=== PATIENT | female | born 1935 | race Caucasian/White ===

== ENCOUNTER → 2016-05-12 | Outpatient (CLI) | payer MEDICARE ==
--- NOTE | 2016-05-13 13:35 | XR ---
EXAMINATION TYPE: XR ankle complete LT DATE OF EXAM: 05/12/2016 3:03 PM COMPARISON: NONE HISTORY: Pain and swelling Three views of the ankle demonstrate the ankle mortise to be intact and symmetric. The joint spaces are preserved. The osseous structures are intact. Diffuse osteopenia is seen with soft tissue edema . Large calcaneal spurs and vascular calcification noted. IMPRESSION: 1. No definite acute fracture or dislocation, if symptoms persist follow-up study in 7 to 10 days wou ld be suggested.
--- NOTE | 2016-05-13 13:36 | XR ---
EXAMINATION TYPE: XR foot complete LT DATE OF EXAM: 05/12/2016 3:03 PM COMPARISON: NONE HISTORY: Pain post fall Diffuse osteopenia. Arthropathy of all MTP joints with most marked involving the first digit. Calcifi cation there are seen appear vascular. Hammertoe deformities noted. Calcaneal spurs seen. Arthropathy of the tarsometatarsal junction is seen. IMPRESSION: 1. No acute fracture or dislocation. If symptoms persist, follow-up exam in 7 to 10 days could be ob tained.
== END | disposition home or self-care (01) ==
LOC: RADXRYALE 14:43
PROVIDERS: ATTEND Physician Assistant Medical
DX: M25.572 Pain in left ankle and joints of left foot (principal); M79.672 Pain in left foot

== ENCOUNTER → 2016-05-12 | Outpatient (CLI) | payer MEDICARE ==
--- NOTE | 2016-05-12 16:51 | US ---
EXAMINATION TYPE: US venous doppler duplex LE LT DATE OF EXAM: 05/12/2016 4:26 PM COMPARISON: NONE CLINICAL HISTORY: R60.9 EDEMA. SIDE PERFORMED: Left VESSELS IMAGED: External Iliac Vein (EIV) Common Femoral Vein Deep Femoral Vein Greater Saphenous Vein * Femoral Vein Popliteal Vein Small Saphenous Vein * Proximal Calf Veins (* superficial vessels) TECHNOLOGIST IMPRESSION: Preliminary results called to Mamta at office. Patient sent home. Right Leg: Negative for DVT IMPRESSION: 1. Left lower extremity negative for acute deep venous thrombosis.
== END | disposition home or self-care (01) ==
LOC: RADUSWWP 16:07
PROVIDERS: ATTEND Family Medicine
DX: R60.9 Edema, unspecified (principal)

== ENCOUNTER → 2016-05-31 | Outpatient (CLI) | payer MEDICARE ==
--- NOTE | 2016-06-01 13:20 | XR ---
EXAMINATION TYPE: XR abdomen 2V DATE OF EXAM: 05/31/2016 11:31 AM COMPARISON: 03/03/2015 INDICATION: Right lower quadrant pain TECHNIQUE: Two view abdomen upright and supine positions. FINDINGS: There is a normal bowel gas pattern. Psoas margins are normal. No organomegaly is present. Cholecystectomy clips are present. No suspicious air-fluid levels or differential air-fluid levels ar e present. No free air is present. Degenerative changes within the lumbar spine IMPRESSION: 1. Unremarkable Abdomen 2. Exam is stable from February 2015
== END | disposition home or self-care (01) ==
LOC: RADXRYALE 11:12
PROVIDERS: ATTEND Physician Assistant Medical
DX: R10.31 Right lower quadrant pain (principal)
CPT/HCPCS: 74020

== ENCOUNTER → 2016-06-16 | Outpatient (CLI) | payer MEDICARE ==
--- NOTE | 2016-06-16 13:01 | MR ---
EXAMINATION TYPE: MR lumbar spine wo con DATE OF EXAM: 06/16/2016 12:38 PM COMPARISON: Lumbar spine second of February 2015 HISTORY: other intervertebral disc degeneration lsp, Pain TECHNIQUE: Multiplanar, multisequence images of the lumbar spine were acquired. Artifact is present due to patient's hip arthroplasty. There is a scoliosis as noted on plain film. L umbar vertebral bodies show preserved height. There is multilevel spondylosis with endplate discogeni c marrow signal change and associated loss of disc height and signal at the intervertebral levels wit h multilevel vacuum disc phenomenon. L1-L2: There is facet arthropathy. Circumferential posterior broad-based disc bulge causes mild anter ior mass effect on the thecal sac. Circumferential extension of endplate disc complex results in some foraminal encroachment which is likely contributed by the scoliosis. No significant central stenosis . L2-L3: Broad-based posterior disc bulge causes anterior mass effect on the thecal sac. Facet arthropa thy encroaches on the lateral recesses, circumferential extension of endplate disc complex results in bilateral foraminal encroachment. On mild central stenosis. L3-L4: Circumferential extension of endplate disc complex results in mild anterior mass effect on the thecal sac, bilateral foraminal encroachment is present, there is facet arthropathy with productive ligamentum flavum causing lateral recess stenosis greater on the left. L4-L5: Posterior disc bulge is present, minimal anterolisthesis grade 1 present at L4-5, there is hyp ertrophy of the ligamentum flavum and facet arthropathy causing lateral recess encroachment. Mild ion ateral foraminal encroachment. [place] thecal sac is present, mild central canal stenosis. L5-S1: Posterior broad-based disc bulge causes anterior mass effect on the thecal sac, there may be s ome mass effect on the proximal S1 nerve roots. Facet arthropathy is present. Foraminal encroachment is present bilaterally. No significant central stenosis. Lumbar segments are intact. No paraspinal masses are identified. Conus medullaris has a normal appe arance. There is some atrophy, fatty replacement of the psoas on the right. IMPRESSION: Degenerative disc disease, scoliosis, facet arthropathy, central canal stenosis and foraminal encroac hment as described, additional findings above.
== END ==
LOC: RADMRIMAIN 12:01
PROVIDERS: ATTEND Family Medicine
DX: M51.36 Other intervertebral disc degeneration, lumbar region (principal); M41.9 Scoliosis, unspecified; M46.96 Unspecified inflammatory spondylopathy, lumbar region; M46.97 Unspecified inflammatory spondylopathy, lumbosacral region; M48.06 Spinal stenosis, lumbar region; M51.26 Other intervertebral disc displacement, lumbar region; M51.27 Other intervertebral disc displacement, lumbosacral region; M46.06 Spinal enthesopathy, lumbar region
CPT/HCPCS: 72148

== ENCOUNTER → 2016-08-08 | Outpatient (CLI) | payer MEDICARE ==
[2016-08-08 15:23] LABS: Blood Urea Nitrogen 24 mg/dL (7-17); Non-African American GFR(MDRD) >60 (>60 ml/min/1.73 sqM)
--- NOTE | 2016-08-08 17:21 | MR ---
EXAMINATION TYPE: MR lumbar spine wo/w con DATE OF EXAM: 08/08/2016 4:29 PM COMPARISON: 06/16/2016 HISTORY: LBP x 1 year, no trauma CONTRAST: 15 mL intravenous MultiHance. TECHNIQUE: Multiplanar, multisequence images of the lumbar spine were acquired. FINDINGS: L5-S1: There is loss of disc height is level. There is some left paracentral disc bulge with moderate anterior thecal sac compression. This is likely displacing left S1 nerve root posteriorly. Correlate with left S1 radicular symptoms. This area has increased in size over the interval. L4-L5: There is loss of disc height is level. No significant disc bulge is evident. Facet hypertrophy is present. Posterior lateral thecal sac compression is contributing to lateral canal stenosis. L3-L4: Central disc herniation which extends superiorly has anterior thecal sac compression to modera te degree. Posterior lateral thecal sac compression from ligamentum flavum laxity is present. Spinal canal narrowing is present. Facet hypertrophy is present. Findings are new from July 04, 2016. L2-L3: Broad-based disc endplate changes have moderate anterior thecal sac compression. Facet hypertr ophy is present contributing to spinal canal narrowing. Bilateral foraminal stenosis is present. No spinal canal stenosis. No foraminal stenosis. Neural foramen are patent.. L1-L2: Broad-based disc bulge is present with anterior thecal sac contact. Mild facet hypertrophy wit h ligamentum flavum laxity is present with posterior lateral thecal sac compression. No AP stenosis i s present. Foraminal narrowing is present. T12-L1: No significant disc bulge or disc herniation. No spinal canal stenosis. No foraminal stenos is. Neural foramen are patent.. Degenerative loss of disc height is present at this level. Cord terminates at the inferior T12 level. IMPRESSION: 1. Central disc herniation L3-L4 which appears to been interval change from July 04, 2016. 2. Multilevel degenerative disc changes, endplate changes, facet changes with ligamentum flavum laxit y appears stable from comparison. 3. Spinal canal stenosis from facet hypertrophy and endplate changes is present L3-4 and laterally at L4-5.
== END | disposition home or self-care (01) ==
LOC: RADMRIMAIN 14:53
PROVIDERS: ATTEND Physical Medicine & Rehabilitation
DX: M48.06 Spinal stenosis, lumbar region (principal); M51.26 Other intervertebral disc displacement, lumbar region; M47.816 Spondylosis without myelopathy or radiculopathy, lumbar region; M16.11 Unilateral primary osteoarthritis, right hip; M41.86 Other forms of scoliosis, lumbar region
CPT/HCPCS: 82565; 84520; 72158; A9577

== ENCOUNTER → 2017-10-19 | Outpatient (CLI) | payer MEDICARE ==
--- NOTE | 2017-10-19 15:05 | XR ---
EXAMINATION TYPE: XR abdomen 2V DATE OF EXAM: 10/19/2017 3:01 PM CLINICAL HISTORY: Right flank pain for one week TECHNIQUE: Single upright image of the abdomen is obtained. COMPARISON: 05/31/2016. FINDINGS: Scattered gas is seen in nondilated small bowel loops. Gas and fecal material is seen in no ndilated colon. Moderate amount retained colonic stool is noted within the right hemicolon. There is no visceromegaly, pneumoperitoneum, or abnormal calcification appreciated. Right femoral arthroplast y is partially visualized. Advanced degenerative changes of the spine and left femoral acetabular mona nt are present. Cholecystectomy clips reside within the right upper quadrant. IMPRESSION: Moderate amount retained right hemicolonic stool in an overall nonobstructive bowel gas p attern.
== END | disposition home or self-care (01) ==
LOC: RADXRYALE 14:45
PROVIDERS: ATTEND Physician Assistant Medical
DX: K59.00 Constipation, unspecified (principal)
CPT/HCPCS: 74019

== ENCOUNTER → 2019-04-29 | Outpatient (CLI) | payer MEDICARE ==
--- NOTE | 2019-04-29 14:53 | XR ---
EXAMINATION TYPE: XR chest 2V DATE OF EXAM: 04/29/2019 COMPARISON: Chest x-ray March 28, 2017 HISTORY: Persistent cough. TECHNIQUE: Frontal and lateral views of the chest are obtained. FINDINGS: There is background chronic emphysematous change without suspicious new focal air space op acity, pleural effusion, or pneumothorax seen. The cardiac silhouette size is stable and mildly enla rged with atherosclerotic thoracic aorta. The osseous structures are demineralized. IMPRESSION: Chronic emphysematous change without new suspicious acute pulmonary process.
== END | disposition home or self-care (01) ==
LOC: RADXRYALE 14:27
PROVIDERS: ATTEND Physician Assistant Medical
DX: J43.9 Emphysema, unspecified (principal); R05 Cough
CPT/HCPCS: 71046

== ENCOUNTER → 2019-11-11 | Outpatient (CLI) | payer MEDICARE ==
--- NOTE | 2019-11-11 16:27 | XR ---
EXAMINATION TYPE: XR knee complete RT DATE OF EXAM: 11/11/2019 CLINICAL HISTORY: pain TECHNIQUE: Three views of the right knee are obtained. COMPARISON: None. FINDINGS: There is no acute fracture/dislocation. Total knee arthroplasty with femoral and tibial co mponents appearing well seated. The overlying soft tissue appears unremarkable. IMPRESSION: There is no acute fracture or dislocation.ICD 10 NO FRACTURE, INITIAL EVALUATION
== END | disposition home or self-care (01) ==
LOC: RADXRYALE 16:01
PROVIDERS: ATTEND Physician Assistant Medical
DX: M25.561 Pain in right knee (principal)

== ENCOUNTER → 2022-01-14 | Outpatient (CLI) | payer MEDICARE ==
--- NOTE | 2022-01-14 11:26 | XR ---
"EXAMINATION TYPE: XR hand complete LT DATE OF EXAM: 01/14/2022 CLINICAL HISTORY: Pain after fall injury. TECHNIQUE: Frontal, lateral and oblique images of the left hand are obtained. COMPARISON: None. FINDINGS: Osseous structures are demineralized which is noted to lower radiographic sensitivity. Ther e are are acute minimally displaced fractures through the proximal metaphysis of the fourth and fifth metacarpals Severe narrowing second and third metacarpal phalangeal joints. Moderate to severe narro wing of the PIP and DIP joints of the phalanges. Mild to moderate soft tissue swelling is seen. There is positive ulnar variance. There is advanced triscaphe joint narrowing with endplate sclerosis. Ove rlying vascular calcification is present. Lateral view is suboptimal due to oblique orientation. Adva nced narrowing at base of first metacarpal also present. Overlying vascular calcification is seen. Ca lcification of the triangle fibrocartilage complex suggest underlying chondrocalcinosis. IMPRESSION: Acute minimally displaced fractures through the proximal metaphysis fourth and fifth meta carpals. A Yellow level critical message alert has been initiated for YOGESH Stapleton via the [employer] | Critical Results System on 01/14/2022 8:23 AM. This message alert has been sent to YOGESH Stapleton via the preferences provided by the clinician for the receipt of Radiology Critical Fin ana. Message ID [id number]."
== END | disposition home or self-care (01) ==
LOC: RADXRYALE 10:37
PROVIDERS: ATTEND Physician Assistant Medical
DX: S62.316A Displaced fracture of base of fifth metacarpal bone, right hand, initial encounter for closed fracture (principal)

== ENCOUNTER → 2022-10-06 | Outpatient (CLI) | payer MEDICARE ==
--- NOTE | 2022-10-06 15:57 | XR ---
EXAMINATION TYPE: XR lumbosacral spine min 4V DATE OF EXAM: 10/06/2022 CLINICAL HISTORY: pain COMPARISON: 03-01 TECHNIQUE: Frontal, lateral, and oblique images of the lumbar spine are obtained. FINDINGS: There is rotoscoliosis and convex to the right. There is severe degenerative disc space arlyn rowing as well as bridging osteophytes noted throughout. Correlate for underlying ankylosing spondyli tis. Overall the appearance is stable. No compression fracture or malalignment. IMPRESSION: Osteoarthritis. Correlate for ankylosing spondylitis.
== END | disposition home or self-care (01) ==
LOC: RADXRYALE 14:23
PROVIDERS: ATTEND Physician Assistant Medical
DX: M47.817 Spondylosis without myelopathy or radiculopathy, lumbosacral region (principal); M54.40 Lumbago with sciatica, unspecified side
CPT/HCPCS: 72110

== ENCOUNTER → 2022-10-27 | Outpatient (CLI) | payer MEDICARE ==
--- NOTE | 2022-11-03 12:14 | XR ---
EXAMINATION TYPE: XR knee complete LT DATE OF EXAM: 10/27/2022 CLINICAL HISTORY: pain TECHNIQUE: Three views of the left knee are obtained. COMPARISON: None. FINDINGS: There is no acute fracture/dislocation. Total knee arthroplasty with femoral and tibial co mponents appearing well seated. Vascular calcifications noted. The overlying soft tissue appears unre markable. IMPRESSION: There is no acute fracture or dislocation ICD 10 NO FRACTURE, INITIAL EVALUATION
== END | disposition home or self-care (01) ==
LOC: RADXRYALE 15:02
PROVIDERS: ATTEND Physician Assistant
DX: M25.562 Pain in left knee (principal); Z96.652 Presence of left artificial knee joint

== ENCOUNTER 2022-11-15 10:18 | Inpatient (IN) | payer MEDICARE ==
--- NOTE | 2022-11-15 11:19 | ED ---
General Adult HPI - General Chief complaint: Back Pain/Injury Stated complaint: back pain Time Seen by Provider: 11/15/22 11:04 Source: patient, RN notes reviewed Mode of arrival: ambulatory Limitations: physical limitation - History of Present Illness Initial comments: 87-year-old female presents to the emergency department chief complaint of low back pain. She states that the pain has been going on for about a month now and has been progressively getting worse. She reports that she takes [place] at home for the pain which temporarily revived some relief. She reports the pain is worse with walking and with movement and she is unable to get around well. She reports the pain radiates down her left leg and stops at the knee. She has had no new injury. She reports that she had an MRI done on . Patient denies loss of bowel or bladder function, urinary retention, saddle anesthesia, fever. - Related Data Home Medications Medication Instructions Recorded Confirmed hydrALAZINE HCL [Apresoline] 50 mg PO BID 02/16/15 11/15/22 Ginkgo Biloba [place] Extract [Ginkgo] 60 mg PO DAILY 06/04/15 11/15/22 Alendronate Sodium [Fosamax] 70 mg PO WE 11/15/22 11/15/22 Apixaban [Eliquis] 5 mg PO BID 11/15/22 11/15/22 Cholecalciferol [Vitamin D3 (25 50 mcg PO DAILY 11/15/22 11/15/22 Mcg = 1000 Iu)] Levothyroxine Sodium [Synthroid] 200 mcg PO DAILY 11/15/22 11/15/22 Metoprolol Tartrate [Lopressor] 50 mg PO BID 11/15/22 11/15/22 Simvastatin [Zocor] 20 mg PO HS 11/15/22 11/15/22 amLODIPine [Norvasc] 2.5 mg PO DAILY 11/15/22 11/15/22 calcitrioL [Calcitriol] 0.25 mcg PO MOTUWETHFR 11/15/22 11/15/22 Allergies Allergy/AdvReac Type Severity Reaction Status Date / Time baclofen Allergy Swelling Verified 11/15/22 17:54 OF LIPS AND TONGUE cephalexin [From Keflex] Allergy Rash/Hives Verified 11/15/22 17:54 ciprofloxacin [From Cipro] Allergy Rash/Hives Verified 11/15/22 17:54 Penicillins Allergy Rash/Hives Verified 11/15/22 17:54 Sulfa (Sulfonamide Allergy Rash/Hives Verified 11/15/22 17:54 Antibiotics) tizanidine Allergy Swelling Verified 11/15/22 17:54 OF LIPS AND TONGUE Review of Systems ROS Statement: Those systems with pertinent positive or pertinent negative responses have been documented in the HPI. ROS Other: All systems not noted in ROS Statement are negative. Past Medical History Past Medical History: Cancer, Hyperlipidemia, Hypertension, Thyroid Disorder Additional Past Medical History / Comment(s): BACK PAIN, SKIN CANCER, L4 fracture History of Any Multi-Drug Resistant Organisms: None Reported Past Surgical History: Appendectomy, Cholecystectomy, Joint Replacement, Tonsillectomy Additional Past Surgical History / Comment(s): ELYSE TOTAL KNEE SURG, CARPAL TUNNEL, OOPHERECTOMY, SKIN LESION -VAGANIA, RIGHT FOOT SURGERY Past Anesthesia/Blood Transfusion Reactions: No Reported Reaction Past Psychological History: No Psychological Hx Reported Smoking Status: Never smoker Past Alcohol Use History: Occasional Past Drug Use History: None Reported - Past Family History Son(s) Family Medical History: Cancer Additional Family Medical History / Comment(s): SARCOMA General Exam Limitations: physical limitation General appearance: alert, in no apparent distress Head exam: Present: atraumatic, normocephalic, normal inspection Eye exam: Present: normal appearance ENT exam: Present: normal exam, mucous membranes moist Neck exam: Present: normal inspection. Absent: tenderness, meningismus, lymphadenopathy Respiratory exam: Present: normal lung sounds bilaterally. Absent: respiratory distress, wheezes, rales, rhonchi, stridor Cardiovascular Exam: Present: regular rate, normal rhythm, normal heart sounds. Absent: systolic murmur, diastolic murmur, rubs, gallop, clicks GI/Abdominal exam: Present: soft, normal bowel sounds. Absent: distended, tenderness, guarding, rebound, rigid Extremities exam: Present: normal inspection, normal capillary refill, other (decreased left hip ROM due to back pain). Absent: tenderness, pedal edema, joint swelling, calf tenderness Back exam: Present: tenderness (low lumbar) Neurological exam: Present: alert, oriented X3 Psychiatric exam: Present: normal affect, normal mood Skin exam: Present: warm, dry, intact, normal color. Absent: rash Course Vital Signs 11/15/22 11/15/2223 10:48 15:18 20:00 Temperature 98.8 F 98.2 F 98.0 F Pulse Rate 108 H 83 Pulse Rate [ 80 Bilateral Radial] Pulse Rate [ 80 Pulse Oximetery ] Respiratory 22 17 16 Rate Blood Pressure 152/66 110/73 Blood Pressure 113/69 [Right Arm] O2 Sat by Pulse 997 H 97 97 Oximetry Medical Decision Making - Medical Decision Making Was pt. sent in by a medical professional or institution (, [facility], CLARITY DEVELOPER, urgent care, hospital, or residential...) When possible be specific @ -No Did you speak to anyone other than the patient for history (EMS, parent, family, police, friend...)? What history was obtained from this source @ -No Did you review nursing and triage notes (agree or disagree)? Why? @ -I reviewed and agree with nursing and triage notes Were old charts reviewed (outside hosp., previous admission, EMS record, old EKG, old radiological studies, urgent care reports/EKG's, residential records)? Report findings @ -No old charts were reviewed Differential Diagnosis (chest pain, altered mental status, abdominal pain women, abdominal pain men, vaginal bleeding, weakness, fever, dyspnea, syncope, headache, dizziness, GI bleed, back pain, seizure, CVA, palpatations, mental health, musculoskeletal)? @ -Differential Back Pain: Strain, zoster, cauda equina syndrome, epidural abscess, vertebral osteomyelitis, discitis, fracture, subluxation, disc herniation, DJD, spinal stenosis, dissection, AAA, pancreatitis, peptic ulcer disease, pyelonephritis, kidney stone, this is not meant to be an all-inclusive list. EKG interpreted by me (3pts min.). @ -None X-rays interpreted by me (1pt min.). @ -None done CT interpreted by me (1pt min.). @ -None done U/S interpreted by me (1pt. min.). @ -None done What testing was considered but not performed or refused? (CT, X-rays, U/S, labs)? Why? @ -XR considered but patient had recent MRI without any new trauma What meds were considered but not given or refused? Why? @ -None Did you discuss the management of the patient with other professionals (professionals i.e. , PA, CLARITY DEVELOPER, lab, RT, psych nurse, social service coordinator, setter cold rolling machine, teacher, student officer, case management director)? Give summary @ -Case discussed with Dr. Duarte with [facility] Was smoking cessation discussed for >3mins.? @ -No Was critical care preformed (if so, how long)? @ -No Were there social determinants of health that impacted care today? How? (Homelessness, low income, unemployed, alcoholism, drug addiction, transportation, low edu. Level, literacy, decrease access to med. care, care home, rehab)? @ -No Was there de-escalation of care discussed even if they declined (Discuss DNR or withdrawal of care, Hospice)? DNR status @ -No What co-morbidities impacted this encounter? (DM, HTN, Smoking, COPD, CAD, Cancer, CVA, ARF, Chemo, Hep., AIDS, mental health diagnosis, sleep apnea, morbid obesity)? @ -None Was patient admitted / discharged? Hospital course, mention meds given and route, prescriptions, significant lab abnormalities, going to OR and other per tinent info. @ -Admitted. Patient presented to the emergency department for chief complaint of back pain which is chronic but has been worsening. Patient reports she is unable to get out of bed without assistance. Patient recently underwent MRI on 11/04/22 which showed spinal canal narrowing due to disc bulging and facet hypertrophy; annular tear and disc protrusion at L4-5; endplate spurring disc bulging L2-3 and L1-2 without stenosis interpreted by [facility] radiology. Patient unable to get out of bed without assistance. Basic laboratory studies were obtained on the patient which are pending at time of admission. Case was discussed with Dr. Conley with [facility] who is accepting of the admission with consultation to orthopedics specifically Dr. Alejandra who the patient was scheduled to see, PT, OT. Patient stable at time of admission. Case discussed with my attending, Dr. Ly Undiagnosed new problem with uncertain prognosis? @ -No Drug Therapy requiring intensive monitoring for toxicity (Heparin, Nitro, Insulin, Cardizem)? @ -No Were any procedures done? @ -No Diagnosis/symptom? @ -back pain Acute, or Chronic, or Acute on Chronic? @ -acute Uncomplicated (without systemic symptoms) or Complicated (systemic symptoms)? @ -uncomplicated Side effects of treatment? @ -No Exacerbation, Progression, or Severe Exacerbation? @ -No Poses a threat to life or bodily function? How? (Chest pain, [place], NH, pneumonia, PE, COPD, DKA, ARF, appy, cholecystitis, CVA, Diverticulitis, Homicidal, Suicidal, threat to staff... and all critical care pts) @ -No - Lab Data Result diagrams: 11/15/22 15:09 11/15/22 15:41 Lab Results 11/15/22 11/15/22 Range/Units 15:09 15:09 WBC 16.1 H (3.8-10.6) k/uL RBC 3.51 L (3.80-5.40) m/uL Hgb 12.0 (11.4-16.0) gm/dL Hct 35.4 (34.0-46.0) % MCV 100.7 H (80.0-100.0) fL MCH 34.1 (25.0-35.0) pg MCHC 33.9 (31.0-37.0) g/dL RDW 13.8 (11.5-15.5) % Plt Count 158 (150-450) k/uL MPV 8.8 Neutrophils % 91 % Lymphocytes % 2 % Monocytes % 4 % Eosinophils % 1 % Basophils % 0 % Neutrophils # 14.6 H (1.3-7.7) k/uL Lymphocytes # 0.4 L (1.0-4.8) k/uL Monocytes # 0.7 (0-1.0) k/uL Eosinophils # 0.2 (0-0.7) k/uL Basophils # 0.0 (0-0.2) k/uL Manual Slide Review Performed Macrocytosis Slight Urine Color Light Red Urine Appearance Cloudy H (Clear) Urine pH 5.5 (5.0-8.0) Ur Specific [place] 1.021 (1.001-1.035) Urine Protein 1+ H (Negative) Urine Glucose (UA) Negative (Negative) Urine Ketones Trace H (Negative) Urine Blood Small H (Negative) Urine Nitrite Positive H (Negative) Urine Bilirubin Negative (Negative) Urine Urobilinogen <2.0 (<2.0) mg/dL Ur Leukocyte Esterase Large H (Negative) Urine RBC 1 (0-5) /hpf Urine WBC 50 H (0-5) /hpf Ur Squamous Epith Cells 1 (0-4) /hpf Urine Bacteria Many H (None) /hpf Granular Casts 1 (0) /lpf Disposition Clinical Impression: Back pain Disposition: ADMITTED IP TO THIS HOSP Condition: Stable Is patient prescribed a controlled substance at d/c from ED?: No
[2022-11-15] MEDS ORDERED: LIDOCAINE 5% PATCH TOPICAL STA (11:34)
[2022-11-15] MEDS ORDERED: MORPHINE SULFATE 2 MG/ML SYRINGE IM STA (11:45)
[2022-11-15] MEDS ORDERED: ACETAMINOPHEN TAB 325 MG TAB PO STA (11:45)
[2022-11-15] MEDS ORDERED: NALOXONE 0.4 MG/ML 1 ML VIAL IV PRN (15:10)
[2022-11-15 15:27] LABS: Basophils % (A) 0 %; Eosinophils # (A) 0.2 k/uL (0-0.7); Eosinophils % (A) 1 %; HCT 35.4 % (34.0-46.0); Lymphocytes # (A) 0.4 k/uL (1.0-4.8); Lymphocytes % (A) 2 %; MCH 34.1 pg (25.0-35.0); MCHC 33.9 g/dL (31.0-37.0); MCV 100.7 fL (80.0-100.0); Macrocytosis Slight; Mean Platelet Volume 8.8; Monocytes # (A) 0.7 k/uL (0-1.0); Monocytes % (A) 4 %; Neutrophils # (A) 14.6 k/uL (1.3-7.7); Neutrophils % (A) 91 %; Platelet Count 158 k/uL (150-450); RBC 3.51 m/uL (3.80-5.40); RDW 13.8 % (11.5-15.5); WBC 16.1 k/uL (3.8-10.6)
[2022-11-15 15:33] LABS: Appearance,Urine Cloudy (Clear); Bilirubin,Urine Negative (Negative); Blood,Urine Small (Negative); Color,Urine Light Red; Glucose,Urine (UA) Negative (Negative); Ketones,Urine Trace (Negative); Leukocyte Esterase,Urine Large (Negative); Nitrite,Urine Positive (Negative); PH, Urine 5.5 (5.0-8.0); Protein,Urine 1+ (Negative); Specific Gravity,Urine 1.021 (1.001-1.035); Urobilinogen,Urine <2.0 mg/dL (<2.0)
[2022-11-15 15:38] LABS: RBC,Urine 1 /hpf (0-5); WBC,Urine 50 /hpf (0-5)
[2022-11-15 15:39] LABS: Bacteria,Urine Many /hpf; Granular Casts,Urine 1 /lpf (0); Squamous Epithelial Cell,Urine 1 /hpf (0-4)
[2022-11-15] MEDS: HYDROmorphone 0.5 MG/0.5 ML SYRINGE IVP PRN (16:08)
[2022-11-15 16:11] LABS: ALT 46 U/L (4-34); AST 85 U/L (14-36); African American GFR (CKD) 59 (>60 ml/min/1.73 sqM); Albumin 2.8 g/dL (3.5-5.0); Albumin/Globulin Ratio 1.1; Alkaline Phosphatase 225 U/L (38-126); Anion Gap 9 mmol/L; Blood Urea Nitrogen 39 mg/dL (7-17); Calcium 7.9 mg/dL (8.4-10.2); Carbon Dioxide 23 mmol/L (22-30); Chloride 103 mmol/L (98-107); Globulin 2.5 g/dL; Glucose 104 mg/dL (74-99); Non-African American GFR(CKD) 51 (>60 ml/min/1.73 sqM); Potassium 3.2 mmol/L (3.5-5.1); Sodium 135 mmol/L (137-145); Total Bilirubin 1.7 mg/dL (0.2-1.3); Total Protein 5.3 g/dL (6.3-8.2)
[2022-11-15] MEDS ORDERED: POTASSIUM CHLORIDE ER 20 MEQ TAB.ER PO STA (18:38)
--- NOTE | 2022-11-15 18:45 | P.HPIM ---
History of Present Illness H&P Date: 11/15/22 Patient is a 87-year-old female with PMH of chronic lower back pain, atrial fibrillation, hypertension, hypothyroidism, dyslipidemia presents the ED for worsening back pain. Patient was recently seen at [facility] for back pain. She underwent MRI which showed spinal canal narrowing due to disc bulging and facet hypertrophy, L3-L4, annular tear and disc protrusion centrally L4-L5, endplate spurring and disc bulging L2-L3 and L1-L2, multilevel foraminal narrowing L1-L2, L2-L3, L3-L4. She was given a follow-up appointment with Dr. Alejandra. She presented to the clinic today but realized her appointment was tomorrow. She was unable to get in her car due to pain so family brought her to the ED. Her pain is currently well controlled on Dilaudid as needed. She denies any bladder or bowel incontinence. She denies any saddle anesthesia. In the ED, she was noted to be tachycardic with heart rate in the 100s and BP of 152/66. CBC showed a leukocytosis of 16.1 and MCV of 100.7. CMP showed sodium 135, potassium of 3.2, B1 of 39, glucose 104, calcium of 7.9, total bilirubin 1.7, AST of 85, ALT of 46, alkaline phosphatase of 225. Urinalysis showed positive nitrite and large leukocyte esterase. Pertinent positives and negatives as discussed in HPI, a complete review of systems was performed and all other systems are negative. General: non toxic, no distress, appears at stated age Derm: warm, dry Head: atraumatic, normocephalic, symmetric Eyes: EOMI, no lid lag, anicteric sclera Cardiovascular: S1S2 reg, no murmur Lungs: CTA bilateral, no rhonchi, no rales , no accessory muscle use Abdominal: soft, nontender to palpation, no guarding, no appreciable organomegaly Ext: no gross muscle atrophy, no edema, no contractures Neuro: no focal neuro deficits Psych: Alert, oriented, appropriate affect Acute on chronic lower back pain SIRS Abnormal urinalysis Transaminitis Hypokalemia Based on my assessment of this patient, this patient meets a high complexity level of care. Patient has a chronic lower back pain exacerbation or progression of disease which poses a threat to life or bodily function. She is requiring IV narcotic medication for pain control. Acute on chronic lower back pain: Dilaudid and [place] as needed for severe pain. Fall precautions. Orthopedic surgery consulted. SIRS: Patient meets sepsis criteria with tachycardia, leukocytosis and abnormal urinalysis. She does not complain of dysuria. Start Rocephin 1 g IV daily. Obtain urine culture. Obtain blood culture. Obtain lactic acid. Telemetry monitoring. Her abnormal vital signs could also be related to uncontrolled pain. Abnormal urinalysis: Management as above. Transaminitis: Obtain liver gallbladder ultrasound. Hypokalemia: Replace with potassium chloride 20 mEq by mouth. Patient names her daughter decision maker if she can't make decisions for herself. Patient would like to be full code. I have reviewed the following rural health consultant notes: I have reviewed the results of the following tests: CBC, CMP, urinalysis. MRI done at outside facility. I have ordered the following tests: Gallbladder and liver ultrasound. Urine culture. Lactic acid. Blood culture. I have discussed the care of this patient with the following independent historian: Case was discussed with the patient and daughter at bedside. I have independently interpreted the following test below: I have discussed the management of this patient with the following physician: Case discussed with the ED provider in detail. Past Medical History Past Medical History: Cancer, Hyperlipidemia, Hypertension, Thyroid Disorder Additional Past Medical History / Comment(s): BACK PAIN, SKIN CANCER, L4 fracture History of Any Multi-Drug Resistant Organisms: None Reported Past Surgical History: Appendectomy, Cholecystectomy, Joint Replacement, Tonsillectomy Additional Past Surgical History / Comment(s): ELYSE TOTAL KNEE SURG, CARPAL TUNNEL, OOPHERECTOMY, SKIN LESION -VAGANIA, RIGHT FOOT SURGERY Past Anesthesia/Blood Transfusion Reactions: No Reported Reaction Past Psychological History: No Psychological Hx Reported Smoking Status: Never smoker Past Alcohol Use History: Occasional Past Drug Use History: None Reported - Past Family History Son(s) Family Medical History: Cancer Additional Family Medical History / Comment(s): SARCOMA Medications and Allergies Home Medications Medication Instructions Recorded Confirmed Type hydrALAZINE HCL [Apresoline] 50 mg PO BID 02/16/15 11/15/22 History Ginkgo Biloba [place] Extract [Ginkgo] 60 mg PO DAILY 06/04/15 11/15/22 History Alendronate Sodium [Fosamax] 70 mg PO WE 11/15/22 11/15/22 History Apixaban [Eliquis] 5 mg PO BID 11/15/22 11/15/22 History Cholecalciferol [Vitamin D3 (25 50 mcg PO DAILY 11/15/22 11/15/22 History Mcg = 1000 Iu)] Levothyroxine Sodium [Synthroid] 200 mcg PO DAILY 11/15/22 11/15/22 History Metoprolol Tartrate [Lopressor] 50 mg PO BID 11/15/22 11/15/22 History Simvastatin [Zocor] 20 mg PO HS 11/15/22 11/15/22 History amLODIPine [Norvasc] 2.5 mg PO DAILY 11/15/22 11/15/22 History calcitrioL [Calcitriol] 0.25 mcg PO MOTUWETHFR 11/15/22 11/15/22 History Allergies Allergy/AdvReac Type Severity Reaction Status Date / Time baclofen Allergy Swelling Verified 11/15/22 17:54 OF LIPS AND TONGUE cephalexin [From Keflex] Allergy Rash/Hives Verified 11/15/22 17:54 ciprofloxacin [From Cipro] Allergy Rash/Hives Verified 11/15/22 17:54 Penicillins Allergy Rash/Hives Verified 11/15/22 17:54 Sulfa (Sulfonamide Allergy Rash/Hives Verified 11/15/22 17:54 Antibiotics) tizanidine Allergy Swelling Verified 11/15/22 17:54 OF LIPS AND TONGUE Physical Exam Vitals: Vital Signs Temp Pulse Resp BP Pulse Ox 11/15/22 15:18 98.2 F 83 17 110/73 97 11/15/22 10:48 98.8 F 108 H 22 152/66 997 H Intake and Output 11/15/22 11/15/22 11/15/22 06:59 14:59 22:59 Other: Weight 72.575 kg Results CBC & Chem 7: 11/15/22 15:09 11/15/22 15:41 Labs: Abnormal Lab Results - Last 24 Hours (Table) 11/15/22 11/15/22 11/15/22 Range/Units 15:09 15:09 15:41 WBC 16.1 H (3.8-10.6) k/uL RBC 3.51 L (3.80-5.40) m/uL MCV 100.7 H (80.0-100.0) fL Neutrophils # 14.6 H (1.3-7.7) k/uL Lymphocytes # 0.4 L (1.0-4.8) k/uL Sodium 135 L (137-145) mmol/L Potassium 3.2 L (3.5-5.1) mmol/L BUN 39 H (7-17) mg/dL Glucose 104 H (74-99) mg/dL Calcium 7.9 L (8.4-10.2) mg/dL Total Bilirubin 1.7 H (0.2-1.3) mg/dL AST 85 H (14-36) U/L ALT 46 H (4-34) U/L Alkaline Phosphatase 225 H (38-126) U/L Total Protein 5.3 L (6.3-8.2) g/dL Albumin 2.8 L (3.5-5.0) g/dL Urine Appearance Cloudy H (Clear) Urine Protein 1+ H (Negative) Urine Ketones Trace H (Negative) Urine Blood Small H (Negative) Urine Nitrite Positive H (Negative) Ur Leukocyte Esterase Large H (Negative) Urine WBC 50 H (0-5) /hpf Urine Bacteria Many H (None) /hpf
--- NOTE | 2022-11-15 19:56 | US ---
EXAMINATION TYPE: US abdomen limited DATE OF EXAM: 11/15/2022 COMPARISON: NONE CLINICAL INDICATION: Female, 87 years old with history of transaminitis; transaminitis. Cholecystecto my TECHNIQUE: Multiple sonographic images of the right upper quadrant are obtained. FINDINGS: EXAM MEASUREMENTS: Liver Length: 13.8 cm Gallbladder Wall: Surgically absent CBD: 0.5 cm Right Kidney: 9.9 x 4.8 x 5.1 cm ADOBE LAYER HELPER NOTES: Pancreas: Parts visualized appear wnl. Duct measuring 2.5mm Liver: wnl Gallbladder: Surgically absent Evidence for sonographic Carrizales's sign: No CBD: wnl Right Kidney: wnl Right lobe of the liver is limited due to body habitus IMPRESSION: No evidence for acute process.
[2022-11-15] MEDS: hydrALAZINE HCL 50 MG TAB PO SCH (20:37)
[2022-11-15] MEDS: ATORVASTATIN 10 MG TAB PO SCH (20:37)
[2022-11-15] MEDS: APIXABAN 5 MG TAB PO SCH (20:37)
[2022-11-15] MEDS: METOPROLOL TARTRATE 50 MG TAB PO SCH (20:37)
[2022-11-15] MEDS: HYDROcodone/APAP 5-325MG 1 EACH TAB PO PRN (21:31)
[2022-11-15] MEDS: POTASSIUM CHLORIDE ER 20 MEQ TAB.ER PO SCH (22:01)
[2022-11-16] MEDS: HYDROmorphone 0.5 MG/0.5 ML SYRINGE IVP PRN ×5 (00:38→21:29)
[2022-11-16] MEDS: POTASSIUM CHLORIDE ER 20 MEQ TAB.ER PO SCH (00:38)
[2022-11-16] MEDS: LEVOTHYROXINE 100 MCG TAB PO SCH (06:07)
[2022-11-16 08:17] LABS: HCT 40.3 % (34.0-46.0); MCH 33.1 pg (25.0-35.0); MCHC 32.1 g/dL (31.0-37.0); MCV 103.2 fL (80.0-100.0); Macrocytosis Slight; Mean Platelet Volume 8.9; Platelet Count 176 k/uL (150-450); RBC 3.91 m/uL (3.80-5.40); RDW 13.7 % (11.5-15.5); WBC 13.4 k/uL (3.8-10.6)
[2022-11-16 08:29] LABS: African American GFR (CKD) 57 (>60 ml/min/1.73 sqM); Anion Gap 10 mmol/L; Blood Urea Nitrogen 40 mg/dL (7-17); Calcium 8.4 mg/dL (8.4-10.2); Carbon Dioxide 23 mmol/L (22-30); Chloride 107 mmol/L (98-107); Glucose 100 mg/dL (74-99); Non-African American GFR(CKD) 50 (>60 ml/min/1.73 sqM); Sodium 140 mmol/L (137-145)
[2022-11-16 08:36] LABS: Potassium 6.6 mmol/L (3.5-5.1)
[2022-11-16] MEDS ORDERED: CALCIUM GLUCONATE IN NACL 1 GM in SALINE 1 100ML.BAG IVPB ONE ×2 (09:00→14:00)
[2022-11-16] MEDS ORDERED: DEXAMETHASONE SOD PHOSPHATE 4 MG/ML 1 ML VIAL IVP PRN (09:05)
--- NOTE | 2022-11-16 09:05 | P.CNOR ---
History of Present Illness - [facility] Consult date: 11/16/22 History of present illness: Patient is an 87-year-old female who presented to the emergency department at [facility] with a chief complaint of worsening low back pain and lower extremity radiculopathy. Orthopedics was consulted for low back pain. Patient was seen at bedside this morning lying in semirecumbent position. Patient says her back pain began about 2 months ago one morning when she woke up. Patient denies having any falls/traumas. Patient states it is mostly low back pain with radiation down both lower extremities. It is worse in the left leg. Patient says it goes down from her buttocks all the way down her foot on the left side and goes to her knee on the right lower extremity. Patient says the pain wo rsens when she changes positions like when she goes from lying in bed to sitting at the edge of bed and from sitting to standing. Patient says she has tried to take Johnston at home and he did help at first, however, it is not helping much anymore. Patient says the pain also eases when she does not move. Patient says she has gone to the emergency department twice over the past 2 months at [facility] and did have an MRI within the past week. Patient says she did have a follow-up visit to see Dr. Goodman Yip in office, however, patient says the pain in her low back and down her legs worsen so she came into the ER. Patient states she currently takes eloquence daily due to atrial fibrillation. Patient denies any previous history of stroke/heart attack. Patient says she ruiz s received injections into her back before but it's been over 5 years. These [facility] Patient denies chest pain, fever, shortness of breath, nausea, vomiting, change in vision, loss of bowel/bladder control. Past Medical History Past Medical History: Atrial Fibrillation, Cancer, Hyperlipidemia, Hypertension, Thyroid Disorder Additional Past Medical History / Comment(s): BACK PAIN, SKIN CANCER, L4 fracture History of Any Multi-Drug Resistant Organisms: None Reported Past Surgical History: Appendectomy, Cholecystectomy, Joint Replacement, Tonsillectomy Additional Past Surgical History / Comment(s): ELYSE TOTAL KNEE SURG, CARPAL TUNNEL, OOPHERECTOMY, SKIN LESION -VAGANIA, RIGHT FOOT SURGERY Past Anesthesia/Blood Transfusion Reactions: No Reported Reaction Past Psychological History: No Psychological Hx Reported Smoking Status: Never smoker Past Alcohol Use History: Occasional Past Drug Use History: None Reported - Past Family History Son(s) Family Medical History: Cancer Additional Family Medical History / Comment(s): SARCOMA Medications and Allergies Home Medications Medication Instructions Recorded Confirmed Type hydrALAZINE HCL [Apresoline] 50 mg PO BID 02/16/15 11/15/22 History Ginkgo Biloba [place] Extract [Ginkgo] 60 mg PO DAILY 06/04/15 11/15/22 History Alendronate Sodium [Fosamax] 70 mg PO WE 11/15/22 11/15/22 History Apixaban [Eliquis] 5 mg PO BID 11/15/22 11/15/22 History Cholecalciferol [Vitamin D3 (25 50 mcg PO DAILY 11/15/22 11/15/22 History Mcg = 1000 Iu)] Levothyroxine Sodium [Synthroid] 200 mcg PO DAILY 11/15/22 11/15/22 History Metoprolol Tartrate [Lopressor] 50 mg PO BID 11/15/22 11/15/22 History Simvastatin [Zocor] 20 mg PO HS 11/15/22 11/15/22 History amLODIPine [Norvasc] 2.5 mg PO DAILY 11/15/22 11/15/22 History calcitrioL [Calcitriol] 0.25 mcg PO MOTUWETHFR 11/15/22 11/15/22 History Allergies Allergy/AdvReac Type Severity Reaction Status Date / Time baclofen Allergy Swelling Verified 11/15/22 17:54 OF LIPS AND TONGUE cephalexin [From Keflex] Allergy Rash/Hives Verified 11/15/22 17:54 ciprofloxacin [From Cipro] Allergy Rash/Hives Verified 11/15/22 17:54 Penicillins Allergy Rash/Hives Verified 11/15/22 17:54 Sulfa (Sulfonamide Allergy Rash/Hives Verified 11/15/22 17:54 Antibiotics) tizanidine Allergy Swelling Verified 11/15/22 17:54 OF LIPS AND TONGUE Physical Examination Inspection: Negative for any open fractures, significant ecchymosis/erythema/open wounds. 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 There is also scar over the left ankle from previous surgery. Sensation: Equal, symmetric, bilaterally intact throughout the upper and lower extremities Palpation: Moderate tenderness to patient over the lumbar spine and midline and in the bilateral SI joints. Nontender to palpation throughout rest of exam Range of motion: Patient has full range of motion bilateral upper extremities on exam. Patient does have limited range of motion in bilateral hips in flexion/extension secondary to referred pain from the low back. Patient is able to flex both knees just past 90 while lying in bed in semirecumbent position. Patient has full extension in bilateral knees. There is limited dorsi/plantar flexion in the left ankle likely due to previous surgery. Patient has full range of motion and EHL/FHL bilaterally Motor: 4-/5 in bilateral hips in flexion/extension. 4-/5 in resisted left knee flexion/extension. 4-/5 in resisted plantar flexion bilaterally. 4/5 in all other major motor groups in bilateral lower extremities. Form Setter strength 4/5 bilaterally. 4/5 in all other major motor groups in bilateral upper extremities Special tests: Negative Homans bilaterally. Negative Fred bilaterally. Negative clonus bilaterally Neurovascular: Radial pulse intact, 2+ bilaterally. Cap refill under 3 seconds in digits of upper extremities. Results - Labs Labs: Abnormal Lab Results - Last 24 Hours (Table) 11/15/22 11/15/22 11/15/22 Range/Units 15:09 15:09 15:41 WBC 16.1 H (3.8-10.6) k/uL RBC 3.51 L (3.80-5.40) m/uL MCV 100.7 H (80.0-100.0) fL Neutrophils # 14.6 H (1.3-7.7) k/uL Lymphocytes # 0.4 L (1.0-4.8) k/uL Sodium 135 L (137-145) mmol/L Potassium 3.2 L (3.5-5.1) mmol/L BUN 39 H (7-17) mg/dL Glucose 104 H (74-99) mg/dL Calcium 7.9 L (8.4-10.2) mg/dL Total Bilirubin 1.7 H (0.2-1.3) mg/dL AST 85 H (14-36) U/L ALT 46 H (4-34) U/L Alkaline Phosphatase 225 H (38-126) U/L Total Protein 5.3 L (6.3-8.2) g/dL Albumin 2.8 L (3.5-5.0) g/dL Urine Appearance Cloudy H (Clear) Urine Protein 1+ H (Negative) Urine Ketones Trace H (Negative) Urine Blood Small H (Negative) Urine Nitrite Positive H (Negative) Ur Leukocyte Esterase Large H (Negative) Urine WBC 50 H (0-5) /hpf Urine Bacteria Many H (None) /hpf 11/16/22 11/16/22 Range/Units 08:02 08:02 WBC 13.4 H (3.8-10.6) k/uL RBC (3.80-5.40) m/uL MCV 103.2 H (80.0-100.0) fL Neutrophils # (1.3-7.7) k/uL Lymphocytes # (1.0-4.8) k/uL Sodium (137-145) mmol/L Potassium 6.6 H* (3.5-5.1) mmol/L BUN 40 H (7-17) mg/dL Glucose 100 H (74-99) mg/dL Calcium (8.4-10.2) mg/dL Total Bilirubin (0.2-1.3) mg/dL AST (14-36) U/L ALT (4-34) U/L Alkaline Phosphatase (38-126) U/L Total Protein (6.3-8.2) g/dL Albumin (3.5-5.0) g/dL Urine Appearance (Clear) Urine Protein (Negative) Urine Ketones (Negative) Urine Blood (Negative) Urine Nitrite (Negative) Ur Leukocyte Esterase (Negative) Urine WBC (0-5) /hpf Urine Bacteria (None) /hpf H & H 11/15/22 11/16/22 Range/Units 15:09 08:02 Hgb 12.0 13.0 (11.4-16.0) gm/dL Hct 35.4 40.3 (34.0-46.0) % Result Diagrams: 11/16/22 08:11/16/22 08:02 - Diagnostic results Lumbar MRI with/without contrast: report reviewed, image reviewed (MRI lumbar spine has been reviewed. There is evident stenosis throughout the lumbar spine especially from L3 through L5. There may be a compression fracture at L5. There is also neuroforaminal stenosis on the left side. Positive for lumbar spondylosis; degenerative disc disease) Assessment and Plan Assessment: 1. Low back pain; bilateral lower extremity radiculopathy; lumbar stenosis; degenerative disc disease; lumbar spondylosis Plan: 1. Low back pain; bilateral lower extremity radiculopathy; lumbar stenosis; degenerative disc disease; lumbar spondylosis - MRI lumbar spine has been reviewed. There is evident stenosis throughout the lumbar spine especially from L3 through L5. There may be a compression fracture at L5. There is also neuroforaminal stenosis on the left side. Positive for lumbar spondylosis; degenerative disc disease. Patient does present with some weakness in bilateral lower extremities on exam which does correlate to findings on MRI. Patient does have previous history of lumbar spine steroid injections. Negative for any tensioning signs on exam today at bedside. I will discuss the findings of physical exam and MRI with my attending, Dr. Alejandra before proceeding with any potential orthopedic intervention. Patient does not have any saddle ane sthesia/perineal numbness/tingling. At this time we're not recommending any emergent orthopedic surgical intervention. Patient would benefit from IV steroids due to symptoms. Pain medication as needed. Physical therapy and occupational therapy dailyweightbearing as tolerated walker and assistance as necessary. We'll continue to follow patient during her stay in hospital. 2. Appreciate medical management 3. Pain management - Johnston; Tylenol 4. DVT prophylaxis - eliquis 5. GI prophylaxis recs 6. PT/OT - weightbearing as tolerated with walker and assistance as necessary 7. Encourage incentive spirometer use 8. Appreciate consult Time with Patient: Less than 30
--- NOTE | 2022-11-16 09:09 | XR ---
EXAMINATION TYPE: XR knee complete LT DATE OF EXAM: 11/16/2022 COMPARISON: 10/27/2022 HISTORY: Knee pain TECHNIQUE: 3 view left knee FINDINGS: Tibial and femoral components are present. No acute fractures are evident. No joint effusio n is evident. Patellar appearance is stable. Follow up exams can be performed 7-10 days from acute trauma for continued pain. IMPRESSION: 1. No acute osseous abnormality evident.
[2022-11-16 09:16] LABS: Total Bilirubin 1.7 mg/dL (0.2-1.3)
[2022-11-16] MEDS: hydrALAZINE HCL 50 MG TAB PO SCH ×2 (09:56→20:21)
[2022-11-16] MEDS: APIXABAN 5 MG TAB PO SCH (09:56)
[2022-11-16] MEDS: METOPROLOL TARTRATE 50 MG TAB PO SCH ×2 (09:56→20:21)
[2022-11-16] MEDS: amLODIPine 2.5 MG TAB PO SCH (09:56)
--- NOTE | 2022-11-16 11:03 | CT ---
EXAMINATION TYPE: CT lumbar spine wo con DATE OF EXAM: 11/16/2022 COMPARISON: HISTORY: Low back pain. CT DLP: 823 mGycm CONTRAST: CT scan of the lumbar is performed , patient injected with mL of . TECHNIQUE: CT of the lumbar spine is performed on a spiral scan at 3 mm thick sections. Reconstructed images are performed in the coronal and sagittal planes. FINDINGS: The L5 level appears to be transitional. Careful correlation prior to any surgical interven tion is recommended. The lowest rib level is labeled T12 for this examination. T12-L1: No focal disc herniation or significant disc bulge is evident. No spinal canal stenosis or neural foraminal stenosis is present. L1-L2: There may be some retrolisthesis of L1 on L2. Anterior vertebral body alignment appears preser darlene. AP spinal canal stenosis is not present. There is some anterior thecal sac contact and endplate changes. Some disc material may be associated with endplate changes. Bilateral foraminal stenosis is present. L2-L3: There is loss of disc height is level. Some mild posterior endplate spurring is present with a nterior thecal sac flattening. No AP spinal canal stenosis is present. Moderate right and severe left foraminal stenosis is present. L3-L4: Superior endplate of L4 has some destruction anteriorly. This could be related to degenerative change. Suspicious erosion is not identified. There is sclerosis along the inferior endplate of L3. Posterior endplate spurring is present with moderate anterior thecal sac compression. Spinal canal na rrowing appears to be present. Severe left and right foraminal stenosis present. L4-L5: There is narrowing of disc height. No AP spinal canal stenosis present. Facet hypertrophy with ligamentum flavum laxity contributing to lateral canal narrowing. Foramen appear patent. L5-S1: There is narrowing of the disc height. Endplate spurring may be in the left paracentral region which may be contributing to left foraminal stenosis. No AP spinal canal stenosis is present. IMPRESSION: 1. Spinal canal stenosis L3-4. 2. Lateral canal stenosis present L4-5. 3. Multilevel severe foraminal stenosis present bilaterally discussed above. 4. Superior endplate changes at L4 felt to more likely be related to degenerative Schmorl's node tony ge. However, if there is unexplained pain or clinical concern for discitis, MRI with contrast be vicenta mmended for closer evaluation. 5. Multilevel loss of disc height. 6. There may be an attempted transitional L5 level making labeling more difficult. For purposes of this exam the lowest rib level is labeled T12. Consider plain film correlation prior to surgical inte rvention.
[2022-11-16] MEDS ORDERED: FUROSEMIDE 10 MG/ML 4 ML VIAL IV STA (13:51)
[2022-11-16] MEDS ORDERED: SODIUM CHLORIDE 0.9% 500 ML 500 ML IV ONE (13:51)
[2022-11-16] MEDS ORDERED: DEXTROSE 50% SYRINGE 50 ML IVP STA (13:57)
[2022-11-16] MEDS ORDERED: INSULIN REGULAR 100 UNIT/ML VIAL (IV) IV ONE (13:57)
[2022-11-16] MEDS ORDERED: SODIUM CHLORIDE 0.9% 1,000 ML IV SCH (14:00)
[2022-11-16] MEDS ORDERED: DEXTROSE 50% SYRINGE 50 ML IVP ONE (14:35)
--- NOTE | 2022-11-16 14:47 | P.PN ---
Subjective Progress Note Date: 11/16/22 (Jaime charting seen at 0915) Patient is an 87-year-old female with known chronic low back pain, A. fib, hypertension, hypothyroidism, and dyslipidemia who presented to the ED with worsening back pain. She was initially seen at [facility] and underwent an MRI which showed spinal canal stenosis and disc bulging in multiple locations. Unfortunately her pain worsened and she was unable to weight her outpatient appointment and subsequently she presented to the emergency department. On arrival she was noted to be tachycardic. Initial laboratory analysis showed a leukocytosis of 16.1, MCV 100.7, sodium 135, potassium 3.2, bilirubin 1.7, AST 85, ALT 46, and alkaline phosphatase of 225. Urinalysis showed positive nitrites with large leukocyte esterase. She is admitted for pain control. She was started on Rocephin for possible urinary tract infection. Orthopedic spine surgery was consulted. She received potassium replacement. Patient seen and examined at bedside. She continues to have low back pain that is worse on the left than the right. She has constant pain radiated down the back of her left buttock to her knee. It is worse and she tries to ambulate or move the leg. She does have some right-sided low back pain with intermittent shooting down into the knee but this is not constant. She denies any falls, however she does state that late last week she slid off of her bed and hit her buttock on the floor. At that time her back pain became worse. Denies any difficulty with her bowel or bladder. Vital signs reviewed General: nontoxic, no distress, appears at stated age Cardiovascular: S1S2 reg, no murmur, positive posterior tibial pulse bilateral, Lungs: CTA bilateral, no rhonchi, no rales , no accessory muscle use Abdominal: soft, nontender to palpation, no guarding, no appreciable organomegaly Ext: no gross muscle atrophy, decreased strength left lower extremity however may be secondary to pain, no contractures Neuro: CN II-XI grossly intact, no focal neuro deficits Psych: Alert, oriented, appropriate affect Assessment/ Plan: Intractable back pain with lumbar spinal stenosis L3 through L5 -Case discussed with orthopedic physician assistants. Will await for CT lumbar spine, continue with pain control -[place] 5/325 every 4 hours as needed for pain, continue with Dilaudid 0.5 mg for breakthrough pain. - Stop Eliquis until definitive plan by ortho spine. Left knee pain -X-ray ordered and reviewed. No acute osseous process Hyperkalemia, medication induced -Stat repeat was performed and came back elevated -Lasix 40 mg IV 1, normal saline 500 mL bolus, insulin 10 units once, calcium gluconate 1 g now, D50 after the insulin -Repeat potassium level at 1700 Abnormal urinalysis -Possible urinary tract infection. Continue with Rocephin 1 g daily. Await urine cultures Transaminitis - Liver ultrasound unrevealing. Repeat levels stable. Recommend outpatient follow-up. Service, resolved and likely was secondary to pain. P. atrial fibrillation, rate controlled -Hold Eliquis until final evaluation by orthopedic fine team in case surgery is indicated -Follow heart rate -Continue with metoprolol Chronic: Hypothyroidism Dyslipidemia Hypertension Data Review: Vitals reviewed, patient afebrile the last 24 hours. Vitals within normal limits. Laboratory analysis reviewed with blood cell count 13.4 (down from 16.1), BUN 48, bilirubin 1.7, AST 101, ALT 65, CRP 33.8, potassium 6.6 DVT prophylaxis: Eliquis on hold Anticipated discharge date: Pending clinical course Anticipated discharge place: Pending clinical course This dictation was prepared using [employer] voice recognition software. Though every attempt is made to correct errors during dictation some may still exist. Objective - Vital Signs Vital signs: Vital Signs Temp 97.9 F 11/16/22 14:30 Pulse 84 11/16/22 14:30 Resp 16 11/16/22 14:30 BP 121/67 11/16/22 14:30 Pulse Ox 97 11/16/22 14:30 FiO2 Intake & Output 11/15/22 11/16/22 11/16/22 18:59 06:59 18:59 Intake Total 300 Output Total 25 Balance 300 -25 Weight 72.575 kg 72.575 kg Intake: Intake, IV Titration 50 Amount cefTRIAXone 1 gm In 50 Sodium Chloride 0.9% 50 ml @ 100 mls/hr IVPB Q24HR [facility] Rx#:[id number] Oral 250 Output: Post Void Residual 25 Other: Voiding Method Toilet Toilet External Catheter # Voids 1 - Labs CBC & Chem 7: 11/16/22 08:02 11/16/22 11:19 Labs: Abnormal Lab Results - Last 24 Hours (Table) 11/15/22 11/15/22 11/15/22 Range/Units 15:09 15:09 15:41 WBC 16.1 H (3.8-10.6) k/uL RBC 3.51 L (3.80-5.40) m/uL MCV 100.7 H (80.0-100.0) fL Neutrophils # 14.6 H (1.3-7.7) k/uL Lymphocytes # 0.4 L (1.0-4.8) k/uL ESR (0-20) mm/hr Sodium 135 L (137-145) mmol/L Potassium 3.2 L (3.5-5.1) mmol/L BUN 39 H (7-17) mg/dL Glucose 104 H (74-99) mg/dL Calcium 7.9 L (8.4-10.2) mg/dL Total Bilirubin 1.7 H (0.2-1.3) mg/dL AST 85 H (14-36) U/L ALT 46 H (4-34) U/L Alkaline Phosphatase 225 H (38-126) U/L C-Reactive Protein (<1.0) mg/dL Total Protein 5.3 L (6.3-8.2) g/dL Albumin 2.8 L (3.5-5.0) g/dL Urine Appearance Cloudy H (Clear) Urine Protein 1+ H (Negative) Urine Ketones Trace H (Negative) Urine Blood Small H (Negative) Urine Nitrite Positive H (Negative) Ur Leukocyte Esterase Large H (Negative) Urine WBC 50 H (0-5) /hpf Urine Bacteria Many H (None) /hpf 11/16/22 11/16/22 11/16/22 Range/Units 08:02 08:02 08:02 WBC 13.4 H (3.8-10.6) k/uL RBC (3.80-5.40) m/uL MCV 103.2 H (80.0-100.0) fL Neutrophils # (1.3-7.7) k/uL Lymphocytes # (1.0-4.8) k/uL ESR 82 H (0-20) mm/hr Sodium (137-145) mmol/L Potassium 6.6 H* (3.5-5.1) mmol/L BUN 40 H (7-17) mg/dL Glucose 100 H (74-99) mg/dL Calcium (8.4-10.2) mg/dL Total Bilirubin (0.2-1.3) mg/dL AST (14-36) U/L ALT (4-34) U/L Alkaline Phosphatase (38-126) U/L C-Reactive Protein (<1.0) mg/dL Total Protein (6.3-8.2) g/dL Albumin (3.5-5.0) g/dL Urine Appearance (Clear) Urine Protein (Negative) Urine Ketones (Negative) Urine Blood (Negative) Urine Nitrite (Negative) Ur Leukocyte Esterase (Negative) Urine WBC (0-5) /hpf Urine Bacteria (None) /hpf 11/16/22 11/16/22 11/16/22 Range/Units 08:02 08:02 11:19 WBC (3.8-10.6) k/uL RBC (3.80-5.40) m/uL MCV (80.0-100.0) fL Neutrophils # (1.3-7.7) k/uL Lymphocytes # (1.0-4.8) k/uL ESR (0-20) mm/hr Sodium (137-145) mmol/L Potassium 6.8 H* (3.5-5.1) mmol/L BUN (7-17) mg/dL Glucose (74-99) mg/dL Calcium (8.4-10.2) mg/dL Total Bilirubin 1.7 H (0.2-1.3) mg/dL AST 101 H (14-36) U/L ALT 65 H (4-34) U/L Alkaline Phosphatase (38-126) U/L C-Reactive Protein 33.8 H (<1.0) mg/dL Total Protein (6.3-8.2) g/dL Albumin (3.5-5.0) g/dL Urine Appearance (Clear) Urine Protein (Negative) Urine Ketones (Negative) Urine Blood (Negative) Urine Nitrite (Negative) Ur Leukocyte Esterase (Negative) Urine WBC (0-5) /hpf Urine Bacteria (None) /hpf
[2022-11-16 15:12] VITALS: BMI 31.2
[2022-11-16] MEDS: DEXAMETHASONE SOD PHOSPHATE 4 MG/ML 1 ML VIAL IVP SCH (17:29)
[2022-11-16 17:31] LABS: African American GFR (CKD) 70 (>60 ml/min/1.73 sqM); Anion Gap 12 mmol/L; Blood Urea Nitrogen 37 mg/dL (7-17); Calcium 8.5 mg/dL (8.4-10.2); Carbon Dioxide 19 mmol/L (22-30); Chloride 102 mmol/L (98-107); Glucose 121 mg/dL (74-99); Non-African American GFR(CKD) 61 (>60 ml/min/1.73 sqM); Sodium 133 mmol/L (137-145)
[2022-11-16 17:34] LABS: Potassium 5.6 mmol/L (3.5-5.1)
[2022-11-16] MEDS: ATORVASTATIN 10 MG TAB PO SCH (20:21)
[2022-11-16] MEDS: DEXTROSE 5% IN WATER 1,000 ML with SODIUM BICARB (1 MEQ/ML) 150 ML IV SCH (21:29)
[2022-11-17] MEDS: DEXAMETHASONE SOD PHOSPHATE 4 MG/ML 1 ML VIAL IVP SCH ×5 (00:27→23:05)
[2022-11-17] MEDS: HYDROmorphone 0.5 MG/0.5 ML SYRINGE IVP PRN ×4 (02:57→20:13)
[2022-11-17 03:45] LABS: Glucose,Whole Blood 186 mg/dL (70-110)
[2022-11-17 06:01] LABS: HCT 32.3 % (34.0-46.0); HGB 10.9 gm/dL (11.4-16.0); MCH 33.8 pg (25.0-35.0); MCHC 33.8 g/dL (31.0-37.0); MCV 99.8 fL (80.0-100.0); Mean Platelet Volume 9.3; Platelet Count 163 k/uL (150-450); RBC 3.24 m/uL (3.80-5.40); RDW 13.9 % (11.5-15.5); WBC 12.7 k/uL (3.8-10.6)
[2022-11-17] MEDS: LEVOTHYROXINE 100 MCG TAB PO SCH (06:10)
[2022-11-17 06:16] LABS: ALT 42 U/L (4-34); AST 41 U/L (14-36); African American GFR (CKD) 84 (>60 ml/min/1.73 sqM); Albumin 2.6 g/dL (3.5-5.0); Albumin/Globulin Ratio 1.1; Alkaline Phosphatase 218 U/L (38-126); Anion Gap 7 mmol/L; Blood Urea Nitrogen 32 mg/dL (7-17); Calcium 7.7 mg/dL (8.4-10.2); Carbon Dioxide 24 mmol/L (22-30); Chloride 100 mmol/L (98-107); Globulin 2.4 g/dL; Glucose 176 mg/dL (74-99); Non-African American GFR(CKD) 73 (>60 ml/min/1.73 sqM); Potassium 4.5 mmol/L (3.5-5.1); Sodium 131 mmol/L (137-145); Total Bilirubin 0.9 mg/dL (0.2-1.3)
[2022-11-17 07:31] LABS: Glucose,Whole Blood 165 mg/dL (70-110)
--- NOTE | 2022-11-17 08:26 | P.PN ---
Progress Note - Text Progress Note Date: 11/17/22 CT and MRI are reviewed. This patient has a fracture through what we are calling L4 and she has a transitional segment which is an AO-type B2 fracture and an ankylosed spine. 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 This does require stabilization. The patient per report has been doing okay with her brace however she is on narcotic medications around the clock currently. We did discuss with the patient surgical and nonsurgical options she was amendable to surgical options. The surgery for this would be an open treatment and minimally invasive stabilization of L4 fracture. we would plan on doing this on 11/19/2022 Pending medical clearances.
[2022-11-17] MEDS: METOPROLOL TARTRATE 50 MG TAB PO SCH ×2 (08:37→20:15)
[2022-11-17] MEDS: INSULIN ASPART (NovoLOG) 100 UNIT/ML VIAL SQ SCH ×4 (08:37→20:18)
[2022-11-17] MEDS: hydrALAZINE HCL 50 MG TAB PO SCH ×2 (08:37→20:15)
[2022-11-17] MEDS: amLODIPine 2.5 MG TAB PO SCH (08:37)
[2022-11-17] MEDS: ACETAMINOPHEN TAB 325 MG TAB PO PRN (10:44)
[2022-11-17 12:09] LABS: Glucose,Whole Blood 164 mg/dL (70-110)
[2022-11-17] MEDS: DEXTROSE 5% IN WATER 1,000 ML with SODIUM BICARB (1 MEQ/ML) 150 ML IV SCH (13:39)
--- NOTE | 2022-11-17 14:37 | P.PN ---
Subjective Progress Note Date: 11/17/22 Patient is an 87-year-old female with known chronic low back pain, A. fib, hypertension, hypothyroidism, and dyslipidemia who presented to the ED with worsening back pain. She was initially seen at [facility] and underwent an MRI which showed spinal canal stenosis and disc bulging in multiple locations. Unfortunately her pain worsened and she was unable to weight her outpatient appointment and subsequently she presented to the emergency department. On arrival she was noted to be tachycardic. Initial laboratory analysis showed a leukocytosis of 16.1, MCV 100.7, sodium 135, potassium 3.2, bilirubin 1.7, AST 85, ALT 46, and alkaline phosphatase of 225. Urinalysis showed positive nitrites with large leukocyte esterase. She is admitted for pain control. She was started on Rocephin for possible urinary tract infection. Orthopedic spine surgery was consulted. She received potassium replacement. Per orthopedic surgery, patient will require surgical intervention, scheduled for Sunday 11/19. Patient seen and examined at bedside. Continues to have back pain. Denies any bowel or bladder complaints. Vital signs reviewed General: nontoxic, no distress, appears at stated age Cardiovascular: S1S2 reg, no murmur, positive posterior tibial pulse bilateral, Lungs: CTA bilateral, no rhonchi, no rales , no accessory muscle use Abdominal: soft, nontender to palpation, no guarding, no appreciable organomegaly Ext: no gross muscle atrophy, decreased strength left lower extremity however may be secondary to pain, no contractures Neuro: CN II-XI grossly intact, no focal neuro deficits Psych: Alert, oriented, appropriate affect Assessment/ Plan: Intractable back pain with lumbar spinal stenosis L3 through L5 -Case discussed with orthopedic physician, surgery tentatively scheduled for Monday -Oral Tylenol as needed, no oral [place] as needed, IV Dilaudid as needed -Decadron 4 mg IV every 6 hours -Hold Eliquis Hypoglycemia, possibly steroid-induced -Sliding scale insulin -A1c pending Left knee pain, improving -X-ray shows no acute osseous process Hyperkalemia resolved Suspected urinary tract infection -Continue with Rocephin 1 g daily. Urine positive for gram-negative bacilli Transaminitis - Liver ultrasound unrevealing. Repeat levels stable. Recommend outpatient follow-up. P. atrial fibrillation, rate controlled -Hold Eliquis -Follow heart rate, continue telemetry -Continue with metoprolol Chronic: Hypothyroidism Dyslipidemia Hypertension Data Review: WBC 12.7, hemoglobin 10.9, potassium 4.5, creatinine 0.74, blood sugars range be tween 164-186 DVT prophylaxis: Eliquis on hold Anticipated discharge date: Pending clinical course Anticipated discharge place: Pending clinical course Objective - Vital Signs Vital signs: Vital Signs Temp 97.7 F 11/17/22 13:30 Pulse 80 11/17/22 13:30 Resp 20 11/17/22 13:30 BP 150/83 11/17/22 13:30 Pulse Ox 99 11/17/22 13:30 FiO2 Intake & Output 11/16/22 11/17/22 11/17/22 18:59 06:59 18:59 Intake Total 1100 Output Total 25 Balance 1075 Weight 72.575 kg Intake: Intake, IV Titration 1100 Amount Calcium Gluconate in NaCl 200 1 gm In Saline 1 100ml. bag @ 100 mls/hr IVPB ONCE [facility] Rx#:[id number] Sodium Chloride 0.9% 1, 400 000 ml @ 75 mls/hr IV . [id number] [id number] Rx#:[id number] Sodium Chloride 0.9% 500 500 ml 500 ml @ 999 mls/hr IV .Q31M [facility] Rx#:[id number] Output: Post Void Residual 25 Other: Voiding Method Toilet Toilet Toilet Diaper External Catheter External Catheter # Voids 4 1 - Labs CBC & Chem 7: 11/17/22 05:15 11/17/22 05:15 Labs: Abnormal Lab Results - Last 24 Hours (Table) 11/16/22 11/17/22 11/17/22 Range/Units 17:02 03:43 05:15 WBC 12.7 H (3.8-10.6) k/uL RBC 3.24 L (3.80-5.40) m/uL Hgb 10.9 L (11.4-16.0) gm/dL Hct 32.3 L (34.0-46.0) % Sodium 133 L (137-145) mmol/L Potassium 5.6 H (3.5-5.1) mmol/L Carbon Dioxide 19 L (22-30) mmol/L BUN 37 H (7-17) mg/dL Glucose 121 H (74-99) mg/dL POC Glucose (mg/dL) 186 H (70-110) mg/dL Calcium (8.4-10.2) mg/dL AST (14-36) U/L ALT (4-34) U/L Alkaline Phosphatase (38-126) U/L Total Protein (6.3-8.2) g/dL Albumin (3.5-5.0) g/dL 11/17/22 11/17/22 11/17/22 Range/Units 05:15 07:29 12:07 WBC (3.8-10.6) k/uL RBC (3.80-5.40) m/uL Hgb (11.4-16.0) gm/dL Hct (34.0-46.0) % Sodium 131 L (137-145) mmol/L Potassium (3.5-5.1) mmol/L Carbon Dioxide (22-30) mmol/L BUN 32 H (7-17) mg/dL Glucose 176 H (74-99) mg/dL POC Glucose (mg/dL) 165 H 164 H (70-110) mg/dL Calcium 7.7 L (8.4-10.2) mg/dL AST 41 H (14-36) U/L ALT 42 H (4-34) U/L Alkaline Phosphatase 218 H (38-126) U/L Total Protein 5.0 L (6.3-8.2) g/dL Albumin 2.6 L (3.5-5.0) g/dL Microbiology - Last 24 Hours (Table) 11/15/22 15:05 Urine Culture - Preliminary Urine,Voided Gram Neg Bacilli 11/15/22 20:04 Blood Culture - Preliminary Blood
[2022-11-17 17:04] LABS: Glucose,Whole Blood 172 mg/dL (70-110)
[2022-11-17] MEDS: ATORVASTATIN 10 MG TAB PO SCH (20:15)
[2022-11-17 20:16] LABS: Glucose,Whole Blood 179 mg/dL (70-110)
[2022-11-18] MEDS: HYDROmorphone 0.5 MG/0.5 ML SYRINGE IVP PRN ×4 (03:51→21:50)
[2022-11-18] MEDS: DEXAMETHASONE SOD PHOSPHATE 4 MG/ML 1 ML VIAL IVP SCH ×3 (05:08→17:18)
[2022-11-18] MEDS: DEXTROSE 5% IN WATER 1,000 ML with SODIUM BICARB (1 MEQ/ML) 150 ML IV SCH (05:08)
[2022-11-18] MEDS: LEVOTHYROXINE 100 MCG TAB PO SCH (05:08)
[2022-11-18 07:06] LABS: Glucose,Whole Blood 175 mg/dL (70-110)
[2022-11-18] MEDS: INSULIN ASPART (NovoLOG) 100 UNIT/ML VIAL SQ SCH ×4 (08:00→20:27)
[2022-11-18] MEDS: amLODIPine 2.5 MG TAB PO SCH (08:05)
[2022-11-18] MEDS: METOPROLOL TARTRATE 50 MG TAB PO SCH ×2 (08:05→20:27)
[2022-11-18] MEDS: hydrALAZINE HCL 50 MG TAB PO SCH ×2 (08:05→20:27)
[2022-11-18 09:04] LABS: HCT 32.4 % (37.2-46.3); HGB 11.3 d/dL (12.0-15.0); MCH 32.9 pg (27.0-32.0); MCHC 34.9 d/dL (32.0-37.0); MCV 94.5 FL (80.0-97.0); Mean Platelet Volume 11.8 FL (9.5-12.2); Platelet Count 208 X 10*3/uL (140-440); RBC 3.43 X 10*6/uL (4.10-5.20); RDW 14.6 % (11.5-14.5); WBC 11.21 X 10*3/uL (4.50-10.00)
--- NOTE | 2022-11-18 09:17 | P.PN ---
Subjective Progress Note Date: 11/18/22 Principal diagnosis: Low Back pain Bilateral lower extremity radiculopathy Patient seen and examined this morning. Patient is resting comfortably in bed. No acute events overnight. Patient continues to be ambulatory to restroom with walker. Surgical procedure is scheduled for tomorrow. Patient to remain nothing by mouth after midnight. Patient has been afebrile, no complaint of nausea/vomiting, or chest pain. Objective - Vital Signs Vital signs: Vital Signs Temp 97.9 F 11/18/22 07:07 Pulse 87 11/18/22 07:07 Resp 18 11/18/22 07:07 BP 156/92 11/18/22 07:07 Pulse Ox 97 11/18/22 07:07 FiO2 Intake & Output 11/17/22 11/18/22 11/18/22 18:59 06:59 18:59 Other: Voiding Method Toilet Toilet External Catheter # Voids 1 1 - Exam Inspection: Negative for any open fractures, significant ecchymos is/erythema/open wounds. 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 There is also scar over the left ankle from previous surgery. Sensation: Equal, symmetric, bilaterally intact throughout the upper and lower extremities Palpation: Moderate tenderness to patient over the lumbar spine and midline and in the bilateral SI joints. Nontender to palpation throughout rest of exam Range of motion: Patient has full range of motion bilateral upper extremities on exam. Patient does have limited range of motion in bilateral hips in flexion/extension secondary to referred pain from the low back. Patient is able to flex both knees just past 90 while lying in bed in semirecumbent position. Patient has full extension in bilateral knees. There is limited dorsi/plantar flexion in the left ankle likely due to previous surgery. Patient has full range of motion and EHL/FHL bilaterally Motor: 4-/5 in bilateral hips in flexion/extension. 4-/5 in resisted left knee flexion/extension. 4-/5 in resisted plantar flexion bilaterally. 4/5 in all other major motor groups in bilateral lower extremities. [employer] strength 4/5 bilaterally. 4/5 in all other major motor groups in bilateral upper extremities Special tests: Negative Homans bilaterally. Negative Fred bilaterally. Negative clonus bilaterally Neurovascular: Radial pulse intact, 2+ bilaterally. Cap refill under 3 seconds in digits of upper extremities. - Labs CBC & Chem 7: 11/18/22 05:17 11/17/22 05:15 Labs: Abnormal Lab Results - Last 24 Hours (Table) 11/17/22 11/17/22 11/17/22 Range/Units 12:07 17:02 20:14 POC Glucose (mg/dL) 164 H 172 H 179 H (70-110) mg/dL 11/18/22 Range/Units 07:06 POC Glucose (mg/dL) 175 H (70-110) mg/dL Microbiology - Last 24 Hours (Table) 11/15/22 20:04 Blood Culture - Preliminary Blood 11/15/22 15:05 Urine Culture - Preliminary Urine,Voided Gram Neg Bacilli Assessment and Plan Assessment: 1. L4 AO-type B2 vertebral fracture 2. Ankylosing Spondylitis 3. Bilateral lower extremity radiculopathy Plan: -Appreciate oracle distribution consultant and team management. -NPO at [facility] for surgical procedure scheduled tomorrow 11/19/22 -Activity: As tolerated -Pain control: Adequate at this time -Meds: reviewed -GI ppx: senna, Miralax -DVT PPX: SCDs -Encourage IS 10x/hr -Dispo: Anticipate discharge home tomorrow with homecare *I reviewed and discussed this case with my attending Dr. Alejandra, whom has reviewed this chart and films and is in agreement with assessment and plan of care as outlined above. I have personally seen and examined the patient, performed the documentation and the assessment and plan as written. Number of minutes spent on the visit: 10m.
[2022-11-18 09:20] LABS: Calcium 7.9 mg/dL (8.7-10.3); Carbon Dioxide 26.8 mmol/L (21.6-31.8); Chloride 97 mmol/L (96-109); Glucose 177 mg/dL (70-110); Potassium 4.1 mmol/L (3.5-5.5); Sodium 134 mmol/L (135-145)
[2022-11-18 10:07] LABS: Basophils # (A) 0.01 X 10*3/uL (0.00-0.10); Basophils % (A) 0.1 %; Eosinophils # (A) 0 X 10*3/uL (0.04-0.35); Eosinophils % (A) 0 %; Lymphocytes # (A) 0.26 X 10*3/uL (0.90-5.00); Lymphocytes % (A) 2.3 %; Macrocytosis (M) 2+; Monocytes # (A) 0.65 X 10*3/uL (0.20-1.00); Monocytes % (A) 5.8 %; Neutrophils # (A) 10.17 X 10*3/uL (1.80-7.70); Neutrophils % (A) 90.7 %
[2022-11-18] MEDS: polyethylene glycoL 3350 17 GM POWD.PACK PO SCH (10:15)
[2022-11-18 11:56] LABS: Glucose,Whole Blood 259 mg/dL (70-110)
--- NOTE | 2022-11-18 14:12 | P.PN ---
Subjective Progress Note Date: 11/18/22 Patient is an 87-year-old female with known chronic low back pain, A. fib, hypertension, hypothyroidism, and dyslipidemia who presented to the ED with worsening back pain. She was initially seen at [facility] and underwent an MRI which showed spinal canal stenosis and disc bulging in multiple locations. Unfortunately her pain worsened and she was unable to weight her outpatient appointment and subsequently she presented to the emergency department. On arrival she was noted to be tachycardic. Initial laboratory analysis showed a leukocytosis of 16.1, MCV 100.7, sodium 135, potassium 3.2, bilirubin 1.7, AST 85, ALT 46, and alkaline phosphatase of 225. Urinalysis showed positive nitrites with large leukocyte esterase. She is admitted for pain control. She was started on Rocephin for possible urinary tract infection. Orthopedic spine surgery was consulted. She received potassium replacement. Per orthopedic surgery, patient will require surgical intervention, scheduled for Sunday 11/19. Patient seen and examined at bedside. Continues to have back pain. Denies any bowel or bladder complaints. Vital signs reviewed General: nontoxic, no distress, appears at stated age Cardiovascular: S1S2 reg, no murmur, positive posterior tibial pulse bilateral, Lungs: CTA bilateral, no rhonchi, no rales , no accessory muscle use Abdominal: soft, nontender to palpation, no guarding, no appreciable organomegaly Ext: no gross muscle atrophy, decreased strength left lower extremity however may be secondary to pain, no contractures Neuro: CN II-XI grossly intact, no focal neuro deficits Psych: Alert, oriented, appropriate affect Assessment/ Plan: Intractable back pain with lumbar spinal stenosis L3 through L5 -Ortho note reviewed., surgery scheduled for Sunday 11/19 -Oral Tylenol as needed, no oral [place] as needed, IV Dilaudid as needed -Decadron 4 mg IV every 6 hours -Hold Eliquis Perioperative evaluation -Per NSQIP, 0% risk of , does have 11% risk of serious complication including pneumonia, cardiac complication, surgical site infection, urinary t ract infection, thromboembolism. Given her age, has an increased risk of nearly 77% for discharge to nursing or rehab facility. -She is otherwise medically optimized for surgery tomorrow Hyperglycemia, possibly steroid-induced and with IV fluids -Sliding scale insulin -IV fluids discontinued Left knee pain, improving -X-ray shows no acute osseous process Hyperkalemia resolved Urinary tract infection -Continue with Rocephin 1 g daily. Urine positive for pansensitive E. coli -Complete 5 day course Transaminitis - Liver ultrasound unrevealing. Repeat levels stable and improving. Recommend outpatient follow-up. P. atrial fibrillation, rate controlled -Hold Eliquis -Follow heart rate, continue telemetry -Continue with metoprolol Chronic: Hypothyroidism Dyslipidemia Hypertension Data Review: WBC 11.21, hemoglobin 11.3, sodium 134, creatinine 0.7, blood sugars range between 175-179 DVT prophylaxis: Eliquis on hold Anticipated discharge date: Pending clinical course Anticipated discharge place: Pending clinical course Objective - Vital Signs Vital signs: Vital Signs Temp 98.2 F 11/18/22 13:00 Pulse 76 11/18/22 13:00 Resp 16 11/18/22 13:00 BP 126/71 11/18/22 13:00 Pulse Ox 98 11/18/22 13:00 FiO2 Intake & Output 11/17/22 11/18/22 11/18/22 18:59 06:59 18:59 Other: Voiding Method Toilet Toilet Toilet External Catheter # Voids 1 1 - Labs CBC & Chem 7: 11/18/22 05:17 11/18/22 05:17 Labs: Abnormal Lab Results - Last 24 Hours (Table) 11/17/22 11/17/22 11/18/22 Range/Units 17:02 20:14 05:17 WBC 11.21 H (4.50-10.00) X 10*3/uL RBC 3.43 L (4.10-5.20) X 10*6/uL Hgb 11.3 L (12.0-15.0) d/dL Hct 32.4 L (37.2-46.3) % MCH 32.9 H (27.0-32.0) pg RDW 14.6 H (11.5-14.5) % Neutrophils # 10.17 H (1.80-7.70) X 10*3/uL Lymphocytes # 0.26 L (0.90-5.00) X 10*3/uL Eosinophils # 0 L (0.04-0.35) X 10*3/uL NRBC/100 WBC Diff 0.10 H (0.00-0.01) X 10*3/uL Macrocytosis (manual) 2+ A Sodium (135-145) mmol/L BUN (9.0-27.0) mg/dL BUN/Creatinine Ratio (12.00-20.00) Ratio Glucose (70-110) mg/dL POC Glucose (mg/dL) 172 H 179 H (70-110) mg/dL Calcium (8.7-10.3) mg/dL 11/18/22 11/18/22 11/18/22 Range/Units 05:17 07:06 11:54 WBC (4.50-10.00) X 10*3/uL RBC (4.10-5.20) X 10*6/uL Hgb (12.0-15.0) d/dL Hct (37.2-46.3) % MCH (27.0-32.0) pg RDW (11.5-14.5) % Neutrophils # (1.80-7.70) X 10*3/uL Lymphocytes # (0.90-5.00) X 10*3/uL Eosinophils # (0.04-0.35) X 10*3/uL NRBC/100 WBC Diff (0.00-0.01) X 10*3/uL Macrocytosis (manual) Sodium 134 L (135-145) mmol/L BUN 28.0 H (9.0-27.0) mg/dL BUN/Creatinine Ratio 40.00 H (12.00-20.00) Ratio Glucose 177 H (70-110) mg/dL POC Glucose (mg/dL) 175 H 259 H (70-110) mg/dL Calcium 7.9 L (8.7-10.3) mg/dL Microbiology - Last 24 Hours (Table) 11/15/22 15:05 Urine Culture - Final Urine,Voided Escherichia coli 11/15/22 20:04 Blood Culture - Preliminary Blood
[2022-11-18 17:11] LABS: Glucose,Whole Blood 141 mg/dL (70-110)
[2022-11-18 20:10] LABS: Glucose,Whole Blood 187 mg/dL (70-110)
[2022-11-18] MEDS: SENNOSIDES 8.6 MG TAB PO SCH (20:27)
[2022-11-18] MEDS: ATORVASTATIN 10 MG TAB PO SCH (20:27)
[2022-11-19] MEDS: DEXAMETHASONE SOD PHOSPHATE 4 MG/ML 1 ML VIAL IVP SCH ×4 (00:09→17:49)
[2022-11-19] MEDS: HYDROmorphone 0.5 MG/0.5 ML SYRINGE IVP PRN ×4 (01:35→21:37)
[2022-11-19 05:19] LABS: Basophils % (A) 0 %; Eosinophils % (A) 0 %; HCT 34.3 % (34.0-46.0); HGB 11.8 gm/dL (11.4-16.0); Lymphocytes # (A) 0.4 k/uL (1.0-4.8); Lymphocytes % (A) 4 %; MCH 33.8 pg (25.0-35.0); MCHC 34.4 g/dL (31.0-37.0); MCV 98.4 fL (80.0-100.0); Mean Platelet Volume 9.2; Monocytes # (A) 0.4 k/uL (0-1.0); Monocytes % (A) 5 %; Neutrophils # (A) 7.6 k/uL (1.3-7.7); Neutrophils % (A) 89 %; Platelet Count 202 k/uL (150-450); RBC 3.48 m/uL (3.80-5.40); RDW 13.6 % (11.5-15.5); WBC 8.6 k/uL (3.8-10.6)
[2022-11-19] MEDS: LEVOTHYROXINE 100 MCG TAB PO SCH (05:21)
[2022-11-19 05:28] LABS: African American GFR (CKD) >90 (>60 ml/min/1.73 sqM); Anion Gap 5 mmol/L; Blood Urea Nitrogen 30 mg/dL (7-17); Calcium 7.6 mg/dL (8.4-10.2); Carbon Dioxide 30 mmol/L (22-30); Chloride 96 mmol/L (98-107); Glucose 146 mg/dL (74-99); Non-African American GFR(CKD) 80 (>60 ml/min/1.73 sqM); Potassium 4.2 mmol/L (3.5-5.1); Sodium 131 mmol/L (137-145)
[2022-11-19 07:18] LABS: Glucose,Whole Blood 139 mg/dL (70-110)
[2022-11-19] MEDS: INSULIN ASPART (NovoLOG) 100 UNIT/ML VIAL SQ SCH ×4 (07:35→21:36)
[2022-11-19] MEDS ORDERED: LACTATED RINGERS 1,000 ML IV ONE ×6 (07:38→12:32)
--- NOTE | 2022-11-19 08:16 | P.PN ---
Progress Note - Text Progress Note Date: 11/19/22 Spine Surgery Clinical and Risk Review Geneva Royal is a 87 yo female presenting for evaluation of severe low back pain, inability to ambulate. It was my pleasure to have seen and examined Geneva. In our visit today we have had a chance to go over subjective complaints, physical examination findings and treatments including the natural course histor y without intervention and various interventional options. The patients imaging demonstrates AO type B2 fracture of L4 with transitional anatomy in an ankylosed spine. On physical exam, Geneva demonstrates Good strengths B/L LE with severe LBP with any movement, TTP midline around L3-5. I have explained to the patient that as their condition progresses it will cause further neurological deficits and eventual paralysis. Based on the patients imaging, physical exam, and the rapid progression and disabling nature of their symptoms, at this time I recommend surgery in the form or a: Open treatment and stabilization of L4 fracture L2-S1. I discussed the risk and benefits of this procedure at length with Geneva. The patient and family at bedside agreed to considered pursuing the procedure abovementioned. Prior to surgery, she should follow up with her PCP (Cardio, ID, IM etc) for clearance. Questions were invited and answered, and the patient wishes to proceed as outlined below. Currently, I am recommendin. Open treatment and stabilization of L4 fracture L2-S1 2. Follow up with PCP for surgical clearance 3. Review of surgical risks and benefits as well as an educational packet on the proposed surgical procedure. Risks: All surgical procedures come with inherent risks, including those related to positioning, anesthesia, intraoperative findings, and postoperative complications. It is important to understand that surgery does not come with any guarantee of a successful outcome as complications and adverse events are always possible. The patient was given a handout in office today discussing the surgical procedure and risks associated with the intervention, both of which were discussed with the patient. These risks include but are not limited to the following: * Experiencing same, different or even worse symptoms in back, neck, arms, or legs compared to before surgery. * Requiring further surgery or other forms of treatment presently or at some time in the future at same or other levels of the intended spine surgery. * On an extreme but fortunately relatively rare basis severe complication such as blindness, stroke, heart attack, temporary and/or permanent nerve injury, paralysis, coma, or may occur, sometimes without known explanation. * Surgical complications may include but are not limited to risk of infection, fluid accumulation in the surgical dissection site, including a seroma or hematoma, that requires additional surgery, wound drainage, bleeding, new numbness or weakness, vision changes/loss, spinal fluid leakage, non-healing and/or infected incision, headaches, difficulty or inability to swallow, hoarseness, hemopneumothorax, pneumothorax, impotence, retrograde ejaculation, vaginal dryness; injury to nerves, spinal cord, blood vessels, lymphatics or other vital organs (i.e., bowel injury, injury to the great vessels); heterotopic bone formation; complications related to the hardware such as screws, rods, cages including misplaced hardware, device failure, instrumentation at the wrong spine level, hardware fracture/breakage, or hardware loosening; vertebral failure of the spinal column above or below the newly placed hardware; retained surgical instrumentations or devices and the need for further surgery. * Medical risks of the planned spine surgery include but are not limited to generalized Infections to the whole body or local areas outside of the surgic al site (sepsis), heart attack, bleeding, anaphylaxis, meningitis, seizure, epilepsy, hearing loss, burn phelps, laceration of the head or other areas of the body, bruising, hypersensitivity of the skin, bladder over distension; allergic reaction; shoulder injury related to positioning; fat, blood and air clots to other areas of the body like heart, lungs, brain; failure of internal organs such as lungs, kidneys, liver and excessive bleeding. If blood transfusions are necessary, note that transfusions may cause intolerance reactions such as anaphylaxis or other complex reactions. * Despite best efforts, the results of spine surgery might not heal in terms of bone, soft tissues such as skin, fascia, ligaments, and joints. Additionally, in order to achieve best possible results, spine surgery may be carried out beyond the initially planned levels and involve decompression, fusion including insertion of hardware at levels other than the original intended area of surgical interest change some portions of the procedure in order to ensure the best possible outcomes. * With spine surgery and spinal fusion, there are different off label uses of instrumentation (devices, implants and hardware) as well as biological substances (bone morphogenic proteins, demineralized bone matrix) as well as using extra bone from allograft sources (i.e. cadaver bone) or autograft (iliac crest bone, ribs, or the spine itself). The patient has been given information about these practices and their inherent risks and benefits. The patient has had a chance to review all the listed information, has been given print outs detailing this information, and has had all his/her questions answered to their satisfaction. It was my pleasure to have seen and examined Geneva Royal. In our visit today we have had a chance to go over my understanding of our patient's current condition, the natural course history without intervention and various interventional options. Questions were invited and answered, and the patient wishes to proceed as outlined above. I have seen and examined the patient for 25 minutes and we have spent more than 50% of the time in repeat and detailed couns eling about the patient's condition, its natural course history with out and as much as can be predicted with surgery and re-review of various surgical treatment options. In conclusion, Geneva Royal and and family requested we proceed with the above suggested surgery and are willing to accept risks and limitations of the suggested surgery as nature of the disease process and our best attempts at treatment for the condition. Thank you again for allowing us to be part of your patient's care. Please don't hesitate to contact me if you have any further questions. Signed and authenticated by: Partha Lazcano [facility] [address], [address] [address]
[2022-11-19] MEDS ORDERED: SODIUM CHLORIDE 0.9% 1,000 ML IV ONE (08:40)
[2022-11-19] MEDS ORDERED: KETAMINE 10 MG/ML 20 ML VIAL ONE (08:46)
[2022-11-19] MEDS ORDERED: fentaNYL (PF) 50 MCG/ML 2 ML AMP ONE (08:46)
[2022-11-19] MEDS ORDERED: ceFAZolin 1,000 MG VIAL ONE (08:46)
[2022-11-19] MEDS ORDERED: PHENYLEPHRINE-0.9% NACL SYG 1,000 MCG/10 ML SYRINGE ONE (08:46)
[2022-11-19] MEDS ORDERED: SUCCINYLCHOLINE CHLORIDE 200 MG/10 ML VIAL IV ONE (08:46)
[2022-11-19] MEDS ORDERED: SODIUM CHLORIDE 0.9% 100 ML BAG ONE (08:46)
[2022-11-19] MEDS ORDERED: LIDOCAINE 2% INJ 20 MG/ML (2 ML VIAL) ONE (08:46)
[2022-11-19] MEDS ORDERED: PROPOFOL 10 MG/ML 20 ML VIAL IV ONE (08:46)
[2022-11-19] MEDS ORDERED: MIDAZOLAM 2 MG/2 ML VIAL ONE (08:46)
[2022-11-19] MEDS ORDERED: SODIUM CHLORIDE 0.9% 50 ML with ceFAZolin 2,000 MG IV ONE ×2 (09:25)
[2022-11-19] MEDS ORDERED: GELATIN SPONGE,ABSORB (LARGE) 1 EACH SPONGE MISCELLANE ONE (09:34)
[2022-11-19] MEDS ORDERED: THROMBIN (BOVINE) 5,000 UNIT VIAL MISCELLANE ONE (09:34)
[2022-11-19] MEDS: polyethylene glycoL 3350 17 GM POWD.PACK PO SCH (09:58)
[2022-11-19] MEDS ORDERED: LIDOCAINE 2%-EPI 1:100,000 20 ML VIAL SQ ONE (11:12)
[2022-11-19] MEDS ORDERED: BUPIVACAINE (PF) 0.5% 30 ML VIAL SQ ONE (11:12)
[2022-11-19] MEDS ORDERED: VANCOMYCIN 1,000 MG VIAL MISCELLANE ONE (11:12)
[2022-11-19] MEDS ORDERED: METOPROLOL TARTRATE 5 MG/5 ML VIAL IVP ONE (11:42)
[2022-11-19] MEDS ORDERED: HYDROmorphone 0.5 MG/0.5 ML SYRINGE IVP ONE ×2 (12:01→12:17)
--- NOTE | 2022-11-19 12:10 | P.OP ---
Date of Procedure: 11/19/22 Preoperative Diagnosis: 1. AO TYPE B2 FRACTURE OF L4 (SEGMENTATION DIFFERENCE) 2. LOW BACK PAIN, SEVERE 3. INABILITY TO AMBULATE SECONDARY TO #2 4. DEBILITY 5. COMPLEX MEDICAL PATIENT Postoperative Diagnosis: 1. AO TYPE B2 FRACTURE OF L4 (SEGMENTATION DIFFERENCE) 2. LOW BACK PAIN, SEVERE 3. INABILITY TO AMBULATE SECONDARY TO #2 4. DEBILITY 5. COMPLEX MEDICAL PATIENT Procedure(s) Performed: 1. OPEN TREATMENT AND REDUCTION OF L4 FRACTURE (74279) 2. MINIMALLY INVASIVE STABILIZATION L2-S1 (75521) 3. USE OF 2[employer]isk NAVIGATION FOR SCREW PLACEMENT (98982) USE OF IONM ALL SCREWS TESTING 20 MA OR > Implants: -JENNIFER EVEREST SCREW AND FLY SYSTEM Anesthesia: GETA Surgeon: Partha Alejandra Estimated Blood Loss (ml): 100 IV fluids (ml): 1,500 Urine output (ml): 250 Pathology: none sent Condition: stable Disposition: PACU Indications for Procedure: Geneva Royal is a 87 yo female presenting for evaluation of severe low back pain, inability to ambulate. It was my pleasure to have seen and examined Geneva. In our visit today we have had a chance to go over subjective complaints, physic al examination findings and treatments including the natural course history without intervention and various interventional options. The patients imaging demonstrates AO type B2 fracture of L4 with transitional anatomy in an ankylosed spine. On physical exam, Geneva demonstrates Good strengths B/L LE with severe LBP with any movement, TTP midline around L3-5. I have explained to the patient that as their condition progresses it will cause further neurological deficits and eventual paralysis. Based on the patients imaging, physical exam, and the rapid progression and disabling nature of their symptoms, at this time I recommend surgery in the form or a: Open treatment and stabilization of L4 fracture L2-S1. I discussed the risk and benefits of this procedure at length with Geneva. The patient and family at bedside agreed to considered pursuing the procedure abovementioned. Prior to surgery, she should follow up with her PCP (Cardio, ID, IM etc) for clearance. Questions were invited and answered, and the patient wishes to proceed as outlined below. Currently, I am recommendin. Open treatment and stabilization of L4 fracture L2-S1 Description of Procedure: L4-S1 ORIF with stabilization for L4 fracture (VINOD) The patient was seen and examined in the preoperative area. All preoperative protocols were followed. Informed consent was obtained, risks and benefits of the procedure were discussed at length. Risks including bleeding infection damage to the surrounding tissue and risk of reoperation were discussed with the patient. Risk of anesthesia up to and including was discussed with the patient. These are outlined in the risk review. They were willing to accept these risks and all of the risks of surgery. The patient was given a weight- based dose of antibiotics in the form of 2 g Ancef. The patient was seen and evaluated by the anesthesia team who deemed them fit for surgery. The site was marked, the patient was willing to proceed with the procedure. The patient was transferred to the operative suite by the Department of anesthesia. They were then drifted off to sleep by the department anesthesia and GETA was performed. The patient tolerated this well. [Jordan catheter was placed by nursing staff, atraumatically]. Once confirmation of lines and ventilation the patient was transferred to a [prone Rigoberto table very carefully]. All bony prominences including wrists, elbows, axilla, chest, hips, and thighs, and feet were padded very well. Special attention was paid to the genitalia and these were padded accordingly. SCDs were placed on bilateral lower extremities and were connected. Arms were well padded and placed [on arm boards up and out in the 90/90 position]. Once in position, again we confirmed good ventilation capabilities and that lines were running appropriately. The patient's thoracolumbar spine was then exposed. 1010s were placed outlining the incision site. Standard alcohol was used to clean the incision site and allowed to dry. C-arm was used to needle localize T12 and then biomark the patient and confirm level for incision which was marked with a skin marker. Operative briefing was performed with all teams and everyone in agreement to proceed. The patient was then prepped and draped in a normal sterile fashion. Timeout was then performed and all parties were in agreement with the procedure to be performed. Skin knicks were made over the PSIS on the right and pins placed for the tracker. Tracker was secured to the pins and a 3D Ahiem spin was registered. Once then was registered and confirmed to be accurate screws were placed bilateral at L4-S1 using navgated JAMSHIDI AND DRILL GUIDE and wires. Once screws were in place they were confirmed to be in accurate position on AP and lateral flouroscopic images. The screws were tested and all tested above 20 mA. Fracture was then reduced and rods measured. Rods were selected, bent appropriately and sized. They were then passed subfacially throught the tulips of each screw and confirmed to be in good position. Set screws then placed and final tightened. Tabs were then broken off screws. Final imaging confirmed good placement of rods and screws, good reduction and stabilization. We irrigated the wounds thoroughly with 3L ancef irrigation, 3L gentamycin irrigation and 3L NSS. Vancomycin powder placed deep in the wound. The deep fascia was closed with 0 vicrylin the deep subq and 2-0 in the superficial subq. Skin closed with valdemar. wounds were then cleaned and sterilely dressed with optifoam dressing. The patient was transferred back to their hospital bed atraumatically. Patient was then awakened and extubated by the department of anesthesia having tolerated the procedure very well with no complications. They were transferred to the postoperative care unit in stable condition.
[2022-11-19] MEDS ORDERED: MEPERIDINE 50 MG/ML SYRINGE IVP ONE (12:37)
[2022-11-19 13:38] LABS: Glucose,Whole Blood 198 mg/dL (70-110)
[2022-11-19] MEDS: hydrALAZINE HCL 50 MG TAB PO SCH ×2 (13:53→21:36)
[2022-11-19] MEDS: METOPROLOL TARTRATE 50 MG TAB PO SCH ×2 (13:53→21:36)
[2022-11-19] MEDS: amLODIPine 2.5 MG TAB PO SCH (13:53)
--- NOTE | 2022-11-19 15:27 | P.PN ---
Subjective Progress Note Date: 11/19/22 Patient is an 87-year-old female with known chronic low back pain, A. fib, hypertension, hypothyroidism, and dyslipidemia who presented to the ED with worsening back pain. She was initially seen at [facility] and underwent an MRI which showed spinal canal stenosis and disc bulging in multiple locations. Unfortunately her pain worsened and she was unable to weight her outpatient appointment and subsequently she presented to the emergency department. On arrival she was noted to be tachycardic. Initial laboratory analysis showed a leukocytosis of 16.1, MCV 100.7, sodium 135, potassium 3.2, bilirubin 1.7, AST 85, ALT 46, and alkaline phosphatase of 225. Urinalysis showed positive nitrites with large leukocyte esterase. She is admitted for pain control. She completed 5 days of Rocephin for urinary tract infection. Orthopedic spine surgery was consulted. Had an open treatment of L4 fracture and stabilization of L2 to S1 on 11/19. Patient seen and examined at bedside. Having back pain. Denies any numbness or tingling, urinary or bowel complaints. Currently has a Jordan catheter in place. Vital signs reviewed General: nontoxic, no distress, appears at stated age Cardiovascular: S1S2 reg, no murmur, positive posterior tibial pulse bilateral, Lungs: CTA bilateral, no rhonchi, no rales , no accessory muscle use Abdominal: soft, nontender to palpation, no guarding, no appreciable organomegaly Ext: no gross muscle atrophy, moving lower extremities, no contractures Neuro: CN II-XI grossly intact, no focal neuro deficits Psych: Alert, oriented, appropriate affect Assessment/ Plan: Intractable back pain with lumbar spinal stenosis L3 through L5 L4 fracture Status post open treatment of L4 fracture and stabilization of L2 S1 -Operative note reviewed -Oral Tylenol as needed, no oral Pipestone as needed, IV Dilaudid as needed -Decadron 4 mg IV every 6 hours -Hold Eliquis, resume when cleared by surgery Hyperglycemia, possibly steroid-induced and with IV fluids -Sliding scale insulin Left knee pain, improving -X-ray shows no acute osseous process Hyperkalemia resolved Urinary tract infection status post Rocephin, resolved Transaminitis - Liver ultrasound unrevealing. Repeat levels stable and improving. Recommend outpatient follow-up. P. atrial fibrillation, rate controlled -Hold Eliquis -Follow heart rate, continue telemetry -Continue with metoprolol Chronic: Hypothyroidism Dyslipidemia Hypertension Data Review: WBC 8.6, hemoglobin 11.8, sodium 131, creatinine 0.65, blood sugars range between 146-187 DVT prophylaxis: Eliquis on hold Anticipated discharge date: Pending clinical course Anticipated discharge place: Pending clinical course Objective - Vital Signs Vital signs: Vital Signs Temp 96.8 F L 11/19/22 14:13 Pulse 91 11/19/22 14:13 Resp 16 11/19/22 14:13 BP 144/88 11/19/22 14:13 Pulse Ox 100 11/19/22 14:13 FiO2 Intake & Output 11/18/22 11/19/22 11/19/22 18:59 06:59 18:59 Intake Total 595 851 6154 Output Total 335 Balance 848 768 3125 Weight 72.575 kg 72.575 kg Intake: IV 1450 Oral 360 240 Output: Urine 235 Estimated Blood Loss 100 Other: Voiding Method Toilet Toilet # Voids 4 3 - Labs CBC & Chem 7: 11/19/22 05:02 11/19/22 05:02 Labs: Abnormal Lab Results - Last 24 Hours (Table) 11/18/22 11/18/22 11/18/22 Range/Units 06:00 17:09 20:08 RBC (3.80-5.40) m/uL Lymphocytes # (1.0-4.8) k/uL Sodium (137-145) mmol/L Chloride (98-107) mmol/L BUN (7-17) mg/dL Glucose (74-99) mg/dL POC Glucose (mg/dL) 141 H 187 H (70-110) mg/dL Hemoglobin A1c 6.4 H (<=6.0) % Calcium (8.4-10.2) mg/dL 11/19/22 11/19/22 11/19/22 Range/Units 05:02 05:02 07:17 RBC 3.48 L (3.80-5.40) m/uL Lymphocytes # 0.4 L (1.0-4.8) k/uL Sodium 131 L (137-145) mmol/L Chloride 96 L (98-107) mmol/L BUN 30 H (7-17) mg/dL Glucose 146 H (74-99) mg/dL POC Glucose (mg/dL) 139 H (70-110) mg/dL Hemoglobin A1c (<=6.0) % Calcium 7.6 L (8.4-10.2) mg/dL 11/19/22 Range/Units 13:36 RBC (3.80-5.40) m/uL Lymphocytes # (1.0-4.8) k/uL Sodium (137-145) mmol/L Chloride (98-107) mmol/L BUN (7-17) mg/dL Glucose (74-99) mg/dL POC Glucose (mg/dL) 198 H (70-110) mg/dL Hemoglobin A1c (<=6.0) % Calcium (8.4-10.2) mg/dL Microbiology - Last 24 Hours (Table) 11/15/22 20:04 Blood Culture - Preliminary Blood
[2022-11-19 17:14] LABS: Glucose,Whole Blood 148 mg/dL (70-110)
[2022-11-19 20:28] LABS: Glucose,Whole Blood 156 mg/dL (70-110)
[2022-11-19] MEDS: ATORVASTATIN 10 MG TAB PO SCH (21:36)
[2022-11-19] MEDS: SENNOSIDES 8.6 MG TAB PO SCH (21:36)
--- NOTE | 2022-11-19 23:47 | FL ---
Fluoroscopy INDICATION: Pain FINDINGS: Fluoroscopy time: 1 minute 25 seconds. Total dose area product (DAP) in uGy*m?, mGy*cm? (or similar): 4265.41 Images obtained: 0. IMPRESSIONS: 1. Documentation of fluoroscopy.
[2022-11-20] MEDS: HYDROmorphone 0.5 MG/0.5 ML SYRINGE IVP PRN ×8 (00:22→23:39)
[2022-11-20] MEDS: DEXAMETHASONE SOD PHOSPHATE 4 MG/ML 1 ML VIAL IVP SCH ×3 (00:23→17:29)
[2022-11-20] MEDS: LEVOTHYROXINE 100 MCG TAB PO SCH (06:22)
[2022-11-20 07:16] LABS: Glucose,Whole Blood 124 mg/dL (70-110)
[2022-11-20 07:23] LABS: Basophils # (A) 0.1 k/uL (0-0.2); Basophils % (A) 1 %; Eosinophils % (A) 0 %; HCT 36.6 % (34.0-46.0); HGB 11.8 gm/dL (11.4-16.0); Hypochromasia Moderate; Lymphocytes # (A) 0.4 k/uL (1.0-4.8); Lymphocytes % (A) 3 %; MCH 33.9 pg (25.0-35.0); MCHC 32.3 g/dL (31.0-37.0); MCV 105.1 fL (80.0-100.0); Macrocytosis Moderate; Mean Platelet Volume 9.3; Monocytes # (A) 0.8 k/uL (0-1.0); Monocytes % (A) 5 %; Neutrophils % (A) 90 %; Platelet Count 214 k/uL (150-450); RBC 3.49 m/uL (3.80-5.40); RDW 13.7 % (11.5-15.5); WBC 15.6 k/uL (3.8-10.6)
[2022-11-20 07:25] LABS: African American GFR (CKD) 88 (>60 ml/min/1.73 sqM); Anion Gap 4 mmol/L; Blood Urea Nitrogen 35 mg/dL (7-17); Calcium 7.5 mg/dL (8.4-10.2); Carbon Dioxide 29 mmol/L (22-30); Chloride 95 mmol/L (98-107); Glucose 125 mg/dL (74-99); Non-African American GFR(CKD) 77 (>60 ml/min/1.73 sqM); Sodium 128 mmol/L (137-145)
[2022-11-20 07:52] LABS: Potassium 4.8 mmol/L (3.5-5.1)
[2022-11-20] MEDS: INSULIN ASPART (NovoLOG) 100 UNIT/ML VIAL SQ SCH ×4 (08:09→20:27)
[2022-11-20] MEDS: LACTATED RINGERS 1,000 ML IV SCH ×2 (08:51→20:34)
[2022-11-20] MEDS: METOPROLOL TARTRATE 50 MG TAB PO SCH ×2 (08:52→20:27)
[2022-11-20] MEDS: polyethylene glycoL 3350 17 GM POWD.PACK PO SCH (08:52)
[2022-11-20] MEDS: amLODIPine 2.5 MG TAB PO SCH (08:52)
[2022-11-20] MEDS: hydrALAZINE HCL 50 MG TAB PO SCH ×2 (08:52→20:27)
--- NOTE | 2022-11-20 11:49 | P.PN ---
Subjective Progress Note Date: 11/20/22 Patient is an 87-year-old female with known chronic low back pain, A. fib, hypertension, hypothyroidism, and dyslipidemia who presented to the ED with worsening back pain. She was initially seen at [facility] and underwent an MRI which showed spinal canal stenosis and disc bulging in multiple locations. Unfortunately her pain worsened and she was unable to weight her outpatient appointment and subsequently she presented to the emergency department. On arrival she was noted to be tachycardic. Initial laboratory analysis showed a leukocytosis of 16.1, MCV 100.7, sodium 135, potassium 3.2, bilirubin 1.7, AST 85, ALT 46, and alkaline phosphatase of 225. Urinalysis showed positive nitrites with large leukocyte esterase. She is admitted for pain control. She was started on Rocephin for possible urinary tract infection. Orthopedic spine surgery was consulted. She received potassium replacement. Her potassium then elevated and she received the appropriate treatment and potassium normalized. CT lumbar spine showed significant central and lateral canal stenosis and superior endlate changes at L4. Ortho spine reviewed this images and given the clinical picture diagnosed L4 fracture. The earliest it was safe to attempt surgery due to eliquis use was 11/19/22 and she underwent reduction of L4 fracture and minimially invasive fixation of L2 to S1. Patient seen and examined at bedside. She does report some pain in her low back as well as some in her left buttock. She states the pain is much more bearable than prior to surgery. She does report a low appetite and has not been eating and drinking well. She feels very dry. She also has some swelling in her left arm which appears near an old IV site. She has no edema elsewhere. Vital signs reviewed General: nontoxic, no distress, appears at stated age Cardiovascular: S1S2 reg, no murmur, positive posterior tibial pulse bilateral, Lungs: CTA bilateral, no rhonchi, no rales , no accessory muscle use Abdominal: soft, nontender to palpation, no guarding, no appreciable organomegaly Ext: no gross muscle atrophy, moving all 4 extremities independently Neuro: CN II-XI grossly intact, no focal neuro deficits Psych: Alert, oriented, appropriate affect Assessment/ Plan: Intractable back pain with lumbar spinal stenosis L3 through L5 L 4 fracture - Status post open treatment with reduction of L4 fracture and minimally invasive fixation of L2 to S1 -discussed with Dr. Alejandra, Continue with current pain medication regimen. Okay to wean steroids. -PT and OT to evaluate the patient tomorrow -Anticipate patient will need rehab on discharge - continue with dilaudid 0.5 ,g q 3 hours and norco 5/325 mg q 6 for pain. - resume Eliquis when okay with orthospine. Leukocytosis -Suspect reactive to surgery and continued IV steroid use -Monitor fever profile, incentive spirometer Hyponatremia, suspect hypovolemic -Patient endorses decreased oral intake since admission. Start lactated Ringer's at 75 mL/h. Repeat basic metabolic profile at 1700. -If continues to have significant hyponatremia will check urine sodium and urine osmolality. Hyperglycemia with prediabetes - A1c is 6.4. Her hyperglycemia is likely related to steroids - I anticipate that as we are able to wean steroids, sugars will improve, if average conitnues to be greater than 150 then will start oral diabetic medications, if not then can be discharge on diet control. Transaminitis - Liver ultrasound unrevealing. Repeat levels stable. Recommend outpatient follow-up. Service, resolved and likely was secondary to pain. P. atrial fibrillation, rate controlled -Hold Eliquis until final evaluation by orthopedic fine team in case surgery is indicated -Follow heart rate -Continue with metoprolol Chronic: Hypothyroidism Dyslipidemia Hypertension Left knee pain, improved Hyperkalemia, resolved E. Colie UTI, treated Data Review: Vitals reviewed T max in The last 24 hours 97.9 Blood pressure is reviewed and have been ranging from 130s to 176. Suspect that variability is related to pain control. Labs reviewed and remarkable for white blood cell count 15.6, sodium 128, glucose 125. A1c 6.4 DVT prophylaxis: Eliquis on hold Anticipated discharge date: Pending clinical course Anticipated discharge place: Pending clinical course This dictation was prepared using [employer] voice recognition software. Though every attempt is made to correct errors during dictation some may still exist. Objective - Vital Signs Vital signs: Vital Signs Temp 97.9 F 11/20/22 07:15 Pulse 74 11/20/22 07:15 Resp 15 11/20/22 07:15 BP 155/84 11/20/22 07:15 Pulse Ox 96 11/20/22 07:15 FiO2 Intake & Output 11/19/22 11/20/22 11/20/22 18:59 06:59 18:59 Intake Total 1450 Output Total 335 300 Balance 1115 -300 Weight 72.575 kg Intake: IV 1450 Output: Urine 235 300 Estimated Blood Loss 100 Other: Voiding Method Toilet - Labs CBC & Chem 7: 11/20/22 06:28 11/20/22 06:28 Labs: Abnormal Lab Results - Last 24 Hours (Table) 11/19/22 11/19/22 11/19/22 Range/Units 13:36 17:13 20:21 WBC (3.8-10.6) k/uL RBC (3.80-5.40) m/uL MCV (80.0-100.0) fL Neutrophils # (1.3-7.7) k/uL Lymphocytes # (1.0-4.8) k/uL Sodium (137-145) mmol/L Chloride (98-107) mmol/L BUN (7-17) mg/dL Glucose (74-99) mg/dL POC Glucose (mg/dL) 198 H 148 H 156 H (70-110) mg/dL Calcium (8.4-10.2) mg/dL 11/20/22 11/20/22 11/20/22 Range/Units 06:28 06:28 07:14 WBC 15.6 H (3.8-10.6) k/uL RBC 3.49 L (3.80-5.40) m/uL MCV 105.1 H D (80.0-100.0) fL Neutrophils # 14.0 H (1.3-7.7) k/uL Lymphocytes # 0.4 L (1.0-4.8) k/uL Sodium 128 L (137-145) mmol/L Chloride 95 L (98-107) mmol/L BUN 35 H (7-17) mg/dL Glucose 125 H (74-99) mg/dL POC Glucose (mg/dL) 124 H (70-110) mg/dL Calcium 7.5 L (8.4-10.2) mg/dL
[2022-11-20 12:26] LABS: Glucose,Whole Blood 193 mg/dL (70-110)
[2022-11-20 17:12] LABS: Glucose,Whole Blood 295 mg/dL (70-110)
[2022-11-20 18:22] LABS: African American GFR (CKD) 68 (>60 ml/min/1.73 sqM); Anion Gap 10 mmol/L; Blood Urea Nitrogen 37 mg/dL (7-17); Calcium 7.8 mg/dL (8.4-10.2); Carbon Dioxide 26 mmol/L (22-30); Chloride 94 mmol/L (98-107); Glucose 223 mg/dL (74-99); Non-African American GFR(CKD) 59 (>60 ml/min/1.73 sqM); Potassium 5.3 mmol/L (3.5-5.1); Sodium 130 mmol/L (137-145)
[2022-11-20 20:25] LABS: Glucose,Whole Blood 243 mg/dL (70-110)
[2022-11-20] MEDS: ATORVASTATIN 10 MG TAB PO SCH (20:27)
[2022-11-20] MEDS: SENNOSIDES 8.6 MG TAB PO SCH (20:27)
[2022-11-20] MEDS: HYDROcodone/APAP 5-325MG 1 EACH TAB PO PRN (20:27)
[2022-11-21] MEDS: HYDROmorphone 0.5 MG/0.5 ML SYRINGE IVP PRN ×4 (02:41→20:33)
[2022-11-21] MEDS: LEVOTHYROXINE 100 MCG TAB PO SCH (05:29)
[2022-11-21] MEDS: DEXAMETHASONE SOD PHOSPHATE 4 MG/ML 1 ML VIAL IVP SCH (05:30)
[2022-11-21 06:20] LABS: HCT 32.8 % (34.0-46.0); HGB 10.7 gm/dL (11.4-16.0); MCH 32.8 pg (25.0-35.0); MCHC 32.7 g/dL (31.0-37.0); MCV 100.4 fL (80.0-100.0); Macrocytosis Slight; Mean Platelet Volume 9.9; Platelet Count 245 k/uL (150-450); RBC 3.27 m/uL (3.80-5.40); RDW 14.1 % (11.5-15.5); WBC 18.7 k/uL (3.8-10.6)
[2022-11-21 06:24] LABS: African American GFR (CKD) 82 (>60 ml/min/1.73 sqM); Anion Gap 2 mmol/L; Blood Urea Nitrogen 33 mg/dL (7-17); Calcium 7.5 mg/dL (8.4-10.2); Carbon Dioxide 31 mmol/L (22-30); Chloride 96 mmol/L (98-107); Glucose 132 mg/dL (74-99); Non-African American GFR(CKD) 71 (>60 ml/min/1.73 sqM); Potassium 4.9 mmol/L (3.5-5.1); Sodium 129 mmol/L (137-145)
[2022-11-21 07:05] LABS: Glucose,Whole Blood 136 mg/dL (70-110)
--- NOTE | 2022-11-21 07:41 | P.PN ---
Subjective Progress Note Date: 11/20/22 Principal diagnosis: [id number] Pt s/e this AM. She is doing much better. Pain from fracture much better she is sitting up and moving on he own. Denies any new numbness/tingling or issues. States she is very happy. Objective - Vital Signs Vital signs: Vital Signs Temp 97.9 F 11/20/22 07:15 Pulse 74 11/20/22 07:15 Resp 15 11/20/22 07:15 BP 155/84 11/20/22 07:15 Pulse Ox 96 11/20/22 07:15 FiO2 Intake & Output 11/19/22 11/20/22 11/20/22 18:59 06:59 18:59 Intake Total 1450 Output Total 335 300 Balance 1115 -300 Weight 72.575 kg Intake: IV 1450 Output: Urine 235 300 Estimated Blood Loss 100 - Exam Physical Exam: -Patient is alert and oriented 3 appears well-nourished well-hydrated is in no acute distress. They do not appear septic. -There is no tenderness to palpation of the low back [-Incision is CDI, no EEE, no drainage] -Upper extremities show [5] out of 5 strength in all major muscle groups. -Lower extremities with4+out of 5 strength in all major muscle groups -There is [FROM] that is [painless] of the b/l UE and LE in all major joints. -They are intact to light touch sensation in C5 to T1 and L2 to S1 nerve distribution. -DTR [2]/4 all upper and lower extremities -Patient has palpable distal pulses all 4 ext -Compartments are soft and compressible. -Patient shows a negative Ramya's [-Neg Hoffmans b/l] [-Neg Clonus b/l] [-Neg babinski b/l] Cranial nerves II through XII are grossly intact. - Labs CBC & Chem 7: 11/21/22 05:37 11/21/22 05:37 Labs: Abnormal Lab Results - Last 24 Hours (Table) 11/19/22 11/19/22 11/19/22 Range/Units 13:36 17:13 20:21 WBC (3.8-10.6) k/uL RBC (3.80-5.40) m/uL MCV (80.0-100.0) fL Neutrophils # (1.3-7.7) k/uL Lymphocytes # (1.0-4.8) k/uL Sodium (137-145) mmol/L Chloride (98-107) mmol/L BUN (7-17) mg/dL Glucose (74-99) mg/dL POC Glucose (mg/dL) 198 H 148 H 156 H (70-110) mg/dL Calcium (8.4-10.2) mg/dL 11/20/22 11/20/22 11/20/22 Range/Units 06:28 06:28 07:14 WBC 15.6 H (3.8-10.6) k/uL RBC 3.49 L (3.80-5.40) m/uL MCV 105.1 H D (80.0-100.0) fL Neutrophils # 14.0 H (1.3-7.7) k/uL Lymphocytes # 0.4 L (1.0-4.8) k/uL Sodium 128 L (137-145) mmol/L Chloride 95 L (98-107) mmol/L BUN 35 H (7-17) mg/dL Glucose 125 H (74-99) mg/dL POC Glucose (mg/dL) 124 H (70-110) mg/dL Calcium 7.5 L (8.4-10.2) mg/dL Assessment and Plan Assessment: 87 yo female POD1 L2-S1 stabilization with L4 ORIF L4 AO type B2 fracture Plan: -Appreciate office [employer] consultant and team management. -Activity: Ambulate QID, OOB all meals, up and about, limit lifting bending twisting to less than 5 lbs. Use walker or cane if needed for stability. -Daily PT/OT, increase ambulation strength and balance. -[Brace when up and about, not needed in bed or chair] -Pain control: [Adequate at this time] -Meds: [reviewed] -GI ppx: senna, Miralax -DC barnett when up and about, bedside commode if needed -DVT PPX: [OK to restart Heparin tonight] -Hygiene: Shower today. Maintain dressing clean and dry. Meticulous cleaning after BMs away from incision site -Encourage IS 10x/hr -Dispo: [Pending]
[2022-11-21] MEDS: INSULIN ASPART (NovoLOG) 100 UNIT/ML VIAL SQ SCH ×4 (08:09→20:31)
[2022-11-21] MEDS: guaiFENesin 600 MG TABLET.ER PO PRN ×2 (09:02→20:31)
[2022-11-21] MEDS: METOPROLOL TARTRATE 50 MG TAB PO SCH ×2 (09:02→20:31)
[2022-11-21] MEDS: bisacodyL 5 MG TABLET.DR PO SCH (09:02)
[2022-11-21] MEDS: hydrALAZINE HCL 50 MG TAB PO SCH ×2 (09:02→20:31)
[2022-11-21] MEDS: amLODIPine 2.5 MG TAB PO SCH (09:03)
[2022-11-21] MEDS: polyethylene glycoL 3350 17 GM POWD.PACK PO SCH (09:03)
--- NOTE | 2022-11-21 09:18 | P.PN ---
Subjective Progress Note Date: 11/21/22 Principal diagnosis: Low Back pain Bilateral lower extremity radiculopathy Patient seen and examined this morning. Patient is resting comfortably in bed. No acute events overnight. She reports her pain is managed on current regimen. Prescription for LSO brace remains in chart. Patient encouraged to be up with all meals today and to work with PT. Surgical dressing to the lumbar spine is CDI. Patient has been afebrile, no complaint of nausea/vomiting, or chest pain. Objective - Vital Signs Vital signs: Vital Signs Temp 98 F 11/21/22 07:16 Pulse 71 11/21/22 07:16 Resp 16 11/21/22 07:16 BP 164/77 11/21/22 07:16 Pulse Ox 98 11/21/22 07:16 FiO2 Intake & Output 11/20/22 11/21/22 11/21/22 18:59 06:59 18:59 Intake Total 1020 Output Total 350 Balance -350 1020 Intake: Intake, IV Titration 900 Amount Lactated Ringers 1,000 ml 900 @ 75 mls/hr IV .[id number] [facility] Rx#:[id number] Oral 120 Output: Urine 350 Other: Voiding Method Toilet Toilet - Exam Inspection: Surgical incisions to the lumbar spine. Dressings are clean dry and intact. 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 There is also scar over the left ankle from previous surgery. Sensation: Equal, symmetric, bilaterally intact throughout the upper and lower extremities Palpation: Mild tenderness to patient over the lumbar spine and midline and in the bilateral SI joints. Nontender to palpation throughout rest of exam Range of motion: Patient has full range of motion bilateral upper extremities on exam. Patient does have limited range of motion in bilateral hips in flexion/extension secondary to surgical procedure. Patient is able to flex both knees just past 90 while lying in bed in semirecumbent position. Patient has f ull extension in bilateral knees. There is limited dorsi/plantar flexion in the left ankle likely due to previous surgery. Patient has full range of motion and EHL/FHL bilaterally Motor: 4-/5 in bilateral hips in flexion/extension. 4-/5 in resisted left knee flexion/extension. 4-/5 in resisted plantar flexion bilaterally. 4/5 in all other major motor groups in bilateral lower extremities. Shipwright Apprentice strength 4/5 bilaterally. 4/5 in all other major motor groups in bilateral upper extremities Special tests: Negative Homans bilaterally. Negative Fred bilaterally. Negative clonus bilaterally Neurovascular: Radial pulse intact, 2+ bilaterally. Cap refill under 3 seconds in digits of upper extremities. - Labs CBC & Chem 7: 11/21/22 05:37 11/21/22 05:37 Labs: Abnormal Lab Results - Last 24 Hours (Table) 11/20/22 11/20/22 11/20/22 Range/Units 06:28 12:25 17:11 WBC (3.8-10.6) k/uL RBC (3.80-5.40) m/uL Hgb (11.4-16.0) gm/dL Hct (34.0-46.0) % MCV (80.0-100.0) fL Neutrophils # 14.0 H (1.3-7.7) k/uL Lymphocytes # 0.4 L (1.0-4.8) k/uL Sodium (137-145) mmol/L Potassium (3.5-5.1) mmol/L Chloride (98-107) mmol/L Carbon Dioxide (22-30) mmol/L BUN (7-17) mg/dL Glucose (74-99) mg/dL POC Glucose (mg/dL) 193 H 295 H (70-110) mg/dL Calcium (8.4-10.2) mg/dL 11/20/22 11/20/22 11/21/22 Range/Units 17:37 20:22 05:37 WBC 18.7 H (3.8-10.6) k/uL RBC 3.27 L (3.80-5.40) m/uL Hgb 10.7 L (11.4-16.0) gm/dL Hct 32.8 L (34.0-46.0) % MCV 100.4 H (80.0-100.0) fL Neutrophils # (1.3-7.7) k/uL Lymphocytes # (1.0-4.8) k/uL Sodium 130 L (137-145) mmol/L Potassium 5.3 H (3.5-5.1) mmol/L Chloride 94 L (98-107) mmol/L Carbon Dioxide (22-30) mmol/L BUN 37 H (7-17) mg/dL Glucose 223 H (74-99) mg/dL POC Glucose (mg/dL) 243 H (70-110) mg/dL Calcium 7.8 L (8.4-10.2) mg/dL 11/21/22 11/21/22 Range/Units 05:37 07:04 WBC (3.8-10.6) k/uL RBC (3.80-5.40) m/uL Hgb (11.4-16.0) gm/dL Hct (34.0-46.0) % MCV (80.0-100.0) fL Neutrophils # (1.3-7.7) k/uL Lymphocytes # (1.0-4.8) k/uL Sodium 129 L (137-145) mmol/L Potassium (3.5-5.1) mmol/L Chloride 96 L (98-107) mmol/L Carbon Dioxide 31 H (22-30) mmol/L BUN 33 H (7-17) mg/dL Glucose 132 H (74-99) mg/dL POC Glucose (mg/dL) 136 H (70-110) mg/dL Calcium 7.5 L (8.4-10.2) mg/dL Microbiology - Last 24 Hours (Table) 11/15/22 20:04 Blood Culture - Final Blood Assessment and Plan Assessment: Post Op day 2: L2-S1 stabilization with L4 ORIF 1. L4 AO-type B2 vertebral fracture 2. Ankylosing Spondylitis 3. Bilateral lower extremity radiculopathy Plan: -Appreciate digital marketing consultant and team management. -Activity: Ambulate QID, OOB all meals, up and about, limit lifting bending twisting to less than 5 lbs. Use walker or cane if needed for stability. -Daily PT/OT, increase ambulation strength and balance. -Brace when up and about, not needed in bed or chair -Prescription for LSO brace in chart -Pain control: Adequate at this time -Meds: reviewed -GI ppx: senna, Miralax -DC barnett when up and about, bedside commode if needed -DVT PPX: OK to restart Heparin tonight -Hygiene: Shower today. Maintain dressing clean and dry. Meticulous cleaning after BMs away from the incision site -Encourage IS 10x/hr -Dispo: Anticipate discharge home later today vs tomorrow with homecare vs [facility] *I reviewed and discussed this case with my attending Dr. Alejandra, whom has reviewed this chart and films and is in agreement with assessment and plan of care as outlined above. I have personally seen and examined the patient, performed the documentation and the assessment and plan as written. Number of minutes spent on the visit: 15m.
[2022-11-21] MEDS: HYDROcodone/APAP 7.5-325MG 1 EACH TAB PO PRN ×3 (10:32→22:23)
[2022-11-21 12:17] LABS: Glucose,Whole Blood 178 mg/dL (70-110)
[2022-11-21] MEDS: LACTATED RINGERS 1,000 ML IV SCH ×2 (13:08→23:41)
--- NOTE | 2022-11-21 15:14 | P.PN ---
Subjective Progress Note Date: 11/21/22 (delayed charting seen at 0815) Patient is an 87-year-old female with known chronic low back pain, A. fib, hypertension, hypothyroidism, and dyslipidemia who presented to the ED with worsening back pain. She was initially seen at [facility] and underwent an MRI which showed spinal canal stenosis and disc bulging in multiple locations. Unfortunately her pain worsened and she was unable to weight her outpatient appointment and subsequently she presented to the emergency department. On arrival she was noted to be tachycardic. Initial laboratory analysis showed a leukocytosis of 16.1, MCV 100.7, sodium 135, potassium 3.2, bilirubin 1.7, AST 85, ALT 46, and alkaline phosphatase of 225. Urinalysis showed positive nitrites with large leukocyte esterase. She is admitted for pain control. She was started on Rocephin for possible urinary tract infection. Orthopedic spine surgery was consulted. She received potassium replacement. Her potassium then elevated and she received the appropriate treatment and potassium normalized. CT lumbar spine showed significant central and lateral canal stenosis and superior endlate changes at L4. Ortho spine reviewed this images and given the clinical picture diagnosed L4 fracture. The earliest it was safe to attempt surgery due to eliquis use was 11/19/22 and she underwent reduction of L4 fracture and minimially invasive fixation of L2 to S1. Patient seen and examined at bedside. She reports she has not really been using Paron and is only been using the Dilaudid she thought she should not mix the 2. We discussed optimal pain regimen will consist of both oral and IV pain medications during her recovery period. We have agreed to increase her Paron 7.5 mg every 6 hours to see if that helps. She has not yet had a bowel movement states she sometimes struggles with constipation at home. She denies any chest pain or shortness of breath. She also reports some increased congestion and feeling as though she can't cough up stuff stuck in her lungs. She has been using her incentive spirometer since yesterday. Vital signs reviewed General: nontoxic, no distress, appears at stated age Cardiovascular: S1S2 reg, no murmur, positive posterior tibial pulse bilateral, Lungs: Course bs bilateral, no rhonchi, no rales , no accessory muscle use Abdominal: soft, nontender to palpation, no guarding, no appreciable organomegaly Ext: no gross muscle atrophy, moving all 4 extremities independently Neuro: CN II-XI grossly intact, no focal neuro deficits Psych: Alert, oriented, appropriate affect Assessment/ Plan: Intractable back pain with lumbar spinal stenosis L3 through L5 L 4 fracture - Status post open treatment with reduction of L4 fracture and minimally invasive fixation of L2 to S1 - off decadron today -PT and OT recs -Anticipate patient will need rehab on discharge - continue with dilaudid 0.5 ,g q 3 hours, norco increased to 7.5/325 mg q 6 for pain. - resume Eliquis when okay with orthospine. Hyponatremia, suspect hypovolemic -Check urine and serum osmolality (282), check urine sodium -Continue with lactated Ringer's at 75 mL per hour -Recheck BMP at 1500 Constipation -MiraLAX 17 g daily, senna 1 tablet at night -Add Dulcolax 5 mg daily Hyperglycemia with prediabetes - A1c is 6.4. Her hyperglycemia is likely related to steroids - start tradjent 5 mg daily as despite steroid wean BS have still be greater than 200 at times. Transaminitis - Liver ultrasound unrevealing. Repeat levels stable. Recommend outpatient follow-up. Service, resolved and likely was secondary to pain. P. atrial fibrillation, rate controlled -Resume eliquis when okay with spine ortho -Follow heart rate -Continue with metoprolol Leukocytosis -Suspect reactive to surgery and continued IV steroid use -Monitor fever profile, incentive spirometer Chronic: Hypothyroidism Dyslipidemia Hypertension Left knee pain, improved Hyperkalemia, resolved E. Colie UTI, treated Data Review: Vitals reviewed in patient's T-max the last 24 hours 98.6 Labs reviewed leukocytosis 18.7, hemoglobin 10.7, sodium 129, BUN 33, creatinine 0.769-year and also elevated ordered and 282 DVT prophylaxis: Eliquis on hold Anticipated discharge date: Pending clinical course Anticipated discharge place: Pending clinical course This dictation was prepared using [employer] voice recognition software. Though every attempt is made to correct errors during dictation some may still exist. Objective - Vital Signs Vital signs: Vital Signs Temp 98 F 11/21/22 12:06 Pulse 78 11/21/22 12:06 Resp 16 11/21/22 12:06 BP 134/73 11/21/22 12:06 Pulse Ox 97 11/21/22 12:06 FiO2 Intake & Output 11/20/22 11/21/22 11/21/22 18:59 06:59 18:59 Intake Total 1020 Output Total 350 Balance -350 1020 Weight 72.575 kg Intake: Intake, IV Titration 900 Amount Lactated Ringers 1,000 ml 900 @ 75 mls/hr IV .[id number] [facility] Rx#:[id number] Oral 120 Output: Urine 350 Other: Voiding Method Toilet Toilet Toilet - Labs CBC & Chem 7: 11/21/22 05:37 11/21/22 05:37 Labs: Abnormal Lab Results - Last 24 Hours (Table) 11/20/22 11/20/22 11/20/22 Range/Units 17:11 17:37 20:22 WBC (3.8-10.6) k/uL RBC (3.80-5.40) m/uL Hgb (11.4-16.0) gm/dL Hct (34.0-46.0) % MCV (80.0-100.0) fL Sodium 130 L (137-145) mmol/L Potassium 5.3 H (3.5-5.1) mmol/L Chloride 94 L (98-107) mmol/L Carbon Dioxide (22-30) mmol/L BUN 37 H (7-17) mg/dL Glucose 223 H (74-99) mg/dL POC Glucose (mg/dL) 295 H 243 H (70-110) mg/dL Calcium 7.8 L (8.4-10.2) mg/dL 11/21/22 11/21/22 11/21/22 Range/Units 05:37 05:37 07:04 WBC 18.7 H (3.8-10.6) k/uL RBC 3.27 L (3.80-5.40) m/uL Hgb 10.7 L (11.4-16.0) gm/dL Hct 32.8 L (34.0-46.0) % MCV 100.4 H (80.0-100.0) fL Sodium 129 L (137-145) mmol/L Potassium (3.5-5.1) mmol/L Chloride 96 L (98-107) mmol/L Carbon Dioxide 31 H (22-30) mmol/L BUN 33 H (7-17) mg/dL Glucose 132 H (74-99) mg/dL POC Glucose (mg/dL) 136 H (70-110) mg/dL Calcium 7.5 L (8.4-10.2) mg/dL 11/21/22 Range/Units 12:16 WBC (3.8-10.6) k/uL RBC (3.80-5.40) m/uL Hgb (11.4-16.0) gm/dL Hct (34.0-46.0) % MCV (80.0-100.0) fL Sodium (137-145) mmol/L Potassium (3.5-5.1) mmol/L Chloride (98-107) mmol/L Carbon Dioxide (22-30) mmol/L BUN (7-17) mg/dL Glucose (74-99) mg/dL POC Glucose (mg/dL) 178 H (70-110) mg/dL Calcium (8.4-10.2) mg/dL Microbiology - Last 24 Hours (Table) 11/15/22 20:04 Blood Culture - Final Blood
[2022-11-21] MEDS: LINAGLIPTIN 5 MG TABLET PO SCH (16:10)
[2022-11-21 16:35] LABS: African American GFR (CKD) 88 (>60 ml/min/1.73 sqM); Anion Gap 4 mmol/L; Blood Urea Nitrogen 34 mg/dL (7-17); Calcium 7.7 mg/dL (8.4-10.2); Carbon Dioxide 25 mmol/L (22-30); Chloride 98 mmol/L (98-107); Glucose 105 mg/dL (74-99); Non-African American GFR(CKD) 77 (>60 ml/min/1.73 sqM); Potassium 4.9 mmol/L (3.5-5.1); Sodium 127 mmol/L (137-145)
[2022-11-21 17:13] LABS: Glucose,Whole Blood 129 mg/dL (70-110)
[2022-11-21 20:06] LABS: Glucose,Whole Blood 236 mg/dL (70-110)
[2022-11-21] MEDS: ATORVASTATIN 10 MG TAB PO SCH (20:31)
[2022-11-21] MEDS: SENNOSIDES 8.6 MG TAB PO SCH (20:31)
[2022-11-22] MEDS: HYDROcodone/APAP 7.5-325MG 1 EACH TAB PO PRN ×4 (04:07→21:47)
[2022-11-22] MEDS: HYDROmorphone 0.5 MG/0.5 ML SYRINGE IVP PRN (04:09)
[2022-11-22] MEDS: LEVOTHYROXINE 100 MCG TAB PO SCH (05:12)
[2022-11-22 08:06] LABS: Glucose,Whole Blood 131 mg/dL (70-110)
--- NOTE | 2022-11-22 08:12 | P.PN ---
Subjective Progress Note Date: 11/22/22 Principal diagnosis: Low Back pain Bilateral lower extremity radiculopathy Patient seen and examined this morning. Patient is resting comfortably in bed. No acute events overnight. She reports her pain is managed on current regimen. LSO brace is at bedside. Pateint reports she did work with PT and tolerate activity well yesterday and that she sat up in the chair for a few hours. Surgical dressing to the lumbar spine is CDI. Patient has been afebrile, no complaint of nausea/vomiting, or chest pain. Patient is cleared from Orthopedic standpoint for discharge to [facility] when bed available. Objective - Vital Signs Vital signs: Vital Signs Temp 97.8 F 11/22/22 01:19 Pulse 75 11/22/22 01:19 Resp 17 11/22/22 01:19 BP 133/66 11/22/22 01:19 Pulse Ox 96 11/22/22 01:19 FiO2 Intake & Output 11/21/22 11/22/22 11/22/22 18:59 06:59 18:59 Intake Total 900 Balance 900 Weight 72.575 kg Intake: Intake, IV Titration 900 Amount Lactated Ringers 1,000 ml 900 @ 75 mls/hr IV .[id number] [facility] Rx#:[id number] Other: Voiding Method Toilet Toilet # Voids 1 1 - Exam Inspection: Surgical incisions to the lumbar spine. Dressings are clean dry and intact. 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 There is also scar over the left ankle from previous surgery. Sensation: Equal, symmetric, bilaterally intact throughout the upper and lower extremities Palpation: Mild tenderness to patient over the lumbar spine and midline and in the bilateral SI joints. Nontender to palpation throughout rest of exam Range of motion: Patient has full range of motion bilateral upper extremities on exam. Patient does have limited range of motion in bilateral hips in flexion/extension secondary to surgical procedure. Patient is able to flex both knees just past 90 while lying in bed in semirecumbent position. Patient has full extension in bilateral knees. There is limited dorsi/plantar flexion in the left ankle likely due to previous surgery. Patient has full range of motion and EHL/FHL bilaterally Motor: 4-/5 in bilateral hips in flexion/extension. 4-/5 in resisted left knee flexion/extension. 4-/5 in resisted plantar flexion bilaterally. 4/5 in all other major motor groups in bilateral lower extremities. Social Welfare Research Worker strength 4/5 bilaterally. 4/5 in all other major motor groups in bilateral upper extremities Special tests: Negative Homans bilaterally. Negative Fred bilaterally. Negative clonus bilaterally Neurovascular: Radial pulse intact, 2+ bilaterally. Cap refill under 3 seconds in digits of upper extremities. - Labs CBC & Chem 7: 11/21/22 05:37 11/21/22 16:08 Labs: Abnormal Lab Results - Last 24 Hours (Table) 11/21/22 11/21/22 11/21/22 Range/Units 12:16 16:08 17:11 Sodium 127 L (137-145) mmol/L BUN 34 H (7-17) mg/dL Glucose 105 H (74-99) mg/dL POC Glucose (mg/dL) 178 H 129 H (70-110) mg/dL Calcium 7.7 L (8.4-10.2) mg/dL 11/21/22 Range/Units 20:05 Sodium (137-145) mmol/L BUN (7-17) mg/dL Glucose (74-99) mg/dL POC Glucose (mg/dL) 236 H (70-110) mg/dL Calcium (8.4-10.2) mg/dL Microbiology - Last 24 Hours (Table) 11/15/22 20:04 Blood Culture - Final Blood Assessment and Plan Assessment: Post Op day 3: L2-S1 stabilization with L4 ORIF 1. L4 AO-type B2 vertebral fracture 2. Ankylosing Spondylitis 3. Bilateral lower extremity radiculopathy Plan: -Appreciate seo consultant and team management. -Activity: Ambulate QID, OOB all meals, up and about, limit lifting bending twisting to less than 5 lbs. Use walker or cane if needed for stability. -Daily PT/OT, increase ambulation strength and balance. -Brace when up and about, not needed in bed or chair -Pain control: Adequate at this time -Meds: reviewed -GI ppx: senna, Miralax -DVT PPX: Heparin -Hygiene: Shower today. Maintain dressing clean and dry. Meticulous cleaning after BMs away from the incision site -Encourage IS 10x/hr -Dispo: Anticipate discharge home later today to [facility] *I reviewed and discussed this case with my attending Dr. Alejandra, whom has reviewed this chart and films and is in agreement with assessment and plan of care as outlined above. I have personally seen and examined the patient, performed the documentation and the assessment and plan as written. Number of minutes spent on the visit: 15m.
[2022-11-22] MEDS: INSULIN ASPART (NovoLOG) 100 UNIT/ML VIAL SQ SCH ×4 (08:39→21:46)
[2022-11-22] MEDS: hydrALAZINE HCL 50 MG TAB PO SCH ×2 (09:00→21:46)
[2022-11-22] MEDS: guaiFENesin 600 MG TABLET.ER PO SCH ×2 (09:00→21:46)
[2022-11-22] MEDS: amLODIPine 2.5 MG TAB PO SCH (09:00)
[2022-11-22] MEDS: polyethylene glycoL 3350 17 GM POWD.PACK PO SCH (09:00)
[2022-11-22] MEDS: HEPARIN SODIUM,PORCINE 5,000 UNIT/ML 1 ML VIAL SQ SCH ×2 (09:00→21:47)
[2022-11-22] MEDS: bisacodyL 5 MG TABLET.DR PO SCH (09:00)
[2022-11-22] MEDS: METOPROLOL TARTRATE 50 MG TAB PO SCH ×2 (09:00→21:46)
[2022-11-22] MEDS: LINAGLIPTIN 5 MG TABLET PO SCH (09:00)
--- NOTE | 2022-11-22 13:04 | P.PN ---
Subjective Progress Note Date: 11/22/22 Hospital Course: Patient is an 87-year-old female with known chronic low back pain, A. fib, hypertension, hypothyroidism, and dyslipidemia who presented to the ED with worsening back pain. She was initially seen at [facility] and underwent an MRI which showed spinal canal stenosis and disc bulging in multiple locations. Unfortunately her pain worsened and she was unable to weight her outpatient appointment and subsequently she presented to the emergency department. On arrival she was noted to be tachycardic. Initial laboratory analysis showed a leukocytosis of 16.1, MCV 100.7, sodium 135, potassium 3.2, bilirubin 1.7, AST 85, ALT 46, and alkaline phosphatase of 225. Urinalysis showed positive nitrites with large leukocyte esterase. She is admitted for pain control. She was started on Rocephin for possible urinary tract infection. Orthopedic spine surgery was consulted. She received potassium replacement. Her potassium then elevated and she received the appropriate treatment and potassium normalized. CT lumbar spine showed significant central and lateral canal stenosis and superior endlate changes at L4. Ortho spine reviewed this images and given the clinical picture diagnosed L4 fracture. The earliest it was safe to attempt surgery due to eliquis use was 11/19/22 and she underwent reduction of L4 fracture and minimially invasive fixation of L2 to S1. Patient pending rehab discharge. Also has hyponatremia. Subjective: Patient seen and examined at bedside. No acute events overnight. Claims that back pain is improving. Still has not had any bowel movements, but continues to pass gas. Pertinent positives and negatives as discussed above, a complete review of systems was performed and all other systems are negative. Vitals Signs Reviewed. General: nontoxic, no distress, appears at stated age Cardiovascular: S1S2 reg, no murmur, positive posterior tibial pulse bilateral, Lungs: Course bs bilateral, no rhonchi, no rales , no accessory muscle use Abdominal: soft, nontender to palpation, no guarding, no appreciable organomegaly Ext: no gross muscle atrophy, moving all 4 extremities independently Neuro: CN II-XI grossly intact, no focal neuro deficits Psych: Alert, oriented, appropriate affect Data Reviewed Today: Pertinent Labs: BMP, CBC, magnesium pending, will be reviewed when available, blood sugars range between 105-236 Imaging: No new imaging Assessment and Plan: Intractable back pain with lumbar spinal stenosis L3 through L5 L 4 fracture - Status post open treatment with reduction of L4 fracture and minimally invasi ve fixation of L2 to S1 - off decadron -PT and OT recs -Anticipate patient will need rehab on discharge - continue with dilaudid 0.5 ,g q 3 hours, norco increased to 7.5/325 mg q 6 for pain. - resume Eliquis when okay with orthospine. -Orthopedics note reviewed, continue current management Hyponatremia, suspect hypovolemic -Has elevated urine osmolality. Elevated urine sodium, -Continue with lactated Ringer's at 75 mL per hour -Repeat BMP pending Constipation -MiraLAX 17 g daily, senna 1 tablet at night, Dulcolax 5 mg daily Hyperglycemia with prediabetes - A1c is 6.4. Her hyperglycemia is likely related to steroids -Was started on tradjent 5 mg daily Transaminitis - Liver ultrasound unrevealing. Repeat levels stable. Recommend outpatient follow-up. P. atrial fibrillation, rate controlled -Resume eliquis when okay with spine ortho -Follow heart rate -Continue with metoprolol Leukocytosis -Suspect reactive to surgery and continued IV steroid use -Monitor fever profile, incentive spirometer -Repeat CBC pending Chronic: Hypothyroidism Dyslipidemia Hypertension Left knee pain, improved Hyperkalemia, resolved E. Colie UTI, treated DVT ppx: Subcu heparin Code status: Full code Anticipated discharge place: Subacute rehab Anticipated discharge time: Pending insurance authorization Objective - Vital Signs Vital signs: Vital Signs Temp 97.7 F 11/22/22 07:40 Pulse 80 11/22/22 07:40 Resp 20 11/22/22 07:40 BP 194/92 11/22/22 07:40 Pulse Ox 98 11/22/22 07:40 FiO2 Intake & Output 11/21/22 11/22/22 11/22/22 18:59 06:59 18:59 Intake Total 900 Balance 900 Weight 72.575 kg Intake: Intake, IV Titration 900 Amount Lactated Ringers 1,000 ml 900 @ 75 mls/hr IV .[id number] [facility] Rx#:[id number] Other: Voiding Method Toilet Toilet Toilet # Voids 1 1 - Labs CBC & Chem 7: 11/21/22 05:37 11/21/22 16:08 Labs: Abnormal Lab Results - Last 24 Hours (Table) 11/21/22 11/21/22 11/21/22 Range/Units 16:08 17:11 20:05 Sodium 127 L (137-145) mmol/L BUN 34 H (7-17) mg/dL Glucose 105 H (74-99) mg/dL POC Glucose (mg/dL) 129 H 236 H (70-110) mg/dL Calcium 7.7 L (8.4-10.2) mg/dL 11/22/22 Range/Units 07:38 Sodium (137-145) mmol/L BUN (7-17) mg/dL Glucose (74-99) mg/dL POC Glucose (mg/dL) 131 H (70-110) mg/dL Calcium (8.4-10.2) mg/dL
[2022-11-22 13:14] LABS: Glucose,Whole Blood 140 mg/dL (70-110)
[2022-11-22 13:20] LABS: HCT 33.8 % (34.0-46.0); HGB 11.1 gm/dL (11.4-16.0); MCH 33.2 pg (25.0-35.0); MCHC 32.9 g/dL (31.0-37.0); Macrocytosis Slight; Mean Platelet Volume 9.4; Platelet Count 263 k/uL (150-450); RBC 3.34 m/uL (3.80-5.40); WBC 18.4 k/uL (3.8-10.6)
[2022-11-22 13:36] LABS: African American GFR (CKD) 89 (>60 ml/min/1.73 sqM); Anion Gap 6 mmol/L; Blood Urea Nitrogen 31 mg/dL (7-17); Calcium 7.8 mg/dL (8.4-10.2); Carbon Dioxide 25 mmol/L (22-30); Chloride 96 mmol/L (98-107); Glucose 121 mg/dL (74-99); Magnesium 1.9 mg/dL (1.6-2.3); Non-African American GFR(CKD) 78 (>60 ml/min/1.73 sqM); Potassium 4.5 mmol/L (3.5-5.1); Sodium 127 mmol/L (137-145)
[2022-11-22 14:08] LABS: Band Neutrophils % 2 %; Lymphocytes # (M) 0.74 k/uL (1.0-4.8); Metamyelocytes # (M) 0.37 k/uL (0); Metamyelocytes % 2 %; Monocytes # (M) 0.92 k/uL (0-1.0); Myelocytes # (M) 0.18 k/uL (0); Myelocytes % 1 %; Neutrophils % (M) 88 %; Nucleated Red Blood Cells 0 /100 WBC (0-0); Total Cells Counted 200
[2022-11-22 14:11] LABS: Poikilocytosis (M) Present
[2022-11-22] MEDS: LACTATED RINGERS 1,000 ML IV SCH (16:32)
[2022-11-22 17:24] LABS: Glucose,Whole Blood 131 mg/dL (70-110)
[2022-11-22] MEDS: SODIUM CHLORIDE 0.9% 1,000 ML IV SCH (17:47)
[2022-11-22 20:57] LABS: Glucose,Whole Blood 159 mg/dL (70-110)
[2022-11-22] MEDS: ATORVASTATIN 10 MG TAB PO SCH (21:46)
[2022-11-22] MEDS: SENNOSIDES 8.6 MG TAB PO SCH (21:46)
[2022-11-23] MEDS: SODIUM CHLORIDE 0.9% 1,000 ML IV SCH ×4 (01:43→21:23)
[2022-11-23] MEDS: HYDROcodone/APAP 7.5-325MG 1 EACH TAB PO PRN ×2 (04:41→21:20)
[2022-11-23] MEDS: LEVOTHYROXINE 100 MCG TAB PO SCH (06:32)
[2022-11-23 07:53] LABS: Glucose,Whole Blood 111 mg/dL (70-110)
[2022-11-23] MEDS: INSULIN ASPART (NovoLOG) 100 UNIT/ML VIAL SQ SCH ×4 (07:55→21:19)
[2022-11-23] MEDS: guaiFENesin 600 MG TABLET.ER PO SCH ×2 (08:37→21:19)
[2022-11-23] MEDS: METOPROLOL TARTRATE 50 MG TAB PO SCH ×2 (08:37→21:19)
[2022-11-23] MEDS: hydrALAZINE HCL 50 MG TAB PO SCH ×2 (08:37→21:19)
[2022-11-23] MEDS: HEPARIN SODIUM,PORCINE 5,000 UNIT/ML 1 ML VIAL SQ SCH ×2 (08:37→21:19)
[2022-11-23] MEDS: bisacodyL 5 MG TABLET.DR PO SCH (08:37)
[2022-11-23] MEDS: amLODIPine 2.5 MG TAB PO SCH (08:38)
[2022-11-23] MEDS: LINAGLIPTIN 5 MG TABLET PO SCH (08:38)
[2022-11-23] MEDS: polyethylene glycoL 3350 17 GM POWD.PACK PO SCH (08:38)
[2022-11-23] MEDS: ACETAMINOPHEN TAB 325 MG TAB PO PRN ×2 (08:46→21:57)
[2022-11-23 09:39] LABS: HCT 32.4 % (37.2-46.3); HGB 10.8 d/dL (12.0-15.0); MCH 32.4 pg (27.0-32.0); MCHC 33.3 d/dL (32.0-37.0); MCV 97.3 FL (80.0-97.0); Mean Platelet Volume 11.4 FL (9.5-12.2); NRBC Per 100 WBC 0.04 X 10*3/uL (0.00-0.01); Platelet Count 285 X 10*3/uL (140-440); RBC 3.33 X 10*6/uL (4.10-5.20); WBC 17.98 X 10*3/uL (4.50-10.00)
[2022-11-23 09:41] LABS: BUN/Creat Ratio 26.12 Ratio (12.00-20.00); Blood Urea Nitrogen 20.9 mg/dL (9.0-27.0); Calcium 8.2 mg/dL (8.7-10.3); Carbon Dioxide 24.3 mmol/L (21.6-31.8); Chloride 99 mmol/L (96-109); Glucose 108 mg/dL (70-110); Potassium 5.3 mmol/L (3.5-5.5); Sodium 133 mmol/L (135-145)
[2022-11-23 10:32] LABS: Basophils # (M) 0 X 10*3/uL (0.00-0.10); Eosinophils # (M) 0 X 10*3/uL (0.04-0.35); Lymphocytes # (M) 0 X 10*3/uL (0.90-5.00); Metamyelocytes % 4 % (0-0); Monocytes # (M) 1.26 X 10*3/uL (0.20-1.00); Myelocytes % 1 % (0-0); Neutrophils # (M) 15.82 X 10*3/uL (1.80-7.70); Neutrophils % (M) 88 %; RBC Morphology Normal (Normal)
[2022-11-23 12:37] LABS: Glucose,Whole Blood 134 mg/dL (70-110)
--- NOTE | 2022-11-23 13:32 | P.PN ---
Subjective Progress Note Date: 11/23/22 Hospital Course: Patient is an 87-year-old female with known chronic low back pain, A. fib, hypertension, hypothyroidism, and dyslipidemia who presented to the ED with worsening back pain. She was initially seen at [facility] and underwent an MRI which showed spinal canal stenosis and disc bulging in multiple locations. Unfortunately her pain worsened and she was unable to weight her outpatient appointment and subsequently she presented to the emergency department. On arrival she was noted to be tachycardic. Initial laboratory analysis showed a leukocytosis of 16.1, MCV 100.7, sodium 135, potassium 3.2, bilirubin 1.7, AST 85, ALT 46, and alkaline phosphatase of 225. Urinalysis showed positive nitrites with large leukocyte esterase. She is admitted for pain control. She was started on Rocephin for possible urinary tract infection. Orthopedic spine surgery was consulted. She received potassium replacement. Her potassium then elevated and she received the appropriate treatment and potassium normalized. CT lumbar spine showed significant central and lateral canal stenosis and superior endlate changes at L4. Ortho spine reviewed this images and given the clinical picture diagnosed L4 fracture. The earliest it was safe to attempt surgery due to eliquis use was 11/19/22 and she underwent reduction of L4 fracture and minimially invasive fixation of L2 to S1. Patient pending rehab discharge. Also has hyponatremia, improved with fluids. Subjective: Patient seen and examined at bedside. No acute events overnight. Claims that back pain is improving. Still has not had any bowel movements, but continues to pass gas. Pertinent positives and negatives as discussed above, a complete review of systems was performed and all other systems are negative. Vitals Signs Reviewed. General: nontoxic, no distress, appears at stated age Cardiovascular: S1S2 reg, no murmur, positive posterior tibial pulse bilateral, Lungs: Course bs bilateral, no rhonchi, no rales , no accessory muscle use Abdominal: soft, nontender to palpation, no guarding, no appreciable organomegaly Ext: no gross muscle atrophy, moving all 4 extremities independently Neuro: CN II-XI grossly intact, no focal neuro deficits Psych: Alert, oriented, appropriate affect Data Reviewed Today: Pertinent Labs: WBC 17.98, hemoglobin 10.8, sodium 133, potassium 5.3, blood sugars range between 108-159 Imaging: No new imaging Assessment and Plan: Intractable back pain with lumbar spinal stenosis L3 through L5 L 4 fracture - Status post open treatment with reduction of L4 fracture and minimally invasive fixation of L2 to S1 - off decadron -PT and OT recs -Anticipate patient will need rehab on discharge - continue with dilaudid 0.5 ,g q 3 hours, norco increased to 7.5/325 mg q 6 for pain. - resume Eliquis when okay with orthospine. -Orthopedics following, continue current management Hyponatremia, suspect hypovolemic, improved -Was started on normal saline yesterday, sodium improved Constipation -MiraLAX 17 g daily, senna 1 tablet at night, Dulcolax 5 mg daily -Still has not had a bowel movement Hyperglycemia with prediabetes - A1c is 6.4. Her hyperglycemia is likely related to steroids -Was started on tradjent 5 mg daily Transaminitis - Liver ultrasound unrevealing. Repeat levels stable. Recommend outpatient follow-up. P. atrial fibrillation, rate controlled -Resume eliquis when okay with spine ortho -Follow heart rate -Continue with metoprolol Leukocytosis -Suspect reactive to surgery and previously steroid use -Monitor fever profile, incentive spirometer Chronic: Hypothyroidism Dyslipidemia Hypertension Left knee pain, improved Hyperkalemia, resolved E. Colie UTI, treated DVT ppx: Subcu heparin Code status: Full code Anticipated discharge place: Subacute rehab Anticipated discharge time: Pending insurance authorization Objective - Vital Signs Vital signs: Vital Signs Temp 98.7 F 11/23/22 07:52 Pulse 83 11/23/22 07:52 Resp 14 11/23/22 07:52 BP 147/79 11/23/22 07:52 Pulse Ox 97 11/23/22 07:52 FiO2 Intake & Output 11/22/22 11/23/22 11/23/22 18:59 06:59 18:59 Other: Voiding Method Toilet Toilet Toilet # Voids 3 1 - Labs CBC & Chem 7: 11/23/22 06:50 11/23/22 06:50 Labs: Abnormal Lab Results - Last 24 Hours (Table) 11/22/22 11/22/22 11/22/22 Range/Units 12:54 12:54 17:13 WBC 18.4 H (3.8-10.6) k/uL RBC 3.34 L (3.80-5.40) m/uL Hgb 11.1 L (11.4-16.0) gm/dL Hct 33.8 L (34.0-46.0) % MCV 101.0 H (80.0-100.0) fL MCH (27.0-32.0) pg RDW (11.5-14.5) % Neutrophils # (Manual) 16.50 H (1.3-7.7) k/uL Lymphocytes # (Manual) 0.74 L (1.0-4.8) k/uL Monocytes # (Manual) (0.20-1.00) X 10*3/uL Eosinophils # (Manual) (0.04-0.35) X 10*3/uL Metamyelocytes # (Man) 0.37 H (0) k/uL Myelocytes # (Manual) 0.18 H (0) k/uL NRBC/100 WBC Diff (0.00-0.01) X 10*3/uL Sodium 127 L (137-145) mmol/L Chloride 96 L (98-107) mmol/L BUN 31 H (7-17) mg/dL BUN/Creatinine Ratio (12.00-20.00) Ratio Glucose 121 H (74-99) mg/dL POC Glucose (mg/dL) 131 H (70-110) mg/dL Calcium 7.8 L (8.4-10.2) mg/dL 11/22/22 11/23/22 11/23/22 Range/Units 20:56 06:50 06:50 WBC 17.98 H (3.8-10.6) k/uL RBC 3.33 L (3.80-5.40) m/uL Hgb 10.8 L (11.4-16.0) gm/dL Hct 32.4 L (34.0-46.0) % MCV 97.3 H (80.0-100.0) fL MCH 32.4 H (27.0-32.0) pg RDW 15.0 H (11.5-14.5) % Neutrophils # (Manual) (1.3-7.7) k/uL Lymphocytes # (Manual) 0 L (1.0-4.8) k/uL Monocytes # (Manual) 1.26 H (0.20-1.00) X 10*3/uL Eosinophils # (Manual) 0 L (0.04-0.35) X 10*3/uL Metamyelocytes # (Man) (0) k/uL Myelocytes # (Manual) (0) k/uL NRBC/100 WBC Diff 0.04 H (0.00-0.01) X 10*3/uL Sodium 133 L (137-145) mmol/L Chloride (98-107) mmol/L BUN (7-17) mg/dL BUN/Creatinine Ratio 26.12 H (12.00-20.00) Ratio Glucose (74-99) mg/dL POC Glucose (mg/dL) 159 H (70-110) mg/dL Calcium 8.2 L (8.4-10.2) mg/dL 11/23/22 11/23/22 Range/Units 07:52 12:36 WBC (3.8-10.6) k/uL RBC (3.80-5.40) m/uL Hgb (11.4-16.0) gm/dL Hct (34.0-46.0) % MCV (80.0-100.0) fL MCH (27.0-32.0) pg RDW (11.5-14.5) % Neutrophils # (Manual) (1.3-7.7) k/uL Lymphocytes # (Manual) (1.0-4.8) k/uL Monocytes # (Manual) (0.20-1.00) X 10*3/uL Eosinophils # (Manual) (0.04-0.35) X 10*3/uL Metamyelocytes # (Man) (0) k/uL Myelocytes # (Manual) (0) k/uL NRBC/100 WBC Diff (0.00-0.01) X 10*3/uL Sodium (137-145) mmol/L Chloride (98-107) mmol/L BUN (7-17) mg/dL BUN/Creatinine Ratio (12.00-20.00) Ratio Glucose (74-99) mg/dL POC Glucose (mg/dL) 111 H 134 H (70-110) mg/dL Calcium (8.4-10.2) mg/dL
[2022-11-23 17:30] LABS: Glucose,Whole Blood 125 mg/dL (70-110)
[2022-11-23 20:18] LABS: Glucose,Whole Blood 127 mg/dL (70-110)
[2022-11-23] MEDS: SENNOSIDES 8.6 MG TAB PO SCH (21:19)
[2022-11-23] MEDS: ATORVASTATIN 10 MG TAB PO SCH (21:19)
[2022-11-24] MEDS: LEVOTHYROXINE 100 MCG TAB PO SCH (06:22)
[2022-11-24 07:22] LABS: Glucose,Whole Blood 96 mg/dL (70-110)
[2022-11-24] MEDS: INSULIN ASPART (NovoLOG) 100 UNIT/ML VIAL SQ SCH ×4 (08:03→21:02)
[2022-11-24] MEDS: amLODIPine 2.5 MG TAB PO SCH (08:58)
[2022-11-24] MEDS: hydrALAZINE HCL 50 MG TAB PO SCH ×2 (08:58→20:30)
[2022-11-24] MEDS: polyethylene glycoL 3350 17 GM POWD.PACK PO SCH (08:58)
[2022-11-24] MEDS: METOPROLOL TARTRATE 50 MG TAB PO SCH ×2 (08:58→20:30)
[2022-11-24] MEDS: SODIUM CHLORIDE 0.9% 1,000 ML IV SCH ×4 (08:58→22:36)
[2022-11-24] MEDS: LINAGLIPTIN 5 MG TABLET PO SCH (08:58)
[2022-11-24] MEDS: guaiFENesin 600 MG TABLET.ER PO SCH ×2 (08:58→20:30)
[2022-11-24] MEDS: HEPARIN SODIUM,PORCINE 5,000 UNIT/ML 1 ML VIAL SQ SCH ×2 (08:58→20:30)
[2022-11-24] MEDS: bisacodyL 5 MG TABLET.DR PO SCH (08:58)
[2022-11-24] MEDS: HYDROcodone/APAP 7.5-325MG 1 EACH TAB PO PRN ×2 (09:04→20:30)
[2022-11-24 11:05] LABS: BUN/Creat Ratio 21.11 Ratio (12.00-20.00); Calcium 8.6 mg/dL (8.7-10.3); Carbon Dioxide 23.6 mmol/L (21.6-31.8); Chloride 100 mmol/L (96-109); Glucose 86 mg/dL (70-110); Potassium 4.6 mmol/L (3.5-5.5); Sodium 134 mmol/L (135-145)
[2022-11-24 11:21] LABS: Basophils # (M) 0 X 10*3/uL (0.00-0.10); Eosinophils # (M) 0 X 10*3/uL (0.04-0.35); HCT 32.6 % (37.2-46.3); HGB 10.8 d/dL (12.0-15.0); Lymphocytes # (M) 0.32 X 10*3/uL (0.90-5.00); MCH 32.8 pg (27.0-32.0); MCHC 33.1 d/dL (32.0-37.0); MCV 99.1 FL (80.0-97.0); Mean Platelet Volume 11.7 FL (9.5-12.2); Metamyelocytes % 3 % (0-0); NRBC Per 100 WBC 0.03 X 10*3/uL (0.00-0.01); Neutrophils # (M) 14.33 X 10*3/uL (1.80-7.70); Neutrophils % (M) 90 %; Platelet Count 316 X 10*3/uL (140-440); RBC 3.29 X 10*6/uL (4.10-5.20); RBC Morphology Normal (Normal); RDW 15.2 % (11.5-14.5); WBC 15.92 X 10*3/uL (4.50-10.00)
[2022-11-24 12:25] LABS: Glucose,Whole Blood 126 mg/dL (70-110)
--- NOTE | 2022-11-24 14:02 | P.PN ---
Subjective Progress Note Date: 11/24/22 Hospital Course: Patient is an 87-year-old female with known chronic low back pain, A. fib, hypertension, hypothyroidism, and dyslipidemia who presented to the ED with worsening back pain. She was initially seen at [facility] and underwent an MRI which showed spinal canal stenosis and disc bulging in multiple locations. Unfortunately her pain worsened and she was unable to weight her outpatient appointment and subsequently she presented to the emergency department. On arrival she was noted to be tachycardic. Initial laboratory analysis showed a leukocytosis of 16.1, MCV 100.7, sodium 135, potassium 3.2, bilirubin 1.7, AST 85, ALT 46, and alkaline phosphatase of 225. Urinalysis showed positive nitrites with large leukocyte esterase. She is admitted for pain control. She was started on Rocephin for possible urinary tract infection. Orthopedic spine surgery was consulted. She received potassium replacement. Her potassium then elevated and she received the appropriate treatment and potassium normalized. CT lumbar spine showed significant central and lateral canal stenosis and superior endlate changes at L4. Ortho spine reviewed this images and given the clinical picture diagnosed L4 fracture. The earliest it was safe to attempt surgery due to eliquis use was 11/19/22 and she underwent reduction of L4 fracture and minimially invasive fixation of L2 to S1. Patient pending rehab discharge. Also has hyponatremia, improved with fluids. Pending rehab. Subjective: Patient seen and examined at bedside. No acute events overnight. Claims that back pain is improving. Now having bowel movements Pertinent positives and negatives as discussed above, a complete review of systems was performed and all other systems are negative. Vitals Signs Reviewed. General: nontoxic, no distress, appears at stated age Cardiovascular: S1S2 reg, no murmur, positive posterior tibial pulse bilateral, Lungs: Course bs bilateral, no rhonchi, no rales , no accessory muscle use Abdominal: soft, nontender to palpation, no guarding, no appreciable organomegaly Ext: no gross muscle atrophy, moving all 4 extremities independently Neuro: CN II-XI grossly intact, no focal neuro deficits Psych: Alert, oriented, appropriate affect Data Reviewed Today: Pertinent Labs: WBC 15.92, hemoglobin 10.8, sodium 134, creatinine 0.9, blood sugars range between 96-127 Imaging: No new imaging Assessment and Plan: Intractable back pain with lumbar spinal stenosis L3 through L5 L 4 fracture - Status post open treatment with reduction of L4 fracture and minimally invasive fixation of L2 to S1 - off decadron -PT and OT recs -Anticipate patient will need rehab on discharge - continue with dilaudid 0.5 ,g q 3 hours, norco increased to 7.5/325 mg q 6 for pain. - resume Eliquis when okay with orthospine. -Orthopedics following, continue current management Hyponatremia, suspect hypovolemic, improved -Was started on normal saline yesterday, sodium improved Constipation -MiraLAX 17 g daily, senna 1 tablet at night, Dulcolax 5 mg daily -Still has not had a bowel movement Hyperglycemia with prediabetes - A1c is 6.4. Her hyperglycemia is likely related to steroids -Was started on tradjent 5 mg daily Transaminitis - Liver ultrasound unrevealing. Repeat levels stable. Recommend outpatient follow-up. P. atrial fibrillation, rate controlled -Resume eliquis when okay with spine ortho -Follow heart rate -Continue with metoprolol Leukocytosis -Suspect reactive to surgery and previously steroid use -Monitor fever profile, incentive spirometer Chronic: Hypothyroidism Dyslipidemia Hypertension Left knee pain, improved Hyperkalemia, resolved E. Colie UTI, treated DVT ppx: Subcu heparin Code status: Full code Anticipated discharge place: Subacute rehab Anticipated discharge time: Pending insurance authorization Objective - Vital Signs Vital signs: Vital Signs Temp 98.5 F 11/24/22 12:25 Pulse 80 11/24/22 12:25 Resp 19 11/24/22 12:25 BP 95/49 11/24/22 12:25 Pulse Ox 97 11/24/22 12:25 FiO2 Intake & Output 11/23/22 11/24/22 11/24/22 18:59 06:59 18:59 Other: Voiding Method Toilet Toilet Toilet Diaper Diaper Incontinent Incontinent # Voids 1 2 # Bowel Movements 1 - Labs CBC & Chem 7: 11/24/22 06:19 11/24/22 06:19 Labs: Abnormal Lab Results - Last 24 Hours (Table) 11/23/22 11/23/22 11/23/22 Range/Units 06:50 17:28 20:17 WBC (4.50-10.00) X 10*3/uL RBC (4.10-5.20) X 10*6/uL Hgb (12.0-15.0) d/dL Hct (37.2-46.3) % MCV (80.0-97.0) FL MCH (27.0-32.0) pg RDW (11.5-14.5) % Neutrophils # (Manual) 15.82 H (1.80-7.70) X 10*3/uL Lymphocytes # (Manual) (0.90-5.00) X 10*3/uL Eosinophils # (Manual) (0.04-0.35) X 10*3/uL NRBC/100 WBC Diff (0.00-0.01) X 10*3/uL Sodium (135-145) mmol/L BUN/Creatinine Ratio (12.00-20.00) Ratio POC Glucose (mg/dL) 125 H 127 H (70-110) mg/dL Calcium (8.7-10.3) mg/dL 11/24/22 11/24/22 11/24/22 Range/Units 06:19 06:19 12:24 WBC 15.92 H (4.50-10.00) X 10*3/uL RBC 3.29 L (4.10-5.20) X 10*6/uL Hgb 10.8 L (12.0-15.0) d/dL Hct 32.6 L (37.2-46.3) % MCV 99.1 H (80.0-97.0) FL MCH 32.8 H (27.0-32.0) pg RDW 15.2 H (11.5-14.5) % Neutrophils # (Manual) (1.80-7.70) X 10*3/uL Lymphocytes # (Manual) 0.32 L (0.90-5.00) X 10*3/uL Eosinophils # (Manual) 0 L (0.04-0.35) X 10*3/uL NRBC/100 WBC Diff 0.03 H (0.00-0.01) X 10*3/uL Sodium 134 L (135-145) mmol/L BUN/Creatinine Ratio 21.11 H (12.00-20.00) Ratio POC Glucose (mg/dL) 126 H (70-110) mg/dL Calcium 8.6 L (8.7-10.3) mg/dL
[2022-11-24 17:10] LABS: Glucose,Whole Blood 122 mg/dL (70-110)
[2022-11-24 20:21] LABS: Glucose,Whole Blood 142 mg/dL (70-110)
[2022-11-24] MEDS: ATORVASTATIN 10 MG TAB PO SCH (20:30)
[2022-11-24] MEDS: SENNOSIDES 8.6 MG TAB PO SCH (20:30)
[2022-11-25] MEDS: LEVOTHYROXINE 100 MCG TAB PO SCH (05:06)
[2022-11-25] MEDS: HYDROcodone/APAP 7.5-325MG 1 EACH TAB PO PRN ×2 (05:06→11:01)
[2022-11-25 07:47] LABS: Glucose,Whole Blood 86 mg/dL (70-110)
[2022-11-25 08:23] VITALS: BP 119/69; PULSE 80; RESP 18; TEMP 97.3
--- NOTE | 2022-11-25 08:43 | P.PN ---
Subjective Progress Note Date: 11/25/22 Principal diagnosis: Low Back pain Bilateral lower extremity radiculopathy Patient seen and examined this morning. Patient is resting comfortably in bed. No acute events overnight. She reports her pain is managed on current regimen. LSO brace is at bedside. Surgical dressing has been changed this morning 11/25/22. Incisions are well approximated with valdemar intact. No active drainage. She states she has been ambulatory with PT and tolerating activity well. Patient has been afebrile, no complaint of nausea/vomiting, or chest pain. Patient is cleared from Orthopedic standpoint for discharge to [facility] when bed available. Objective - Vital Signs Vital signs: Vital Signs Temp 97.9 F 11/25/22 01:49 Pulse 72 11/25/22 01:49 Resp 16 11/25/22 01:49 BP 130/77 11/25/22 01:49 Pulse Ox 98 11/25/22 01:49 FiO2 Intake & Output 11/24/22 11/25/22 11/25/22 18:59 06:59 18:59 Other: Voiding Method Toilet Toilet Diaper Diaper Incontinent Incontinent # Voids 2 1 - Exam Inspection: Surgical incisions to the lumbar spine. Dressings have been changed this morning 11/25/22. Incisions are well approximated with valdemar intact. No active drainage noted. 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 There is also scar over the left ankle from previous surgery. Sensation: Equal, symmetric, bilaterally intact throughout the upper and lower extremities Palpation: Mild tenderness to patient over the lumbar spine and midline and in the bilateral SI joints. Nontender to palpation throughout rest of exam Range of motion: Patient has full range of motion bilateral upper extremities on exam. Patient does have limited range of motion in bilateral hips in flexion/extension secondary to surgical procedure. Patient is able to flex both knees just past 90 while lying in bed in semirecumbent position. Patient has full extension in bilateral knees. There is limited dorsi/plantar flexion in the left ankle likely due to previous surgery. Patient has full range of motion and EHL/FHL bilaterally Motor: 4-/5 in bilateral hips in flexion/extension. 4-/5 in resisted left knee flexion/extension. 4-/5 in resisted plantar flexion bilaterally. 4/5 in all other major motor groups in bilateral lower extremities. Phlebotomy Tech strength 5/5 bilaterally. 4/5 in all other major motor groups in bilateral upper extremities Special tests: Negative Homans bilaterally. Negative Fred bilaterally. Negative clonus bilaterally Neurovascular: Radial pulse intact, 2+ bilaterally. Cap refill under 3 seconds in digits of upper extremities. - Labs CBC & Chem 7: 11/24/22 06:19 11/24/22 06:19 Labs: Abnormal Lab Results - Last 24 Hours (Table) 11/24/22 11/24/22 11/24/22 Range/Units 06:19 06:19 12:24 WBC 15.92 H (4.50-10.00) X 10*3/uL RBC 3.29 L (4.10-5.20) X 10*6/uL Hgb 10.8 L (12.0-15.0) d/dL Hct 32.6 L (37.2-46.3) % MCV 99.1 H (80.0-97.0) FL MCH 32.8 H (27.0-32.0) pg RDW 15.2 H (11.5-14.5) % Neutrophils # (Manual) 14.33 H (1.80-7.70) X 10*3/uL Lymphocytes # (Manual) 0.32 L (0.90-5.00) X 10*3/uL Eosinophils # (Manual) 0 L (0.04-0.35) X 10*3/uL NRBC/100 WBC Diff 0.03 H (0.00-0.01) X 10*3/uL Sodium 134 L (135-145) mmol/L BUN/Creatinine Ratio 21.11 H (12.00-20.00) Ratio POC Glucose (mg/dL) 126 H (70-110) mg/dL Calcium 8.6 L (8.7-10.3) mg/dL 11/24/22 11/24/22 Range/Units 17:08 20:20 WBC (4.50-10.00) X 10*3/uL RBC (4.10-5.20) X 10*6/uL Hgb (12.0-15.0) d/dL Hct (37.2-46.3) % MCV (80.0-97.0) FL MCH (27.0-32.0) pg RDW (11.5-14.5) % Neutrophils # (Manual) (1.80-7.70) X 10*3/uL Lymphocytes # (Manual) (0.90-5.00) X 10*3/uL Eosinophils # (Manual) (0.04-0.35) X 10*3/uL NRBC/100 WBC Diff (0.00-0.01) X 10*3/uL Sodium (135-145) mmol/L BUN/Creatinine Ratio (12.00-20.00) Ratio POC Glucose (mg/dL) 122 H 142 H (70-110) mg/dL Calcium (8.7-10.3) mg/dL Assessment and Plan Assessment: Post Op day 6: L2-S1 stabilization with L4 ORIF 1. L4 AO-type B2 vertebral fracture 2. Ankylosing Spondylitis 3. Bilateral lower extremity radiculopathy Plan: -Appreciate production consultant and team management. -Activity: Ambulate QID, OOB all meals, up and about, limit lifting bending twisting to less than 5 lbs. Use walker or cane if needed for stability. -Daily PT/OT, increase ambulation strength and balance. -Brace when up and about, not needed in bed or chair -Pain control: Adequate at this time -Meds: reviewed -GI ppx: senna, Miralax -DVT PPX: Heparin -Hygiene: Shower today. Maintain dressing clean and dry. Meticulous cleaning after BMs away from the incision site -Encourage IS 10x/hr -Dispo: Anticipate discharge later today to [facility] *I reviewed and discussed this case with my attending Dr. Alejandra, whom has reviewed this chart and films and is in agreement with assessment and plan of care as outlined above. I have personally seen and examined the patient, performed the documentation and the assessment and plan as written. Number of minutes spent on the visit: 15m.
[2022-11-25] MEDS: INSULIN ASPART (NovoLOG) 100 UNIT/ML VIAL SQ SCH (09:11)
[2022-11-25] MEDS: guaiFENesin 600 MG TABLET.ER PO SCH (09:15)
[2022-11-25] MEDS: hydrALAZINE HCL 50 MG TAB PO SCH (09:15)
[2022-11-25] MEDS: polyethylene glycoL 3350 17 GM POWD.PACK PO SCH (09:15)
[2022-11-25] MEDS: bisacodyL 5 MG TABLET.DR PO SCH (09:15)
[2022-11-25] MEDS: METOPROLOL TARTRATE 50 MG TAB PO SCH (09:15)
[2022-11-25] MEDS: HEPARIN SODIUM,PORCINE 5,000 UNIT/ML 1 ML VIAL SQ SCH (09:15)
[2022-11-25] MEDS: amLODIPine 2.5 MG TAB PO SCH (09:16)
[2022-11-25] MEDS: LINAGLIPTIN 5 MG TABLET PO SCH (09:16)
[2022-11-25] MEDS: ACETAMINOPHEN TAB 325 MG TAB PO PRN (09:22)
--- NOTE | 2022-11-25 11:16 | P.DS ---
Providers Date of admission: 11/15/22 15:22 Expected date of discharge: 11/25/22 Attending physician: Zay Conley MD Consults: 11/15/22 15:10 Consult Physician Routine Consulting Provider: Partha Alejandra Consult Reason/Comments: back pain Do you want consulting provider notified?: Yes [facility]: Discharge Diagnosis: Intractable back pain with lumbar spinal stenosis L3 through L5 L4 fracture - Status post open treatment with reduction of L4 fracture and minimally invasive fixation of L2 to S1 Hypovolemic hyponatremia Constipation Hyperglycemia with prediabetes, A1c 6.4 Transaminitis Paroxysmal atrial fibrillation Leukocytosis, reactive Hypothyroidism Dyslipidemia Hypertension Left knee pain Hyperkalemia E. coli UTI Hospital Course: Patient is an 87-year-old female with known chronic low back pain, A. fib, hypertension, hypothyroidism, and dyslipidemia who presented to the ED with worsening back pain. She was initially seen at [facility] and underwent an MRI which showed spinal canal stenosis and disc bulging in multiple locations. Unfortunately her pain worsened and she was unable to weight her outpatient appointment and subsequently she presented to the emergency department. On arrival she was noted to be tachycardic. Initial laboratory analysis showed a leukocytosis of 16.1, MCV 100.7, sodium 135, potassium 3.2, bilirubin 1.7, AST 85, ALT 46, and alkaline phosphatase of 225. Urinalysis showed positive nitrites with large leukocyte esterase. She is admitted for pain control. She was started on Rocephin for urinary tract infection. Orthopedic spine surgery was consulted. She received potassium replacement. Her potassium then elevated and she received the appropriate treatment and potassium normalized. CT lumbar spine showed significant central and lateral canal stenosis and superior endlate changes at L4. Ortho spine reviewed this images and given the clinical picture diagnosed L4 fracture. The earliest it was safe to attempt surgery due to eliquis use was 11/19/22 and she underwent reduction of L4 fracture and minimially invasive fixation of L2 to S1. Also had hyponatremia, improved with fluids. Discharged to rehab. Patient seen and examined at bedside. Vital signs reviewed and stable. General: nontoxic, no distress, appears at stated age Cardiovascular: S1S2 reg, no murmur, positive posterior tibial pulse bilateral, Lungs: Course bs bilateral, no rhonchi, no rales , no accessory muscle use Abdominal: soft, nontender to palpation, no guarding, no appreciable organomegaly Ext: no gross muscle atrophy, moving all 4 extremities independently Neuro: CN II-XI grossly intact, no focal neuro deficits Psych: Alert, oriented, appropriate affect A total of 55 minutes of time were spent preparing this complex discharge summary. Patient was discharged on 11/25/22 at 10:47 . Patient Condition at Discharge: Stable Plan - Discharge Summary Discharge Rx Participant: Yes New Discharge Prescriptions: New HYDROcodone/APAP 7.5-325MG [Vida 7.5] 1 each PO Q4-6H PRN #42 tab PRN Reason: Pain Sennosides/Docusate Sodium [Senna Plus 8.6-50 mg Tablet] 1 each PO DAILY PRN #20 tablet PRN Reason: Constipation bisacodyL [Dulcolax] 5 mg PO DAILY tab Linagliptin [Tradjenta] 5 mg PO DAILY tab Acetaminophen Tab [Tylenol] 650 mg PO Q6HR PRN tab PRN Reason: Mild Pain Or Fever > 100.5 metroNIDAZOLE [Flagyl] 500 mg PO TID 5 Days #15 tab polyethylene glycoL 3350 [Miralax] 17 gm PO DAILY packet Continue hydrALAZINE HCL [Apresoline] 50 mg PO BID Apixaban [Eliquis] 5 mg PO BID Alendronate Sodium [Fosamax] 70 mg PO WE calcitrioL [Calcitriol] 0.25 mcg PO MOTUWETHFR Metoprolol Tartrate [Lopressor] 50 mg PO BID Cholecalciferol [Vitamin D3 (25 Mcg = 1000 Iu)] 50 mcg PO DAILY Simvastatin [Zocor] 20 mg PO HS Levothyroxine Sodium [Synthroid] 200 mcg PO DAILY amLODIPine [Norvasc] 2.5 mg PO DAILY Discontinued Ginkgo Biloba [place] Extract [Ginkgo] 60 mg PO DAILY Discharge Medication List hydrALAZINE HCL [Apresoline] 50 mg PO BID 02/16/15 [History] Alendronate Sodium [Fosamax] 70 mg PO WE 11/15/22 [History] Apixaban [Eliquis] 5 mg PO BID 11/15/22 [History] Cholecalciferol [Vitamin D3 (25 Mcg = 1000 Iu)] 50 mcg PO DAILY 11/15/22 [History] Levothyroxine Sodium [Synthroid] 200 mcg PO DAILY 11/15/22 [History] Metoprolol Tartrate [Lopressor] 50 mg PO BID 11/15/22 [History] Simvastatin [Zocor] 20 mg PO HS 11/15/22 [History] amLODIPine [Norvasc] 2.5 mg PO DAILY 11/15/22 [History] calcitrioL [Calcitriol] 0.25 mcg PO MOTUWETHFR 11/15/22 [History] HYDROcodone/APAP 7.5-325MG [Vida 7.5] 1 each PO Q4-6H PRN #42 tab 11/22/22 [Rx] Sennosides/Docusate Sodium [Senna Plus 8.6-50 mg Tablet] 1 each PO DAILY PRN #20 tablet 11/22/22 [Rx] metroNIDAZOLE [Flagyl] 500 mg PO TID 5 Days #15 tab 11/22/22 [Rx] Acetaminophen Tab [Tylenol] 650 mg PO Q6HR PRN tab 11/25/22 [Rx] Linagliptin [Tradjenta] 5 mg PO DAILY tab 11/25/22 [Rx] bisacodyL [Dulcolax] 5 mg PO DAILY tab 11/25/22 [Rx] polyethylene glycoL 3350 [Miralax] 17 gm PO DAILY packet 11/25/22 [Rx] Follow up Appointment(s)/Referral(s): Partha Alejandra DO [Doctor of Osteopathic Medicine] - 11/16/22 Kelby Slaughter DO [Primary Care Provider] - 11/17/22 1:20 pm Patient Instructions/Handouts: Thoracolumbar Fracture (DC) Activity/Diet/Wound Care/Special Instructions: Spine Discharge and Recovery Instructions Date of Surgery: 11/19/2022 Diagnosis: L4 burst fracture Procedure: L2-S1 stabilization with L4 ORIF Medications: See medication list All medication refills should be obtained through your primary care doctor or your clinic spine surgeon. Please discuss prescription refills at your follow up appointment. Do not call the hospital for medication refills. Dressing: Leave your dressing in place for a total of 5 days post operatively. Then you may remove your dressing and leave open to air. Keep the area clean and if not able to keep area clean, then cover with sterile gauze and tape. Showering: You may shower 3 days after your procedure allowing soap and water to run over incision. Do not scrub. Do not soak. Blot dry. Follow up: Please confirm a follow up appointment with your surgeon 3 weeks post operatively. Please make an appointment to follow up with your PCP in 1-2 weeks after surgery for evaluation 3 phase, 3-week plan POST OP WEEKS 1-3 1. Lifting/carrying/pushing/pulling limited to less than 5 pounds. 2. Do not sit for longer than 15 minutes at one time. Get up and walk around. Prolonged sitting is NOT advised. If you lay down, see if you can tolerate laying down on you front (belly side) 3. Walk for periods of 15 minutes = 1 mile but no longer; do it multiple times times each day. 4. Ice your low back after activity. POST OP WEEKS 3-6 1. Lifting limited to less than 20 pounds. 2. Do not sit for longer than 30 minutes at a time. Frequently change positions. Use a sit-to stand workstation or take frequent breaks from sitting if you have returned to work. 3. Walk for 30 minutes each day. If possible, do these three or more times a day POST OP WEEKS 6+ At your 6-week appointment we will give you a physical therapy referral to focus on a core stabilization and strengthening program. You should also work on leg & buttock strengthening, hamstring & quadriceps stretching, and continue a low impact aerobic activity program such as swimming, walking, or riding a stationary bicycle. During the initial 6 weeks after your surgery, you are at the highest risk of re-injuring your spine. You should generally avoid BLTs (bending, lifting and twisting combination motions) and follow the above guidelines to reduce the chance of reinjury. You can anticipate post op appointments in our office at approximately 3 weeks and 6 weeks after your surgery. INCISION CARE: If your incision is not draining you do NOT need to cover it with a dressing. Keep your incision clean, dry and intact. In most cases, we apply skin glue, valdemar or sutures to the incision at the time of surgery. This will be like a crust or have the appearance of a scab and will fall off in time on its own. The stitches or valdemar need to be removed at 3 weeks post op appointment. You may begin to shower 3 days after surgery (this allows the glue to salgado well). However, please avoid scrubbing the incision site or peeling off any of the skin glue. This will ensure optimal healing of your incision. Also, during this time avoid soaking the incision area in water - this includes swimming pools, hot tubs or baths. No ointments, lotions or oils on the incision until your surgeon allows. Leave valdemar, sutures or glue in place. Neurological dysfunction that comes on suddenly can also be a sign of a stroke. Below some common symptoms of a stroke are listed: B - balance difficulty such as sudden onset walking or leaning to one side - NEW E - eye problem such as sudden double vision or trouble seeing on one side - NEW F - Facial weakness or numbness on one side - NEW A - Arm or leg weakness or numbness on one side - NEW S - Slurred speech or difficulty with word finding - NEW T - Time is BRAIN! Call 911 as soon as you recognize these symptoms Diet: Consume a regular diet rich in vegetables and lean protein such as chicken or fish. You should consume in a ratio of approximately 20% fats|40% carbohydrates|40%protein. Vegetables, sweet potatoes, brown rice or quinoa are examples of good carbohydrates. Chips, white bread, cookies and sweets/sugar are examples of bad carbohydrates. Limit your bad carbs, go wild with good carbs. 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 (1) Get Active. Physical activity can help people lose weight, control high blood pressure and cholesterol, feel emotionally better, and sleep better. (2) Control Cholesterol. Avoid a diet high in saturated fat, trans fat, & cholesterol. Limit whole milk & cream, ice cream, butter, egg yolks, processed meats (like sausage and hot dogs), and fatty meats. Choose healthy foods that are low in saturated fat, trans fat and cholesterol which include: Fruits and vegetables, fiber rich grain products (like whole grain pasta and brown rice), lean meat such as chicken, fish, nuts, seeds, and legumes. (3) Eat Better. Eat small portions. Shop at the grocery with a list and do not stray from it. Tips for a healthy diet include: Limit sodium intake to less than 1500mg daily, avoid prepackaged, processed, and fast foods, choose a diet rich in fruits, vegetables, and whole grain, high fiber foods, and limit saturated & cholesterol in your diet. (4) Manage Blood Pressure. If you have high blood pressure, you should have a cuff at home so that you can check your blood pressure regularly. Be sure you have a good cuff. An arm one is generally better than a wrist one. Bring the cuff to a doctor's appointment to validate that the measurements that your cuff are taking are accurate. Take your blood pressure twice daily when you are sitting down and relaxing. Record the numbers in a log and bring this log with you to your doctors' appointments. (5) Lose Weight if your BMI is above 25. A healthy BMI is between 19-25. To calculate Your BMI, you may use a Standard BMI Calculator on the NIH BMI website: <www.nhlbi.nih.gov/guidelines/obesity/BMI/bmicalc.htm>. Weigh oneself daily. If you are overweight, set a goal to lose weight. A pound a week loss if needed is a good target. (6) Reduce Blood Sugar. Limit foods and liquids with "added sugars." (Added sugars include sucrose, fructose, glucose, maltose, dextrose, high fructose corn syrup, corn syrup, concentrated fruit juice and honey). (7) Stop Smoking. If you smoke, quitting smoking is one of the best things that you can do for your health. Smoking increases your risk of heart attack, stroke, and peripheral vascular disease, which is a build-up of plaque in your arteries. Please discard all the cigarettes and lighters in your house. Have a plan for what you will do when you have the urge to smoke. Direct and second- hand smoke shortens your life as well as the lives of your family, friends and others around you. For your health and the health of those around you, please consider quitting! Proper Bending Body Mechanics: Maintain a wide stance with one foot slightly in front of the other. Keep your back straight. Bend utilizing the strength in your hips and knees. Do not bend at the waist. Maintain the lifted object at your waist-level close to your body. Avoid lifting weight that causes immediately pain or pain anywhere in the body afterwards. Smoking/Nicotine If there was ever one thing that you could do to increase your overall health, decrease your risk of cardiovascular problems by about 39% the second you make the choice, it is to STOP SMOKING. Your body's most instant gratification is the second you stop smoking. We have all heard the studies, read the articles but it is true, smoking is extremely bad for your overall health, and moreover it is detrimental to your bone health. Nicotine, IN ANY FORM, kills bone cells, prevents your body from healing fractures, and significantly prolongs healing after surgery. In spine surgery specifically, it increases your risk of not healing your bones to create a fusion and increases your risk of having a revision surgery due to this up to 60%. I know it is hard. I know it feels impossible. But there are ways. Take control of your life. We are here to help you through it. And when you are ready, ask us and we can direct you to help if you desire. Use the START Plan to Quit Smoking (please visit the Helpguide.org website liste d below for more information): S = Set a quit date. Choose a date within the next 2 weeks, so you have enough time to prepare without losing your motivation to quit. If you mainly smoke at work, quit on the weekend, so you have a few days to adjust to the change. T = Tell family, friends, and co-workers that you plan to quit. Let your friends and family in on your plan to quit smoking and tell them you need their support and encouragement to stop. Look for a quit loni who wants to stop smoking as well. You can help each other get through the rough times. A = Anticipate and plan for the challenges you'll face while quitting. Most people who begin smoking again do so within the first 3 months. You can help yourself make it through by preparing ahead for common challenges, such as nicotine withdrawal and cigarette cravings. R = Remove cigarettes and other tobacco products from your home, car, and work. Throw away all your cigarettes (no emergency pack!), lighters, ashtrays, and matches. Wash your clothes and freshen up anything that smells like smoke. Shampoo your car, clean your drapes and carpet, and steam your furniture. T = Talk to your doctor about getting help to quit. Your doctor can prescribe medication to help with withdrawal and suggest other alternatives. If you can't see a doctor, you can get many products over the counter at your local pharmacy or grocery store, including the nicotine patch, nicotine lozenges, and nicotine gum. Resources for Quitting Smoking: <https://www.[place].gov/documents/[facility]/Quit_Tobacco_Resources_ for_patients_313480_7.pdf> Supplementation: Take recommended dosages of Vitamin D and Calcium to help fortify your bones and help them to heal. See your health maintenance packet for dosages and recommended levels. DVT/VTE prophylaxis: You will be given compression stockings from the hospital. Wear these daily for the first two weeks after surgery. You may take them off at night. You may be prescribed a medication to help thin your blood. Take this as directed. If you are not prescribed this medication, early and frequent ambulation has been shown to be the best prophylaxis to deep vein thrombosis and sequelae related to this event. Discharge Disposition: TRANSFER TO SNF/ECF
[2022-11-25 12:03] LABS: Glucose,Whole Blood 112 mg/dL (70-110)
== END 2022-11-25 12:53 | DRG 854 ==
LOC: EC 10:18 → OBSVTOIN 15:22 → 6NMEDSUR 15:22 → 5NMEDONC 20:11
PROVIDERS: ADMIT Family Medicine; ATTEND Family Medicine
PROC: 8E0WXBZ Computer Assisted Procedure of Trunk Region (ICD-10-PCS; 2022-11-19)
PROC: 0QS004Z Reposition Lumbar Vertebra with Internal Fixation Device, Open Approach (ICD-10-PCS; principal; 2022-11-19 08:00)
DX: A41.9 Sepsis, unspecified organism (principal); E87.1 Hypo-osmolality and hyponatremia; S32.048A Other fracture of fourth lumbar vertebra, initial encounter for closed fracture; M48.56XA Collapsed vertebra, not elsewhere classified, lumbar region, initial encounter for fracture; N39.0 Urinary tract infection, site not specified; I10 Essential (primary) hypertension; E03.9 Hypothyroidism, unspecified; I48.0 Paroxysmal atrial fibrillation; E86.1 Hypovolemia; M48.061 Spinal stenosis, lumbar region without neurogenic claudication; M47.26 Other spondylosis with radiculopathy, lumbar region; E78.5 Hyperlipidemia, unspecified; G89.29 Other chronic pain; M51.16 Intervertebral disc disorders with radiculopathy, lumbar region; R73.03 Prediabetes; R73.9 Hyperglycemia, unspecified; T38.0X5A Adverse effect of glucocorticoids and synthetic analogues, initial encounter; R74.01 Elevation of levels of liver transaminase levels; E87.6 Hypokalemia; E87.5 Hyperkalemia; B96.20 Unspecified Escherichia coli [E. coli] as the cause of diseases classified elsewhere; K59.00 Constipation, unspecified; M25.562 Pain in left knee; D72.828 Other elevated white blood cell count; M45.6 Ankylosing spondylitis lumbar region; Z96.653 Presence of artificial knee joint, bilateral; Z79.899 Other long term (current) drug therapy; Z79.890 Hormone replacement therapy; Z79.83 Long term (current) use of bisphosphonates; Z79.01 Long term (current) use of anticoagulants; Z88.1 Allergy status to other antibiotic agents; Z88.0 Allergy status to penicillin; Z88.2 Allergy status to sulfonamides; Z88.8 Allergy status to other drugs, medicaments and biological substances; Z85.828 Personal history of other malignant neoplasm of skin
CPT/HCPCS: 36415; 72100; 72131; 76705; 80048; 80053; 81001; 82247; 83036; 83605; 83735; 83930; 83935; 84132; 84300; 84450; 84460; 85025; 85027; 85652; 86140; 87040; 87077; 87086; 87186; 96365; 96372; 96375; 99284

== ENCOUNTER 2023-02-20 14:09 | Inpatient (IN) | payer MEDICARE ==
--- NOTE | 2023-02-20 15:12 | ED ---
General Adult HPI - General Chief complaint: Recheck/Abnormal Lab/Rx Stated complaint: left leg numbness Time Seen by Provider: 02/20/23 14:15 Source: patient, RN notes reviewed, old records reviewed Mode of arrival: ambulatory Limitations: no limitations - History of Present Illness Initial comments: This is an 87-year-old female presents emergency Department complaining that her left leg is moved from month and a half. Patient states she had surgery November 19 on her back and after that she was able to walk and she went to rehab when she finally went to rehab she got multiple infections including a UTI COVID and she had to be put on IV antibiotics through a PICC line. Patient was eventually discharged but had to be brought back in the hospital and she was in the hospital for at least 3 weeks and then transferred back to the halfway. Rony abreu continues to have almost no movement of the left leg. Patient also has decreased sensation of the leg. Patient states this is been ongoing issue for a month and a half. Patient states he been discharged from Dr. Alejandra and now Dr. Rolle is taking care of her and he sent her over today to be admitted to follow-up with neurology to see if they can figure out why she is unable to move her leg. - Related Data Home Medications Medication Instructions Recorded Confirmed Cholecalciferol [Vitamin D3 (25 50 mcg PO DAILY 11/15/22 02/20/23 Mcg = 1000 Iu)] Levothyroxine Sodium [Synthroid] 200 mcg PO DAILY 11/15/22 02/20/23 Simvastatin [Zocor] 20 mg PO HS 11/15/22 02/20/23 amLODIPine [Norvasc] 2.5 mg PO DAILY 11/15/22 02/20/23 calcitrioL [Calcitriol] 0.25 mcg PO MOTUWETHFR 11/15/22 02/20/23 Ascorbic Acid [Vitamin C] 500 mg PO DAILY 12/20/22 02/20/23 Acetaminophen Tab [Tylenol] 650 mg PO Q8H PRN 02/20/23 02/20/23 HYDROcodone/APAP 5-325MG [[place] 1 tab PO Q4HR PRN 02/20/23 02/20/23 5-325] Heparin Sodium,Porcine/Pf [Heparin 30 unit IV DAILY@0600 02/20/23 02/20/23 500 Unit/5 ml (100/ml) Flush] Metoprolol Tartrate [Lopressor] 50 mg PO BID 02/20/23 02/20/23 Multivitamins, Thera [Multivitamin 1 tab PO DAILY 02/20/23 02/20/23 (formulary)] Pantoprazole [Protonix] 40 mg PO BID 02/20/23 02/20/23 Prostat 30 ml PO BID 02/20/23 02/20/23 Sennosides [Senokot] 8.6 mg PO BID 02/20/23 02/20/23 hydrALAZINE HCL [Apresoline] 100 mg PO BID 02/20/23 02/20/23 sitaGLIPtin [Januvia] 100 mg PO DAILY 02/20/23 02/20/23 Previous Rx's Medication Instructions Recorded Lactulose [Cephulac] 30 gm PO BID ml 01/05/23 Pregabalin [Lyrica] 75 mg PO BID #0 cap 01/05/23 Allergies Allergy/AdvReac Type Severity Reaction Status Date / Time baclofen Allergy Swelling Verified 02/20/23 16:18 OF LIPS AND TONGUE cephalexin [From Keflex] Allergy Rash/Hives Verified 02/20/23 16:18 ciprofloxacin [From Cipro] Allergy Rash/Hives Verified 02/20/23 16:18 Penicillins Allergy Rash/Hives Verified 02/20/23 16:18 Sulfa (Sulfonamide Allergy Rash/Hives Verified 02/20/23 16:18 Antibiotics) tizanidine Allergy Swelling Verified 02/20/23 16:18 OF LIPS AND TONGUE Review of Systems ROS Statement: Those systems with pertinent positive or pertinent negative responses have been documented in the HPI. ROS Other: All systems not noted in ROS Statement are negative. Past Medical History Past Medical History: Atrial Fibrillation, Cancer, Hyperlipidemia, Hypertension, Thyroid Disorder Additional Past Medical History / Comment(s): BACK PAIN, SKIN CANCER, L4 fracture History of Any Multi-Drug Resistant Organisms: None Reported Past Surgical History: Appendectomy, Back Surgery, Cholecystectomy, Joint Replacement, Tonsillectomy Additional Past Surgical History / Comment(s): ELYSE TOTAL KNEE SURG, CARPAL TUNNEL, OOPHERECTOMY, SKIN LESION -VAGANIA, RIGHT FOOT SURGERY Past Anesthesia/Blood Transfusion Reactions: No Reported Reaction Past Psychological History: No Psychological Hx Reported Smoking Status: Never smoker Past Alcohol Use History: Occasional Past Drug Use History: None Reported - Past Family History Son(s) Family Medical History: Cancer Additional Family Medical History / Comment(s): SARCOMA General Exam - General Exam Comments Initial Comments: GENERAL: Patient is well-developed and well-nourished. Patient is nontoxic and well- hydrated and is in no acute distress. ENT: Neck is soft and supple. No significant lymphadenopathy is noted. Oropharynx is clear. Moist mucous membranes. Neck has full range of motion without e liciting any pain. EYES: The sclera were anicteric and conjunctiva were pink and moist. Extraocular movements were intact and pupils were equal round and reactive to light. Eyelids were unremarkable. PULMONARY: Unlabored respirations. Good breath sounds bilaterally. No audible rales rhonchi or wheezing was noted. CARDIOVASCULAR: There is a regular rate and rhythm without any murmurs gallops or rubs. ABDOMEN: Soft and nontender with normal bowel sounds. SKIN: Skin is clear with no lesions or rashes and otherwise unremarkable. NEUROLOGIC: Patient is alert and oriented x3. Cranial nerves II through XII are grossly intact. Normal speech, volume and content. Symmetrical smile. MUSCULOSKELETAL: Patient is only able to move her toes on her left leg she was unable to move her ankle or move her knee. Patient states the sensation of light touch there but it does feel different than her other leg. LYMPHATICS: No significant lymphadenopathy is noted PSYCHIATRIC: Normal psychiatric evaluation. Limitations: no limitations Course Vital Signs 02/20/23 02/20/23 14:11 18:20 Temperature 98.3 F 97.9 F Pulse Rate 74 70 Respiratory 17 18 Rate Blood Pressure 142/70 141/70 O2 Sat by Pulse 97 98 Oximetry Medical Decision Making - Medical Decision Making Was pt. sent in by a medical professional or institution (, PA, COMPUTED TOMOGRAPHY SCANNER OPERATOR, urgent care, hospital, or halfway...) When possible be specific @ -[No] Did you speak to anyone other than the patient for history (EMS, parent, family, police, friend...)? What history was obtained from this source @ -[No] Did you review nursing and triage notes (agree or disagree)? Why? @ -[I reviewed and agree with nursing and triage notes] Were old charts reviewed (outside hosp., previous admission, EMS record, old EKG, old radiological studies, urgent care reports/EKG's, halfway records)? Report findings @ -I reviewed prior charts R lab work on this patient Differential Diagnosis (chest pain, altered mental status, abdominal pain women, abdominal pain men, vaginal bleeding, weakness, fever, dyspnea, syncope, headache, dizziness, GI bleed, back pain, seizure, CVA, palpatations, mental health, musculoskeletal)? @ -CVA, psoas abscess, postop complication of back surgery, this is not all inclusive list EKG interpreted by me (3pts min.). @ -[As above] X-rays interpreted by me (1pt min.). @ -[None done] CT interpreted by me (1pt min.). @ -Computed tomography scan shows a psoas hematoma versus abscess on the left side U/S interpreted by me (1pt. min.). @ -[None done] What testing was considered but not performed or refused? (CT, X-rays, U/S, labs)? Why? @ -[None] What meds were considered but not given or refused? Why? @ -[None] Did you discuss the management of the patient with other professionals (professionals i.e. , PA, COMPUTED TOMOGRAPHY SCANNER OPERATOR, lab, RT, psych nurse, renal social worker, plastic sheets supervisor, teacher, compliance review officer, rn case mgr)? Give summary @ -I spoke with Dr. Norton she agreed to admit the patient admitted the patient I consult to Sayed Was smoking cessation discussed for >3mins.? @ -[No] Was critical care preformed (if so, how long)? @ -[No] Were there social determinants of health that impacted care today? How? (Homele ssness, low income, unemployed, alcoholism, drug addiction, transportation, low edu. Level, literacy, decrease access to med. care, longterm, rehab)? @ -[No] Was there de-escalation of care discussed even if they declined (Discuss DNR or withdrawal of care, Hospice)? DNR status @ -[No] What co-morbidities impacted this encounter? (DM, HTN, Smoking, COPD, CAD, Cancer, CVA, ARF, Chemo, Hep., AIDS, mental health diagnosis, sleep apnea, morbid obesity)? @ -[None] Was patient admitted / discharged? Hospital course, mention meds given and route, prescriptions, significant lab abnormalities, going to OR and other pertinent info. @ -Patient has an inability to move the left leg. CAT scan showed possible abscess with patient we placed on antibiotic. I will admit the patient is sound physician's I will consult Dr. Rolle Undiagnosed new problem with uncertain prognosis? @ -[No] Drug Therapy requiring intensive monitoring for toxicity (Heparin, Nitro, Insulin, Cardizem)? @ -[No] Were any procedures done? @ -[No] Diagnosis/symptom? @ -Psoas abscess Acute, or Chronic, or Acute on Chronic? @ -Acute Uncomplicated (without systemic symptoms) or Complicated (systemic symptoms)? @ -Complicated Side effects of treatment? @ -[No] Exacerbation, Progression, or Severe Exacerbation? @ -[No] Poses a threat to life or bodily function? How? (Chest pain, [place], [place], pneumonia, PE, COPD, DKA, ARF, appy, cholecystitis, CVA, Diverticulitis, Homicidal, Phoebe cidal, threat to staff... and all critical care pts) @ -[No] - Lab Data Result diagrams: 02/20/23 15:34 02/20/23 15:34 Lab Results 02/20/23 02/20/23 02/20/23 Range/Units 15:34 15:34 15:34 WBC 8.2 (3.8-10.6) k/uL RBC 3.70 L (3.80-5.40) m/uL Hgb 11.2 L D (11.4-16.0) gm/dL Hct 35.9 (34.0-46.0) % MCV 97.2 D (80.0-100.0) fL MCH 30.2 (25.0-35.0) pg MCHC 31.1 (31.0-37.0) g/dL RDW 14.6 (11.5-15.5) % Plt Count 369 (150-450) k/uL MPV 9.6 Neutrophils % 73 % Lymphocytes % 12 % Monocytes % 9 % Eosinophils % 3 % Basophils % 0 % Neutrophils # 6.0 (1.3-7.7) k/uL Lymphocytes # 1.0 (1.0-4.8) k/uL Monocytes # 0.8 (0-1.0) k/uL Eosinophils # 0.3 (0-0.7) k/uL Basophils # 0.0 (0-0.2) k/uL Hypochromasia Moderate Sodium 140 (137-145) mmol/L Potassium 4.3 (3.5-5.1) mmol/L Chloride 105 (98-107) mmol/L Carbon Dioxide 24 (22-30) mmol/L Anion Gap 11 mmol/L BUN 23 H (7-17) mg/dL Creatinine 0.54 (0.52-1.04) mg/dL Est GFR (CKD-EPI)AfAm >90 (>60 ml/min/1.73 sqM) Est GFR (CKD-EPI)NonAf 85 (>60 ml/min/1.73 sqM) Glucose 97 (74-99) mg/dL Plasma Lactic Acid Edward 1.4 (0.7-2.0) mmol/L Calcium 9.0 (8.4-10.2) mg/dL Total Bilirubin 0.5 (0.2-1.3) mg/dL AST 39 H (14-36) U/L ALT 22 (4-34) U/L Alkaline Phosphatase 116 (38-126) U/L Total Protein 6.3 (6.3-8.2) g/dL Albumin 3.2 L (3.5-5.0) g/dL Urine Color Urine Appearance (Clear) Urine pH (5.0-8.0) Ur Specific [place] (1.001-1.035) Urine Protein (Negative) Urine Glucose (UA) (Negative) Urine Ketones (Negative) Urine Blood (Negative) Urine Nitrite (Negative) Urine Bilirubin (Negative) Urine Urobilinogen (<2.0) mg/dL Ur Leukocyte Esterase (Negative) Urine RBC (0-5) /hpf Urine WBC (0-5) /hpf Ur Squamous Epith Cells (0-4) /hpf Urine Bacteria (None) /hpf Hyaline Casts (0-2) /lpf Urine Mucus (None) /hpf Urine Yeast (Budding) (None) /hpf 02/20/23 Range/Units 15:34 WBC (3.8-10.6) k/uL RBC (3.80-5.40) m/uL Hgb (11.4-16.0) gm/dL Hct (34.0-46.0) % MCV (80.0-100.0) fL MCH (25.0-35.0) pg MCHC (31.0-37.0) g/dL RDW (11.5-15.5) % Plt Count (150-450) k/uL MPV Neutrophils % % Lymphocytes % % Monocytes % % Eosinophils % % Basophils % % Neutrophils # (1.3-7.7) k/uL Lymphocytes # (1.0-4.8) k/uL Monocytes # (0-1.0) k/uL Eosinophils # (0-0.7) k/uL Basophils # (0-0.2) k/uL Hypochromasia Sodium (137-145) mmol/L Potassium (3.5-5.1) mmol/L Chloride (98-107) mmol/L Carbon Dioxide (22-30) mmol/L Anion Gap mmol/L BUN (7-17) mg/dL Creatinine (0.52-1.04) mg/dL Est GFR (CKD-EPI)AfAm (>60 ml/min/1.73 sqM) Est GFR (CKD-EPI)NonAf (>60 ml/min/1.73 sqM) Glucose (74-99) mg/dL Plasma Lactic Acid Edward (0.7-2.0) mmol/L Calcium (8.4-10.2) mg/dL Total Bilirubin (0.2-1.3) mg/dL AST (14-36) U/L ALT (4-34) U/L Alkaline Phosphatase (38-126) U/L Total Protein (6.3-8.2) g/dL Albumin (3.5-5.0) g/dL Urine Color Yellow Urine Appearance Clear (Clear) Urine pH 5.5 (5.0-8.0) Ur Specific [place] 1.024 (1.001-1.035) Urine Protein Trace H (Negative) Urine Glucose (UA) Negative (Negative) Urine Ketones Negative (Negative) Urine Blood Negative (Negative) Urine Nitrite Negative (Negative) Urine Bilirubin Negative (Negative) Urine Urobilinogen <2.0 (<2.0) mg/dL Ur Leukocyte Esterase Large H (Negative) Urine RBC 11 H (0-5) /hpf Urine WBC 83 H (0-5) /hpf Ur Squamous Epith Cells <1 (0-4) /hpf Urine Bacteria Rare H (None) /hpf Hyaline Casts 1 (0-2) /lpf Urine Mucus Occasional H (None) /hpf Urine Yeast (Budding) Few H (None) /hpf Disposition Clinical Impression: Psoas abscess, left Disposition: ADMITTED IP TO THIS HOSP Referrals: Nayla Beckford DO [Family Provider] - 1-2 days Time of Disposition: 19:08
[2023-02-20 15:55] LABS: Basophils % (A) 0 %; Eosinophils # (A) 0.3 k/uL (0-0.7); Eosinophils % (A) 3 %; HCT 35.9 % (34.0-46.0); Hypochromasia Moderate; Lymphocytes % (A) 12 %; MCH 30.2 pg (25.0-35.0); MCHC 31.1 g/dL (31.0-37.0); Mean Platelet Volume 9.6; Monocytes # (A) 0.8 k/uL (0-1.0); Monocytes % (A) 9 %; Neutrophils % (A) 73 %; RDW 14.6 % (11.5-15.5); WBC 8.2 k/uL (3.8-10.6)
[2023-02-20 15:58] LABS: HGB 11.2 gm/dL (11.4-16.0); MCV 97.2 fL (80.0-100.0); Platelet Count 369 k/uL (150-450)
[2023-02-20 16:18] LABS: ALT 22 U/L (4-34); AST 39 U/L (14-36); African American GFR (CKD) >90 (>60 ml/min/1.73 sqM); Albumin 3.2 g/dL (3.5-5.0); Alkaline Phosphatase 116 U/L (38-126); Anion Gap 11 mmol/L; Blood Urea Nitrogen 23 mg/dL (7-17); Carbon Dioxide 24 mmol/L (22-30); Chloride 105 mmol/L (98-107); Glucose 97 mg/dL (74-99); Non-African American GFR(CKD) 85 (>60 ml/min/1.73 sqM); Potassium 4.3 mmol/L (3.5-5.1); Sodium 140 mmol/L (137-145); Total Bilirubin 0.5 mg/dL (0.2-1.3); Total Protein 6.3 g/dL (6.3-8.2)
[2023-02-20 16:21] LABS: Appearance,Urine Clear (Clear); Bacteria,Urine Rare /hpf; Bilirubin,Urine Negative (Negative); Blood,Urine Negative (Negative); Budding Yeast,Urine Few /hpf; Color,Urine Yellow; Glucose,Urine (UA) Negative (Negative); Hyaline Casts,Urine 1 /lpf (0-2); Ketones,Urine Negative (Negative); Leukocyte Esterase,Urine Large (Negative); Mucus,Urine Occasional /hpf; Nitrite,Urine Negative (Negative); PH, Urine 5.5 (5.0-8.0); Protein,Urine Trace (Negative); RBC,Urine 11 /hpf (0-5); Specific Gravity,Urine 1.024 (1.001-1.035); Squamous Epithelial Cell,Urine <1 /hpf (0-4); Urobilinogen,Urine <2.0 mg/dL (<2.0); WBC,Urine 83 /hpf (0-5)
[2023-02-20] MEDS ORDERED: NITROFURANTOIN MONOHYD/M-CRYST 100 MG CAP PO STA (17:51)
[2023-02-20] MEDS ORDERED: CEFEPIME 2 GM in SODIUM CHLORIDE 0.9% 100 ML IVPB STA (18:04)
[2023-02-20] MEDS ORDERED: VANCOMYCIN IV PER PHARMACY 1 EACH MISC MISCELLANE PRN (18:04)
[2023-02-20] MEDS ORDERED: VANCOMYCIN 1,500 MG in SODIUM CHLORIDE 0.9% 500 ML 500 ML IVPB STA (18:05)
--- NOTE | 2023-02-20 18:19 | CT ---
EXAMINATION TYPE: CT abdomen pelvis wo/w con DATE OF EXAM: 02/20/2023 COMPARISON: 12/24/2022 INDICATION: bilateral leg weakness DLP: 2396.3 mGycm, Automated exposure control for dose reduction was used. CONTRAST: 100 mL of Isovue 300. Study performed without Oral Contrast TECHNIQUE: Axial images were obtained from above the diaphragm to the pubic rami in the axial plane a t 5 mm thick sections. Reconstructed images are reviewed on the computer in the coronal plane. FINDINGS: Limited CT sections are obtained the lung bases. Small bilateral pleural effusions are present. Bienvenido e mild compressive atelectasis may be present. CT ABDOMEN: Liver: Normal Spleen: Normal Pancreas: Normal Adrenal glands: The adrenal glands are normal. Gallbladder: Surgically absent Kidneys: No masses are evident. No hydronephrosis is present. No cysts are present. Nonobstructing renal stones or at the inferior pole left kidney. Aorta: Vascular calcification is within the aorta. Inferior vena cava: Normal. CT PELVIS: There is limitation in the lower pelvis due to beam are in the artifact from right hip pro sthesis. There is a left psoas muscle collection extending from the iliac chain region to the inferio r pole left kidney. This does not have a thick enhancing wall. Thin enhancing wall may be present. Co rrelate for a hematoma. Abscess is considered less likely. Correlate with the patient's symptoms. Loops of bowel within the abdomen and pelvis are normal. This study is performed without oral con trast. A large fecal bolus is at the level of the rectum. Appendix: Normal as visualized. Urinary bladder: Normal as visualized. Genitourinary structures: Uterus is unremarkable. Adnexa appear normal. Osseous structures: No suspicious lytic or sclerotic lesions. Midmorning artifact from prior lumbar s pine surgery is evident. IMPRESSION: 1. Left psoas muscle hematoma. Abscess is considered less likely. No enlargement is evident. Correla te with patient symptoms. 2. Large fecal bolus at the rectum. Correlate for fecal impaction. 3. Small bilateral pleural effusions.
[2023-02-20] MEDS ORDERED: SODIUM CHLORIDE 0.9% 1,000 ML IV ONE (19:08)
[2023-02-20] MEDS ORDERED: HYDROcodone/APAP 5-325MG 1 EACH TAB PO STA (19:16)
--- NOTE | 2023-02-20 23:27 | P.HPIM ---
History of Present Illness H&P Date: 02/20/23 Patient is a 87-year-old female with an extensive imaging including recent psoas abscess status post drainage in 01/07, status post ORIF of L4 fracture with fixation of L2 to S1 with subsequent left lower extremity weakness, recent pyelonephritis, hypertension, hyperlipidemia, and permanent A. fib (not on a anticoagulation due to recent GI bleed requiring blood transfusion), who presents to the emergency room with complaints of persistent left lower extremity weakness. Patient reports that following her lower back surgery in 12/07, the patient has had persistent left lower extremity weakness for which she was admitted to a rehab facility. Patient reports that despite the above treatments, that she continues to have minimal use of her left lower extremity. She denied experiencing lower back, left hip, or left lower extremity pain. Denied fever or chills. Does report chronic urinary incontinence but had no additional urinary complaints. Denied chest pain or shortness of breath. In the emergency room, a CT abdomen and pelvis revealed a left psoas muscle abscess versus hematoma with a large fecal bolus and small bilateral pleural effusions. Laboratory evaluation revealed a hemoglobin of 11.2, lactic acid 1.4, UA consistent with UTI, with BUN 23 and creatinine 0.54. ED documentation reviewed and case discussed with ED provider. Review of systems: Pertinent positives and negatives as discussed in HPI, a complete review of systems was performed and all other systems are negative. Physical examination: Vital signs reviewed General: non toxic, no distress, appears at stated age, morbidly obese Derm: no unusual rashes/lesions, warm Head: atraumatic, normocephalic, symmetric Eyes: EOMI, no lid lag, anicteric sclera, pupils equal round reactive to light ENT: Nose and ears atraumatic Neck: No cervical lymphadenopathy, trachea midline, supple Mouth: no lip lesion, mucus membranes moist Cardiovascular: S1S2 reg, no murmur, positive dorsalis pedis pulse bilateral, no edema Lungs: CTA bilateral, no rhonchi, no rales, no accessory muscle use Abdominal: soft, nontender to palpation, no guarding Ext: muscle strength 3/5 RLE, 2/5 LLE, and 5/5 elyse UEs, no gross muscle atrophy, no contractures Neuro: CN II-XI grossly intact, no gross focal neuro deficits Psych: Alert, oriented, appropriate affect Assessment: Chronic left lower extremity weakness, unclear etiology Left psoas abscess versus hematoma, more concerning for abscess due to patient's recent history of such with hemoglobin better than baseline Abnormal UA, low suspicion for UTI Chronic conditions: A. fib, hypertension, hyperlipidemia Imaging: In the emergency room, a CT abdomen and pelvis revealed a left psoas muscle abscess versus hematoma with a large fecal bolus and small bilateral pleural effusions. Data Review: Laboratory evaluation revealed a hemoglobin of 11.2, lactic acid 1.4, UA consis tent with UTI, with BUN 23 and creatinine 0.54. Plan: Infectious disease consulted for left psoas abscess Continue with vancomycin Follow-up blood cultures Consider IR consult for drainage Continue gentle IV hydration with normal saline 75 mL/h Continue with home medications once reconciled Consult orthopedic surgery for persistent left lower extremity weakness following recent lumbar surgery DVT prophylaxis: Lovenox subcu The patient is admitted with an anticipated greater than 2 midnight stay for evaluation of abscess CODE STATUS: Full Code Discussed with: Patient Anticipated discharge place: Home Past Medical History Past Medical History: Atrial Fibrillation, Cancer, Hyperlipidemia, Hypertension, Thyroid Disorder Additional Past Medical History / Comment(s): BACK PAIN, SKIN CANCER, L4 fractu re History of Any Multi-Drug Resistant Organisms: None Reported Past Surgical History: Appendectomy, Back Surgery, Cholecystectomy, Joint Replacement, Tonsillectomy Additional Past Surgical History / Comment(s): ELYSE TOTAL KNEE SURG, CARPAL TUNNEL, OOPHERECTOMY, SKIN LESION -VAGANIA, RIGHT FOOT SURGERY Past Anesthesia/Blood Transfusion Reactions: No Reported Reaction Past Psychological History: No Psychological Hx Reported Smoking Status: Never smoker Past Alcohol Use History: Occasional Past Drug Use History: None Reported - Past Family History Son(s) Family Medical History: Cancer Additional Family Medical History / Comment(s): SARCOMA Medications and Allergies Home Medications Medication Instructions Recorded Confirmed Type Cholecalciferol [Vitamin D3 (25 50 mcg PO DAILY 11/15/22 02/20/23 History Mcg = 1000 Iu)] Levothyroxine Sodium [Synthroid] 200 mcg PO DAILY 11/15/22 02/20/23 History Simvastatin [Zocor] 20 mg PO HS 11/15/22 02/20/23 History amLODIPine [Norvasc] 2.5 mg PO DAILY 11/15/22 02/20/23 History calcitrioL [Calcitriol] 0.25 mcg PO MOTUWETHFR 11/15/22 02/20/23 History Ascorbic Acid [Vitamin C] 500 mg PO DAILY 12/20/22 02/20/23 History Lactulose [Cephulac] 30 gm PO BID ml 01/05/23 02/20/23 Rx Pregabalin [Lyrica] 75 mg PO BID #0 cap 01/05/23 02/20/23 Rx Acetaminophen Tab [Tylenol] 650 mg PO Q8H PRN 02/20/23 02/20/23 History HYDROcodone/APAP 5-325MG [[place] 1 tab PO Q4HR PRN 02/20/23 02/20/23 History 5-325] Heparin Sodium,Porcine/Pf [Heparin 30 unit IV DAILY@0600 02/20/23 02/20/23 History 500 Unit/5 ml (100/ml) Flush] Metoprolol Tartrate [Lopressor] 50 mg PO BID 02/20/23 02/20/23 History Multivitamins, Thera [Multivitamin 1 tab PO DAILY 02/20/23 02/20/23 History (formulary)] Pantoprazole [Protonix] 40 mg PO BID 02/20/23 02/20/23 History Prostat 30 ml PO BID 02/20/23 02/20/23 History Sennosides [Senokot] 8.6 mg PO BID 02/20/23 02/20/23 History hydrALAZINE HCL [Apresoline] 100 mg PO BID 02/20/23 02/20/23 History sitaGLIPtin [Januvia] 100 mg PO DAILY 02/20/23 02/20/23 History Allergies Allergy/AdvReac Type Severity Reaction Status Date / Time baclofen Allergy Swelling Verified 02/20/23 16:18 OF LIPS AND TONGUE cephalexin [From Keflex] Allergy Rash/Hives Verified 02/20/23 16:18 ciprofloxacin [From Cipro] Allergy Rash/Hives Verified 02/20/23 16:18 Penicillins Allergy Rash/Hives Verified 02/20/23 16:18 Sulfa (Sulfonamide Allergy Rash/Hives Verified 02/20/23 16:18 Antibiotics) tizanidine Allergy Swelling Verified 02/20/23 16:18 OF LIPS AND TONGUE Physical Exam Vitals: Vital Signs Temp Pulse Resp BP Pulse Ox 02/20/23 20:33 69 16 118/67 94 L 02/20/23 18:20 97.9 F 70 18 141/70 98 02/20/23 14:11 98.3 F 74 17 142/70 97 Intake and Output 02/20/23 02/20/23 02/20/23 06:59 14:59 22:59 Other: Weight 76.657 kg Results CBC & Chem 7: 02/20/23 15:34 02/20/23 15:34 Labs: Abnormal Lab Results - Last 24 Hours (Table) 02/20/23 02/20/23 02/20/23 Range/Units 15:34 15:34 15:34 RBC 3.70 L (3.80-5.40) m/uL Hgb 11.2 L D (11.4-16.0) gm/dL BUN 23 H (7-17) mg/dL AST 39 H (14-36) U/L Albumin 3.2 L (3.5-5.0) g/dL Urine Protein Trace H (Negative) Ur Leukocyte Esterase Large H (Negative) Urine RBC 11 H (0-5) /hpf Urine WBC 83 H (0-5) /hpf Urine Bacteria Rare H (None) /hpf Urine Mucus Occasional H (None) /hpf Urine Yeast (Budding) Few H (None) /hpf
[2023-02-20] MEDS ORDERED: MELATONIN 5 MG TABLET PO ONE (23:41)
[2023-02-21 04:28] LABS: HCT 32.1 % (34.0-46.0); HGB 10.2 gm/dL (11.4-16.0); Hypochromasia Moderate; MCH 31.3 pg (25.0-35.0); MCHC 31.8 g/dL (31.0-37.0); MCV 98.3 fL (80.0-100.0); Mean Platelet Volume 8.5; Platelet Count 315 k/uL (150-450); RBC 3.26 m/uL (3.80-5.40); RDW 14.5 % (11.5-15.5); WBC 5.9 k/uL (3.8-10.6)
[2023-02-21 04:36] LABS: African American GFR (CKD) >90 (>60 ml/min/1.73 sqM); Non-African American GFR(CKD) 90 (>60 ml/min/1.73 sqM)
[2023-02-21] MEDS: LEVOTHYROXINE 100 MCG TAB PO SCH (05:39)
--- NOTE | 2023-02-21 06:28 | P.PN ---
Progress Note - Text Progress Note Date: 02/21/23 IMages reviewed as well as chart. Full consult pending. Left sided psoas hematoma most likely given it is coming from fractured area, white count is low and no other evidence of infective process seen. Ordered Sed/CRP. Ordered Coags. IR for drain placement recommended.
[2023-02-21] MEDS: hydrALAZINE HCL 50 MG TAB PO SCH ×2 (08:31→21:07)
[2023-02-21] MEDS: MULTIVITAMINS, THERA 1 EACH TAB PO SCH (08:32)
[2023-02-21] MEDS: PANTOPRAZOLE 40 MG TABLET PO SCH ×2 (08:32→21:08)
[2023-02-21] MEDS: PREGABALIN 75 MG CAP PO SCH ×2 (08:32→21:08)
[2023-02-21] MEDS: METOPROLOL TARTRATE 50 MG TAB PO SCH ×2 (08:32→21:08)
[2023-02-21] MEDS: ENOXAPARIN 40 MG/0.4 ML SYRINGE SQ SCH (08:33)
[2023-02-21] MEDS: amLODIPine 2.5 MG TAB PO SCH (08:33)
[2023-02-21] MEDS: NITROFURANTOIN MONOHYD/M-CRYST 100 MG CAP PO SCH ×2 (09:07→21:25)
[2023-02-21] MEDS: HYDROcodone/APAP 5-325MG 1 EACH TAB PO PRN ×3 (10:30→20:09)
[2023-02-21] MEDS: CEFEPIME 1 GM in SODIUM CHLORIDE 0.9% 50 ML IVPB SCH ×2 (11:13→21:06)
[2023-02-21] MEDS: VANCOMYCIN 1,500 MG in SODIUM CHLORIDE 0.9% 500 ML 500 ML IVPB SCH (11:29)
[2023-02-21] MEDS: FUROSEMIDE 10 MG/ML 4 ML VIAL IV SCH (11:29)
--- NOTE | 2023-02-21 12:17 | P.CNOR ---
History of Present Illness - [facility] Consult date: 02/21/23 Requesting physician: Wander Morgan Consult reason: other (LLE weakness) History of present illness: Patient is an 87-year-old female who presents to the emergency department yesterday due to left leg pain and inability to ambulate. Patient had surgery for stabilization of L2-S1 open reduction internal fixation of L4 vertebral fracture on 11/19/[address] Alejandra. Patient states the first week after surgery she is able to ambulate and was having no issues and the left lower extremity. Patient's daughter. Most of the history during encounter states that the 3 weeks following the first day postop patient and have numbness and tingling in the left lower extremity and difficulty ambulating at all on the left lower extremity. Patient's daughter also mentions patient was on off blood thinners and unsure what dates. Patient was at rehab for several weeks back at the end of November and daughter says she was discharged home around and she ended up having multiple infections including UTI Covid. Patient did present to the hospital December where she had drain placed by interventional radiology near her psoas muscle on the left for hematoma. P emil's daughter states that patient has had continued weakness and inability to ambulate with the left lower extremity. Patient denies any falls/traumas. Patient denies any saddle anesthesia. Patient denies any bladder/bowel incontinence. Patient denies any other issues at this time. Patient denies chest pain, fever, shortness of breath, nausea, vomiting 20 vision, loss of bowel/bladder control. Past Medical History Past Medical History: Atrial Fibrillation, Cancer, Hyperlipidemia, Hypertension, Thyroid Disorder Additional Past Medical History / Comment(s): BACK PAIN, SKIN CANCER, L4 fracture History of Any Multi-Drug Resistant Organisms: None Reported Past Surgical History: Appendectomy, Back Surgery, Cholecystectomy, Joint Replacement, Tonsillectomy Additional Past Surgical History / Comment(s): ELYSE TOTAL KNEE SURG, CARPAL TUNNEL, OOPHERECTOMY, SKIN LESION -VAGANIA, RIGHT FOOT SURGERY Past Anesthesia/Blood Transfusion Reactions: No Reported Reaction Past Psychological History: No Psychological Hx Reported Smoking Status: Never smoker Past Alcohol Use History: Occasional Past Drug Use History: None Reported - Past Family History Son(s) Family Medical History: Cancer Additional Family Medical History / Comment(s): SARCOMA Medications and Allergies Home Medications Medication Instructions Recorded Confirmed Type Cholecalciferol [Vitamin D3 (25 50 mcg PO DAILY 11/15/22 02/20/23 History Mcg = 1000 Iu)] Levothyroxine Sodium [Synthroid] 200 mcg PO DAILY 11/15/22 02/20/23 History Simvastatin [Zocor] 20 mg PO HS 11/15/22 02/20/23 History amLODIPine [Norvasc] 2.5 mg PO DAILY 11/15/22 02/20/23 History calcitrioL [Calcitriol] 0.25 mcg PO MOTUWETHFR 11/15/22 02/20/23 History Ascorbic Acid [Vitamin C] 500 mg PO DAILY 12/20/22 02/20/23 History Lactulose [Cephulac] 30 gm PO BID ml 01/05/23 02/20/23 Rx Pregabalin [Lyrica] 75 mg PO BID #0 cap 01/05/23 02/20/23 Rx Acetaminophen Tab [Tylenol] 650 mg PO Q8H PRN 02/20/23 02/20/23 History HYDROcodone/APAP 5-325MG [[place] 1 tab PO Q4HR PRN 02/20/23 02/20/23 History 5-325] Heparin Sodium,Porcine/Pf [Heparin 30 unit IV DAILY@0600 02/20/23 02/20/23 History 500 Unit/5 ml (100/ml) Flush] Metoprolol Tartrate [Lopressor] 50 mg PO BID 02/20/23 02/20/23 History Multivitamins, Thera [Multivitamin 1 tab PO DAILY 02/20/23 02/20/23 History (formulary)] Pantoprazole [Protonix] 40 mg PO BID 02/20/23 02/20/23 History Prostat 30 ml PO BID 02/20/23 02/20/23 History Sennosides [Senokot] 8.6 mg PO BID 02/20/23 02/20/23 History hydrALAZINE HCL [Apresoline] 100 mg PO BID 02/20/23 02/20/23 History sitaGLIPtin [Januvia] 100 mg PO DAILY 02/20/23 02/20/23 History Allergies Allergy/AdvReac Type Severity Reaction Status Date / Time baclofen Allergy Swelling Verified 02/20/23 16:18 OF LIPS AND TONGUE cephalexin [From Keflex] Allergy Rash/Hives Verified 02/20/23 16:18 ciprofloxacin [From Cipro] Allergy Rash/Hives Verified 02/20/23 16:18 Penicillins Allergy Rash/Hives Verified 02/20/23 16:18 Sulfa (Sulfonamide Allergy Rash/Hives Verified 02/20/23 16:18 Antibiotics) tizanidine Allergy Swelling Verified 02/20/23 16:18 OF LIPS AND TONGUE Physical Examination Inspection: Swelling present in the proximal left lower extremity near buttocks. Negative for any open fractures, significant ulcers/wounds. Sensation: Diminished sensation in the left lower extremity throughout. Se nsation is equal, symmetric, by intact throughout other extremities. Palpation: Moderate tenderness to palpation diffusely throughout left lower extremity from left hip to left calf. NTTP throughout rest exam Range of motion: Patient is able to plantar and dorsiflex left ankle on her own. Patient is unable to actively flex/extend left knee or left hip. There is some limited passive range of motion the left knee to about 105 flexion before patient is in pain. Unable to passively internal rotate of left hip on exam. Full range of motion throughout bilateral upper extremities and right lower extremity on exam. Motor: 4-/5 in resisted left ankle dorsi/plantar flexion. 3-/5 in resisted left knee flexion/extension. Unable to perform motor exam left hip due to weakness/pain. 4/5 in all major motor groups in right lower extremity. 4/5 in all major motor groups in bilateral upper extremities. Neurovascular: Skin is lukewarm to touch throughout left lower extremity. Left lower extremity does appear somewhat pale in color. Radial pulses intact bilaterally. There is some edema throughout the bilateral feet. Cap refill under 3 seconds in digits upper extremities. Special tests: Negative Homans bilaterally. Negative clonus bilaterally. Results - Labs Labs: Abnormal Lab Results - Last 24 Hours (Table) 02/20/23 02/20/23 02/20/23 Range/Units 15:34 15:34 15:34 RBC 3.70 L (3.80-5.40) m/uL Hgb 11.2 L D (11.4-16.0) gm/dL Hct (34.0-46.0) % BUN 23 H (7-17) mg/dL Creatinine (0.52-1.04) mg/dL AST 39 H (14-36) U/L Albumin 3.2 L (3.5-5.0) g/dL Urine Protein Trace H (Negative) Ur Leukocyte Esterase Large H (Negative) Urine RBC 11 H (0-5) /hpf Urine WBC 83 H (0-5) /hpf Urine Bacteria Rare H (None) /hpf Urine Mucus Occasional H (None) /hpf Urine Yeast (Budding) Few H (None) /hpf 02/21/23 02/21/23 Range/Units 03:46 03:46 RBC 3.26 L (3.80-5.40) m/uL Hgb 10.2 L (11.4-16.0) gm/dL Hct 32.1 L (34.0-46.0) % BUN (7-17) mg/dL Creatinine 0.45 L (0.52-1.04) mg/dL AST (14-36) U/L Albumin (3.5-5.0) g/dL Urine Protein (Negative) Ur Leukocyte Esterase (Negative) Urine RBC (0-5) /hpf Urine WBC (0-5) /hpf Urine Bacteria (None) /hpf Urine Mucus (None) /hpf Urine Yeast (Budding) (None) /hpf H & H 02/20/23 02/21/23 Range/Units 15:34 03:46 Hgb 11.2 L D 10.2 L (11.4-16.0) gm/dL Hct 35.9 32.1 L (34.0-46.0) % Result Diagrams: 02/21/23 03:46 02/21/23 03:46 - Diagnostic results Comments: Abdomen/pelvis CT does reveal hematoma in the left psoas muscle. Negative for any fractures on exam. Negative for any dislocations. Positive for previous right total hip arthroplasty. Components appear to be stable. Assessment and Plan Assessment: 1. Left lower extremity weakness; left lower extremity paresthesias; left psoas muscle hematoma Plan: 1. Left lower extremity weakness; left lower extremity paresthesias; left psoas muscle hematoma - patient stable at bedside this morning. Abdomen/pelvis CT does reveal hematoma in the left psoas muscle. Negative for any fractures on exam. Negative for any dislocations. Positive for previous right total hip arthroplasty. Components appear to be stable. I did discuss the findings the exam and imaging with my attending, Dr. Alejandra. We have ordered ESR and CRP for further evaluation. Low concern for infection at this time. White blood count is normal. Due to the hematoma seen in the psoas muscle and computed tomography scan, we are recommending interventional radiology to see patient for possible drain placement for hematoma. Due to recurrent hematoma may be beneficial to leave drain in place. Appreciate medical and neurology management. Recommend PT/OT daily evaluation. At this time we are not recommending any further imaging. Pain medication as needed. At this time we're not recommending any orthopedic surgical intervention. We'll continue to be available as needed to see patient. 2. Appreciate medical and neurological management 3. Pain management -Esbon; Lyrica 4. DVT prophylaxis - Lovenox 5. GI prophylaxis - Lactulose; Protonix 6. PT/OT - Encouraged to perform passive range of motion exercises left lower extremity. Weight-bear as tolerated with walker and assistance. 7. Encourage incentive spirometer use 8. Appreciate consult Time with Patient: Less than 30
[2023-02-21 12:31] LABS: Prothrombin Time 11.4 sec (10.0-12.5)
--- NOTE | 2023-02-21 14:29 | CT ---
EXAMINATION TYPE: CT guided abscess drainage DATE OF EXAM: 02/21/2023 COMPARISON: CT scan 02/20/2023 HISTORY: abscess drainage CT DLP: 1266 mGycm The procedure is discussed with the patient, the risks, complications, benefits and alternatives, wer e discussed and any questions were answered. Informed consent was obtained. The patient is placed p sekou on the CT table, prepped and draped in the usual sterile fashion. Utilizing a 22-gauge Chiba needle access into left psoas muscle fluid collection was achieved with pl acement of an 0.018 wire. Conversion to a 0.035 system. Serial dilation 8 Emirati and placement of an 8 Emirati drainage catheter. Repeat imaging demonstrated ideal placement of the catheter. Sample fluid was obtained and sent to pathology for analysis.. Pathology pending. All elements of maximal barrier and sterile technique were utilized. The patient remained stable thr oughout the procedure with no immediate postprocedural complication. IMPRESSION: 1. Successful CT guided drainage tube insertion for left psoas muscle fluid collection.
[2023-02-21 14:47] LABS: INR 1.02 sec (0.93-1.11)
[2023-02-21 14:48] VITALS: BMI 33.0
[2023-02-21] MEDS ORDERED: bisacodyL 10 MG SUPP RECTAL STA (15:43)
--- NOTE | 2023-02-21 15:44 | P.PN ---
Subjective Progress Note Date: 02/21/23 (delayed charting seen at 1000) Patient is a 87-year-old female with index surgery on 11/19/22-2 L4 vertebral fracture that included open treatment with reduction of fracture and minimally i nvasive stabilization of L2 to S1. Her recovery was complicated by left psoas muscle abscess which was drained by interventional radiology on 12/28/22. Since that time she's been followed by infectious disease and has been on IV Rocephin and at rehab. On 02/20 she went to the infectious disease office to follow up and was having worsening lower extremity weakness and therefore was directed to the emergency department. In the emergency department her vital signs were within normal limits and laboratory analysis was essentially at baseline. She underwent a CT abdomen and pelvis which showed a left psoas muscle hematoma with abscess less likely as well as large fecal bolus and bilateral pleural effusions. Arrangements are made for admission. Infectious disease was consulted and contacted they recommended vancomycin and cefepime giving her failure of Rocephin. Spine or the was consulted and recommended IR evaluation. Patient seen and examined at bedside with multiple family members present. They recount the story as detailed above. She is complaining of worsening left lower extremity weakness. She has had intermittent edema in both her arms and legs over the last several months. They state that they wrap her legs and get Radha stopped wrapping of her legs against follow-up. She is continuing to complain of left leg weakness and numbness. She denies any overt pain in that leg. They're requesting to see a neurologist. Vital signs reviewed General: nontoxic, no distress, appears at stated age Cardiovascular: S1S2 reg, no murmur, positive posterior tibial pulse bilateral, Lungs: Decreased breath sounds bilateral, no rhonchi, no rales , no accessory muscle use Abdominal: soft, nontender to palpation, no guarding, no appreciable organomegaly Ext: no gross muscle atrophy, diffuse anasarca Neuro: CN II-XI grossly intact, right lower extremity with flexion and extension at foot/knee/hip at or out of 5, left lower extremity with flexion and extension at ankle 4 out of 5, 3 out of 5 at knee, and 1 out of 5 at hip. Psych: Alert, oriented, appropriate affect Assessment/Plan: Left psoas muscle hematoma, less likely abscess resulting in left lower extremity weakness Acute blood loss anemia -Case discussed with orthopedic surgery, Dr. Alejandra. He recommended IR guided drainage with drainage tube left in place. Open procedure would be more difficult for this patient given her advanced age and history of complications. -Interventional radiology consulted. -Continue with cefepime 1 g every 12 hours IV piggyback, vancomycin IV piggyback dosing via trough, and renal clearance. Monitor for toxicity creatinine and trough levels -Case discussed with infectious disease would like to await drainage results. C ontinue with antibiotics as listed above. - lyrica 75 mg PO BID - check iron studies - follow CBC. No indication for transfusion at this time. Fecal impaction -Dulcolax 10 mg UT 1 - continue with lactulose 60 gm PO BID, senokot 8.6 mg PO BID Prediabetes - tradjenta 5 mg daily. Follow blood sugar levels with a.m. blood work. Permanent atrial fibrillation Hypertension Dyslipidemia -Lopressor 50 mg twice daily, Norvasc 2.5 mg daily, hydralazine 100 mg twice daily, atorvastatin 10 mg at night -Not on anticoagulation secondary to recent GI bleed Imaging: None new Data Review: Labs reviewed from this morning include CBC, coags and creatinine as well as CRP which are remarkable for hemoglobin 10.2 and CRP 1.5 DVT prophylaxis: Lovenox Anticipated discharge date: Pending Clinical Course Anticipated discharge place: Pending Clinical Course This dictation was prepared using [employer] voice recognition software. Though every attempt is made to correct errors during dictation some may still exist. Objective - Vital Signs Vital signs: Vital Signs Temp 98.4 F 02/21/23 13:33 Pulse 79 02/21/23 14:10 Resp 18 02/21/23 14:10 BP 112/72 02/21/23 14:10 Pulse Ox 94 L 02/21/23 14:10 FiO2 Intake & Output 02/20/23 02/21/23 02/21/23 18:59 06:59 18:59 Output Total 900 25 Balance -900 -25 Weight 76.657 kg 76.657 kg 76.657 kg Output: Drainage 25 Left Lower Back 25 Urine 900 Other: Voiding Method Diaper External Catheter External Catheter - Labs CBC & Chem 7: 02/21/23 03:46 02/21/23 03:46 Labs: Abnormal Lab Results - Last 24 Hours (Table) 02/20/23 02/20/23 02/20/23 Range/Units 15:34 15:34 15:34 RBC 3.70 L (3.80-5.40) m/uL Hgb 11.2 L D (11.4-16.0) gm/dL Hct (34.0-46.0) % BUN 23 H (7-17) mg/dL Creatinine (0.52-1.04) mg/dL AST 39 H (14-36) U/L C-Reactive Protein (<1.0) mg/dL Albumin 3.2 L (3.5-5.0) g/dL Urine Protein Trace H (Negative) Ur Leukocyte Esterase Large H (Negative) Urine RBC 11 H (0-5) /hpf Urine WBC 83 H (0-5) /hpf Urine Bacteria Rare H (None) /hpf Urine Mucus Occasional H (None) /hpf Urine Yeast (Budding) Few H (None) /hpf 02/21/23 02/21/23 02/21/23 Range/Units 03:46 03:46 03:46 RBC 3.26 L (3.80-5.40) m/uL Hgb 10.2 L (11.4-16.0) gm/dL Hct 32.1 L (34.0-46.0) % BUN (7-17) mg/dL Creatinine 0.45 L (0.52-1.04) mg/dL AST (14-36) U/L C-Reactive Protein 1.5 H (<1.0) mg/dL Albumin (3.5-5.0) g/dL Urine Protein (Negative) Ur Leukocyte Esterase (Negative) Urine RBC (0-5) /hpf Urine WBC (0-5) /hpf Urine Bacteria (None) /hpf Urine Mucus (None) /hpf Urine Yeast (Budding) (None) /hpf
--- NOTE | 2023-02-21 18:26 | P.CNNES ---
History of Present Illness Consult date: 02/21/23 Requesting physician: Letty Norton Reason for Consult: left lower extremity weakness History of Present Illness: This is an 87-year-old woman with history of lower back pain with radiation to the left lower extremity, lumbar fracture with had minimal invasive stabilization of L2 to S1 on 11/19/2022 and having worsening of the left lower extremity weakness since November. Patient is accompanied with her daughter was at bedside and provides some of the history. It seems that patient has been having the lower back pain rating down to the left knee and the she had lumbar surgery in 11/19/2022 and she was doing okay is walking with a walker but the seems that the patient had that COVID-19 in November and was lying in bed and rehab for 21 days. The daughter feels the her left lower extremity weakness has progressively gotten worse and she's having swelling of the left lower extremity at. In December she had UTI ulcer of the stomach and worsening of oral Carmine condition. Her recovery was comp case by left psoas muscle abscess which was drained by interventional radiology on 12/28/2022 per the primary team and the was following up with the infection disease and was placed on IV Rocephin. She followed up recently with the infection disease and she was notified to come to the hospital for evaluation by neurology team. He denies of severe lower back pain and denies radiation of lower back pain. But she continues to have swelling of the left lower extremity. Today she had the vacuum placed. She states she has sensation of the urine and bowel. She denies of any upper extremity weakness. She had CT abdomen and pelvis which showed the left psoas muscle hematoma. Abscess is considered less likely. No enlargement at is evident. Large fecal bolus at the rectum. Correlate for fecal impaction. Small bilateral pleural effusion. Again she had successful CT guided tube insertion on left psoas muscle focal collection Review of Systems The positive and negative as per HPI. Past Medical History Past Medical History: Atrial Fibrillation, Cancer, Hyperlipidemia, Hypertension, Thyroid Disorder Additional Past Medical History / Comment(s): BACK PAIN, SKIN CANCER, L4 fracture History of Any Multi-Drug Resistant Organisms: None Reported Past Surgical History: Appendectomy, Back Surgery, Cholecystectomy, Joint Replacement, Tonsillectomy Additional Past Surgical History / Comment(s): ELYSE TOTAL KNEE SURG, CARPAL TUNNEL, OOPHERECTOMY, SKIN LESION -VAGANIA, RIGHT FOOT SURGERY Past Anesthesia/Blood Transfusion Reactions: No Reported Reaction Past Psychological History: No Psychological Hx Reported Smoking Status: Never smoker Past Alcohol Use History: Occasional Past Drug Use History: None Reported - Past Family History Son(s) Family Medical History: Cancer Additional Family Medical History / Comment(s): SARCOMA Medications and Allergies Home Medications Medication Instructions Recorded Confirmed Type Cholecalciferol [Vitamin D3 (25 50 mcg PO DAILY 11/15/22 02/20/23 History Mcg = 1000 Iu)] Levothyroxine Sodium [Synthroid] 200 mcg PO DAILY 11/15/22 02/20/23 History Simvastatin [Zocor] 20 mg PO HS 11/15/22 02/20/23 History amLODIPine [Norvasc] 2.5 mg PO DAILY 11/15/22 02/20/23 History calcitrioL [Calcitriol] 0.25 mcg PO MOTUWETHFR 11/15/22 02/20/23 History Ascorbic Acid [Vitamin C] 500 mg PO DAILY 12/20/22 02/20/23 History Lactulose [Cephulac] 30 gm PO BID ml 01/05/23 02/20/23 Rx Pregabalin [Lyrica] 75 mg PO BID #0 cap 01/05/23 02/20/23 Rx Acetaminophen Tab [Tylenol] 650 mg PO Q8H PRN 02/20/23 02/20/23 History HYDROcodone/APAP 5-325MG [[place] 1 tab PO Q4HR PRN 02/20/23 02/20/23 History 5-325] Heparin Sodium,Porcine/Pf [Heparin 30 unit IV DAILY@0600 02/20/23 02/20/23 History 500 Unit/5 ml (100/ml) Flush] Metoprolol Tartrate [Lopressor] 50 mg PO BID 02/20/23 02/20/23 History Multivitamins, Thera [Multivitamin 1 tab PO DAILY 02/20/23 02/20/23 History (formulary)] Pantoprazole [Protonix] 40 mg PO BID 02/20/23 02/20/23 History Prostat 30 ml PO BID 02/20/23 02/20/23 History Sennosides [Senokot] 8.6 mg PO BID 02/20/23 02/20/23 History hydrALAZINE HCL [Apresoline] 100 mg PO BID 02/20/23 02/20/23 History sitaGLIPtin [Januvia] 100 mg PO DAILY 02/20/23 02/20/23 History Allergies Allergy/AdvReac Type Severity Reaction Status Date / Time baclofen Allergy Swelling Verified 02/20/23 16:18 OF LIPS AND TONGUE cephalexin [From Keflex] Allergy Rash/Hives Verified 02/20/23 16:18 ciprofloxacin [From Cipro] Allergy Rash/Hives Verified 02/20/23 16:18 Penicillins Allergy Rash/Hives Verified 02/20/23 16:18 Sulfa (Sulfonamide Allergy Rash/Hives Verified 02/20/23 16:18 Antibiotics) tizanidine Allergy Swelling Verified 02/20/23 16:18 OF LIPS AND TONGUE Physical Examination - Vital Signs Vital Signs: Vital Signs Temp Pulse Pulse Resp BP BP Pulse Ox 02/21/23 16:27 98.0 F 89 20 119/78 94 L 02/21/23 14:10 79 18 112/72 94 L 02/21/23 13:49 83 18 109/71 93 L 02/21/23 13:40 78 18 139/68 92 L 02/21/23 13:33 98.4 F 68 18 91/55 94 L 02/21/23 07:35 98.2 F 80 18 127/75 92 L 02/21/23 02:00 97.5 F L 78 17 117/69 96 02/20/23 21:40 97.7 F 76 16 126/81 97 02/20/23 20:33 69 16 118/67 94 L 02/20/23 18:20 97.9 F 70 18 141/70 98 Intake and Output 02/21/23 02/21/23 02/21/23 06:59 14:59 22:59 Output Total 900 925 Balance -900 -925 Output: Drainage 25 Left Lower Back 25 Urine 900 900 Other: Voiding Method External Catheter Weight 76.657 kg GENERAL: The patient is lying in bed and is not in acute distress. NEUROLOGICAL: Higher mental function: The patient is awake, alert, oriented to self, place and time. Patient is following commands. No aphasia and no neglect. Cranial nerves: The pupils are round, equal and reactive to light. Visual stoddard are full to confrontation throughout. Extraocular movement is intact no nystagmus is noted. Facial sensation is normal to touch throughout. The facial strength is normal throughout. Hearing is moderately decreased bilaterally to hand rub. Tongue is midline and moved [id number] without any difficulty. No dysarthria is noted. Shoulder shrug is normal bilaterally. Motor: The strength is left lower extremity is limited because of moderate to severe edema in lower but for left knee had 2 and ankles 2. Otherwise uppers are 5/5. Right lower Moving above gravity and had 4+ to 5- and some limitation because of some edema. Mild decrease tone over the left lower. Normal bulk. Has vacuum on the left lower. Cerebellum: Normal finger to nose bilaterally. Sensation: Some decrease sensation to touch over the left lower to touch. Reflexes (right/left): 1-2+ uppers, ankles are 1+ bilaterally and knees are 0 bilaterally. Plantars are mute bilaterally. Results - Laboratory Findings CBC and BMP: 02/21/23 03:46 02/21/23 03:46 Abnormal Lab Findings: Abnormal Labs 02/20/23 02/20/23 02/20/23 15:34 15:34 15:34 RBC 3.70 L Hgb 11.2 L D Hct BUN 23 H Creatinine AST 39 H C-Reactive Protein Albumin 3.2 L Urine Protein Trace H Ur Leukocyte Esterase Large H Urine RBC 11 H Urine WBC 83 H Urine Bacteria Rare H Urine Mucus Occasional H Urine Yeast (Budding) Few H 02/21/23 02/21/23 02/21/23 03:46 03:46 03:46 RBC 3.26 L Hgb 10.2 L Hct 32.1 L BUN Creatinine 0.45 L AST C-Reactive Protein 1.5 H Albumin Urine Protein Ur Leukocyte Esterase Urine RBC Urine WBC Urine Bacteria Urine Mucus Urine Yeast (Budding) Assessment and Plan Assessment: This is an 87-year-old woman with history of L4 vertebral fracture as well as left lumbar radiculopathy with had the minimal invasive stabilization of L2 to L S1 on 11/19/2022 then her recovery was complicated by left so as abscess which was drained by interventional radiology on 12/28/2022 and was receiving IV antibiotic then her recovery was delayed because of acute COVID-19 infection in November and did not receive sufficient therapy according to the daughter as well as she had UTI and the a GI ulcer. She's having swelling of the left lower extremity. Her CT abdomen and pelvis is reported left still has muscle hematoma with abscess less likely. Today she had vacuum place and the daughter feels she is having better movement after the vacuum placement. Left lower extremity paresis seems due hematoma of the left psoas. Cannot rule out abscess. It seems that she is having the some improvement on strength after the vacuum placed today. Plan: I spoke with the patient and her daughter was at bedside and they stated they to hold off any additional imaging for now and they want to see if any further im provement with vacuum. Infection disease is on board I consulted the physical therapy and occupation therapy Orthopedic surgery team is consulted We'll defer the rest of the medical management to the primary and other specialists The plan discussed with the patient and her daughter was at bedside. Thank you for the consultation Time with Patient: Greater than 30
[2023-02-21] MEDS: LACTULOSE 20 GM/30 ML CUP PO SCH (21:07)
[2023-02-21] MEDS: ATORVASTATIN 10 MG TAB PO SCH (21:08)
[2023-02-21] MEDS: SENNOSIDES 8.6 MG TAB PO SCH (21:21)
--- NOTE | 2023-02-21 22:50 | P.CONS ---
History of Present Illness - Reason for Consult Consult date: 02/21/23 psoas abscess Requesting physician: Gurinder Gomez - Chief Complaint Left leg weakness x days - History of Present Illness Patient is a 87-year-old female with recent admission to the hospital with L4 vertebral fracture in this patient who is status post surgical stabilization on 11/19/2022 subsequently the patient was admitted to the hospital at that time the patient did have a E. coli bacteremia and work-up which shows evidence of possible left psoas infected hematoma/abscess and concern for possible deep infection the patient did get a PICC line and was advised a 6-week course of IV Rocephin and the patient was receiving in the outpatient setting patient did follow-up in the office yesterday and was complaining of worsening weakness to left lower extremity unable to moved her leg and worsening pain to the lower back area for the patient has been sent to the ER patient on presentation to the hospital was afebrile and no fever has been recorded subs equently patient did have a normal white count kidney function was normal urine is mildly positive patient did have CT of abdominal pelvis left psoas muscle hematoma abscess less likely however did not mention any comparison to previous CAT scan patient has been admitted to hospital with consult to orthopedic as well as IR for possible CT-guided drainage of this collection patient was started on vancomycin and cefepime infectious disease was consulted for further management of antibiotic therapy, patient denies having any fever or any chills she is breathing comfortably no chest pain shortness of the cough complaining of mostly pain to the lower back and weakness to the left leg no bowel or bladder problems Review of Systems Positive point and negatives has been mentioned in the HPI, complete review of systems was performed and all other systems are negative Past Medical History Past Medical History: Atrial Fibrillation, Cancer, Hyperlipidemia, Hypertension, Thyroid Disorder Additional Past Medical History / Comment(s): BACK PAIN, SKIN CANCER, L4 fracture History of Any Multi-Drug Resistant Organisms: None Reported Past Surgical History: Appendectomy, Back Surgery, Cholecystectomy, Joint Replacement, Tonsillectomy Additional Past Surgical History / Comment(s): ELYSE TOTAL KNEE SURG, CARPAL TUNNEL, OOPHERECTOMY, SKIN LESION -VAGANIA, RIGHT FOOT SURGERY Past Anesthesia/Blood Transfusion Reactions: No Reported Reaction Past Psychological History: No Psychological Hx Reported Smoking Status: Never smoker Past Alcohol Use History: Occasional Past Drug Use History: None Reported - Past Family History Son(s) Family Medical History: Cancer Additional Family Medical History / Comment(s): SARCOMA Medications and Allergies Home Medications Medication Instructions Recorded Confirmed Type Cholecalciferol [Vitamin D3 (25 50 mcg PO DAILY 11/15/22 02/20/23 History Mcg = 1000 Iu)] Levothyroxine Sodium [Synthroid] 200 mcg PO DAILY 11/15/22 02/20/23 History Simvastatin [Zocor] 20 mg PO HS 11/15/22 02/20/23 History amLODIPine [Norvasc] 2.5 mg PO DAILY 11/15/22 02/20/23 History calcitrioL [Calcitriol] 0.25 mcg PO MOTUWETHFR 11/15/22 02/20/23 History Ascorbic Acid [Vitamin C] 500 mg PO DAILY 12/20/22 02/20/23 History Lactulose [Cephulac] 30 gm PO BID ml 01/05/23 02/20/23 Rx Pregabalin [Lyrica] 75 mg PO BID #0 cap 01/05/23 02/20/23 Rx Acetaminophen Tab [Tylenol] 650 mg PO Q8H PRN 02/20/23 02/20/23 History Metoprolol Tartrate [Lopressor] 50 mg PO BID 02/20/23 02/20/23 History Multivitamins, Thera [Multivitamin 1 tab PO DAILY 02/20/23 02/20/23 History (formulary)] Pantoprazole [Protonix] 40 mg PO BID 02/20/23 02/20/23 History Prostat 30 ml PO BID 02/20/23 02/20/23 History Sennosides [Senokot] 8.6 mg PO BID 02/20/23 02/20/23 History hydrALAZINE HCL [Apresoline] 100 mg PO BID 02/20/23 02/20/23 History sitaGLIPtin [Januvia] 100 mg PO DAILY 02/20/23 02/20/23 History Ferrous Sulfate [Iron (65 MG 325 mg PO W/LUNCH #60 tab 02/27/23 Rx Elemental)] HYDROcodone/APAP 5-325MG [[place] 1 tab PO Q4HR PRN #10 tab 02/27/23 Rx 5-325] Allergies Allergy/AdvReac Type Severity Reaction Status Date / Time baclofen Allergy Swelling Verified 02/20/23 16:18 OF LIPS AND TONGUE cephalexin [From Keflex] Allergy Rash/Hives Verified 02/20/23 16:18 ciprofloxacin [From Cipro] Allergy Rash/Hives Verified 02/20/23 16:18 Penicillins Allergy Rash/Hives Verified 02/20/23 16:18 Sulfa (Sulfonamide Allergy Rash/Hives Verified 02/20/23 16:18 Antibiotics) tizanidine Allergy Swelling Verified 02/20/23 16:18 OF LIPS AND TONGUE Physical Exam Vitals: Vital Signs Temp Pulse Pulse Resp BP BP Pulse Ox 02/21/23 07:35 98.2 F 80 18 127/75 92 L 02/21/23 02:00 97.5 F L 78 17 117/69 96 02/20/23 21:40 97.7 F 76 16 126/81 97 02/20/23 20:33 69 16 118/67 94 L 02/20/23 18:20 97.9 F 70 18 141/70 98 02/20/23 14:11 98.3 F 74 17 142/70 97 Intake and Output 02/20/23 02/21/23 02/21/23 22:59 06:59 14:59 Output Total 900 Balance -900 Output: Urine 900 Other: Voiding Method Diaper External Catheter External Catheter Weight 76.657 kg GENERAL DESCRIPTION: Elderly female lying in bed, no distress. No tachypnea or accessory muscle of respiration use. HEENT: Shows Pallor , no scleral icterus. Oral mucous membrane is dry. No pharyngeal erythema or thrush NECK: Trachea central, no thyromegaly. LUNGS: Unlabored breathing. Clear to auscultation anteriorly. No wheeze or crac kle. HEART: S1, S2, regular rate and rhythm. No loud murmur ABDOMEN: Soft, no tenderness , guarding or rigidity, no organomegaly EXTREMITIES: Diffuse swelling bilateral lower extremity no redness SKIN: No rash, no masses palpable. NEUROLOGICAL: The patient is awake, alert, oriented x3, mood and affect normal. Results CBC & Chem 7: 02/24/23 07:07 02/23/23 11:20 Labs: Abnormal Lab Results - Last 24 Hours (Table) 02/20/23 02/20/23 02/20/23 Range/Units 15:34 15:34 15:34 RBC 3.70 L (3.80-5.40) m/uL Hgb 11.2 L D (11.4-16.0) gm/dL Hct (34.0-46.0) % BUN 23 H (7-17) mg/dL Creatinine (0.52-1.04) mg/dL AST 39 H (14-36) U/L Albumin 3.2 L (3.5-5.0) g/dL Urine Protein Trace H (Negative) Ur Leukocyte Esterase Large H (Negative) Urine RBC 11 H (0-5) /hpf Urine WBC 83 H (0-5) /hpf Urine Bacteria Rare H (None) /hpf Urine Mucus Occasional H (None) /hpf Urine Yeast (Budding) Few H (None) /hpf 02/21/23 02/21/23 Range/Units 03:46 03:46 RBC 3.26 L (3.80-5.40) m/uL Hgb 10.2 L (11.4-16.0) gm/dL Hct 32.1 L (34.0-46.0) % BUN (7-17) mg/dL Creatinine 0.45 L (0.52-1.04) mg/dL AST (14-36) U/L Albumin (3.5-5.0) g/dL Urine Protein (Negative) Ur Leukocyte Esterase (Negative) Urine RBC (0-5) /hpf Urine WBC (0-5) /hpf Urine Bacteria (None) /hpf Urine Mucus (None) /hpf Urine Yeast (Budding) (None) /hpf Assessment and Plan (1) Psoas abscess, left Current Visit: Yes Status: Acute Code(s): K68.12 - PSOAS MUSCLE ABSCESS SNOMED Code(s): 750806962 (2) Back pain Current Visit: No Status: Acute Code(s): M54.9 - DORSALGIA, UNSPECIFIED SNOMED Code(s): 383746654 Plan: 1patient presented hospital with left lower extremity weakness and back pain in this patient who did have a history of L4 vertebral fracture status post stabilization and there was concern for possible left iliopsoas infected hematoma/abscess for the patient has received more than 6-week course of IV and by therapy now with worsening weakness to the leg and back pain and abnormal CT concerning for possible hematoma versus infected hematoma or abscess 2-we will check inflammatory markers 3-await CT-guided aspiration of the area in the fluid should be sent for culture 4-empirically covered with cefepime and vancomycin while waiting for the culture to finalize Family at the bedside questions answered We will follow on clinical condition and cultures to further adjust medication if needed Thank you for this consultation we will follow the patient along with you Dictation was produced using [employer] dictation software. please excuse any grammatical, word or spelling errors. Time with Patient: Greater than 30
[2023-02-22] MEDS: VANCOMYCIN 1,500 MG in SODIUM CHLORIDE 0.9% 500 ML 500 ML IVPB SCH ×2 (03:16→18:12)
[2023-02-22 04:04] LABS: % Iron Saturation 10.89 (12.00-45.00); Ferritin 53.5 ng/mL (10.0-291.0)
[2023-02-22] MEDS: LEVOTHYROXINE 100 MCG TAB PO SCH (05:57)
[2023-02-22] MEDS: HYDROcodone/APAP 5-325MG 1 EACH TAB PO PRN ×3 (05:59→21:34)
[2023-02-22 06:59] LABS: African American GFR (CKD) >90 (>60 ml/min/1.73 sqM); Anion Gap 7 mmol/L; Blood Urea Nitrogen 14 mg/dL (7-17); Calcium 8.1 mg/dL (8.4-10.2); Carbon Dioxide 26 mmol/L (22-30); Chloride 104 mmol/L (98-107); Glucose 79 mg/dL (74-99); Non-African American GFR(CKD) 83 (>60 ml/min/1.73 sqM); Potassium 3.3 mmol/L (3.5-5.1); Sodium 137 mmol/L (137-145)
--- NOTE | 2023-02-22 07:15 | CA ---
Transthoracic Echo Report Name: Geneva Royal Age: 87 Gender: F : 1935 Exam Date: 02/21/2023 16:08 Exam Location: [facility] Ht (in): 60 Wt (lb): 169 Ordering Physician: Letty Norton DO Attending/Referring Phys: [id number], Errol [employer] Officer Brina Jimenez RDCS Procedure CPT: Indications: chf Cardiac Hx: Technical Quality: Fair Contrast 1: Total Dose (mL): Contrast 2: Total Dose (mL): MEASUREMENTS (Male / Female) Normal Values 2D ECHO LV Diastolic Diameter PLAX 3.4 cm 4.2 - 5.9 / 3.9 - 5.3 cm LV Systolic Diameter PLAX 2.2 cm IVS Diastolic Thickness 1.4 cm 0.6 - 1.0 / 0.6 - 0.9 cm LVPW Diastolic Thickness 1.2 cm 0.6 - 1.0 / 0.6 - 0.9 cm LV Relative Wall Thickness 0.8 RV Internal Dim ED PLAX 3.1 cm LA Volume 85.2 cm??? 18 - 58 / 22 - 52 cm??? LA Volume Index 46.4 cm???/m??? 16 - 28 cm???/m??? M-MODE Aortic Root Diameter MM 3.1 cm LA Systolic Diameter MM 4.5 cm LA Ao Ratio MM 1.5 AV Cusp Separation MM 1.8 cm DOPPLER AV Peak Velocity 121.5 cm/s AV Peak Gradient 5.9 mmHg AV Mean Velocity 80.5 cm/s AV Mean Gradient 3.0 mmHg AV Velocity Time Integral 24.8 cm LVOT Peak Velocity 92.1 cm/s LVOT Peak Gradient 3.4 mmHg LVOT Velocity Time Integral 24.3 cm MV E' Velocity 5.7 cm/s TR Peak Velocity 291.1 cm/s TR Peak Gradient 33.9 mmHg Right Ventricular Systolic Press 37.3 mmHg FINDINGS Left Ventricle Moderately increased left ventricular wall thickness. Left ventricular cavity size normal. Normal left ventricular systolic function with no obvious regional wall motion abnormalities. Left ventricular ejection fraction is estimated at 55-60 %. Right Ventricle Normal right ventricular size and function. Mild pulmonary hypertension. Right Atrium Severe right atrial dilatation. Left Atrium Severely increased left atrial volume. Mildly increased left atrial area. Mitral Valve Mild mitral annular calcification. Mitral valve thickened. [id number] mitral regurgitation. Aortic Valve No aortic valve stenosis or regurgitation. Tricuspid Valve Structurally normal tricuspid valve. Moderate tricuspid regurgitation. Pulmonic Valve Pulmonic valve not well visualized. Pericardium No pericardial effusion. Aorta Normal size aortic root and proximal ascending aorta. CONCLUSIONS 1. Normal left ventricular size and systolic function 2. [id number] mitral with moderate tricuspid regurgitation and mild pulmonary hypertension Previewed by: Dr. Iftikhar Plata MD (Electronically Signed) Final Date: 22 February 2023 07:15
[2023-02-22] MEDS ORDERED: POTASSIUM CHLORIDE ER 20 MEQ TAB.ER PO STA ×2 (07:37→16:09)
[2023-02-22] MEDS ORDERED: ACETAMINOPHEN TAB 325 MG TAB PO PRN (08:58)
[2023-02-22] MEDS ORDERED: bisacodyL 5 MG TABLET.DR PO PRN (08:58)
[2023-02-22] MEDS ORDERED: ONDANSETRON 4 MG/2 ML VIAL IVP PRN (08:58)
[2023-02-22 09:08] LABS: HCT 32.4 % (37.2-46.3); HGB 9.9 d/dL (12.0-15.0); MCH 29.7 pg (27.0-32.0); MCHC 30.6 d/dL (32.0-37.0); MCV 97.3 FL (80.0-97.0); Mean Platelet Volume 10.6 FL (9.5-12.2); NRBC Per 100 WBC 0 X 10*3/uL (0.00-0.01); Platelet Count 349 X 10*3/uL (140-440); RBC 3.33 X 10*6/uL (4.10-5.20); RDW 14.7 % (11.5-14.5); WBC 5.63 X 10*3/uL (4.50-10.00)
--- NOTE | 2023-02-22 09:11 | P.PN ---
Subjective Progress Note Date: 02/22/23 Principal diagnosis: Left lower extremity weakness; left lower extremity paresthesias; left psoas muscle hematoma Patient was seen at bedside this morning lying semirecumbent position. Patient says interventional radiology placed drain in left psoas muscle yesterday. Patient says when she did see a neurologist yesterday in the evening she was able to bend her left knee more than she was up earlier in the day. Patient says she is still having a prickly sensation breath left lower extremity. Patient denies any changes since yesterday. Patient denies chest pain, fever, shortness breath, nausea, vomiting, change in vision, loss of bowel/bladder control. Objective - Vital Signs Vital signs: Vital Signs Temp 97.5 F L 02/22/23 07:19 Pulse 70 02/22/23 07:19 Resp 19 02/22/23 07:19 BP 103/63 02/22/23 07:19 Pulse Ox 97 02/22/23 07:19 FiO2 Intake & Output 02/21/23 02/22/23 02/22/23 18:59 06:59 18:59 Output Total 925 920 Balance -925 -920 Weight 76.657 kg Output: Drainage 25 20 Left Lower Back 25 20 Urine 900 900 Other: Voiding Method External Catheter Diaper External Catheter - Exam Inspection: Swelling present in the proximal left lower extremity near buttocks. Negative for any open fractures, significant ulcers/wounds. Sensation: Diminished sensation in the left lower extremity throughout. Sensation is equal, symmetric, by intact throughout other extremities. Palpation: Moderate tenderness to palpation diffusely throughout left lower extremity from left hip to left calf. NTTP throughout rest exam Range of motion: Patient is able to plantar and dorsiflex left ankle on her own. Patient is unable to actively flex/extend left knee or left hip. There is some limited passive range of motion the left knee to about 105 flexion before patient is in pain. Unable to passively internal rotate of left hip on exam. Full range of motion throughout bilateral upper extremities and right lower extremity on exam. Motor: 4-/5 in resisted left ankle dorsi/plantar flexion. 3-/5 in resisted left knee flexion/extension. Unable to perform motor exam left hip due to weakness /pain. 4/5 in all major motor groups in right lower extremity. 4/5 in all major motor groups in bilateral upper extremities. Neurovascular: Skin is lukewarm to touch throughout left lower extremity. Left lower extremity does appear somewhat pale in color. Radial pulses intact bilaterally. There is some edema throughout the bilateral feet. Cap refill under 3 seconds in digits upper extremities. Special tests: Negative Homans bilaterally. Negative clonus bilaterally. - Labs CBC & Chem 7: 02/22/23 06:11 02/22/23 06:11 Labs: Abnormal Lab Results - Last 24 Hours (Table) 02/21/23 02/21/23 02/22/23 Range/Units 03:46 06:54 06:11 Potassium 3.3 L (3.5-5.1) mmol/L Calcium 8.1 L (8.4-10.2) mg/dL Iron 27 L (50-170) UG/DL % Saturation 10.89 L (12.00-45.00) Transferrin 177.0 L (204.0-354.0) mg/dL C-Reactive Protein 1.5 H (<1.0) mg/dL Microbiology - Last 24 Hours (Table) 02/20/23 15:34 Blood Culture - Preliminary Blood 02/20/23 15:37 Blood Culture - Preliminary Blood Assessment and Plan Assessment: 1. Left lower extremity weakness; left lower extremity paresthesias; left psoas muscle hematoma Plan: 1. Left lower extremity weakness; left lower extremity paresthesias; left psoas muscle hematoma - patient stable at bedside this morning. Abdomen/pelvis CT does reveal hematoma in the left psoas muscle. Negative for any fractures on exam. Negative for any dislocations. Positive for previous right total hip arthroplasty. Components appear to be stable. I did discuss the findings the exam and imaging with my attending, Dr. Alejandra. Interventional radiology placed drain in left psoas muscle region yesterday. Appreciate medical and neurology management. Recommend PT/OT daily evaluation. At this time we are not recommending any further imaging. Pain medication as needed. At this time we're not recommending any orthopedic surgical intervention. Patient is stable from orthopedic standpoint for discharge. At this time, orthopedics is signing off. Please do not hesitate to contact us for any further questions. 2. Appreciate medical and neurological management 3. Pain management -[place]; Lyrica 4. DVT prophylaxis - Lovenox 5. GI prophylaxis - Lactulose; Protonix 6. PT/OT - Encouraged to perform passive range of motion exercises left lower extremity. Weight-bear as tolerated with walker and assistance. 7. Encourage incentive spirometer use Time with Patient: Less than 30
[2023-02-22] MEDS: NITROFURANTOIN MONOHYD/M-CRYST 100 MG CAP PO SCH ×2 (09:29→21:33)
[2023-02-22] MEDS: FUROSEMIDE 10 MG/ML 4 ML VIAL IV SCH (09:29)
[2023-02-22] MEDS: ENOXAPARIN 40 MG/0.4 ML SYRINGE SQ SCH (09:29)
[2023-02-22] MEDS: CEFEPIME 1 GM in SODIUM CHLORIDE 0.9% 50 ML IVPB SCH ×2 (09:29→21:33)
[2023-02-22] MEDS: amLODIPine 2.5 MG TAB PO SCH (09:30)
[2023-02-22] MEDS: PREGABALIN 75 MG CAP PO SCH ×2 (09:30→21:33)
[2023-02-22] MEDS: MULTIVITAMINS, THERA 1 EACH TAB PO SCH (09:30)
[2023-02-22] MEDS: LINAGLIPTIN 5 MG TABLET PO SCH (09:30)
[2023-02-22] MEDS: hydrALAZINE HCL 50 MG TAB PO SCH ×2 (09:30→21:34)
[2023-02-22] MEDS: METOPROLOL TARTRATE 50 MG TAB PO SCH ×2 (09:30→21:33)
[2023-02-22] MEDS: PANTOPRAZOLE 40 MG TABLET PO SCH ×2 (09:30→21:34)
[2023-02-22] MEDS: SENNOSIDES 8.6 MG TAB PO SCH (09:30)
[2023-02-22] MEDS: LACTULOSE 20 GM/30 ML CUP PO SCH ×2 (11:24→21:31)
[2023-02-22] MEDS: FERROUS SULFATE 325 MG TAB PO SCH (12:24)
--- NOTE | 2023-02-22 12:46 | P.PN ---
Subjective Progress Note Date: 02/22/23 Principal diagnosis: Left psoas hematoma versus abscess Patient is a 87-year-old female with recent admission to the hospital with L4 vertebral fracture in this patient who is status post surgical stabilization on 11/19/2022 subsequently the patient was admitted to the hospital at that time the patient did have a E. coli bacteremia and work-up which shows evidence of possible left psoas infected hematoma/abscess and concern for possible deep infection the patient did get a PICC line and was advised a 6-week course of IV Rocephin , patient presented to the hospital with weakness to the left lower extremity repeat CAT scan did shows possible enlarging fluid collecti on suspicious for hematoma status post CT-guided aspiration. On today's evaluation that is 02/22/2023, the patient remains to be afebrile, the patient is breathing comfortably on room air and denies any shortness of breath, the patient denies any chest pain or cough , patient denies abdominal pain and no nausea/vomiting or diarrhea , patient mentioned some improvement as for his weakness to the left leg as of yesterday. Patient did have a white count of 5.63 creatinine 0.57 cultures are currently pending Objective - Vital Signs Vital signs: Vital Signs Temp 97.5 F L 02/22/23 07:19 Pulse 70 02/22/23 07:19 Resp 19 02/22/23 07:19 BP 103/63 02/22/23 07:19 Pulse Ox 97 02/22/23 07:19 FiO2 Intake & Output 02/21/23 02/22/23 02/22/23 18:59 06:59 18:59 Output Total 925 920 Balance -925 -920 Weight 76.657 kg Output: Drainage 25 20 Left Lower Back 25 20 Urine 900 900 Other: Voiding Method External Catheter Diaper External Catheter - Exam GENERAL DESCRIPTION: An elderly female lying in bed in no distress RESPIRATORY SYSTEM: Unlabored breathing , clear to auscultation anteriorly HEART: S1 S2 regular rate and rhythm , ABDOMEN: Soft , no tenderness EXTREMITIES: Diffuse swelling bilateral lower extremity - Labs CBC & Chem 7: 02/22/23 06:11 02/22/23 06:11 Labs: Abnormal Lab Results - Last 24 Hours (Table) 02/21/23 02/21/23 02/22/23 Range/Units 03:46 06:54 06:11 RBC (4.10-5.20) X 10*6/uL Hgb (12.0-15.0) d/dL Hct (37.2-46.3) % MCV (80.0-97.0) FL MCHC (32.0-37.0) d/dL RDW (11.5-14.5) % Potassium 3.3 L (3.5-5.1) mmol/L Calcium 8.1 L (8.4-10.2) mg/dL Iron 27 L (50-170) UG/DL % Saturation 10.89 L (12.00-45.00) Transferrin 177.0 L (204.0-354.0) mg/dL C-Reactive Protein 1.5 H (<1.0) mg/dL 02/22/23 Range/Units 06:11 RBC 3.33 L (4.10-5.20) X 10*6/uL Hgb 9.9 L (12.0-15.0) d/dL Hct 32.4 L (37.2-46.3) % MCV 97.3 H (80.0-97.0) FL MCHC 30.6 L (32.0-37.0) d/dL RDW 14.7 H (11.5-14.5) % Potassium (3.5-5.1) mmol/L Calcium (8.4-10.2) mg/dL Iron (50-170) UG/DL % Saturation (12.00-45.00) Transferrin (204.0-354.0) mg/dL C-Reactive Protein (<1.0) mg/dL Microbiology - Last 24 Hours (Table) 02/20/23 15:34 Blood Culture - Preliminary Blood 02/20/23 15:37 Blood Culture - Preliminary Blood Assessment and Plan (1) Psoas abscess, left Current Visit: Yes Status: Acute Code(s): K68.12 - PSOAS MUSCLE ABSCESS SNOMED Code(s): 412483515 Plan: 1patient presented hospital with left lower extremity weakness and back pain in this patient who did have a history of L4 vertebral fracture status post stabilization and there was concern for possible left iliopsoas infected hemato ma/abscess for the patient has received more than 6-week course of IV and by therapy now with worsening weakness to the leg and back pain and abnormal CT concerning for possible hematoma versus infected hematoma or abscess 2-patient is status post CT-guided aspiration of the area in the fluid has been sent for culture 3patient to continue with with cefepime and vancomycin while waiting for the cu lture to finalize Dictation was produced using [employer] dictation software. please excuse any grammatical, word or spelling errors. Time with Patient: Less than 30
--- NOTE | 2023-02-22 14:57 | P.PN ---
Subjective Progress Note Date: 02/22/23 I am following up with the patient and the patient feels some minimal improvement today compared to initial presentation. Otherwise denies of any new neurological issues at. Objective - Vital Signs Vital signs: Vital Signs Temp 97.5 F L 02/22/23 07:19 Pulse 70 02/22/23 07:19 Resp 19 02/22/23 07:19 BP 103/63 02/22/23 07:19 Pulse Ox 97 02/22/23 07:19 FiO2 Intake & Output 02/21/23 02/22/23 02/22/23 18:59 06:59 18:59 Output Total 925 920 20 Balance -925 -920 -20 Weight 76.657 kg Output: Drainage 25 20 20 Left Lower Back 25 20 20 Urine 900 900 Other: Voiding Method External Catheter Diaper Bedpan External Catheter - Exam GENERAL: The patient is lying in bed and is not in acute distress. NEUROLOGICAL: Higher mental function: The patient is awake, alert, oriented to self, place and time. Patient is following commands. No aphasia and no neglect. Cranial nerves: The pupils are round, equal and reactive to light. Visual stoddard are full to confrontation throughout. Extraocular movement is intact no nystagmus is noted. Facial sensation is normal to touch throughout. The facial strength is normal throughout. Hearing is moderately decreased bilaterally to hand rub. Tongue is midline and moved [id number] without any difficulty. No dysarthria is noted. Shoulder shrug is normal bilaterally. Motor: The strength is left lower extremity is limited because of moderate to severe edema in lower but for left knee had 2 and ankles 2. Otherwise uppers are 5/5. Right lower Moving above gravity and had 4+ to 5- and some limitation because of some edema. Mild decrease tone over the left lower. Normal bulk. Has vacuum on the left lower. Cerebellum: Normal finger to nose bilaterally. Sensation: Some decrease sensation to touch over the left lower to touch. Reflexes (right/left): 1-2+ uppers, ankles are 1+ bilaterally and knees are 0 bilaterally. Plantars are mute bilaterally. - Labs CBC & Chem 7: 02/22/23 06:11 02/22/23 06:11 Labs: Abnormal Lab Results - Last 24 Hours (Table) 02/21/23 02/22/23 02/22/23 Range/Units 06:54 06:11 06:11 RBC 3.33 L (4.10-5.20) X 10*6/uL Hgb 9.9 L (12.0-15.0) d/dL Hct 32.4 L (37.2-46.3) % MCV 97.3 H (80.0-97.0) FL MCHC 30.6 L (32.0-37.0) d/dL RDW 14.7 H (11.5-14.5) % Potassium 3.3 L (3.5-5.1) mmol/L Calcium 8.1 L (8.4-10.2) mg/dL Iron 27 L (50-170) UG/DL % Saturation 10.89 L (12.00-45.00) Transferrin 177.0 L (204.0-354.0) mg/dL Microbiology - Last 24 Hours (Table) 02/20/23 15:34 Blood Culture - Preliminary Blood 02/20/23 15:37 Blood Culture - Preliminary Blood Assessment and Plan Assessment: This is an 87-year-old woman with history of L4 vertebral fracture as well as left lumbar radiculopathy with had the minimal invasive stabilization of L2 to L S1 on 11/19/2022 then her recovery was complicated by left so as abscess which was drained by interventional radiology on 12/28/2022 and was receiving IV antibiotic then her recovery was delayed because of acute COVID-19 infection in November and did not receive sufficient therapy according to the daughter as well as she had UTI and the a GI ulcer. She's having swelling of the left lower extremity. Her CT abdomen and pelvis is reported left still has muscle hematoma with abscess less likely. Today she had vacuum place and the daughter feels she is having better movement after the vacuum placement. Left lower extremity paresis seems due hematoma of the left psoas. Cannot rule out abscess. It seems that she is having the some improvement on strength after the vacuum placed today. Plan: I spoke with the patient and her daughter was at bedside and they stated they to hold off any additional imaging for now since they are seeing some improvement with VACUUM placed. Infection disease is on board I consulted the physical therapy and occupation therapy Orthopedic surgery team is consulted We'll defer the rest of the medical management to the primary and other specialists The plan discussed with the patient and primary attending. Will continue to follow. Time with Patient: Less than 30
[2023-02-22] MEDS ORDERED: bisacodyL 10 MG SUPP RECTAL STA (16:01)
--- NOTE | 2023-02-22 16:12 | P.PN ---
Subjective Progress Note Date: 02/22/23 (delayed charting seen at 1045) Patient is a 87-year-old female with index surgery on 11/19/22-2 L4 vertebral fracture that included open treatment with reduction of fracture and minimally i nvasive stabilization of L2 to S1. Her recovery was complicated by left psoas muscle abscess which was drained by interventional radiology on 12/28/22. Since that time she's been followed by infectious disease and has been on IV Rocephin and at rehab. On 02/20 she went to the infectious disease office to follow up and was having worsening lower extremity weakness and therefore was directed to the emergency department. In the emergency department her vital signs were within normal limits and laboratory analysis was essentially at baseline. She underwent a CT abdomen and pelvis which showed a left psoas muscle hematoma with abscess less likely as well as large fecal bolus and bilateral pleural effusions. Arrangements are made for admission. Infectious disease was consulted and contacted they recommended vancomycin and cefepime giving her failure of Rocephin. Spine ortho was consulted and recommended IR evaluation. She had successful CT-guided drainage tube inserted in the left psoas muscle fluid collection on 02/21/23. Echocardiogram showed ejection fraction 55-60%, mild to moderate mitral and tricuspid regurgitation with mild pulmonary hypertension. Patient seen and examined at bedside. She states she is moving her left lower extremity better. Denies any nausea, vomiting. Is having some diarrhea discussed that she had an fecal impaction on her CT and I do recommend she has a suppository. Vital signs reviewed General: nontoxic, no distress, appears at stated age Cardiovascular: S1S2 reg, no murmur, positive posterior tibial pulse bilateral, Lungs: CTA bilateral, no rhonchi, no rales , no accessory muscle use Abdominal: soft, nontender to palpation, no guarding, no appreciable organomegaly, drain in place with sanganous fluid present. Ext: no gross muscle atrophy, no edema b/l lower extremities, no contractures Neuro: CN II-XI grossly intact, no focal neuro deficits Psych: Alert, oriented, appropriate affect Assessment/Plan: Left psoas muscle hematoma, less likely abscess resulting in left lower extremity weakness s/p IR guided drainage tube insertion 02/21/23 Acute blood loss anemia in addition to iron deficiency anemia - Continue with cefepime 1 g every 12 hours IVPB D # 2, vancomycin IVPB D #2 , dosing via trough, and renal clearance. Monitor for toxicity creatinine and trough levels - ID note reviewed: Continue with vanco and cefepime - Neuro note reviewed: suspect weakness due to psoas muscle abn - Ortho spine signed off. - lyrica 75 mg PO BID - Ferrous sulfate 325 mg PO daily - follow CBC. No indication for transfusion at this time. Fecal impaction -Dulcolax 10 mg WA 1 - continue with lactulose 60 gm PO BID, senokot 8.6 mg PO BID Prediabetes - tradjenta 5 mg daily. Follow blood sugar levels with a.m. blood work. Permanent atrial fibrillation Hypertension Dyslipidemia -Lopressor 50 mg twice daily, Norvasc 2.5 mg daily, hydralazine 100 mg twice daily, atorvastatin 10 mg at night -Not on anticoagulation secondary to recent GI bleed Imaging: Echocardiogram showed ejection fraction 55-60%, mild to moderate mitral and tricuspid regurgitation with mild pulmonary hypertension Data Review: Labs reviewed today include CBC and basic metabolic profile which were remarkable for hemoglobin 9.9, potassium 3.3 DVT prophylaxis: Lovenox Anticipated discharge date: Pending Clinical Course Anticipated discharge place: Pending Clinical Course This dictation was prepared using [employer] voice recognition software. Though every attempt is made to correct errors during dictation some may still exist. Objective - Vital Signs Vital signs: Vital Signs Temp 97.4 F L 02/22/23 14:15 Pulse 66 02/22/23 14:15 Resp 17 02/22/23 14:15 BP 109/66 02/22/23 14:15 Pulse Ox 99 02/22/23 14:15 FiO2 Intake & Output 02/21/23 02/22/23 02/22/23 18:59 06:59 18:59 Output Total 925 920 20 Balance -925 -920 -20 Weight 76.657 kg Output: Drainage 25 20 20 Left Lower Back 25 20 20 Urine 900 900 Other: Voiding Method External Catheter Diaper Bedpan External Catheter - Labs CBC & Chem 7: 02/22/23 06:11 02/22/23 06:11 Labs: Abnormal Lab Results - Last 24 Hours (Table) 02/21/23 02/22/23 02/22/23 Range/Units 06:54 06:11 06:11 RBC 3.33 L (4.10-5.20) X 10*6/uL Hgb 9.9 L (12.0-15.0) d/dL Hct 32.4 L (37.2-46.3) % MCV 97.3 H (80.0-97.0) FL MCHC 30.6 L (32.0-37.0) d/dL RDW 14.7 H (11.5-14.5) % Potassium 3.3 L (3.5-5.1) mmol/L Calcium 8.1 L (8.4-10.2) mg/dL Iron 27 L (50-170) UG/DL % Saturation 10.89 L (12.00-45.00) Transferrin 177.0 L (204.0-354.0) mg/dL Microbiology - Last 24 Hours (Table) 02/20/23 15:34 Blood Culture - Preliminary Blood 02/20/23 15:37 Blood Culture - Preliminary Blood
[2023-02-22] MEDS: ATORVASTATIN 10 MG TAB PO SCH (21:33)
[2023-02-23] MEDS: HYDROcodone/APAP 5-325MG 1 EACH TAB PO PRN ×3 (05:43→22:18)
[2023-02-23] MEDS: LEVOTHYROXINE 100 MCG TAB PO SCH (05:43)
[2023-02-23] MEDS: ENOXAPARIN 40 MG/0.4 ML SYRINGE SQ SCH (08:39)
[2023-02-23] MEDS: CEFEPIME 1 GM in SODIUM CHLORIDE 0.9% 50 ML IVPB SCH (08:39)
[2023-02-23] MEDS: PANTOPRAZOLE 40 MG TABLET PO SCH ×2 (08:40→21:01)
[2023-02-23] MEDS: MULTIVITAMINS, THERA 1 EACH TAB PO SCH (08:40)
[2023-02-23] MEDS: hydrALAZINE HCL 50 MG TAB PO SCH ×2 (08:40→21:01)
[2023-02-23] MEDS: LINAGLIPTIN 5 MG TABLET PO SCH (08:40)
[2023-02-23] MEDS: PREGABALIN 75 MG CAP PO SCH ×2 (08:40→21:01)
[2023-02-23] MEDS: SENNOSIDES 8.6 MG TAB PO SCH (08:40)
[2023-02-23] MEDS: amLODIPine 2.5 MG TAB PO SCH (08:40)
[2023-02-23] MEDS: LACTULOSE 20 GM/30 ML CUP PO SCH ×2 (08:40→21:02)
[2023-02-23] MEDS: METOPROLOL TARTRATE 50 MG TAB PO SCH ×2 (08:40→21:01)
[2023-02-23] MEDS: FUROSEMIDE 10 MG/ML 4 ML VIAL IV SCH (08:40)
[2023-02-23] MEDS: NITROFURANTOIN MONOHYD/M-CRYST 100 MG CAP PO SCH (08:40)
[2023-02-23] MEDS ORDERED: VANCOMYCIN TROUGH DUE 1 EACH MISC MISCELLANE ONE (10:00)
--- NOTE | 2023-02-23 11:38 | P.PN ---
Subjective Progress Note Date: 02/23/23 Patient is a 87-year-old female with index surgery on 11/19/22-2 L4 vertebral fracture that included open treatment with reduction of fracture and minimally invasive stabilization of L2 to S1. Her recovery was complicated by left psoas muscle abscess which was drained by interventional radiology on 12/28/22. Since that time she's been followed by infectious disease and has been on IV Rocephin and at rehab. On 02/20 she went to the infectious disease office to follow up and was having worsening lower extremity weakness and therefore was directed to the emergency department. In the emergency department her vital signs were within normal limits and laboratory analysis was essentially at baseline. She underwent a CT abdomen and pelvis which showed a left psoas muscle hematoma with abscess less likely as well as large fecal bolus and bilateral pleural effusions. Arrangements are made for admission. Infectious disease was consulted and contacted they recommended vancomycin and cefepime giving her failure of Rocephin. Spine ortho was consulted and recommended IR evaluation. She had successful CT-guided drainage tube inserted in the left psoas muscle fluid collection on 02/21/23. Echocardiogram showed ejection fraction 55-60%, mild to moderate mitral and tricuspid regurgitation with mild pulmonary hypertension. Patient seen and examined at bedside. She states she is moving her left lower extremity better. Denies any nausea, vomiting. Vital signs reviewed General: nontoxic, no distress, appears at stated age Cardiovascular: S1S2 reg, no murmur, positive posterior tibial pulse bilateral, Lungs: CTA bilateral, no rhonchi, no rales , no accessory muscle use Abdominal: soft, nontender to palpation, no guarding, no appreciable organomegaly, drain in place with sanganous fluid present. Ext: no gross muscle atrophy, no edema b/l lower extremities, no contractures Neuro: CN II-XI grossly intact, no focal neuro deficits Psych: Alert, oriented, appropriate affect Assessment/Plan: Left psoas muscle hematoma, less likely abscess resulting in left lower extremity weakness s/p IR guided drainage tube insertion 02/21/23 Acute blood loss anemia in addition to iron deficiency anemia - Continue with cefepime 1 g every 12 hours IVPB D # 3, vancomycin IVPB D #3 , dosing via trough, and renal clearance. Monitor for toxicity creatinine and trough levels - ID following - Cultures pending - Neuro following, suspect weakness due to psoas muscle abn - Ortho spine signed off - lyrica 75 mg PO BID - Ferrous sulfate 325 mg PO daily - follow CBC. No indication for transfusion at this time. Fecal impaction -continue with lactulose 30 gm PO BID, senokot 8.6 mg PO daily -Bisacodyl 5 mg daily when necessary Prediabetes - tradjenta 5 mg daily. Follow blood sugar levels with a.m. blood work. Permanent atrial fibrillation Hypertension Dyslipidemia -Lopressor 50 mg twice daily, Norvasc 2.5 mg daily, hydralazine 100 mg twice daily, atorvastatin 10 mg at night -Not on anticoagulation secondary to recent GI bleed Patient appears euvolemic at the time, Lasix IV 40 mg daily has been discontinued Patient was also started on Macrobid in the ED, discontinued as patient is already on cefepime and vancomycin Imaging: Echocardiogram showed ejection fraction 55-60%, mild to moderate mitral and tricuspid regurgitation with mild pulmonary hypertension Data Review today: CBC and BMP pending, will be reviewed when available DVT prophylaxis: Lovenox Anticipated discharge date: Pending Clinical Course Objective - Vital Signs Vital signs: Vital Signs Temp 97.4 F L 02/23/23 08:17 Pulse 78 02/23/23 08:17 Resp 19 02/23/23 08:17 BP 108/64 02/23/23 08:17 Pulse Ox 97 02/23/23 08:17 FiO2 Intake & Output 02/22/23 02/23/23 02/23/23 18:59 06:59 18:59 Output Total 1420 15 Balance -1420 -15 Output: Drainage 20 15 Left Lower Back 20 15 Urine 1400 Other: Voiding Method Bedpan Diaper Diaper External Catheter External Catheter # Bowel Movements 1 - Labs CBC & Chem 7: 02/22/23 06:11 02/22/23 06:11 Labs: Microbiology - Last 24 Hours (Table) 02/20/23 15:34 Blood Culture - Preliminary Blood 02/20/23 15:37 Blood Culture - Preliminary Blood
[2023-02-23 12:03] LABS: African American GFR (CKD) >90 (>60 ml/min/1.73 sqM); Anion Gap 8 mmol/L; Blood Urea Nitrogen 12 mg/dL (7-17); Calcium 8.8 mg/dL (8.4-10.2); Carbon Dioxide 27 mmol/L (22-30); Chloride 104 mmol/L (98-107); Glucose 106 mg/dL (74-99); Non-African American GFR(CKD) 84 (>60 ml/min/1.73 sqM); Potassium 4.2 mmol/L (3.5-5.1); Sodium 139 mmol/L (137-145)
[2023-02-23 12:14] LABS: African American GFR (CKD) >90 (>60 ml/min/1.73 sqM); Non-African American GFR(CKD) 86 (>60 ml/min/1.73 sqM)
[2023-02-23] MEDS: VANCOMYCIN 1,500 MG in SODIUM CHLORIDE 0.9% 500 ML 500 ML IVPB SCH (12:30)
[2023-02-23] MEDS: FERROUS SULFATE 325 MG TAB PO SCH (12:33)
[2023-02-23 12:47] LABS: HCT 34.6 % (34.0-46.0); HGB 10.8 gm/dL (11.4-16.0); Hypochromasia Slight; MCH 30.2 pg (25.0-35.0); MCHC 31.2 g/dL (31.0-37.0); MCV 96.7 fL (80.0-100.0); Mean Platelet Volume 10.7; RBC 3.58 m/uL (3.80-5.40); RDW 14.8 % (11.5-15.5); WBC 5.4 k/uL (3.8-10.6)
--- NOTE | 2023-02-23 13:07 | P.PN ---
Subjective Progress Note Date: 02/23/23 Principal diagnosis: Left psoas hematoma versus abscess Patient is a 87-year-old female with recent admission to the hospital with L4 vertebral fracture in this patient who is status post surgical stabilization on 11/19/2022 subsequently the patient was admitted to the hospital at that time the patient did have a E. coli bacteremia and work-up which shows evidence of possible left psoas infected hematoma/abscess and concern for possible deep infection the patient did get a PICC line and was advised a 6-week course of IV Rocephin , patient presented to the hospital with weakness to the left lower extremity repeat CAT scan did shows possible enlarging fluid collecti on suspicious for hematoma status post CT-guided aspiration. On today's evaluation that is 02/23/2023, the patient denies any fever or any chills, the patient is breathing comfortably on room air and no need for supplemental oxygen, the patient denies any chest pain, cough or sputum production, patient denies abdominal pain and no nausea/vomiting and no diarrhea has been reported, patient mentioned some improvement as for as weakness to the left leg since procedure. Patient did have a white count of 5.4 creatinine 0.56 cultures are currently pending Objective - Vital Signs Vital signs: Vital Signs Temp 97.4 F L 02/23/23 08:17 Pulse 78 02/23/23 08:17 Resp 19 02/23/23 08:17 BP 108/64 02/23/23 08:17 Pulse Ox 97 02/23/23 08:17 FiO2 Intake & Output 02/22/23 02/23/23 02/23/23 18:59 06:59 18:59 Output Total 1420 15 Balance -1420 -15 Output: Drainage 20 15 Left Lower Back 20 15 Urine 1400 Other: Voiding Method Bedpan Diaper Diaper External Catheter External Catheter # Bowel Movements 1 - Exam GENERAL DESCRIPTION: An elderly female lying in bed in no distress RESPIRATORY SYSTEM: Unlabored breathing , clear to auscultation anteriorly HEART: S1 S2 regular rate and rhythm , ABDOMEN: Soft , no tenderness EXTREMITIES: Diffuse swelling bilateral lower extremity - Labs CBC & Chem 7: 02/23/23 11:20 02/23/23 11:20 Labs: Abnormal Lab Results - Last 24 Hours (Table) 02/23/23 02/23/23 Range/Units 11:20 11:20 RBC 3.58 L (3.80-5.40) m/uL Hgb 10.8 L (11.4-16.0) gm/dL Glucose 106 H (74-99) mg/dL Microbiology - Last 24 Hours (Table) 02/20/23 15:34 Blood Culture - Preliminary Blood 02/20/23 15:37 Blood Culture - Preliminary Blood Assessment and Plan (1) Psoas abscess, left Current Visit: Yes Status: Acute Code(s): K68.12 - PSOAS MUSCLE ABSCESS SNOMED Code(s): 042061545 Plan: 1patient presented hospital with left lower extremity weakness and back pain in this patient who did have a history of L4 vertebral fracture status post stabilization and there was concern for possible left iliopsoas infected hematoma/abscess for the patient has received more than 6-week course of IV and by therapy now with worsening weakness to the leg and back pain and abnormal CT concerning for possible hematoma versus infected hematoma or abscess 2-patient is status post CT-guided aspiration of the area in the fluid , cultures are negative so far 3patient remains to be afebrile white count is normal with a low clinical suspicious for abscess/infection we will discontinue cefepime and vancomycin and monitor the patient closely off antibiotic therapy this was discussed with the admitting team Dictation was produced using [employer] dictation software. please excuse any grammatical, word or spelling errors. Time with Patient: Less than 30
--- NOTE | 2023-02-23 13:30 | P.PN ---
Subjective Progress Note Date: 02/23/23 I am following-up with patient and per her daughter she feels there is improvement in left lower extremity compared to initial presentation. Objective - Vital Signs Vital signs: Vital Signs Temp 97.4 F L 02/23/23 08:17 Pulse 78 02/23/23 08:17 Resp 19 02/23/23 08:17 BP 108/64 02/23/23 08:17 Pulse Ox 97 02/23/23 08:17 FiO2 Intake & Output 02/22/23 02/23/23 02/23/23 18:59 06:59 18:59 Output Total 1420 15 Balance -1420 -15 Output: Drainage 20 15 Left Lower Back 20 15 Urine 1400 Other: Voiding Method Bedpan Diaper Diaper External Catheter External Catheter # Bowel Movements 1 - Exam GENERAL: The patient is lying in bed and is not in acute distress. NEUROLOGICAL: Higher mental function: The patient is awake, alert, oriented to self, place and time. Patient is following commands. No aphasia and no neglect. Cranial nerves: The pupils are round, equal and reactive to light. Visual stoddard are full to confrontation throughout. Extraocular movement is intact no nystagmus is noted. Facial sensation is normal to touch throughout. The facial strength is normal throughout. Hearing is moderately decreased bilaterally to hand rub. Tongue is midline and moved [id number] without any difficulty. No dysarthria is noted. Shoulder shrug is normal bilaterally. Motor: The strength is left lower extremity is limited because of moderate to severe edema in lower but for left hips are 2, left knee is 3 and ankles are 3. Otherwise uppers are 5/5. Right lower Moving above gravity and had 4+ to 5- and some limitation because of some edema. Mild decrease tone over the left lower. Normal bulk. Has vacuum on the left lower. Cerebellum: Normal finger to nose bilaterally. Sensation: Some decrease sensation to touch over the left lower to touch. Reflexes (right/left): 1-2+ uppers, ankles are 1+ bilaterally and knees are 0 bilaterally. Plantars are mute bilaterally. - Labs CBC & Chem 7: 02/23/23 11:20 02/23/23 11:20 Labs: Abnormal Lab Results - Last 24 Hours (Table) 02/23/23 02/23/23 Range/Units 11:20 11:20 RBC 3.58 L (3.80-5.40) m/uL Hgb 10.8 L (11.4-16.0) gm/dL Glucose 106 H (74-99) mg/dL Microbiology - Last 24 Hours (Table) 02/20/23 15:34 Blood Culture - Preliminary Blood 02/20/23 15:37 Blood Culture - Preliminary Blood Assessment and Plan Assessment: This is an 87-year-old woman with history of L4 vertebral fracture as well as left lumbar radiculopathy with had the minimal invasive stabilization of L2 to L S1 on 11/19/2022 then her recovery was complicated by left so as abscess which was drained by interventional radiology on 12/28/2022 and was receiving IV antibiotic then her recovery was delayed because of acute COVID-19 infection in November and did not receive sufficient therapy according to the daughter as well as she had UTI and the a GI ulcer. She's having swelling of the left lower extremity. Her CT abdomen and pelvis is reported left still has muscle hematoma with abscess less likely. Today she had vacuum place and the daughter feels she is having better movement after the vacuum placement. Left lower extremity paresis seems due hematoma of the left psoas. Cannot rule out abscess. Improvement on strength after the vacuum placed during this admission. Plan: I spoke with the patient and her daughters (two daughter I spoke with) and they stated they to hold off any additional imaging for now since they are seeing improvement with VACUUM placed. Infection disease is on board Physical therapy and occupation therapy are consulted Orthopedic surgery team is consulted We'll defer the rest of the medical management to the primary and other specialists The plan discussed with the patient and her daughter who is at bedside. Will continue to follow. Time with Patient: Less than 30
[2023-02-23 13:32] LABS: Platelet Count 129 k/uL (150-450)
[2023-02-23] MEDS ORDERED: VANCOMYCIN 1,500 MG in SODIUM CHLORIDE 0.9% 500 ML 500 ML IVPB SCH (18:00)
[2023-02-23] MEDS: ATORVASTATIN 10 MG TAB PO SCH (21:01)
[2023-02-24] MEDS: MELATONIN 5 MG TABLET PO PRN (01:45)
[2023-02-24] MEDS: LEVOTHYROXINE 100 MCG TAB PO SCH (05:54)
[2023-02-24 08:31] LABS: Basophils % (A) 0 %; Eosinophils # (A) 0.3 k/uL (0-0.7); Eosinophils % (A) 5 %; HCT 33.8 % (34.0-46.0); HGB 10.5 gm/dL (11.4-16.0); Hypochromasia Marked; Lymphocytes # (A) 0.7 k/uL (1.0-4.8); Lymphocytes % (A) 12 %; MCH 30.7 pg (25.0-35.0); MCHC 30.9 g/dL (31.0-37.0); MCV 99.3 fL (80.0-100.0); Mean Platelet Volume 10.1; Monocytes # (A) 0.9 k/uL (0-1.0); Monocytes % (A) 15 %; Neutrophils # (A) 3.8 k/uL (1.3-7.7); Neutrophils % (A) 66 %; RBC 3.41 m/uL (3.80-5.40); RDW 14.6 % (11.5-15.5); WBC 5.8 k/uL (3.8-10.6)
[2023-02-24 08:40] LABS: Platelet Count 282 k/uL (150-450)
[2023-02-24] MEDS: PANTOPRAZOLE 40 MG TABLET PO SCH ×2 (09:56→20:52)
[2023-02-24] MEDS: hydrALAZINE HCL 50 MG TAB PO SCH ×3 (09:56→20:55)
[2023-02-24] MEDS: MULTIVITAMINS, THERA 1 EACH TAB PO SCH (09:56)
[2023-02-24] MEDS: SENNOSIDES 8.6 MG TAB PO SCH (09:56)
[2023-02-24] MEDS: PREGABALIN 75 MG CAP PO SCH ×2 (09:57→20:53)
[2023-02-24] MEDS: METOPROLOL TARTRATE 50 MG TAB PO SCH ×2 (09:57→20:53)
[2023-02-24] MEDS: amLODIPine 2.5 MG TAB PO SCH (09:57)
[2023-02-24] MEDS: LINAGLIPTIN 5 MG TABLET PO SCH (09:57)
[2023-02-24] MEDS: CHOLECALCIFEROL 25 MCG (1000 IU) TABLET PO SCH (09:57)
[2023-02-24] MEDS: LACTULOSE 20 GM/30 ML CUP PO SCH ×2 (09:57→20:53)
[2023-02-24] MEDS: ASCORBIC ACID 500 MG TAB PO SCH (09:57)
[2023-02-24] MEDS: HYDROcodone/APAP 5-325MG 1 EACH TAB PO PRN ×2 (09:58→20:53)
[2023-02-24] MEDS: IOPAMIDOL CONTRAST (ORAL USE) VIAL PO PRN ×2 (12:27→13:24)
--- NOTE | 2023-02-24 12:59 | P.PN ---
Subjective Progress Note Date: 02/24/23 Patient is a 87-year-old female with index surgery on 11/19/22-2 L4 vertebral fracture that included open treatment with reduction of fracture and minimally invasive stabilization of L2 to S1. Her recovery was complicated by left psoas muscle abscess which was drained by interventional radiology on 12/28/22. Since that time she's been followed by infectious disease and has been on IV Rocephin and at rehab. On 02/20 she went to the infectious disease office to follow up and was having worsening lower extremity weakness and therefore was directed to the emergency department. In the emergency department her vital signs were within normal limits and laboratory analysis was essentially at baseline. She underwent a CT abdomen and pelvis which showed a left psoas muscle hematoma with abscess less likely as well as large fecal bolus and bilateral pleural effusions. Arrangements are made for admission. Infectious disease was consulted and contacted they recommended vancomycin and cefepime giving her failure of Rocephin. Spine ortho was consulted and recommended IR evaluation. She had successful CT-guided drainage tube inserted in the left psoas muscle fluid collection on 02/21/23. Echocardiogram showed ejection fraction 55-60%, mild to moderate mitral and tricuspid regurgitation with mild pulmonary hypertension. Patient seen and examined at bedside. She states she is moving her left lower extremity better. Denies any nausea, vomiting. Has very minimal output from the drain, only 5 mL over the last 24 hours. Vital signs reviewed General: nontoxic, no distress, appears at stated age Cardiovascular: S1S2 reg, no murmur, positive posterior tibial pulse bilateral, Lungs: CTA bilateral, no rhonchi, no rales , no accessory muscle use Abdominal: soft, nontender to palpation, no guarding, no appreciable organomegaly, drain in place with sanganous fluid present. Ext: no gross muscle atrophy, no edema b/l lower extremities, no contractures Neuro: CN II-XI grossly intact, no focal neuro deficits Psych: Alert, oriented, appropriate affect Assessment/Plan: Left psoas muscle hematoma, less likely abscess resulting in left lower extremity weakness s/p IR guided drainage tube insertion 02/21/23 Acute blood loss anemia in addition to iron deficiency anemia -Antibiotics discontinued - ID following - Cultures negative growth to date - Neuro following, suspect weakness due to psoas muscle abn - Ortho spine signed off - lyrica 75 mg PO BID - Ferrous sulfate 325 mg PO daily -Repeat CT abdomen and pelvis pending, if no further collection of fluid, discontinue drain Fecal impaction -continue with lactulose 30 gm PO BID, senokot 8.6 mg PO daily -Bisacodyl 5 mg daily when necessary Prediabetes - tradjenta 5 mg daily. Follow blood sugar levels with a.m. blood work. Permanent atrial fibrillation Hypertension Dyslipidemia -Lopressor 50 mg twice daily, Norvasc 2.5 mg daily, hydralazine 100 mg twice daily, atorvastatin 10 mg at night -Not on anticoagulation secondary to recent GI bleed Patient appears euvolemic at the time, Lasix IV 40 mg daily has been discontinued, does have some peripheral edema which is likely cause of pulmonary hypertension, patient currently on room air. Imaging: Echocardiogram showed ejection fraction 55-60%, mild to moderate mitral and tricuspid regurgitation with mild pulmonary hypertension Data Review today: WBC 5.8, hemoglobin 10.5, platelet 282 DVT prophylaxis: Lovenox Anticipated discharge date: Today or tomorrow, back to nursing facility Objective - Vital Signs Vital signs: Vital Signs Temp 97.8 F 02/24/23 07:28 Pulse 72 02/24/23 07:28 Resp 19 02/24/23 07:28 BP 113/64 02/24/23 07:28 Pulse Ox 95 02/24/23 07:28 FiO2 Intake & Output 02/23/23 02/24/23 02/24/23 18:59 06:59 18:59 Output Total 1750 380 Balance -1750 -380 Weight 76.657 kg Output: Urine 1750 380 Other: Voiding Method Diaper Diaper External Catheter External Catheter - Labs CBC & Chem 7: 02/24/23 07:07 02/23/23 11:20 Labs: Abnormal Lab Results - Last 24 Hours (Table) 02/23/23 02/24/23 Range/Units 11:20 07:07 RBC 3.41 L (3.80-5.40) m/uL Hgb 10.5 L (11.4-16.0) gm/dL Hct 33.8 L (34.0-46.0) % MCHC 30.9 L (31.0-37.0) g/dL Plt Count 129 L D (150-450) k/uL Lymphocytes # 0.7 L (1.0-4.8) k/uL Microbiology - Last 24 Hours (Table) 02/21/23 13:50 Gram Stain - Preliminary Aspirate Body Fluid Culture - Preliminary 02/20/23 15:34 Blood Culture - Preliminary Blood 02/20/23 15:37 Blood Culture - Preliminary Blood
--- NOTE | 2023-02-24 15:00 | CT ---
EXAMINATION TYPE: CT abdomen pelvis w con DATE OF EXAM: 02/24/2023 COMPARISON: 02/20/2023 HISTORY: 87-year-old female Evaluate psoas hematoma TECHNIQUE: Contiguous axial scanning of the abdomen and pelvis following administration of 100 ml Iso papi 300 IV contrast. Delayed images through the kidneys and coronal/sagittal reconstructions perform ed. CT DLP: 1371.8 mGycm Automated exposure control for dose reduction was used. FINDINGS: Heart is mildly enlarged without pericardial effusion. Ongoing moderate bilateral pleural effusions with adjacent atelectasis. Tiny hiatal hernia. No focal liver lesion. Similar prominence to the bile duct status post cholecystectomy. Adrenal glands, left kidney, spleen, and mildly atrophic pancreas show no gross abnormal body. Redemonstrated 1.9 cm lobulated cortical cyst lower pole right kidney. Symmetric uptake and excretion of contrast from the kidneys. Moderate to severe atherosclerotic calcifications throughout the abdominal aorta. No dilated small bowel, free fluid, or free air. No mesenteric or retroperitoneal lymphadenopathy. Moderate stool within the right side of the colon. Bladder urine distended. Uterus and small ovaries are visualized. There is ongoing presacral edema bu t otherwise no abnormal fluid collection the pelvis or pelvic lymphadenopathy. Generalized soft tissue swelling and anasarca change persists. Pigtail drainage catheter located within the enlarged left psoas major muscle. This remains enlarged measuring up to 12.2H x 6.0W x 6.8AP cm. This is in comparison to 11.0 x 6.1 x 7.0 cm, previously, an d is not significantly changed. We note extensive changes of dish and presents of L2-S1 posterior lumbar fusion hardware and L4 super ior endplate transverse fracture that appears similar. Right hip total arthroplasty. Moderate degenerative changes left hip. IMPRESSION: 1. KNOWN LEFT PSOAS INTRAMUSCULAR HEMATOMA MEASURING 12.2 X 6.0 X 6.8 CM (NOT SIGNIFICANTLY CHANGED F ROM 02/20/2023) BUT NOW WITH INDWELLING PIGTAIL DRAINAGE CATHETER. 2. KNOWN POSTERIOR LUMBAR FUSION L2-S1 LEVELS WITH EXTENSIVE DISH THROUGHOUT AND KNOWN TRANSVERSE FRA CTURE THROUGH THE SUPERIOR L4 ENDPLATE. 3. GENERALIZED ANASARCA CHANGE WITH ONGOING MODERATE BILATERAL PLEURAL EFFUSIONS AND ADJACENT ATELECT ASIS.
--- NOTE | 2023-02-24 15:40 | P.PN ---
Subjective Progress Note Date: 02/24/23 Principal diagnosis: Left psoas hematoma versus abscess Patient is a 87-year-old female with recent admission to the hospital with L4 vertebral fracture in this patient who is status post surgical stabilization on 11/19/2022 subsequently the patient was admitted to the hospital at that time the patient did have a E. coli bacteremia and work-up which shows evidence of possible left psoas infected hematoma/abscess and concern for possible deep infection the patient did get a PICC line and was advised a 6-week course of IV Rocephin , patient presented to the hospital with weakness to the left lower extremity repeat CAT scan did shows possible enlarging fluid collecti on suspicious for hematoma status post CT-guided aspiration. On today's evaluation that is 02/24/2023, the patient remains to be afebrile, the patient is breathing comfortably on room air , the patient denies any chest pain or any cough , patient denies nausea/vomiting diarrhea and no abdominal pain, patient did have minimal improvement as for as weakness to the left leg since procedure. Patient did have a white count of 5.8 and creatinine 0.56 cultures are so far negative Objective - Vital Signs Vital signs: Vital Signs Temp 97.8 F 02/24/23 07:28 Pulse 72 02/24/23 07:28 Resp 19 02/24/23 07:28 BP 113/64 02/24/23 07:28 Pulse Ox 95 02/24/23 07:28 FiO2 Intake & Output 02/23/23 02/24/23 02/24/23 18:59 06:59 18:59 Output Total 1750 380 Balance -1750 -380 Output: Urine 1750 380 Other: Voiding Method Diaper Diaper External Catheter External Catheter - Exam GENERAL DESCRIPTION: An elderly female lying in bed in no distress RESPIRATORY SYSTEM: Unlabored breathing , clear to auscultation anteriorly HEART: S1 S2 regular rate and rhythm , ABDOMEN: Soft , no tenderness EXTREMITIES: Diffuse swelling bilateral lower extremity - Labs CBC & Chem 7: 02/24/23 07:07 02/23/23 11:20 Labs: Abnormal Lab Results - Last 24 Hours (Table) 02/23/23 02/23/23 02/24/23 Range/Units 11:20 11:20 07:07 RBC 3.58 L 3.41 L (3.80-5.40) m/uL Hgb 10.8 L 10.5 L (11.4-16.0) gm/dL Hct 33.8 L (34.0-46.0) % MCHC 30.9 L (31.0-37.0) g/dL Plt Count 129 L D (150-450) k/uL Lymphocytes # 0.7 L (1.0-4.8) k/uL Glucose 106 H (74-99) mg/dL Microbiology - Last 24 Hours (Table) 02/21/23 13:50 Gram Stain - Preliminary Aspirate Body Fluid Culture - Preliminary 02/20/23 15:34 Blood Culture - Preliminary Blood 02/20/23 15:37 Blood Culture - Preliminary Blood Assessment and Plan (1) Psoas abscess, left Current Visit: Yes Status: Acute Code(s): K68.12 - PSOAS MUSCLE ABSCESS SNOMED Code(s): 273306724 Plan: 1patient presented hospital with left lower extremity weakness and back pain in this patient who did have a history of L4 vertebral fracture status post stabilization and there was concern for possible left iliopsoas infected hematoma/abscess for the patient has received more than 6-week course of IV and by therapy now with worsening weakness to the leg and back pain and abnormal CT concerning for possible hematoma versus infected hematoma or abscess 2-patient is status post CT-guided aspiration of the area in the fluid , cultures are negative so far 3patient remains to be afebrile white count is normal with a low clinical suspicious for abscess/infection antibiotics were discontinued 02/23/2023 and the patient seemed to be doing well will monitor closely off antibiotics Dictation was produced using [employer] dictation software. please excuse any grammatical, word or spelling errors. Time with Patient: Less than 30
[2023-02-24] MEDS: FERROUS SULFATE 325 MG TAB PO SCH (16:06)
[2023-02-24] MEDS: ATORVASTATIN 10 MG TAB PO SCH (20:52)
[2023-02-25] MEDS: LEVOTHYROXINE 100 MCG TAB PO SCH (06:33)
[2023-02-25] MEDS: amLODIPine 2.5 MG TAB PO SCH (07:58)
[2023-02-25] MEDS: hydrALAZINE HCL 50 MG TAB PO SCH ×2 (07:58→20:22)
[2023-02-25] MEDS: ASCORBIC ACID 500 MG TAB PO SCH (08:05)
[2023-02-25] MEDS: PANTOPRAZOLE 40 MG TABLET PO SCH ×2 (08:06→20:21)
[2023-02-25] MEDS: CHOLECALCIFEROL 25 MCG (1000 IU) TABLET PO SCH (08:06)
[2023-02-25] MEDS: SENNOSIDES 8.6 MG TAB PO SCH (08:06)
[2023-02-25] MEDS: ENOXAPARIN 40 MG/0.4 ML SYRINGE SQ SCH (08:06)
[2023-02-25] MEDS: LINAGLIPTIN 5 MG TABLET PO SCH (08:06)
[2023-02-25] MEDS: METOPROLOL TARTRATE 50 MG TAB PO SCH ×2 (08:06→20:21)
[2023-02-25] MEDS: MULTIVITAMINS, THERA 1 EACH TAB PO SCH (08:06)
[2023-02-25] MEDS: PREGABALIN 75 MG CAP PO SCH ×2 (08:06→20:21)
[2023-02-25] MEDS: LACTULOSE 20 GM/30 ML CUP PO SCH ×2 (08:06→20:21)
[2023-02-25] MEDS: HYDROcodone/APAP 5-325MG 1 EACH TAB PO PRN ×4 (08:44→22:03)
--- NOTE | 2023-02-25 11:28 | P.PN ---
Subjective Progress Note Date: 02/25/23 Principal diagnosis: Left psoas hematoma versus abscess Patient is a 87-year-old female with recent admission to the hospital with L4 vertebral fracture in this patient who is status post surgical stabilization on 11/19/2022 subsequently the patient was admitted to the hospital at that time the patient did have a E. coli bacteremia and work-up which shows evidence of possible left psoas infected hematoma/abscess and concern for possible deep infection the patient did get a PICC line and was advised a 6-week course of IV Rocephin , patient presented to the hospital with weakness to the left lower extremity repeat CAT scan did shows possible enlarging fluid collecti on suspicious for hematoma status post CT-guided aspiration. On today's evaluation that is 02/25/2023, the patient denies any fever or any chills, the patient is breathing comfortably on room air without any need for supplemental oxygen, the patient denies any chest pain or any cough , patient denies abdominal pain, no nausea/vomiting diarrhea , patient still complaining of weakness to the left leg Patient did have a white count of 5.8 and creatinine 0.56 as of 02/24/2023 cultures are so far negative, patient did have a repeat CT of abdominal pelvis on 02/24/2023 with evidence of left psoas intramuscular hematoma with no significant change Objective - Vital Signs Vital signs: Vital Signs Temp 97.5 F L 02/25/23 06:54 Pulse 79 02/25/23 06:54 Resp 18 02/25/23 06:54 BP 90/53 02/25/23 06:54 Pulse Ox 98 02/25/23 06:54 FiO2 Intake & Output 02/24/23 02/25/23 02/25/23 18:59 06:59 18:59 Output Total 1 Balance -1 Weight 76.657 kg Output: Drainage 1 Left Lower Back 1 Other: Voiding Method External Catheter External Catheter # Voids 4 - Exam GENERAL DESCRIPTION: An elderly female lying in bed in no distress RESPIRATORY SYSTEM: Unlabored breathing , clear to auscultation anteriorly HEART: S1 S2 regular rate and rhythm , ABDOMEN: Soft , no tenderness EXTREMITIES: Diffuse swelling bilateral lower extremity - Labs CBC & Chem 7: 02/24/23 07:07 02/23/23 11:20 Labs: Microbiology - Last 24 Hours (Table) 02/21/23 13:50 Gram Stain - Preliminary Aspirate Body Fluid Culture - Preliminary 02/21/23 13:50 Acid Fast Bacilli Smear - Preliminary Aspirate Assessment and Plan (1) Psoas abscess, left Current Visit: Yes Status: Acute Code(s): K68.12 - PSOAS MUSCLE ABSCESS SNOMED Code(s): 233758852 Plan: 1patient presented hospital with left lower extremity weakness and back pain in this patient who did have a history of L4 vertebral fracture status post stab ilization and there was concern for possible left iliopsoas infected hematoma/abscess for the patient has received more than 6-week course of IV and by therapy now with worsening weakness to the leg and back pain and abnormal CT concerning for possible hematoma versus infected hematoma or abscess 2-patient is status post CT-guided aspiration of the area in the fluid , cultures are negative so far 3patient remains to be afebrile white count is normal with a low clinical suspicious for abscess/infection antibiotics were discontinued 02/23/2023 4-repeat CT with evidence of left psoas intramuscular hematoma without any change await a vascular surgeon evaluation Family at the bedside questions were answered Dictation was produced using [employer] dictation software. please excuse any grammatical, word or spelling errors. Time with Patient: Less than 30
--- NOTE | 2023-02-25 11:42 | P.PN ---
Subjective Progress Note Date: 02/25/23 Patient is a 87-year-old female with index surgery on 11/19/22-2 L4 vertebral fracture that included open treatment with reduction of fracture and minimally invasive stabilization of L2 to S1. Her recovery was complicated by left psoas muscle abscess which was drained by interventional radiology on 12/28/22. Since that time she's been followed by infectious disease and has been on IV Rocephin and at rehab. On 02/20 she went to the infectious disease office to follow up and was having worsening lower extremity weakness and therefore was directed to the emergency department. In the emergency department her vital signs were within normal limits and laboratory analysis was essentially at baseline. She underwent a CT abdomen and pelvis which showed a left psoas muscle hematoma with abscess less likely as well as large fecal bolus and bilateral pleural effusions. Arrangements are made for admission. Infectious disease was consulted and contacted they recommended vancomycin and cefepime giving her failure of Rocephin. Spine ortho was consulted and recommended IR evaluation. She had successful CT-guided drainage tube inserted in the left psoas muscle fluid collection on 02/21/23. Echocardiogram showed ejection fraction 55-60%, mild to moderate mitral and tricuspid regurgitation with mild pulmonary hypertension. Repeat CT shows similarly sized psoas muscle hematoma. Awaiting recommendations from vascular surgery. Patient seen and examined at bedside. She states she is moving her left lower extremity better. Denies any nausea, vomiting. Has very minimal output from the drain. Vital signs reviewed General: nontoxic, no distress, appears at stated age Cardiovascular: S1S2 reg, no murmur, positive posterior tibial pulse bilateral, Lungs: CTA bilateral, no rhonchi, no rales , no accessory muscle use Abdominal: soft, nontender to palpation, no guarding, no appreciable organomegaly, drain in place with sanganous fluid present. Ext: no gross muscle atrophy, no edema b/l lower extremities, no contractures Neuro: CN II-XI grossly intact, no focal neuro deficits Psych: Alert, oriented, appropriate affect Assessment/Plan: Left psoas muscle hematoma, less likely abscess resulting in left lower extremity weakness s/p IR guided drainage tube insertion 02/21/23 Acute blood loss anemia in addition to iron deficiency anemia -Antibiotics discontinued - ID following - Cultures negative growth to date - Neuro following, suspect weakness due to psoas muscle abn - Ortho spine signed off - lyrica 75 mg PO BID - Ferrous sulfate 325 mg PO daily -Repeat CT shows similar size hematoma -Pending further recommendations from vascular surgery Fecal impaction -continue with lactulose 30 gm PO BID, senokot 8.6 mg PO daily -Bisacodyl 5 mg daily when necessary Prediabetes - tradjenta 5 mg daily. Follow blood sugar levels with a.m. blood work. Permanent atrial fibrillation Hypertension Dyslipidemia -Lopressor 50 mg twice daily, Norvasc 2.5 mg daily, hydralazine 100 mg twice daily, atorvastatin 10 mg at night -Not on anticoagulation secondary to recent GI bleed Patient appears euvolemic at the time, Lasix IV 40 mg daily has been discontinued, does have some peripheral edema which is likely cause of pulmonary hypertension, patient currently on room air. Imaging: Echocardiogram showed ejection fraction 55-60%, mild to moderate mitral and tricuspid regurgitation with mild pulmonary hypertension Data Review today: No new labs DVT prophylaxis: Lovenox Anticipated discharge date: Today or tomorrow, back to nursing facility Objective - Vital Signs Vital signs: Vital Signs Temp 97.5 F L 02/25/23 06:54 Pulse 79 02/25/23 06:54 Resp 18 02/25/23 06:54 BP 90/53 02/25/23 06:54 Pulse Ox 98 02/25/23 06:54 FiO2 Intake & Output 02/24/23 02/25/23 02/25/23 18:59 06:59 18:59 Output Total 1 Balance -1 Weight 76.657 kg Output: Drainage 1 Left Lower Back 1 Other: Voiding Method External Catheter External Catheter # Voids 4 - Labs CBC & Chem 7: 02/24/23 07:07 02/23/23 11:20 Labs: Microbiology - Last 24 Hours (Table) 02/21/23 13:50 Gram Stain - Preliminary Aspirate Body Fluid Culture - Preliminary 02/21/23 13:50 Acid Fast Bacilli Smear - Preliminary Aspirate
--- NOTE | 2023-02-25 12:27 | P.GSCN ---
History of Present Illness Consult date: 02/25/23 History of present illness: Patient is an 87-year-old female in for evaluation of left lower extremity pain/numbness. She underwent back surgery in November 2022 for fracture. She had evidence of a psoas muscle abscesses that time which was drained on December 2022. She has been in and out of rehabs after, she had contracted Covid at a rehab facility and has gotten significantly weaker. She presented for changes in her ambulation and weakness of her lower extremity. Imaging was performed showing a left psoas muscle hematoma. It was evaluated by interventional radiology and a drain was placed. This was very minimal output from drain itself. Patient and her daughter seem to the patient's leg are somewhat improved since drain placement Past Medical History Past Medical History: Atrial Fibrillation, Cancer, Hyperlipidemia, Hypertension, Thyroid Disorder Additional Past Medical History / Comment(s): BACK PAIN, SKIN CANCER, L4 fracture History of Any Multi-Drug Resistant Organisms: None Reported Past Surgical History: Appendectomy, Back Surgery, Cholecystectomy, Joint Replacement, Tonsillectomy Additional Past Surgical History / Comment(s): ELYSE TOTAL KNEE SURG, CARPAL TUNNEL, OOPHERECTOMY, SKIN LESION -VAGANIA, RIGHT FOOT SURGERY Past Anesthesia/Blood Transfusion Reactions: No Reported Reaction Past Psychological History: No Psychological Hx Reported Smoking Status: Never smoker Past Alcohol Use History: Occasional Past Drug Use History: None Reported - Past Family History Son(s) Family Medical History: Cancer Additional Family Medical History / Comment(s): SARCOMA Medications and Allergies Home Medications Medication Instructions Recorded Confirmed Type Cholecalciferol [Vitamin D3 (25 50 mcg PO DAILY 11/15/22 02/20/23 History Mcg = 1000 Iu)] Levothyroxine Sodium [Synthroid] 200 mcg PO DAILY 11/15/22 02/20/23 History Simvastatin [Zocor] 20 mg PO HS 11/15/22 02/20/23 History amLODIPine [Norvasc] 2.5 mg PO DAILY 11/15/22 02/20/23 History calcitrioL [Calcitriol] 0.25 mcg PO MOTUWETHFR 11/15/22 02/20/23 History Ascorbic Acid [Vitamin C] 500 mg PO DAILY 12/20/22 02/20/23 History Lactulose [Cephulac] 30 gm PO BID ml 01/05/23 02/20/23 Rx Pregabalin [Lyrica] 75 mg PO BID #0 cap 01/05/23 02/20/23 Rx Acetaminophen Tab [Tylenol] 650 mg PO Q8H PRN 02/20/23 02/20/23 History HYDROcodone/APAP 5-325MG [[place] 1 tab PO Q4HR PRN 02/20/23 02/20/23 History 5-325] Heparin Sodium,Porcine/Pf [Heparin 30 unit IV DAILY@0600 02/20/23 02/20/23 History 500 Unit/5 ml (100/ml) Flush] Metoprolol Tartrate [Lopressor] 50 mg PO BID 02/20/23 02/20/23 History Multivitamins, Thera [Multivitamin 1 tab PO DAILY 02/20/23 02/20/23 History (formulary)] Pantoprazole [Protonix] 40 mg PO BID 02/20/23 02/20/23 History Prostat 30 ml PO BID 02/20/23 02/20/23 History Sennosides [Senokot] 8.6 mg PO BID 02/20/23 02/20/23 History hydrALAZINE HCL [Apresoline] 100 mg PO BID 02/20/23 02/20/23 History sitaGLIPtin [Januvia] 100 mg PO DAILY 02/20/23 02/20/23 History Allergies Allergy/AdvReac Type Severity Reaction Status Date / Time baclofen Allergy Swelling Verified 02/20/23 16:18 OF LIPS AND TONGUE cephalexin [From Keflex] Allergy Rash/Hives Verified 02/20/23 16:18 ciprofloxacin [From Cipro] Allergy Rash/Hives Verified 02/20/23 16:18 Penicillins Allergy Rash/Hives Verified 02/20/23 16:18 Sulfa (Sulfonamide Allergy Rash/Hives Verified 02/20/23 16:18 Antibiotics) tizanidine Allergy Swelling Verified 02/20/23 16:18 OF LIPS AND TONGUE Surgical - Exam Vital Signs Temp Pulse Resp BP Pulse Ox 98.3 F 74 17 142/70 97 02/20/23 14:11 02/20/23 14:11 02/20/23 14:11 02/20/23 14:11 02/20/23 14:11 General: nontoxic, no distress, appears at stated age Cardiovascular: S1S2 reg, no murmur, positive posterior tibial pulse bilateral, Lungs: CTA bilateral, no rhonchi, no rales , no accessory muscle use Abdominal: soft, nontender to palpation, no guarding, no appreciable organomegaly, drain in place with sanganous fluid present. Ext: no gross muscle atrophy, no edema b/l lower extremities, no contractures Neuro: CN II-XI grossly intact, no focal neuro deficits Psych: Alert, oriented, appropriate affect Results Multiple CT scans reviewed. Initial with left psoas hematoma, secondary follow- up with drain placement. No evidence of extravasation - Labs 02/24/23 07:07 02/23/23 11:20 Microbiology - Last 24 Hours (Table) 02/21/23 13:50 Gram Stain - Preliminary Aspirate Body Fluid Culture - Preliminary 02/21/23 13:50 Acid Fast Bacilli Smear - Preliminary Aspirate Assessment and Plan Assessment: Left psoas hematoma Blood loss anemia Atrial fibrillation Plan: Imaging was reviewed. The hematoma itself appears stable. No evidence of extravasation therefore no aggressive intervention. Discussed with family and patient. This should resolve over time. Likely can remove drain given minimal output and continue with therapies.
--- NOTE | 2023-02-25 12:47 | P.PN ---
Subjective Progress Note Date: 02/25/23 The patient is seen at bedside and she is accompanied with her daughter and she continues to seems some improvement compared to initial presentation. Objective - Vital Signs Vital signs: Vital Signs Temp 97.5 F L 02/25/23 06:54 Pulse 79 02/25/23 06:54 Resp 18 02/25/23 06:54 BP 90/53 02/25/23 06:54 Pulse Ox 98 02/25/23 06:54 FiO2 Intake & Output 02/24/23 02/25/23 02/25/23 18:59 06:59 18:59 Output Total 1 Balance -1 Weight 76.657 kg Output: Drainage 1 Left Lower Back 1 Other: Voiding Method External Catheter External Catheter # Voids 4 - Exam GENERAL: The patient is lying in bed and is not in acute distress. NEUROLOGICAL: Higher mental function: The patient is awake, alert, oriented to self, place and time. Patient is following commands. No aphasia and no neglect. Cranial nerves: The pupils are round, equal and reactive to light. Visual stoddard are full to confrontation throughout. Extraocular movement is intact no nystagmus is noted. Facial sensation is normal to touch throughout. The facial strength is normal throughout. Hearing is moderately decreased bilaterally to hand rub. Tongue is midline and moved [id number] without any difficulty. No dysarthria is noted. Shoulder shrug is normal bilaterally. Motor: The strength is left lower extremity is limited because of moderate to severe edema in lower but for left hips are 2, left knee is 3 and ankles are 3. Otherwise uppers are 5/5. Right lower Moving above gravity and had 4+ to 5- and some limitation because of some edema. Mild decrease tone over the left lower. Normal bulk. Has vacuum on the left lower. Cerebellum: Normal finger to nose bilaterally. Sensation: Some decrease sensation to touch over the left lower to touch. Reflexes (right/left): 1-2+ uppers, ankles are 1+ bilaterally and knees are 0 bilaterally. Plantars are mute bilaterally. - Labs CBC & Chem 7: 02/24/23 07:07 02/23/23 11:20 Labs: Microbiology - Last 24 Hours (Table) 02/21/23 13:50 Gram Stain - Preliminary Aspirate Body Fluid Culture - Preliminary 02/21/23 13:50 Acid Fast Bacilli Smear - Preliminary Aspirate Assessment and Plan Assessment: This is an 87-year-old woman with history of L4 vertebral fracture as well as left lumbar radiculopathy with had the minimal invasive stabilization of L2 to L S1 on 11/19/2022 then her recovery was complicated by left so as abscess which was drained by interventional radiology on 12/28/2022 and was receiving IV antibiotic then her recovery was delayed because of acute COVID-19 infection in November and did not receive sufficient therapy according to the daughter as well as she had UTI and the a GI ulcer. She's having swelling of the left lower extremity. Her CT abdomen and pelvis is reported left still has muscle hematoma with abscess less likely. Today she had vacuum place and the daughter feels she is having better movement after the vacuum placement. Left lower extremity paresis seems due hematoma of the left psoas. Cannot rule out abscess. Improvement on strength after the vacuum placed during this admission. Plan: I spoke with the patient and her daughters (two daughter I spoke with) and they stated they to hold off any additional imaging for now since they are seeing improvement with VACUUM placed. Infection disease is on board Physical therapy and occupation therapy are consulted Orthopedic surgery team is consulted We'll defer the rest of the medical management to the primary and other specialists The plan discussed with the patient and her daughter who is at bedside. There is no further neurological work-up. Patient is clear from neurological perspective. Please reconsult if needed. Dr. Mi will start this Monday if needed. Time with Patient: Less than 30
[2023-02-25] MEDS: FERROUS SULFATE 325 MG TAB PO SCH (13:16)
[2023-02-25] MEDS: ATORVASTATIN 10 MG TAB PO SCH (20:21)
[2023-02-26] MEDS: MELATONIN 5 MG TABLET PO PRN (00:40)
[2023-02-26] MEDS: LEVOTHYROXINE 100 MCG TAB PO SCH (06:15)
[2023-02-26] MEDS: ENOXAPARIN 40 MG/0.4 ML SYRINGE SQ SCH (08:22)
[2023-02-26] MEDS: LACTULOSE 20 GM/30 ML CUP PO SCH ×2 (08:22→21:12)
[2023-02-26] MEDS: amLODIPine 2.5 MG TAB PO SCH (08:23)
[2023-02-26] MEDS: MULTIVITAMINS, THERA 1 EACH TAB PO SCH (08:23)
[2023-02-26] MEDS: PREGABALIN 75 MG CAP PO SCH ×2 (08:23→21:12)
[2023-02-26] MEDS: METOPROLOL TARTRATE 50 MG TAB PO SCH ×2 (08:23→21:12)
[2023-02-26] MEDS: PANTOPRAZOLE 40 MG TABLET PO SCH ×2 (08:23→21:12)
[2023-02-26] MEDS: CHOLECALCIFEROL 25 MCG (1000 IU) TABLET PO SCH (08:23)
[2023-02-26] MEDS: ASCORBIC ACID 500 MG TAB PO SCH (08:23)
[2023-02-26] MEDS: LINAGLIPTIN 5 MG TABLET PO SCH (08:23)
[2023-02-26] MEDS: SENNOSIDES 8.6 MG TAB PO SCH (08:23)
[2023-02-26] MEDS: hydrALAZINE HCL 50 MG TAB PO SCH ×2 (08:30→21:13)
[2023-02-26] MEDS: HYDROcodone/APAP 5-325MG 1 EACH TAB PO PRN ×3 (08:44→21:23)
--- NOTE | 2023-02-26 11:30 | P.PN ---
Subjective Progress Note Date: 02/26/23 Patient is a 87-year-old female with index surgery on 11/19/22-2 L4 vertebral fracture that included open treatment with reduction of fracture and minimally invasive stabilization of L2 to S1. Her recovery was complicated by left psoas muscle abscess which was drained by interventional radiology on 12/28/22. Since that time she's been followed by infectious disease and has been on IV Rocephin and at rehab. On 02/20 she went to the infectious disease office to follow up and was having worsening lower extremity weakness and therefore was directed to the emergency department. In the emergency department her vital signs were within normal limits and laboratory analysis was essentially at baseline. She underwent a CT abdomen and pelvis which showed a left psoas muscle hematoma with abscess less likely as well as large fecal bolus and bilateral pleural effusions. Arrangements are made for admission. Infectious disease was consulted and contacted they recommended vancomycin and cefepime giving her failure of Rocephin. Spine ortho was consulted and recommended IR evaluation. She had successful CT-guided drainage tube inserted in the left psoas muscle fluid collection on 02/21/23. Echocardiogram showed ejection fraction 55-60%, mild to moderate mitral and tricuspid regurgitation with mild pulmonary hypertension. Repeat CT shows similarly sized psoas muscle hematoma. Vascular surgery recommending discontinuing drain, hematoma should resolve over time. Drain to be taken out tomorrow, then discharged to rehab facility Patient seen and examined at bedside. She states she is moving her left lower extremity better. Denies any nausea, vomiting. Has very minimal output from the drain. Vital signs reviewed General: nontoxic, no distress, appears at stated age Cardiovascular: S1S2 reg, no murmur, positive posterior tibial pulse bilateral, Lungs: CTA bilateral, no rhonchi, no rales , no accessory muscle use Abdominal: soft, nontender to palpation, no guarding, no appreciable organomegaly, drain in place with sanganous fluid present. Ext: no gross muscle atrophy, no edema b/l lower extremities, no contractures Neuro: CN II-XI grossly intact, no focal neuro deficits Psych: Alert, oriented, appropriate affect Assessment/Plan: Left psoas muscle hematoma, less likely abscess resulting in left lower extremity weakness s/p IR guided drainage tube insertion 02/21/23 Acute blood loss anemia in addition to iron deficiency anemia -Antibiotics discontinued - ID following - Cultures negative growth to date - Neuro following, suspect weakness due to psoas muscle abn - Ortho spine signed off - lyrica 75 mg PO BID - Ferrous sulfate 325 mg PO daily -Repeat CT shows similar size hematoma -Vascular surgery recommending discontinuing drain, hematoma should resolve over time Fecal impaction -continue with lactulose 30 gm PO BID, senokot 8.6 mg PO daily -Bisacodyl 5 mg daily when necessary Prediabetes - tradjenta 5 mg daily. Follow blood sugar levels with a.m. blood work. Permanent atrial fibrillation Hypertension Dyslipidemia -Lopressor 50 mg twice daily, Norvasc 2.5 mg daily, hydralazine 100 mg twice daily, atorvastatin 10 mg at night -Not on anticoagulation secondary to recent GI bleed Patient appears euvolemic at the time, Lasix IV 40 mg daily has been discontinued, does have some peripheral edema which is likely cause of pulmonary hypertension, patient currently on room air. Imaging: Echocardiogram showed ejection fraction 55-60%, mild to moderate mitral and tricuspid regurgitation with mild pulmonary hypertension Data Review today: No new labs DVT prophylaxis: Lovenox Anticipated discharge date: Today or tomorrow, back to nursing facility Objective - Vital Signs Vital signs: Vital Signs Temp 98.1 F 02/26/23 06:59 Pulse 75 02/26/23 06:59 Resp 16 02/26/23 06:59 BP 104/58 02/26/23 06:59 Pulse Ox 92 L 02/26/23 06:59 FiO2 Intake & Output 02/25/23 02/26/23 02/26/23 18:59 06:59 18:59 Output Total 350 Balance -350 Output: Urine 350 Other: Voiding Method External Catheter External Catheter External Catheter # Voids 2 - Labs CBC & Chem 7: 02/24/23 07:07 02/23/23 11:20 Labs: Microbiology - Last 24 Hours (Table) 02/21/23 13:50 Gram Stain - Preliminary Aspirate Body Fluid Culture - Preliminary 02/20/23 15:34 Blood Culture - Final Blood 02/20/23 15:37 Blood Culture - Final Blood 02/21/23 13:50 Anaerobic Culture - Preliminary Aspirate
[2023-02-26] MEDS: FERROUS SULFATE 325 MG TAB PO SCH (12:23)
--- NOTE | 2023-02-26 15:29 | P.PN ---
Subjective Progress Note Date: 02/26/23 Principal diagnosis: Left psoas hematoma versus abscess Patient is a 87-year-old female with recent admission to the hospital with L4 vertebral fracture in this patient who is status post surgical stabilization on 11/19/2022 subsequently the patient was admitted to the hospital at that time the patient did have a E. coli bacteremia and work-up which shows evidence of possible left psoas infected hematoma/abscess and concern for possible deep infection the patient did get a PICC line and was advised a 6-week course of IV Rocephin , patient presented to the hospital with weakness to the left lower extremity repeat CAT scan did shows possible enlarging fluid collecti on suspicious for hematoma status post CT-guided aspiration. On today's evaluation that is02/26/2023, the patient remains to be afebrile , the patient is breathing comfortably on room air and denies any shortness of breath, the patient denies any chest pain cough or sputum production, patient denies nausea/vomiting/ diarrhea and no abdominal pain , the patient denies any worsening weakness to the left leg Patient did have a white count of 5.8 and creatinine 0.56 as of 02/24/2023 , and no new labs done today, cultures are so far negative, patient did have a repeat CT of abdominal pelvis on 02/24/2023 with evidence of left psoas intramuscular hematoma with no significant change Objective - Vital Signs Vital signs: Vital Signs Temp 98.1 F 02/26/23 06:59 Pulse 75 02/26/23 06:59 Resp 16 02/26/23 06:59 BP 104/58 02/26/23 06:59 Pulse Ox 92 L 02/26/23 06:59 FiO2 Intake & Output 02/25/23 02/26/23 02/26/23 18:59 06:59 18:59 Output Total 350 Balance -350 Output: Urine 350 Other: Voiding Method External Catheter External Catheter External Catheter # Voids 2 - Exam GENERAL DESCRIPTION: An elderly female lying in bed in no distress RESPIRATORY SYSTEM: Unlabored breathing , clear to auscultation anteriorly HEART: S1 S2 regular rate and rhythm , ABDOMEN: Soft , no tenderness EXTREMITIES: Diffuse swelling bilateral lower extremity - Labs CBC & Chem 7: 02/24/23 07:07 02/23/23 11:20 Labs: Microbiology - Last 24 Hours (Table) 02/21/23 13:50 Gram Stain - Preliminary Aspirate Body Fluid Culture - Preliminary 02/20/23 15:34 Blood Culture - Final Blood 02/20/23 15:37 Blood Culture - Final Blood 02/21/23 13:50 Anaerobic Culture - Preliminary Aspirate Assessment and Plan (1) Psoas abscess, left Current Visit: Yes Status: Acute Code(s): K68.12 - PSOAS MUSCLE ABSCESS SNOMED Code(s): 241985309 Plan: 1patient presented hospital with left lower extremity weakness and back pain in this patient who did have a history of L4 vertebral fracture status post stabilization and there was concern for possible left iliopsoas infected hematoma/abscess for the patient has received more than 6-week course of IV and by therapy now with worsening weakness to the leg and back pain and abnormal CT concerning for possible hematoma versus infected hematoma or abscess 2-patient is status post CT-guided aspiration of the area in the fluid , cultures are negative so far 3patient remains to be afebrile white count is normal with a low clinical suspicious for abscess/infection antibiotics were discontinued 02/23/2023 , patient will be monitored closely off antibiotics 4-repeat CT with evidence of left psoas intramuscular hematoma without any change, patient has been evaluated by vascular surgeon recommended no surgical intervention Dictation was produced using [employer] dictation software. please excuse any grammatical, word or spelling errors. Time with Patient: Less than 30
[2023-02-26] MEDS: ATORVASTATIN 10 MG TAB PO SCH (21:12)
[2023-02-27] MEDS: HYDROcodone/APAP 5-325MG 1 EACH TAB PO PRN ×3 (04:04→15:04)
[2023-02-27] MEDS: LEVOTHYROXINE 100 MCG TAB PO SCH (05:51)
[2023-02-27 08:11] VITALS: TEMP 98
[2023-02-27] MEDS: SENNOSIDES 8.6 MG TAB PO SCH (09:32)
[2023-02-27] MEDS: amLODIPine 2.5 MG TAB PO SCH (09:32)
[2023-02-27] MEDS: hydrALAZINE HCL 50 MG TAB PO SCH (09:32)
[2023-02-27] MEDS: CHOLECALCIFEROL 25 MCG (1000 IU) TABLET PO SCH (09:32)
[2023-02-27] MEDS: METOPROLOL TARTRATE 50 MG TAB PO SCH (09:32)
[2023-02-27] MEDS: LINAGLIPTIN 5 MG TABLET PO SCH (09:32)
[2023-02-27] MEDS: MULTIVITAMINS, THERA 1 EACH TAB PO SCH (09:32)
[2023-02-27] MEDS: PREGABALIN 75 MG CAP PO SCH (09:32)
[2023-02-27] MEDS: PANTOPRAZOLE 40 MG TABLET PO SCH (09:32)
[2023-02-27] MEDS: ENOXAPARIN 40 MG/0.4 ML SYRINGE SQ SCH (09:32)
[2023-02-27] MEDS: ASCORBIC ACID 500 MG TAB PO SCH (09:32)
[2023-02-27] MEDS: LACTULOSE 20 GM/30 ML CUP PO SCH (09:33)
--- NOTE | 2023-02-27 11:35 | P.DS ---
Providers Date of admission: 02/20/23 19:10 Expected date of discharge: 02/27/23 Attending physician: Letty Norton DO Consults: 02/20/23 19:08 Consult Physician Urgent Consulting Provider: Tyson Soria Consult Reason/Comments: Psoas abscess Do you want consulting provider notified?: Yes 02/20/23 23:25 Consult Physician Urgent Consulting Provider: Partha Alejandra Consult Reason/Comments: LLE weakness Do you want consulting provider notified?: Yes 02/21/23 10:51 Consult Physician Routine Consulting Provider: Carmine Norton Consult Reason/Comments: L LE weakness Do you want consulting provider notified?: Yes [facility] Course: Discharge Diagnosis: Left psoas muscle hematoma, less likely abscess resulting in left lower extremity weakness s/p IR guided drainage tube insertion 02/21/23 Acute blood loss anemia in addition to iron deficiency anemia Fecal impaction Prediabetes Permanent atrial fibrillation Hypertension Dyslipidemia Hospital Course: Patient is a 87-year-old female with index surgery on 11/19/22-2 L4 vertebral fracture that included open treatment with reduction of fracture and minimally invasive stabilization of L2 to S1. Her recovery was complicated by left psoas muscle abscess which was drained by interventional radiology on 12/28/22. Since that time she's been followed by infectious disease and has been on IV Rocephin and at rehab. On 02/20 she went to the infectious disease office to follow up and was having worsening lower extremity weakness and therefore was directed to the emergency department. In the emergency department her vital signs were within normal limits and laboratory analysis was essentially at baseline. She underwent a CT abdomen and pelvis which showed a left psoas muscle hematoma with abscess less likely as well as large fecal bolus and bilateral pleural effusions. Arrangements are made for admission. Infectious disease was consulted and contacted they recommended vancomycin and cefepime giving her failure of Rocephin. Cultures have been negative, antibiotics discontinued. Spine ortho was consulted and recommended IR evaluation. She had successful CT- guided drainage tube inserted in the left psoas muscle fluid collection on 02/21/23. Patient was also evaluated by neurology, lower extremity weakness likely inciting or hematoma. Echocardiogram showed ejection fraction 55-60%, mild to moderate mitral and tricuspid regurgitation with mild pulmonary hypertension. Repeat CT shows similarly sized psoas muscle hematoma. Vascular surgery recommending discontinuing drain, hematoma should resolve over time. Now status post drain removal. Being discharged back to rehab facility. Patient seen and examined at bedside. Vital signs reviewed and stable. General: nontoxic, no distress, appears at stated age Cardiovascular: S1S2 reg, no murmur, positive posterior tibial pulse bilateral, Lungs: CTA bilateral, no rhonchi, no rales , no accessory muscle use Abdominal: soft, nontender to palpation, no guarding, no appreciable organomegaly Ext: no gross muscle atrophy, trace peripheral edema, no contractures Neuro: CN II-XI grossly intact, no focal neuro deficits Psych: Alert, oriented, appropriate affect A total of 33 minutes of time were spent preparing this complex discharge summary. Patient was discharged on 02/27/23 at 11:34. Patient Condition at Discharge: Stable Plan - Discharge Summary Discharge Rx Participant: No New Discharge Prescriptions: New Ferrous Sulfate [Iron (65 MG Elemental)] 325 mg PO W/LUNCH #60 tab Continue calcitrioL [Calcitriol] 0.25 mcg PO MOTUWETHFR Ascorbic Acid [Vitamin C] 500 mg PO DAILY Lactulose [Cephulac] 30 gm PO BID ml hydrALAZINE HCL [Apresoline] 100 mg PO BID Metoprolol Tartrate [Lopressor] 50 mg PO BID Sennosides [Senokot] 8.6 mg PO BID HYDROcodone/APAP 5-325MG [[place] 5-325] 1 tab PO Q4HR PRN #10 tab PRN Reason: Pain Cholecalciferol [Vitamin D3 (25 Mcg = 1000 Iu)] 50 mcg PO DAILY Simvastatin [Zocor] 20 mg PO HS Levothyroxine Sodium [Synthroid] 200 mcg PO DAILY amLODIPine [Norvasc] 2.5 mg PO DAILY Pregabalin [Lyrica] 75 mg PO BID #0 cap Prostat 30 ml PO BID Multivitamins, Thera [Multivitamin (formulary)] 1 tab PO DAILY Pantoprazole [Protonix] 40 mg PO BID sitaGLIPtin [Januvia] 100 mg PO DAILY Acetaminophen Tab [Tylenol] 650 mg PO Q8H PRN PRN Reason: Mild Pain Or Fever > 100.5 Discontinued Heparin Sodium,Porcine/Pf [Heparin 500 Unit/5 ml (100/ml) Flush] 30 unit IV DAILY@0600 Discharge Medication List Cholecalciferol [Vitamin D3 (25 Mcg = 1000 Iu)] 50 mcg PO DAILY 11/15/22 [History] Levothyroxine Sodium [Synthroid] 200 mcg PO DAILY 11/15/22 [History] Simvastatin [Zocor] 20 mg PO HS 11/15/22 [History] amLODIPine [Norvasc] 2.5 mg PO DAILY 11/15/22 [History] calcitrioL [Calcitriol] 0.25 mcg PO MOTUWETHFR 11/15/22 [History] Ascorbic Acid [Vitamin C] 500 mg PO DAILY 12/20/22 [History] Lactulose [Cephulac] 30 gm PO BID ml 01/05/23 [Rx] Pregabalin [Lyrica] 75 mg PO BID #0 cap 01/05/23 [Rx] Acetaminophen Tab [Tylenol] 650 mg PO Q8H PRN 02/20/23 [History] Metoprolol Tartrate [Lopressor] 50 mg PO BID 02/20/23 [History] Multivitamins, Thera [Multivitamin (formulary)] 1 tab PO DAILY 02/20/23 [History] Pantoprazole [Protonix] 40 mg PO BID 02/20/23 [History] Prostat 30 ml PO BID 02/20/23 [History] Sennosides [Senokot] 8.6 mg PO BID 02/20/23 [History] hydrALAZINE HCL [Apresoline] 100 mg PO BID 02/20/23 [History] sitaGLIPtin [Januvia] 100 mg PO DAILY 02/20/23 [History] Ferrous Sulfate [Iron (65 MG Elemental)] 325 mg PO W/LUNCH #60 tab 02/27/23 [Rx] HYDROcodone/APAP 5-325MG [[place] 5-325] 1 tab PO Q4HR PRN #10 tab 02/27/23 [Rx] Follow up Appointment(s)/Referral(s): Nayla Beckford DO [Family Provider] - 1-2 days Patient Instructions/Handouts: Hematoma (ED) Activity/Diet/Wound Care/Special Instructions: Please see your cardiovascular disease specialist and your PCP. Discharge Disposition: TRANSFER TO SNF/ECF
[2023-02-27] MEDS: FERROUS SULFATE 325 MG TAB PO SCH (11:59)
--- NOTE | 2023-02-27 12:13 | P.PN ---
Subjective Progress Note Date: 02/27/23 Principal diagnosis: Left psoas hematoma versus abscess Patient is a 87-year-old female with recent admission to the hospital with L4 vertebral fracture in this patient who is status post surgical stabilization on 11/19/2022 subsequently the patient was admitted to the hospital at that time the patient did have a E. coli bacteremia and work-up which shows evidence of possible left psoas infected hematoma/abscess and concern for possible deep infection the patient did get a PICC line and was advised a 6-week course of IV Rocephin , patient presented to the hospital with weakness to the left lower extremity repeat CAT scan did shows possible enlarging fluid collecti on suspicious for hematoma status post CT-guided aspiration. On today's evaluation that is 02/27/2023, the patient continues to be afebrile , the patient is not requiring any supplemental oxygen and is breathing comfortably on room air , the patient denies any chest pain no cough or sputum production, patient denies Abdominal pain and denies any nausea/vomiting/no diarrhea has been reported, patient reporting some improvement in weakness to the left leg Patient did have a white count of 5.8 and creatinine 0.56 as of 02/24/2023 , no CBC was done today and patient did have a normal sed rate of 21, cultures are so far negative, patient did have a repeat CT of abdominal pelvis on 02/24/2023 wit h evidence of left psoas intramuscular hematoma with no significant change Objective - Vital Signs Vital signs: Vital Signs Temp 98.0 F 02/27/23 07:08 Pulse 79 02/27/23 07:08 Resp 18 02/27/23 07:08 BP 124/64 02/27/23 07:08 Pulse Ox 94 L 02/27/23 07:08 FiO2 Intake & Output 02/26/23 02/27/23 02/27/23 18:59 06:59 18:59 Output Total 550 300 Balance -550 -300 Output: Urine 550 300 Other: Voiding Method External Catheter External Catheter External Catheter # Voids 1 - Exam GENERAL DESCRIPTION: An elderly female lying in bed in no distress RESPIRATORY SYSTEM: Unlabored breathing , clear to auscultation anteriorly HEART: S1 S2 regular rate and rhythm , ABDOMEN: Soft , no tenderness EXTREMITIES: Diffuse swelling bilateral lower extremity - Labs CBC & Chem 7: 02/24/23 07:07 02/23/23 11:20 Labs: Microbiology - Last 24 Hours (Table) 02/21/23 13:50 Anaerobic Culture - Final Aspirate 02/21/23 13:50 Gram Stain - Final Aspirate Body Fluid Culture - Final Assessment and Plan (1) Psoas abscess, left Current Visit: Yes Status: Acute Code(s): K68.12 - PSOAS MUSCLE ABSCESS SNOMED Code(s): 684800392 Plan: 1patient presented hospital with left lower extremity weakness and back pain in this patient who did have a history of L4 vertebral fracture status post stabilization and there was concern for possible left iliopsoas infected hematoma/abscess for the patient has received more than 6-week course of IV and by therapy now with worsening weakness to the leg and back pain and abnormal CT concerning for possible hematoma versus infected hematoma or abscess 2-patient is status post CT-guided aspiration of the area in the fluid , cultures are negative so far 3patient remains to be afebrile white count is normal with a low clinical suspicious for abscess/infection antibiotics were discontinued 02/23/2023 , patient does not need any antibiotic on discharge the PICC line will be discontinued Patient benefit from repeat CT in a couple of weeks to make sure overall improv ement/resolution of the left small hematoma this was discussed in detail with the patient daughter as well as [facility] Dictation was produced using [employer] dictation software. please excuse any grammatical, word or spelling errors. Time with Patient: Less than 30
[2023-02-27 14:24] VITALS: BP 113/66; PULSE 70; RESP 16
== END 2023-02-27 15:12 | DRG 919 ==
LOC: EC 14:09 → 4SSUR 19:10
PROVIDERS: ADMIT Internal Medicine; ATTEND Internal Medicine
PROC: 0K9P30Z Drainage of Left Hip Muscle with Drainage Device, Percutaneous Approach (ICD-10-PCS; principal; 2023-02-21)
DX: M96.840 Postprocedural hematoma of a musculoskeletal structure following a musculoskeletal system procedure (principal); K68.12 Psoas muscle abscess; I48.21 Permanent atrial fibrillation; D62 Acute posthemorrhagic anemia; I27.20 Pulmonary hypertension, unspecified; G83.14 Monoplegia of lower limb affecting left nondominant side; D50.9 Iron deficiency anemia, unspecified; K56.41 Fecal impaction; E66.01 Morbid (severe) obesity due to excess calories; Z68.33 Body mass index [BMI] 33.0-33.9, adult; I08.1 Rheumatic disorders of both mitral and tricuspid valves; E78.5 Hyperlipidemia, unspecified; I10 Essential (primary) hypertension; E07.9 Disorder of thyroid, unspecified; M54.9 Dorsalgia, unspecified; R32 Unspecified urinary incontinence; S32.049D Unspecified fracture of fourth lumbar vertebra, subsequent encounter for fracture with routine healing; R73.03 Prediabetes; Z79.890 Hormone replacement therapy; Z79.84 Long term (current) use of oral hypoglycemic drugs; Z79.899 Other long term (current) drug therapy; Z86.16 Personal history of COVID-19; Z85.828 Personal history of other malignant neoplasm of skin; Z87.11 Personal history of peptic ulcer disease; Z87.440 Personal history of urinary (tract) infections; Z96.641 Presence of right artificial hip joint; Z71.3 Dietary counseling and surveillance; Z88.1 Allergy status to other antibiotic agents; Z88.0 Allergy status to penicillin; Z88.2 Allergy status to sulfonamides; Z88.8 Allergy status to other drugs, medicaments and biological substances
CPT/HCPCS: 36415; 74177; 74178; 75989; 80048; 80053; 80202; 81001; 82565; 82728; 83540; 83550; 83605; 85025; 85027; 85610; 85652; 86022; 86140; 87040; 87070; 87075; 87102; 87116; 87205; 87206; 93306; 96365; 96368; 99285

== ENCOUNTER 2023-04-13 04:10 | Inpatient (IN) | payer MEDICARE, OTHER ==
[2023-04-13 04:38] LABS: Glucose,Whole Blood 89 mg/dL (70-110)
--- NOTE | 2023-04-13 04:43 | ED ---
General Adult HPI - General Chief complaint: Altered Mental Status Stated complaint: Difficulty Breathing Time Seen by Provider: 04/13/23 04:11 Source: EMS Mode of arrival: EMS - History of Present Illness Initial comments: [place] is an 87yo F who is brought to the ER via EMS history is provided by family at bedside as the patient is minimally responsive. [facility] the [facility], family is advised to weeks ago that physical therapy would be discontinued due to the patient's declining condition. Patient is DO NOT RESUSCITATE. Patient's been declining since that time. Family reports that she's not been eating or drinking well and for the past day or 2 she shows been laying in bed moaning not responding verbally. Does live at a half-way facility and has had exposure to COVID and influenza. Patient has extensive history over the past few months with recent admissions for bacteremia secondary to infected psoas abscess that POSTOPERATIVELY. - Related Data Home Medications Medication Instructions Recorded Confirmed Cholecalciferol [Vitamin D3 (25 25 mcg PO DAILY 11/15/22 04/13/23 Mcg = 1000 Iu)] Simvastatin [Zocor] 20 mg PO HS 11/15/22 04/13/23 amLODIPine [Norvasc] 2.5 mg PO DAILY 11/15/22 04/13/23 calcitrioL [Calcitriol] 0.25 mcg PO MOTUWETHFR 11/15/22 04/13/23 Ascorbic Acid [Vitamin C] 1,500 mg PO HS 12/20/22 04/13/23 Metoprolol Tartrate [Lopressor] 50 mg PO BID 02/20/23 04/13/23 Multivitamins, Thera [Multivitamin 1 tab PO DAILY 02/20/23 04/13/23 (formulary)] Pantoprazole [Protonix] 40 mg PO BID 02/20/23 04/13/23 Sennosides [Senokot] 8.6 mg PO BID 02/20/23 04/13/23 hydrALAZINE HCL [Apresoline] 100 mg PO BID 02/20/23 04/13/23 sitaGLIPtin [Januvia] 100 mg PO DAILY 02/20/23 04/13/23 Escitalopram [Lexapro] 5 mg PO DAILY 04/13/23 04/13/23 Ferrous Sulfate [Iron (65 MG 325 mg PO HS 04/13/23 04/13/23 Elemental)] Ipratropium-Albuterol Nebulize 3 ml INHALATION RT-Q4H 04/13/23 04/13/23 [Duoneb 0.5 mg-3 mg/3 ml Soln] Lactulose [Cephulac] 30 gm PO DAILY 04/13/23 04/13/23 Levothyroxine Sodium [Synthroid] 175 mcg PO DAILY 04/13/23 04/13/23 Mag Hydrox/Aluminum Hyd/Simeth 30 ml PO Q8H PRN 04/13/23 04/13/23 [Mylanta Maximum Strength Liq] guaiFENesin [guaiFENesin ER] 600 mg PO Q12H 04/13/23 04/13/23 Previous Rx's Medication Instructions Recorded HYDROcodone/APAP 5-325MG [[place] 1 tab PO Q4HR PRN #10 tab 02/27/23 5-325] Pregabalin [Lyrica] 75 mg PO BID #5 cap 02/27/23 Allergies Allergy/AdvReac Type Severity Reaction Status Date / Time baclofen Allergy Swelling Verified 04/13/23 09:45 OF LIPS AND TONGUE cephalexin [From Keflex] Allergy Rash/Hives Verified 04/13/23 09:45 ciprofloxacin [From Cipro] Allergy Rash/Hives Verified 04/13/23 09:45 Penicillins Allergy Rash/Hives Verified 04/13/23 09:45 Sulfa (Sulfonamide Allergy Rash/Hives Verified 04/13/23 09:45 Antibiotics) tizanidine Allergy Swelling Verified 04/13/23 09:45 OF LIPS AND TONGUE Review of Systems ROS Statement: Those systems with pertinent positive or pertinent negative responses have been documented in the HPI. ROS Other: All systems not noted in ROS Statement are negative. Past Medical History Past Medical History: Atrial Fibrillation, Cancer, Hyperlipidemia, Hypertension, Thyroid Disorder Additional Past Medical History / Comment(s): BACK PAIN, SKIN CANCER, L4 fracture History of Any Multi-Drug Resistant Organisms: None Reported Past Surgical History: Appendectomy, Back Surgery, Cholecystectomy, Joint Replacement, Tonsillectomy Additional Past Surgical History / Comment(s): ELYSE TOTAL KNEE SURG, CARPAL TUNNEL, OOPHERECTOMY, SKIN LESION -VAGANIA, RIGHT FOOT SURGERY Past Anesthesia/Blood Transfusion Reactions: No Reported Reaction Past Psychological History: No Psychological Hx Reported Smoking Status: Never smoker Past Alcohol Use History: Occasional Past Drug Use History: None Reported - Past Family History Son(s) Family Medical History: Cancer Additional Family Medical History / Comment(s): SARCOMA General Exam - General Exam Comments Initial Comments: Physical Exam GENERAL: Chronically ill-appearing debilitated elderly female appears dehydrated HENT: Normocephalic, Atraumatic. I mucous membranes EYES: PERRL, EOMI PULMONARY: Unlabored respirations. No audible rales rhonchi or wheezing was noted. CARDIOVASCULAR: Tachycardic regular ABDOMEN: Soft and nontender with normal bowel sounds. SKIN: Sacral decubitus : Deferred NEUROLOGIC: Mumbling normal responses MUSCULOSKELETAL: Normal extremities with adequate strength and full range of motion. No lower extremity swelling or edema. No calf tenderness. PSYCHIATRIC: Unable to assess Course Vital Signs 04/13/23 04/13/23 04/13/23 04:13 05:07 06:27 Temperature 99.3 F 97.8 F Pulse Rate 92 110 H 56 L Respiratory 20 19 17 Rate Blood Pressure 101/70 86/38 90/53 O2 Sat by Pulse 100 97 97 Oximetry 04/13/23 04/13/23 04/13/23 07:57 11:21 14:58 Temperature 98.6 F 98.9 F Pulse Rate 104 H 105 H 132 H Respiratory 20 20 24 Rate Blood Pressure 123/48 88/63 78/42 O2 Sat by Pulse 97 96 94 L Oximetry 04/13/23 04/13/23 04/13/23 15:43 18:35 20:06 Temperature 101.5 F H 100.1 F H Pulse Rate 113 H 128 H 110 H Respiratory 20 22 19 Rate Blood Pressure 103/56 105/57 90/57 O2 Sat by Pulse 96 95 96 Oximetry EKG Findings - EKG Comments: EKG Findings:: G interpreted by me, EKG obtained at 418, rate is 1 if you rhythm is a narrow complex irregularly irregular rhythm with significant movement artifact. There is no obvious ST elevations or depressions however movement and artifact do limited interpretation. Medical Decision Making - Medical Decision Making Was pt. sent in by a medical professional or institution (, PA, PIPE SMOKING MACHINE OFFBEARER, urgent care, hospital, or [facility]...) When possible be specific @ -Yes from [facility] Did you speak to anyone other than the patient for history (EMS, parent, family, police, friend...)? What history was obtained from this source @ Family at bedside Did you review nursing and triage notes (agree or disagree)? Why? @ -I reviewed and agree with nursing and triage notes Were old charts reviewed (outside hosp., previous admission, EMS record, old EKG, old radiological studies, urgent care reports/EKG's, [facility] records)? Report findings @ - Previous notes reviewed Differential Diagnosis (chest pain, altered mental status, abdominal pain women, abdominal pain men, vaginal bleeding, weakness, fever, dyspnea, syncope, headache, dizziness, GI bleed, back pain, seizure, CVA, palpatations, mental health)? @ Differential Altered Mental Status: Hypoglycemia, DKA, hypercapnia, ETOH, overdose, CO poisoning, trauma, myxedema coma, HTN encephalopathy, infection, encephalitis, psychosis, intercranial hemorrhage, hepatic encephalopathy, meningitis, CVA, this is not meant to be an all-inclusive list EKG interpreted by me (3pts min.). @ -As above X-rays interpreted by me (1pt min.). @ pneumonia CT interpreted by me (1pt min.). @ -None done U/S interpreted by me (1pt. min.). @ -None done What testing was considered but not performed or refused? (CT, X-rays, U/S, labs)? Why? @ On What meds were considered but not given or refused? Why? @ -None Did you discuss the management of the patient with other professionals (professionals i.e. , PA, PIPE SMOKING MACHINE OFFBEARER, lab, RT, psych nurse, social service agency director, technical clerk, teacher, event security officer, shoe caser)? Give summary @ -No Was smoking cessation discussed for >3mins.? @ -No Was critical care preformed (if so, how long)? @ -No Were there social determinants of health that impacted care today? How? (Homele ssness, low income, unemployed, alcoholism, drug addiction, transportation, low edu. Level, literacy, decrease access to med. care, retirement, rehab)? @ -No Was there de-escalation of care discussed even if they declined (Discuss DNR or withdrawal of care, Hospice)? DNR status @ Patient is DO NOT RESUSCITATE What co-morbidities impacted this encounter? (DM, HTN, Smoking, COPD, CAD, Cancer, CVA, ARF, Chemo, Hep., AIDS, mental health diagnosis, sleep apnea, morbid obesity)? @ -None Was patient admitted / discharged? Hospital course, mention meds given and route, prescriptions, significant lab abnormalities, going to OR and other pertinent info. @ -Admitted She was seen and evaluated history is obtained from family at bedside and review of medical record. This is a critically ill 87-year-old female who arrives nearly obtunded apparently labs were ordered. X-ray shows possible pneumonia antibiotics were ordered. [facility] pending. Undiagnosed new problem with uncertain prognosis? @ -No Drug Therapy requiring intensive monitoring for toxicity (Heparin, Nitro, Insulin, Cardizem)? @ -No Were any procedures done? @ -No Diagnosis/symptom? @ Altered mental status Acute, or Chronic, or Acute on Chronic? @ -Acute Uncomplicated (without systemic symptoms) or Complicated (systemic symptoms)? @ -default Side effects of treatment? @ -No Exacerbation, Progression, or Severe Exacerbation? @ -No Poses a threat to life or bodily function? How? (Chest pain, [place], MA, pneumonia, PE, COPD, DKA, ARF, appy, cholecystitis, CVA, Diverticulitis, Homicidal, Suicidal, threat to staff... and all critical care pts) @ -Yes Diagnosis/symptom? @ -NSTEMI Acute, or Chronic, or Acute on Chronic? @ ACUTE Uncomplicated (without systemic symptoms) or Complicated (systemic symptoms)? @ -default Side effects of treatment? @ -none Exacerbation, Progression, or Severe Exacerbation] @ -no Poses a threat to life or bodily function? @ YES - Lab Data Result diagrams: 04/13/23 05:01 04/14/23 07:56 Lab Results 04/13/23 04/13/23 04/13/23 Range/Units 04:36 05:01 05:01 WBC 6.1 (3.8-10.6) k/uL RBC 4.38 (3.80-5.40) m/uL Hgb 12.8 (11.4-16.0) gm/dL Hct 41.3 (34.0-46.0) % MCV 94.2 D (80.0-100.0) fL MCH 29.1 (25.0-35.0) pg MCHC 31.0 (31.0-37.0) g/dL RDW 15.7 H (11.5-15.5) % Plt Count 192 (150-450) k/uL MPV 9.2 Neutrophils % (Manual) 73 % Band Neuts % (Manual) 21 % Lymphocytes % (Manual) 2 % Monocytes % (Manual) 4 % Neutrophils # (Manual) 5.70 (1.3-7.7) k/uL Lymphocytes # (Manual) 0.12 L (1.0-4.8) k/uL Monocytes # (Manual) 0.24 (0-1.0) k/uL Nucleated RBCs 0 (0-0) /100 WBC Manual Slide Review Performed Hypochromasia Moderate Poikilocytosis (manual Present PT 11.4 (10.0-12.5) sec INR 1.1 (<1.2) APTT 21.4 L (22.0-30.0) sec Sodium (137-145) mmol/L Potassium (3.5-5.1) mmol/L Chloride (98-107) mmol/L Carbon Dioxide (22-30) mmol/L Anion Gap mmol/L BUN (7-17) mg/dL Creatinine (0.52-1.04) mg/dL Est GFR (CKD-EPI)AfAm (>60 ml/min/1.73 sqM) Est GFR (CKD-EPI)NonAf (>60 ml/min/1.73 sqM) Glucose (74-99) mg/dL POC Glucose (mg/dL) 89 (70-110) mg/dL POC Glu Rehabilitation Worker ID Jhonatan March Calcium (8.4-10.2) mg/dL Total Bilirubin (0.2-1.3) mg/dL AST (14-36) U/L ALT (4-34) U/L Alkaline Phosphatase (38-126) U/L Troponin I (0.000-0.034) ng/mL C-Reactive Protein (<1.0) mg/dL Total Protein (6.3-8.2) g/dL Albumin (3.5-5.0) g/dL Procalcitonin (0.02-0.09) ng/mL Influenza Type A (PCR) (Not Detectd) Influenza Type B (PCR) (Not Detectd) RSV (PCR) (Not Detectd) SARS-CoV-2 (PCR) (Not Detectd) 04/13/23 04/13/23 04/13/23 Range/Units 05:01 05:01 05:01 WBC (3.8-10.6) k/uL RBC (3.80-5.40) m/uL Hgb (11.4-16.0) gm/dL Hct (34.0-46.0) % MCV (80.0-100.0) fL MCH (25.0-35.0) pg MCHC (31.0-37.0) g/dL RDW (11.5-15.5) % Plt Count (150-450) k/uL MPV Neutrophils % (Manual) % Band Neuts % (Manual) % Lymphocytes % (Manual) % Monocytes % (Manual) % Neutrophils # (Manual) (1.3-7.7) k/uL Lymphocytes # (Manual) (1.0-4.8) k/uL Monocytes # (Manual) (0-1.0) k/uL Nucleated RBCs (0-0) /100 WBC Manual Slide Review Hypochromasia Poikilocytosis (manual PT (10.0-12.5) sec INR (<1.2) APTT (22.0-30.0) sec Sodium 143 (137-145) mmol/L Potassium 3.7 (3.5-5.1) mmol/L Chloride 107 (98-107) mmol/L Carbon Dioxide 25 (22-30) mmol/L Anion Gap 11 mmol/L BUN 32 H (7-17) mg/dL Creatinine 0.88 (0.52-1.04) mg/dL Est GFR (CKD-EPI)AfAm 68 (>60 ml/min/1.73 sqM) Est GFR (CKD-EPI)NonAf 59 (>60 ml/min/1.73 sqM) Glucose 97 (74-99) mg/dL POC Glucose (mg/dL) (70-110) mg/dL POC Glu Rehabilitation Worker ID Calcium 8.1 L (8.4-10.2) mg/dL Total Bilirubin 1.4 H (0.2-1.3) mg/dL AST 190 H (14-36) U/L ALT 63 H (4-34) U/L Alkaline Phosphatase 117 (38-126) U/L Troponin I 5.110 H* (0.000-0.034) ng/mL C-Reactive Protein 44.9 H (<1.0) mg/dL Total Protein 5.4 L (6.3-8.2) g/dL Albumin 2.4 L (3.5-5.0) g/dL Procalcitonin (0.02-0.09) ng/mL Influenza Type A (PCR) (Not Detectd) Influenza Type B (PCR) (Not Detectd) RSV (PCR) (Not Detectd) SARS-CoV-2 (PCR) (Not Detectd) 04/13/23 04/13/23 Range/Units 05:01 07:56 WBC (3.8-10.6) k/uL RBC (3.80-5.40) m/uL Hgb (11.4-16.0) gm/dL Hct (34.0-46.0) % MCV (80.0-100.0) fL MCH (25.0-35.0) pg MCHC (31.0-37.0) g/dL RDW (11.5-15.5) % Plt Count (150-450) k/uL MPV Neutrophils % (Manual) % Band Neuts % (Manual) % Lymphocytes % (Manual) % Monocytes % (Manual) % Neutrophils # (Manual) (1.3-7.7) k/uL Lymphocytes # (Manual) (1.0-4.8) k/uL Monocytes # (Manual) (0-1.0) k/uL Nucleated RBCs (0-0) /100 WBC Manual Slide Review Hypochromasia Poikilocytosis (manual PT (10.0-12.5) sec INR (<1.2) APTT (22.0-30.0) sec Sodium (137-145) mmol/L Potassium (3.5-5.1) mmol/L Chloride (98-107) mmol/L Carbon Dioxide (22-30) mmol/L Anion Gap mmol/L BUN (7-17) mg/dL Creatinine (0.52-1.04) mg/dL Est GFR (CKD-EPI)AfAm (>60 ml/min/1.73 sqM) Est GFR (CKD-EPI)NonAf (>60 ml/min/1.73 sqM) Glucose (74-99) mg/dL POC Glucose (mg/dL) (70-110) mg/dL POC Glu Rehabilitation Worker ID Calcium (8.4-10.2) mg/dL Total Bilirubin (0.2-1.3) mg/dL AST (14-36) U/L ALT (4-34) U/L Alkaline Phosphatase (38-126) U/L Troponin I (0.000-0.034) ng/mL C-Reactive Protein (<1.0) mg/dL Total Protein (6.3-8.2) g/dL Albumin (3.5-5.0) g/dL Procalcitonin 2.21 H (0.02-0.09) ng/mL Influenza Type A (PCR) Not Detected (Not Detectd) Influenza Type B (PCR) Not Detected (Not Detectd) RSV (PCR) Not Detected (Not Detectd) SARS-CoV-2 (PCR) Detected A (Not Detectd) Disposition Clinical Impression: Altered mental status, Pneumonia, NSTEMI (non-ST elevated myocardial infarction) Disposition: ADMITTED IP TO THIS HOSP Condition: Critical
[2023-04-13 05:06] LABS: HCT 41.3 % (34.0-46.0); HGB 12.8 gm/dL (11.4-16.0); Hypochromasia Moderate; MCH 29.1 pg (25.0-35.0); Mean Platelet Volume 9.2; Platelet Count 192 k/uL (150-450); RBC 4.38 m/uL (3.80-5.40); RDW 15.7 % (11.5-15.5); WBC 6.1 k/uL (3.8-10.6)
[2023-04-13 05:18] LABS: MCV 94.2 fL (80.0-100.0)
[2023-04-13 05:21] LABS: INR 1.1 (<1.2); Prothrombin Time 11.4 sec (10.0-12.5)
[2023-04-13 05:36] LABS: Partial Thromboplastin Time 21.4 sec (22.0-30.0)
[2023-04-13 07:27] LABS: Band Neutrophils % 21 %; Lymphocytes # (M) 0.12 k/uL (1.0-4.8); Monocytes # (M) 0.24 k/uL (0-1.0); Neutrophils % (M) 73 %; Nucleated Red Blood Cells 0 /100 WBC (0-0); Total Cells Counted 100
[2023-04-13 07:28] LABS: Poikilocytosis (M) Present
--- NOTE | 2023-04-13 07:43 | XR ---
EXAMINATION TYPE: XR chest 1V DATE OF EXAM: 04/13/2023 COMPARISON: 12/20/2022 HISTORY: 79 year-old female altered mental status, confusion TECHNIQUE: Single frontal view of the chest is obtained. FINDINGS: Portable exam further limited by lordotic positioning. Also by patient rotation. Heart appears border line in size. Hazy lung densities may reflect small layering effusion on the right or could be due to overlying soft tissue. Left basilar opacity is noted. Apical scarring calcifications throughout the aorta. Advanced degenerative change right shoulder. IMPRESSION: 1. Portable exam further limited by lordotic positioning and leftward rotation. Differential density over the right hemithorax could reflect a small layering effusion or could be due to the above-[place] limitations. 2. There appears to be some left basilar and retrocardiac atelectasis and/or consolidation.
[2023-04-13] MEDS ORDERED: NALOXONE 0.4 MG/ML 1 ML VIAL IV PRN (08:37)
[2023-04-13] MEDS ORDERED: ACETAMINOPHEN TAB 325 MG TAB PO PRN (08:37)
[2023-04-13] MEDS ORDERED: cefTRIAXone IN SWFI 1,000 MG/10 ML SYRINGE IVP SCH (09:00)
[2023-04-13 09:03] LABS: ALT 63 U/L (4-34); AST 190 U/L (14-36); African American GFR (CKD) 68 (>60 ml/min/1.73 sqM); Albumin 2.4 g/dL (3.5-5.0); Alkaline Phosphatase 117 U/L (38-126); Anion Gap 11 mmol/L; Blood Urea Nitrogen 32 mg/dL (7-17); Calcium 8.1 mg/dL (8.4-10.2); Carbon Dioxide 25 mmol/L (22-30); Chloride 107 mmol/L (98-107); Glucose 97 mg/dL (74-99); Non-African American GFR(CKD) 59 (>60 ml/min/1.73 sqM); Potassium 3.7 mmol/L (3.5-5.1); Sodium 143 mmol/L (137-145); Total Bilirubin 1.4 mg/dL (0.2-1.3); Total Protein 5.4 g/dL (6.3-8.2)
[2023-04-13] MEDS: AZITHROMYCIN 500 MG in SODIUM CHLORIDE 0.9% 250 ML IVPB SCH (09:54)
[2023-04-13] MEDS: SODIUM CHLORIDE 0.9% 1,000 ML IV SCH ×2 (09:54→16:31)
[2023-04-13] MEDS ORDERED: MORPHINE SULFATE 2 MG/ML SYRINGE IVP STA ×2 (10:09→14:39)
--- NOTE | 2023-04-13 14:19 | P.CRDCN ---
History of Present Illness History of present illness: HISTORY OF PRESENT ILLNESS: This is a 87-year-old female with a past medical history significant for persistent atrial fibrillation, GI bleeding, hyperlipidemia, and hypertension. Patient follows in the office with Dr. Barksdale. We have been asked to see the patient in consultation for abnormal troponins. Patient examined at the bedside in the emergency room. Patient is lethargic and unable to provide much history at the time of examination. Patient's daughter is present at the bedside. Patient was brought to the hospital secondary to altered mental status and hypoxia at her retirement. According to the ER documentation, the patient has been declining over the past few weeks at the retirement and is no longer receiving physical therapy due to her decline. She is also not been eating or drinking much per the patient's daughter. The patient was found to be positive for Covid. At the time of examination, the patient denies chest pain or pressure. Denies shortness of breath. Telemetry reveals atrial fibrillation with RVR with heart rate ranging between [id number] at the time of examination. Patient's blood pressure is also low with a systolic in the 70s. * EKG reveals atrial fibrillation with a heart rate of 102. * Chest xray there appears to be some left basilar and retrocardiac atelectasis and/or consolidation * Laboratory data: WBC 6.1. Hemoglobin 12.8. Platelet count 192. Sodium 143. Potassium 3.7. BUN 32. Creatinine 0.88. Troponin 5.110. * Current home cardiac medications include simvastatin 20 mg at night, amlodipine 2.5 mg daily, metoprolol titrate 50 mg twice a day, hydralazine 100 mg twice a day * Most recent echocardiogram obtained in February 2023 revealed ejection fraction 55-60%, mild pulmonary hypertension, mild to moderate mitral regurgitation, moderate tricuspid regurgitation * Patient underwent Sherrie scan stress test in September 2021 which was negative for ischemia REVIEW OF SYSTEMS: At the time of my exam: Unable to obtain thorough of systems secondary to altered mental status PHYSICAL EXAM: VITAL SIGNS: Reviewed. GENERAL: Well-developed in no acute distress. HEENT: Head is normocephalic. Pupils are equal, round. Sclerae anicteric. Mucous membranes of the mouth are moist. Neck supple. No JVD or thyromegaly LUNGS: Respirations even and unlabored. Lungs essentially clear to auscultation bilaterally. HEART: Tachycardic. Irregular rate and rhythm. S1 and S2 heard. ABDOMEN: Soft. Nondistended. Nontender. EXTREMITIES: Normal range of motion. No clubbing or cyanosis. Peripheral pulses intact. No lower extremity edema NEUROLOGIC: Lethargic ASSESSMENT: Altered mental status Acute hypoxic respiratory failure Acute Covid 19 Non-STEMI Persistent atrial fibrillation with RVR, not on anticoagulation outpatient secondary to GI bleeding Hypotension History of GI bleeding History of hypertension History of hyperlipidemia Recent left psoas muscle fluid collection, status post CT guided drainage tube, February 2023 PLAN: Obtain 2D echo to assess cardiac structure and function Patient unable to take any oral medications due to altered mental status/lethargy No IV heparin at this time secondary to patient condition Patient is not a candidate for any invasive procedures at this time Recommend comfort care/palliative care due to patients current condition and recent decline Further recommendations pending patient course Nurse practitioner note has been reviewed by physician. Signing provider agrees with the documented findings, assessment, and plan of care. Past Medical History Past Medical History: Atrial Fibrillation, Cancer, Hyperlipidemia, Hypertension, Thyroid Disorder Additional Past Medical History / Comment(s): BACK PAIN, SKIN CANCER, L4 fracture History of Any Multi-Drug Resistant Organisms: None Reported Past Surgical History: Appendectomy, Back Surgery, Cholecystectomy, Joint Replacement, Tonsillectomy Additional Past Surgical History / Comment(s): ELYSE TOTAL KNEE SURG, CARPAL TUNNEL, OOPHERECTOMY, SKIN LESION -VAGANIA, RIGHT FOOT SURGERY Past Anesthesia/Blood Transfusion Reactions: No Reported Reaction Past Psychological History: No Psychological Hx Reported Smoking Status: Never smoker Past Alcohol Use History: Occasional Past Drug Use History: None Reported - Past Family History Son(s) Family Medical History: Cancer Additional Family Medical History / Comment(s): SARCOMA Medications and Allergies Home Medications Medication Instructions Recorded Confirmed Type Cholecalciferol [Vitamin D3 (25 25 mcg PO DAILY 11/15/22 04/13/23 History Mcg = 1000 Iu)] Simvastatin [Zocor] 20 mg PO HS 11/15/22 04/13/23 History amLODIPine [Norvasc] 2.5 mg PO DAILY 11/15/22 04/13/23 History calcitrioL [Calcitriol] 0.25 mcg PO MOTUWETHFR 11/15/22 04/13/23 History Ascorbic Acid [Vitamin C] 1,500 mg PO HS 12/20/22 04/13/23 History Metoprolol Tartrate [Lopressor] 50 mg PO BID 02/20/23 04/13/23 History Multivitamins, Thera [Multivitamin 1 tab PO DAILY 02/20/23 04/13/23 History (formulary)] Pantoprazole [Protonix] 40 mg PO BID 02/20/23 04/13/23 History Sennosides [Senokot] 8.6 mg PO BID 02/20/23 04/13/23 History hydrALAZINE HCL [Apresoline] 100 mg PO BID 02/20/23 04/13/23 History sitaGLIPtin [Januvia] 100 mg PO DAILY 02/20/23 04/13/23 History HYDROcodone/APAP 5-325MG [[place] 1 tab PO Q4HR PRN #10 tab 02/27/23 04/13/23 Rx 5-325] Pregabalin [Lyrica] 75 mg PO BID #5 cap 02/27/23 04/13/23 Rx Escitalopram [Lexapro] 5 mg PO DAILY 04/13/23 04/13/23 History Ferrous Sulfate [Iron (65 MG 325 mg PO HS 04/13/23 04/13/23 History Elemental)] Ipratropium-Albuterol Nebulize 3 ml INHALATION RT-Q4H 04/13/23 04/13/23 History [Duoneb 0.5 mg-3 mg/3 ml Soln] Lactulose [Cephulac] 30 gm PO DAILY 04/13/23 04/13/23 History Levothyroxine Sodium [Synthroid] 175 mcg PO DAILY 04/13/23 04/13/23 History Mag Hydrox/Aluminum Hyd/Simeth 30 ml PO Q8H PRN 04/13/23 04/13/23 History [Mylanta Maximum Strength Liq] guaiFENesin [guaiFENesin ER] 600 mg PO Q12H 04/13/23 04/13/23 History Allergies Allergy/AdvReac Type Severity Reaction Status Date / Time baclofen Allergy Swelling Verified 04/13/23 09:45 OF LIPS AND TONGUE cephalexin [From Keflex] Allergy Rash/Hives Verified 04/13/23 09:45 ciprofloxacin [From Cipro] Allergy Rash/Hives Verified 04/13/23 09:45 Penicillins Allergy Rash/Hives Verified 04/13/23 09:45 Sulfa (Sulfonamide Allergy Rash/Hives Verified 04/13/23 09:45 Antibiotics) tizanidine Allergy Swelling Verified 04/13/23 09:45 OF LIPS AND TONGUE Physical Exam Vitals: Vital Signs Temp Pulse Resp BP Pulse Ox 04/13/23 11:21 98.6 F 105 H 20 88/63 96 04/13/23 07:57 104 H 20 123/48 97 04/13/23 06:27 97.8 F 56 L 17 90/53 97 04/13/23 05:07 110 H 19 86/38 97 04/13/23 04:13 99.3 F 92 20 101/70 100 Intake and Output 04/12/23 04/13/23 04/13/23 22:59 06:59 14:59 Other: Weight 56.699 kg Results 04/13/23 05:01 04/13/23 05:01 Cardiac Enzymes 04/13/23 04/13/23 Range/Units 05:01 05:01 AST 190 H (14-36) U/L Troponin I 5.110 H* (0.000-0.034) ng/mL Coagulation 04/13/23 Range/Units 05:01 PT 11.4 (10.0-12.5) sec APTT 21.4 L (22.0-30.0) sec CBC 04/13/23 Range/Units 05:01 WBC 6.1 (3.8-10.6) k/uL RBC 4.38 (3.80-5.40) m/uL Hgb 12.8 (11.4-16.0) gm/dL Hct 41.3 (34.0-46.0) % Plt Count 192 (150-450) k/uL Comprehensive Metabolic Panel 04/13/23 Range/Units 05:01 Sodium 143 (137-145) mmol/L Potassium 3.7 (3.5-5.1) mmol/L Chloride 107 (98-107) mmol/L Carbon Dioxide 25 (22-30) mmol/L BUN 32 H (7-17) mg/dL Creatinine 0.88 (0.52-1.04) mg/dL Glucose 97 (74-99) mg/dL Calcium 8.1 L (8.4-10.2) mg/dL AST 190 H (14-36) U/L ALT 63 H (4-34) U/L Alkaline Phosphatase 117 (38-126) U/L Total Protein 5.4 L (6.3-8.2) g/dL Albumin 2.4 L (3.5-5.0) g/dL Current Medications Generic Name Dose Route Start Last Admin Trade Name Freq PRN Reason Stop Dose Admin Acetaminophen 650 mg 04/13/23 08:37 Acetaminophen Tab 325 Mg Tab PO Q6HR PRN Mild Pain or Fever > 100.5 Ceftriaxone Sodium 1,000 mg 04/13/23 09:00 04/13/23 09:54 Ceftriaxone In Swfi 1,000 Mg/10 Ml Syringe IVP 1,000 mg DAILY NITHYA Administration Protocol Azithromycin 500 mg/ Sodium 250 mls @ 250 mls/hr 04/13/23 09:00 04/13/23 09:54 Chloride IVPB 04/15/23 09:59 250 mls/hr DAILY NITHYA Administration Protocol Sodium Chloride 1,000 mls @ 75 mls/hr 04/13/23 08:45 04/13/23 09:54 Saline 0.9% IV 75 mls/hr .[id number] NITHYA Administration Naloxone HCl 0.2 mg 04/13/23 08:37 Naloxone 0.4 Mg/Ml 1 Ml Vial IV Q2M PRN Opioid Reversal Intake and Output 04/12/23 04/13/23 04/13/23 22:59 06:59 14:59 Other: Weight 56.699 kg 04/13/23 05:01 04/13/23 05:01
[2023-04-13] MEDS ORDERED: SODIUM CHLORIDE 0.9% 250 ML IV ONE (14:30)
[2023-04-13] MEDS: SODIUM CHLORIDE 0.9% 250 ML IV SCH ×5 (14:57→18:54)
--- NOTE | 2023-04-13 14:58 | P.HPIM ---
History of Present Illness H&P Date: 04/13/23 This is a 87-year-old female who presented to the emergency department with increased shortness of breath with weakness and lethargy and had not been eating since Monday. Patient was tested positive for Covid and is currently maintained on 3 L of oxygen via nasal cannula. Patient does not normally wear oxygen outpatient. Patient also having elevated troponin of 5.110 and have consulted cardiology for further evaluation. Patient is a Dr. Slaughter patient in the outpatient setting although has been being followed by Dr. Beckford at [facility] since her back surgery in November. Patient has had numerous complications including bacteremia and multiple hospitalizations and steady de handy over the past few weeks. Patient has been progressively become more weak with significant muscle wasting and difficulty ambulating and was receiving physical therapy at the [facility] although they have stopped due to her decline. Patient's daughters at the bedside reports she was at a [employer] democrat last week and doing well and had been showing some improvements other than her left lower extremity being severely weak making it difficult to ambulate and work with physical therapy but has been rapidly declining since Monday and progressively getting worse. Patient does have a significant past medical history of atrial fibrillation, hyperlipidemia, hypertension, skin cancer, back pain, thyroid disorder, hyperlipidemia, hypothyroidism and recent back surgery for L4 fracture with psoas muscle hematoma and recent bacteremia. Patient was initiated on antibiotics in the ER and admitted for COVID-19 with weakness and dehydration. Review Of Systems: Constitutional: No fever, no chills, no night sweats. No weight change. No weakness, fatigue or lethargy. No daytime sleepiness. EENT: No headache. No blurred vision or double vision, no loss of vision. No loss of Hearing, no ringing in the ears, no dizziness. No nasal drainage or congestion. No epistaxis. No sore throat. Lungs: No shortness of breath, cough, no sputum production. No wheezing. Cardiovascular: No chest pain, no lower extremity edema. No palpitations. No paroxysmal nocturnal dyspnea. No orthopnea. No lightheadedness or dizziness. No syncopal episodes. Abdominal: No abdominal pain. No nausea, vomiting. No diarrhea. No constipation. No bloody or tarry stools.. No loss of appetite. Genitourinary: No dysuria, increased frequency, urgency. No urinary retention. Musculoskeletal: No myalgias. No muscle weakness, no gait dysfunction, no frequent falls. No back pain. No neck pain. Integumentary: No wounds, no lesions. No rash or pruritus. No unusual bruising. No change in hair or nails. Neurologic: No aphasia. No facial droop. No change in mentation. No head injury. No headache. No paralysis. No paresthesia. Psychiatric: No depression. No anxiety. No mood swings. Endocrine: No abnormal blood sugars. No weight change. No excessive sweating or thirst. No cold intolerance. PHYSICAL EXAMINATION: GENERAL: The patient is alert and oriented x4, Well developed, well nourished. HEENT: Pupils are round and equally reacting to light. EOMI. no scleral icterus. No conjunctival pallor. Normocephalic, atraumatic. No pharyngeal erythema. No thyromegaly. CARDIOVASCULAR: S1 and S2 muffled PULMONARY: diminished breath sounds bilaterally with no wheezing or rhonchi noted. ABDOMEN: soft. Nontender on exam. obese. non-distended, normoactive bowel sounds. No palpable organomegaly. MUSCULOSKELETAL: No joint swelling or deformity. EXTREMITIES: No cyanosis, clubbing, or pedal edema. NEUROLOGICAL: Gross neurological examination did not reveal any focal deficits. Diffuse weakness SKIN: No rashes. Assessment: Acute COVID-19 with acute hypoxic respiratory failure, currently on 3 L Acute metabolic encephalopathy likely secondary to dehydration and poor oral intake NSTEMI Atrial fibrillation with rapid ventricular rate with history of persistent A. fib not on anticoagulation given patient's age and risk factors History of hypertension, currently hypotensive and hypovolemic History of GI bleeding Hyperlipidemia Hypothyroidism Chronic back pain with recent L4 fracture repair in November 2022 with left psoas muscle hematoma with drainage placement GI prophylaxis DVT prophylaxis Full code Plan: Recommend to continue with current medications and management and supportive care Cardiology was consulted for elevated troponin of 5 with NSTEMI Patient continues to have uncontrolled heart rate and rhythm in atrial fibrillation with RVR although blood pressure is extremely low and will give a 500 mL fluid bolus. Patient is too lethargic and unresponsive to take oral medications Patient's CODE STATUS was addressed and patient does have paperwork and is no code per daughters at bedside Infectious disease also consulted as patient recently had bacteremia on follow-u p with her outpatient and has also COVID-19 Overall prognosis is extremely poor and guarded and discussed with family at bedside if patient continues to deteriorate will consider possible hospice in [facility] the patient comfortable The impression and plan of care has been dictated by Jyoti Pereyra, nurse practitioner as directed. Dr. Gil MD I have performed a history and examination and MDM of this patient, discussed the same with the dictator, and agree with the dictator's assessment and plan as written ,documented as a scribe. Based on total visit time, I have performed more than 50% of the visit. Any additional findings or plans will be noted. Past Medical History Past Medical History: Atrial Fibrillation, Cancer, Hyperlipidemia, Hypertension, Thyroid Disorder Additional Past Medical History / Comment(s): BACK PAIN, SKIN CANCER, L4 fracture History of Any Multi-Drug Resistant Organisms: None Reported Past Surgical History: Appendectomy, Back Surgery, Cholecystectomy, Joint Replacement, Tonsillectomy Additional Past Surgical History / Comment(s): ELYSE TOTAL KNEE SURG, CARPAL TUNNEL, OOPHERECTOMY, SKIN LESION -VAGANIA, RIGHT FOOT SURGERY Past Anesthesia/Blood Transfusion Reactions: No Reported Reaction Past Psychological History: No Psychological Hx Reported Smoking Status: Never smoker Past Alcohol Use History: Occasional Past Drug Use History: None Reported - Past Family History Son(s) Family Medical History: Cancer Additional Family Medical History / Comment(s): SARCOMA Medications and Allergies Home Medications Medication Instructions Recorded Confirmed Type Cholecalciferol [Vitamin D3 (25 25 mcg PO DAILY 11/15/22 04/13/23 History Mcg = 1000 Iu)] Simvastatin [Zocor] 20 mg PO HS 11/15/22 04/13/23 History amLODIPine [Norvasc] 2.5 mg PO DAILY 11/15/22 04/13/23 History calcitrioL [Calcitriol] 0.25 mcg PO MOTUWETHFR 11/15/22 04/13/23 History Ascorbic Acid [Vitamin C] 1,500 mg PO HS 12/20/22 04/13/23 History Metoprolol Tartrate [Lopressor] 50 mg PO BID 02/20/23 04/13/23 History Multivitamins, Thera [Multivitamin 1 tab PO DAILY 02/20/23 04/13/23 History (formulary)] Pantoprazole [Protonix] 40 mg PO BID 02/20/23 04/13/23 History Sennosides [Senokot] 8.6 mg PO BID 02/20/23 04/13/23 History hydrALAZINE HCL [Apresoline] 100 mg PO BID 02/20/23 04/13/23 History sitaGLIPtin [Januvia] 100 mg PO DAILY 02/20/23 04/13/23 History HYDROcodone/APAP 5-325MG [[place] 1 tab PO Q4HR PRN #10 tab 02/27/23 04/13/23 Rx 5-325] Pregabalin [Lyrica] 75 mg PO BID #5 cap 02/27/23 04/13/23 Rx Escitalopram [Lexapro] 5 mg PO DAILY 04/13/23 04/13/23 History Ferrous Sulfate [Iron (65 MG 325 mg PO HS 04/13/23 04/13/23 History Elemental)] Ipratropium-Albuterol Nebulize 3 ml INHALATION RT-Q4H 04/13/23 04/13/23 History [Duoneb 0.5 mg-3 mg/3 ml Soln] Lactulose [Cephulac] 30 gm PO DAILY 04/13/23 04/13/23 History Levothyroxine Sodium [Synthroid] 175 mcg PO DAILY 04/13/23 04/13/23 History Mag Hydrox/Aluminum Hyd/Simeth 30 ml PO Q8H PRN 04/13/23 04/13/23 History [Mylanta Maximum Strength Liq] guaiFENesin [guaiFENesin ER] 600 mg PO Q12H 04/13/23 04/13/23 History Allergies Allergy/AdvReac Type Severity Reaction Status Date / Time baclofen Allergy Swelling Verified 04/13/23 09:45 OF LIPS AND TONGUE cephalexin [From Keflex] Allergy Rash/Hives Verified 04/13/23 09:45 ciprofloxacin [From Cipro] Allergy Rash/Hives Verified 04/13/23 09:45 Penicillins Allergy Rash/Hives Verified 04/13/23 09:45 Sulfa (Sulfonamide Allergy Rash/Hives Verified 04/13/23 09:45 Antibiotics) tizanidine Allergy Swelling Verified 04/13/23 09:45 OF LIPS AND TONGUE Physical Exam Vitals: Vital Signs Temp Pulse Resp BP Pulse Ox 04/13/23 07:57 104 H 20 123/48 97 04/13/23 06:27 97.8 F 56 L 17 90/53 97 04/13/23 05:07 110 H 19 86/38 97 04/13/23 04:13 99.3 F 92 20 101/70 100 Intake and Output 04/12/23 04/13/23 04/13/23 22:59 06:59 14:59 Other: Weight 56.699 kg Results CBC & Chem 7: 04/13/23 05:01 04/13/23 05:01 Labs: Abnormal Lab Results - Last 24 Hours (Table) 04/13/23 04/13/23 04/13/23 Range/Units 05:01 05:01 05:01 RDW 15.7 H (11.5-15.5) % Lymphocytes # (Manual) 0.12 L (1.0-4.8) k/uL APTT 21.4 L (22.0-30.0) sec BUN 32 H (7-17) mg/dL Calcium 8.1 L (8.4-10.2) mg/dL Total Bilirubin 1.4 H (0.2-1.3) mg/dL AST 190 H (14-36) U/L ALT 63 H (4-34) U/L Troponin I (0.000-0.034) ng/mL Total Protein 5.4 L (6.3-8.2) g/dL Albumin 2.4 L (3.5-5.0) g/dL SARS-CoV-2 (PCR) (Not Detectd) 04/13/23 04/13/23 Range/Units 05:01 07:56 RDW (11.5-15.5) % Lymphocytes # (Manual) (1.0-4.8) k/uL APTT (22.0-30.0) sec BUN (7-17) mg/dL Calcium (8.4-10.2) mg/dL Total Bilirubin (0.2-1.3) mg/dL AST (14-36) U/L ALT (4-34) U/L Troponin I 5.110 H* (0.000-0.034) ng/mL Total Protein (6.3-8.2) g/dL Albumin (3.5-5.0) g/dL SARS-CoV-2 (PCR) Detected A (Not Detectd) Thrombosis Risk Factor Assmnt - DVT/VTE Prophylaxis DVT/VTE Prophylaxis: Contraindicated - See note Assessment and Plan Time with Patient: Greater than 30
[2023-04-13] MEDS ORDERED: ACETAMINOPHEN IV (For NPO) 1,000 MG in EMPTY BAG 1 BAG IVPB STA (19:00)
[2023-04-13] MEDS ORDERED: MAG HYDROX/AL HYDROX/SIMETH 30 ML CUP PO PRN (21:58)
[2023-04-13] MEDS: guaiFENesin 600 MG TABLET.ER PO SCH (22:08)
[2023-04-13] MEDS: HYDROcodone/APAP 5-325MG 1 EACH TAB PO PRN (22:09)
[2023-04-13] MEDS: METOPROLOL TARTRATE 50 MG TAB PO SCH (22:22)
--- NOTE | 2023-04-13 23:00 | P.CONS ---
History of Present Illness - Reason for Consult Consult date: 04/13/23 - History of Present Illness Patient is a 87-year-old female with a past medical history significant for hypertension hyperlipidemia skin cancer atrial fibrillation recent multiple admission to the hospital initially with L4 vertebral fracture s/p surgical stabilization on 11/19/2022 subsequently did have E. coli bacteremia and was concern for possible left psoas infected hematoma/abscess completed course of IV antibiotic therapy with repeat CAT scan continue to show evidence of hematoma s/p repeat CT aspiration that was negative subsequently antibiotic were discontinued and the patient was sent back to the residential for rehabilitation patient has been brought into the ER by EMS as the patient becoming more weaker and minimally responsive apparently the patient seem to have been getting worse over the last few days and the patient oral intake has decreased patient has developed a cough which is mild to moderate intensity but not bring up any sputum no choking on the food Or vomiting no abdominal pain or any diarrhea with the symptoms the patient was evaluated on presentation to the hospital patient did have a low-grade fever of 99.3 F patient was tachycardic mildly hypotensive and hypoxic requiring supplemental oxygen patient tested positive for COVID-19 influenza RSV was negative patient did have a white count of 6.1 from lymphopenia no left shift creatinine was normal there was evidence of mildly elevated chest x-ray with some retrocardiac infiltrate concerning for possible infiltrate/pneumonia patient was started on Rocephin and Zithromax infectious disease was consulted for further management of antibiotic therapy most information has been obtained from review the chart talking to the family as the patient lethargic cannot provide reliable history Past Medical History Past Medical History: Atrial Fibrillation, Cancer, Hyperlipidemia, Hypertension, Thyroid Disorder Additional Past Medical History / Comment(s): BACK PAIN, SKIN CANCER, L4 fracture History of Any Multi-Drug Resistant Organisms: None Reported Past Surgical History: Appendectomy, Back Surgery, Cholecystectomy, Joint Replacement, Tonsillectomy Additional Past Surgical History / Comment(s): ELYSE TOTAL KNEE SURG, CARPAL TUNNEL, OOPHERECTOMY, SKIN LESION -VAGANIA, RIGHT FOOT SURGERY Past Anesthesia/Blood Transfusion Reactions: No Reported Reaction Past Psychological History: No Psychological Hx Reported Smoking Status: Never smoker Past Alcohol Use History: Occasional Past Drug Use History: None Reported - Past Family History Son(s) Family Medical History: Cancer Additional Family Medical History / Comment(s): SARCOMA Medications and Allergies Home Medications Medication Instructions Recorded Confirmed Type Cholecalciferol [Vitamin D3 (25 25 mcg PO DAILY 11/15/22 04/13/23 History Mcg = 1000 Iu)] Simvastatin [Zocor] 20 mg PO HS 11/15/22 04/13/23 History amLODIPine [Norvasc] 2.5 mg PO DAILY 11/15/22 04/13/23 History calcitrioL [Calcitriol] 0.25 mcg PO MOTUWETHFR 11/15/22 04/13/23 History Ascorbic Acid [Vitamin C] 1,500 mg PO HS 12/20/22 04/13/23 History Metoprolol Tartrate [Lopressor] 50 mg PO BID 02/20/23 04/13/23 History Multivitamins, Thera [Multivitamin 1 tab PO DAILY 02/20/23 04/13/23 History (formulary)] Pantoprazole [Protonix] 40 mg PO BID 02/20/23 04/13/23 History Sennosides [Senokot] 8.6 mg PO BID 02/20/23 04/13/23 History hydrALAZINE HCL [Apresoline] 100 mg PO BID 02/20/23 04/13/23 History sitaGLIPtin [Januvia] 100 mg PO DAILY 02/20/23 04/13/23 History HYDROcodone/APAP 5-325MG [[place] 1 tab PO Q4HR PRN #10 tab 02/27/23 04/13/23 Rx 5-325] Pregabalin [Lyrica] 75 mg PO BID #5 cap 02/27/23 04/13/23 Rx Escitalopram [Lexapro] 5 mg PO DAILY 04/13/23 04/13/23 History Ferrous Sulfate [Iron (65 MG 325 mg PO HS 04/13/23 04/13/23 History Elemental)] Ipratropium-Albuterol Nebulize 3 ml INHALATION RT-Q4H 04/13/23 04/13/23 History [Duoneb 0.5 mg-3 mg/3 ml Soln] Lactulose [Cephulac] 30 gm PO DAILY 04/13/23 04/13/23 History Levothyroxine Sodium [Synthroid] 175 mcg PO DAILY 04/13/23 04/13/23 History Mag Hydrox/Aluminum Hyd/Simeth 30 ml PO Q8H PRN 04/13/23 04/13/23 History [Mylanta Maximum Strength Liq] guaiFENesin [guaiFENesin ER] 600 mg PO Q12H 04/13/23 04/13/23 History Allergies Allergy/AdvReac Type Severity Reaction Status Date / Time baclofen Allergy Swelling Verified 04/13/23 09:45 OF LIPS AND TONGUE cephalexin [From Keflex] Allergy Rash/Hives Verified 04/13/23 09:45 ciprofloxacin [From Cipro] Allergy Rash/Hives Verified 04/13/23 09:45 Penicillins Allergy Rash/Hives Verified 04/13/23 09:45 Sulfa (Sulfonamide Allergy Rash/Hives Verified 04/13/23 09:45 Antibiotics) tizanidine Allergy Swelling Verified 04/13/23 09:45 OF LIPS AND TONGUE Physical Exam Vitals: Vital Signs Temp Pulse Resp BP Pulse Ox 04/13/23 11:21 98.6 F 105 H 20 88/63 96 04/13/23 07:57 104 H 20 123/48 97 04/13/23 06:27 97.8 F 56 L 17 90/53 97 04/13/23 05:07 110 H 19 86/38 97 04/13/23 04:13 99.3 F 92 20 101/70 100 Intake and Output 04/12/23 04/13/23 04/13/23 22:59 06:59 14:59 Other: Weight 56.699 kg Results CBC & Chem 7: 04/14/23 07:56 04/14/23 07:56 Labs: Abnormal Lab Results - Last 24 Hours (Table) 04/13/23 04/13/23 04/13/23 Range/Units 05:01 05:01 05:01 RDW 15.7 H (11.5-15.5) % Lymphocytes # (Manual) 0.12 L (1.0-4.8) k/uL APTT 21.4 L (22.0-30.0) sec BUN 32 H (7-17) mg/dL Calcium 8.1 L (8.4-10.2) mg/dL Total Bilirubin 1.4 H (0.2-1.3) mg/dL AST 190 H (14-36) U/L ALT 63 H (4-34) U/L Troponin I (0.000-0.034) ng/mL Total Protein 5.4 L (6.3-8.2) g/dL Albumin 2.4 L (3.5-5.0) g/dL SARS-CoV-2 (PCR) (Not Detectd) 04/13/23 04/13/23 Range/Units 05:01 07:56 RDW (11.5-15.5) % Lymphocytes # (Manual) (1.0-4.8) k/uL APTT (22.0-30.0) sec BUN (7-17) mg/dL Calcium (8.4-10.2) mg/dL Total Bilirubin (0.2-1.3) mg/dL AST (14-36) U/L ALT (4-34) U/L Troponin I 5.110 H* (0.000-0.034) ng/mL Total Protein (6.3-8.2) g/dL Albumin (3.5-5.0) g/dL SARS-CoV-2 (PCR) Detected A (Not Detectd) Assessment and Plan Plan: 1-Patient is a 87-year female presented to hospital with weakness patient did have low-grade fever hypertension concerning for sepsis in this patient who tested positive for COVID-19 and a question of possible secondary bacterial pneumonia, patient also noticed to have elevated liver enzymes underlying abdominal etiology needs to rule out 2-patient with multiple antibiotic ALLERGIES that would limit the number of antibiotic safe to use 3-we will obtain a CRP procalcitonin sputum for Gram stain culture and check an ultrasound of the liver and gallbladder area 4-adjust antibiotic to cefepime 2 g every 8 hours continue with azithromycin We will follow on clinical condition and cultures to further adjust medication if needed Thank you for this consultation we will follow the patient along with you Dictation was produced using [employer] dictation software. please excuse any grammatical, word or spelling errors. Time with Patient: Greater than 30
[2023-04-14] MEDS ORDERED: IPRATROPIUM-ALBUTEROL 3 ML NEB INHALATION SCH
[2023-04-14] MEDS: CEFEPIME 2 GM in SODIUM CHLORIDE 0.9% 100 ML IVPB SCH ×2 (00:31→10:21)
[2023-04-14] MEDS: ALBUTEROL HFA INHALER INHALATION SCH ×4 (00:40→13:32)
[2023-04-14 05:22] VITALS: RESP 18
[2023-04-14] MEDS ORDERED: LEVOTHYROXINE 88 MCG TAB PO SCH (06:30)
[2023-04-14] MEDS ORDERED: PANTOPRAZOLE 40 MG TABLET PO SCH (07:30)
[2023-04-14 08:41] LABS: ALT 119 U/L (4-34); AST 308 U/L (14-36); African American GFR (CKD) 35 (>60 ml/min/1.73 sqM); Alkaline Phosphatase 88 U/L (38-126); Anion Gap 11 mmol/L; Blood Urea Nitrogen 50 mg/dL (7-17); Calcium 7.2 mg/dL (8.4-10.2); Carbon Dioxide 24 mmol/L (22-30); Chloride 107 mmol/L (98-107); Glucose 92 mg/dL (74-99); Non-African American GFR(CKD) 30 (>60 ml/min/1.73 sqM); Potassium 3.6 mmol/L (3.5-5.1); Sodium 142 mmol/L (137-145); Total Bilirubin 2.1 mg/dL (0.2-1.3); Total Protein 4.4 g/dL (6.3-8.2)
[2023-04-14 08:50] LABS: Basophils # (A) 0.1 k/uL (0-0.2); Basophils % (A) 0 %; Eosinophils % (A) 0 %; HCT 33.9 % (34.0-46.0); HGB 10.5 gm/dL (11.4-16.0); Hypochromasia Marked; Lymphocytes # (A) 1.6 k/uL (1.0-4.8); Lymphocytes % (A) 9 %; MCH 29.6 pg (25.0-35.0); MCV 95.6 fL (80.0-100.0); Mean Platelet Volume 10.2; Monocytes # (A) 0.3 k/uL (0-1.0); Monocytes % (A) 2 %; Neutrophils # (A) 14.9 k/uL (1.3-7.7); Neutrophils % (A) 87 %; Platelet Count 182 k/uL (150-450); RBC 3.55 m/uL (3.80-5.40); RDW 15.9 % (11.5-15.5); WBC 17.1 k/uL (3.8-10.6)
[2023-04-14] MEDS ORDERED: hydrALAZINE HCL 50 MG TAB PO SCH (09:00)
[2023-04-14] MEDS ORDERED: MULTIVITAMINS, THERA 1 EACH TAB PO SCH (09:00)
[2023-04-14] MEDS ORDERED: PREGABALIN 75 MG CAP PO SCH (09:00)
[2023-04-14] MEDS ORDERED: LACTULOSE 20 GM/30 ML CUP PO SCH (09:00)
[2023-04-14] MEDS ORDERED: SENNOSIDES 8.6 MG TAB PO SCH (09:00)
[2023-04-14] MEDS ORDERED: CEFEPIME 2 GM in SODIUM CHLORIDE 0.9% 100 ML IVPB SCH (09:00)
[2023-04-14] MEDS ORDERED: LINAGLIPTIN 5 MG TABLET PO SCH (09:00)
--- NOTE | 2023-04-14 09:39 | US ---
EXAMINATION TYPE: US abdomen complete DATE OF EXAM: 04/14/2023 COMPARISON: 02/24/2023 CLINICAL INDICATION: Female, 87 years old with history of fever , elevated LFT; TECHNIQUE: Multiple sonographic images of the abdomen are obtained. FINDINGS: EXAM MEASUREMENTS: Liver Length: 14.2 cm Gallbladder Wall: Surgically absent CBD: 0.8 cm Spleen: 7.6 cm Right Kidney: 9.1 x 4.1 x 4.7 cm Left Kidney: 10.3 x 4.9 x 4.1 cm IT DESKTOP SUPPORT TECHNICIAN NOTES: Technical limitations due to patient's body habitus and large amount of overlyin g bowel gas Pancreas: Obscured by bowel gas Liver: appears wnl Gallbladder: Surgically absent Evidence for sonographic Carrizales's sign: no CBD: wnl Spleen: wnl Right Kidney: Inferior pole obscured by bowel gas Left Kidney: anechoic area mid = 1.9cm Upper IVC: wnl Abd Aorta: Obscured by overlying bowel gas The liver is homogenous. The intrahepatic portion of the IVC and proximal abdominal aorta are within normal limits. There is no evidence of cholelithiasis. Common bile duct is unremarkable. The visu alized portions of the pancreas are homogenous. The spleen is unremarkable. Kidneys are symmetric a nd free of hydronephrosis. No renal lesions are seen. IMPRESSION: No evidence for acute abdominal process.
[2023-04-14] MEDS: guaiFENesin 600 MG TABLET.ER PO SCH (09:49)
[2023-04-14] MEDS: METOPROLOL TARTRATE 50 MG TAB PO SCH (09:49)
[2023-04-14] MEDS: amLODIPine 2.5 MG TAB PO SCH ×2 (09:50→10:23)
[2023-04-14] MEDS: AZITHROMYCIN 500 MG in SODIUM CHLORIDE 0.9% 250 ML IVPB SCH (09:51)
[2023-04-14] MEDS: SODIUM CHLORIDE 0.9% 1,000 ML IV SCH (09:52)
[2023-04-14] MEDS: HYDROcodone/APAP 5-325MG 1 EACH TAB PO PRN ×2 (10:30→14:25)
[2023-04-14 10:44] VITALS: TEMP 98.1
--- NOTE | 2023-04-14 11:22 | CA ---
Transthoracic Echo Report Name: Geneva Royal Age: 87 Gender: F : 1935 Exam Date: 04/13/2023 15:39 Exam Location: [facility] Ht (in): 62 Wt (lb): 125 Ordering Physician: Brandy Acevedo Attending/Referring Phys: [id number], Kristina Continuous Dryout Operator Helper Genet Apodaca [facility] Procedure CPT: Indications: LV function, NSTEMI Cardiac Hx: Technical Quality: Technically difficult study Contrast 1: Total Dose (mL): Contrast 2: Total Dose (mL): MEASUREMENTS (Male / Female) Normal Values 2D ECHO LV Diastolic Volume MOD BP 40.8 cm??? 67 - 155 / 56 - 104 cm??? LV Systolic Volume MOD BP 16.6 cm??? 22 - 58 / 19 - 49 cm??? LV Ejection Fraction MOD BP 59.2 % >= 55 % LV Cardiac Index MOD BP 1846.2 cm???/min???m??? LV Diastolic Volume MOD 4C 36.0 cm??? LV Systolic Volume MOD 4C 14.4 cm??? LV Ejection Fraction MOD 4C 60.1 % LV Cardiac Index MOD 4C 1657.0 cm???/min???m??? LV Diastolic Length 4C 5.8 cm LV Systolic Length 4C 4.6 cm LV Diastolic Volume MOD 2C 45.8 cm??? LV Systolic Volume MOD 2C 17.8 cm??? LV Ejection Fraction MOD 2C 61.1 % LV Cardiac Index MOD 2C 2141.3 cm???/min???m??? LV Diastolic Length 2C 5.6 cm LV Systolic Length 2C 5.1 cm DOPPLER Mitral E Point Velocity 107.3 cm/s MV Deceleration Time 155.3 ms LV E' Lateral Velocity 7.4 cm/s Mitral E to LV E' Lateral Ratio 14.6 LV E' Septal Velocity 5.7 cm/s Mitral E to LV E' Septal Ratio 18.9 FINDINGS Left Ventricle Moderately increased left ventricular wall thickness. Low normal left ventricular systolic function with no obvious regional wall motion abnormalities. Left ventricular ejection fraction is estimated at 55-60%. Right Ventricle Right Atrium Left Atrium Mitral Valve Aortic Valve Tricuspid Valve Pulmonic Valve Pericardium No pericardial effusion. Aorta CONCLUSIONS Limited for LV function/ NSTEMI, patient is COVID+ Left ventricular ejection fraction 55-60% Moderate increased left ventricular wall thickness Previewed by: Dr. Gilberto Cordova DO (Electronically Signed) Final Date: 14 April 2023 11:22
--- NOTE | 2023-04-14 13:16 | P.PN ---
Subjective HISTORY OF PRESENT ILLNESS: This is a 87-year-old female with a past medical history significant for persistent atrial fibrillation, GI bleeding, hyperlipidemia, and hypertension. Patient follows in the office with Dr. Barksdale. We have been asked to see the patient in consultation for abnormal troponins. Patient examined at the bedside in the emergency room. Patient is lethargic and unable to provide much history at the time of examination. Patient's daughter is present at the bedside. Patient was brought to the hospital secondary to altered mental status and hypoxia at her [facility]. According to the ER documentation, the patient has been declining over the past few weeks at the [facility] and is no longer receiving physical therapy due to her decline. She is also not been eating or drinking much per the patient's daughter. The patient was found to be positive for Covid. At the time of examination, the patient denies chest pain or pressure. Denies shortness of breath. Telemetry reveals atrial fibrillation with RVR with heart rate ranging between [id number] at the time of examination. Patient's blood pressure is also low with a systolic in the 70s. * EKG reveals atrial fibrillation with a heart rate of 102. * Chest xray there appears to be some left basilar and retrocardiac atelectasis and/or consolidation * Laboratory data: WBC 6.1. Hemoglobin 12.8. Platelet count 192. Sodium 143. Potassium 3.7. BUN 32. Creatinine 0.88. Troponin 5.110. * Current home cardiac medications include simvastatin 20 mg at night, amlodipine 2.5 mg daily, metoprolol titrate 50 mg twice a day, hydralazine 100 mg twice a day * Most recent echocardiogram obtained in February 2023 revealed ejection fraction 55-60%, mild pulmonary hypertension, mild to moderate mitral regurgitation, moderate tricuspid regurgitation * Patient underwent Sherrie scan stress test in September 2021 which was negative for ischemia 04/14/2023 Patient examined this morning at the bedside. Her mental status improved somewhat improved today. Patient received IV fluid bolus yesterday with improvement in her blood pressure. Most recent blood pressure 94/85. Heart rates are better controlled today [place] [address]. Echocardiogram completed revealing ejection fraction 55-60% PHYSICAL EXAM: VITAL SIGNS: Reviewed. GENERAL: Well-developed in no acute distress. HEENT: Head is normocephalic. Pupils are equal, round. Sclerae anicteric. Mucous membranes of the mouth are moist. Neck supple. No JVD or thyromegaly LUNGS: Respirations even and unlabored. Lungs essentially clear to auscultation bilaterally. HEART: Tachycardic. Irregular rate and rhythm. S1 and S2 heard. ABDOMEN: Soft. Nondistended. Nontender. EXTREMITIES: Normal range of motion. No clubbing or cyanosis. Peripheral pulses intact. No lower extremity edema NEUROLOGIC: Lethargic ASSESSMENT: Altered mental status Acute hypoxic respiratory failure Acute Covid 19 Non-STEMI Persistent atrial fibrillation with RVR, not on anticoagulation outpatient secondary to GI bleeding Hypotension History of GI bleeding History of hypertension History of hyperlipidemia Recent left psoas muscle fluid collection, status post CT guided drainage tube, February 2023 PLAN: No IV heparin at this time secondary to patient condition Patient is not a candidate for any invasive procedures at this time Recommend comfort care/palliative care due to patients current condition and recent decline No further inpatient recommendations from a cardiac standpoint We will sign off. Please reconsult if needed. Nurse practitioner note has been reviewed by physician. Signing provider agrees with the documented findings, assessment, and plan of care. Objective - Vital Signs Vital signs: Vital Signs Temp 98.1 F 04/14/23 09:39 Pulse 110 H 04/14/23 09:40 Resp 18 04/14/23 09:39 BP 94/85 04/14/23 09:39 Pulse Ox 99 04/14/23 09:39 FiO2 Intake & Output 04/13/23 04/14/23 04/14/23 18:59 06:59 18:59 Intake Total 800 Output Total 0 Balance 800 0 Weight 56.699 kg Intake: Intake, IV Titration 800 Amount Sodium Chloride 0.9% 1, 300 000 ml @ 75 mls/hr IV . [id number] NITHYA Rx#:[id number] Sodium Chloride 0.9% 250 250 ml @ 999 mls/hr IV .Q16M ONE Rx#:[id number] Sodium Chloride 0.9% 250 250 ml @ 999 mls/hr IV .Q16M NITHYA Rx#:[id number] Output: Urine 0 Other: # Voids 1 1 # Bowel Movements 0 0 - Labs CBC & Chem 7: 04/14/23 07:56 04/14/23 07:56 Labs: Abnormal Lab Results - Last 24 Hours (Table) 04/13/23 04/13/23 04/14/23 Range/Units 05:01 05:01 07:56 WBC 17.1 H (3.8-10.6) k/uL RBC 3.55 L (3.80-5.40) m/uL Hgb 10.5 L (11.4-16.0) gm/dL Hct 33.9 L (34.0-46.0) % RDW 15.9 H (11.5-15.5) % Neutrophils # 14.9 H (1.3-7.7) k/uL BUN (7-17) mg/dL Creatinine (0.52-1.04) mg/dL Calcium (8.4-10.2) mg/dL Total Bilirubin (0.2-1.3) mg/dL AST (14-36) U/L ALT (4-34) U/L C-Reactive Protein 44.9 H (<1.0) mg/dL Total Protein (6.3-8.2) g/dL Albumin (3.5-5.0) g/dL Procalcitonin 2.21 H (0.02-0.09) ng/mL 04/14/23 Range/Units 07:56 WBC (3.8-10.6) k/uL RBC (3.80-5.40) m/uL Hgb (11.4-16.0) gm/dL Hct (34.0-46.0) % RDW (11.5-15.5) % Neutrophils # (1.3-7.7) k/uL BUN 50 H (7-17) mg/dL Creatinine 1.52 H (0.52-1.04) mg/dL Calcium 7.2 L (8.4-10.2) mg/dL Total Bilirubin 2.1 H (0.2-1.3) mg/dL AST 308 H (14-36) U/L ALT 119 H (4-34) U/L C-Reactive Protein (<1.0) mg/dL Total Protein 4.4 L (6.3-8.2) g/dL Albumin 2.0 L (3.5-5.0) g/dL Procalcitonin (0.02-0.09) ng/mL
[2023-04-14 14:00] VITALS: BP 96/61; PULSE 91
[2023-04-14] MEDS ORDERED: HYDROcodone/APAP 7.5-325MG 1 EACH TAB PO PRN (14:48)
--- NOTE | 2023-04-14 15:42 | P.DS ---
Providers Date of admission: 04/13/23 08:37 Expected date of discharge: 04/14/23 Attending physician: Danay Montano Consults: 04/13/23 08:37 Consult Physician Routine Consulting Provider: Tyson Soria Consult Reason/Comments: pneumonia - recent bacteremia Do you want consulting provider notified?: Yes Primary care physician: Nayla Beckford DO Hospital Course: Final diagnosis Acute COVID-19 with acute hypoxic respiratory failure, currently on 3 L Acute metabolic encephalopathy likely secondary to dehydration and poor oral intake NSTEMI Atrial fibrillation with rapid ventricular rate with history of persistent A. fib not on anticoagulation given patient's age and risk factors History of hypertension, currently hypotensive and hypovolemic History of GI bleeding Hyperlipidemia Hypothyroidism Chronic back pain with recent L4 fracture repair in November 2022 with left psoas muscle hematoma with drainage placement GI prophylaxis DVT prophylaxis No code Discharge disposition Patient is being transferred in a stable condition with poor and guarded prognosis to [facility] meets GIP criteria. Total time taken is greater than 35 minutes. Hospital course This is a 87-year-old female who was recently admitted from [facility] with increased shortness of breath and weakness and not eating found to have COVID-19 and being closely monitored. Patient was initiated on antibiotic therapy with infectious disease following with concerns of underlying infection as well as Covid. Patient continued to show clinical decline and per family has been declining over the last few months since her back surgery in November. Patient has been in and out of [facility] since December and continue to decline. Patient family discussion was had and would like to make their mother comfortable and patient is agreeable as well. Patient does have no CODE STATUS and [facility] hosp[facility] was consulted and met with the family and they are agreeable. Patient will be flipped to GIP criteria inpatient [facility] services. Currently no reports of chest pain, shortness of breath, or palpitations. Patient is afebrile. No reports of nausea or vomiting and patient is tolerating very little oral intake and has no appetite. Patient is reporting severe left leg pain and back pain as well. Given patient's significant comorbidities and age, overall prognosis is poor. Patient will be placed on comfort care measures only. Please refer to other consultation notes for further HPI. Physical exam: Gen: This is a 87-year-old female who is extremely lethargic although arousable, alert and oriented 3, well-developed, elderly appearing, ill appearing HEENT: Head is atraumatic, normocephalic. Pupils equal, round. Sclerae is anicteric. NECK: Supple. No JVD. No lymphadenopathy. No thyromegaly. LUNGS: Diminished breath sounds bilaterally otherwise Clear to auscultation. No wheezes or rhonchi. No intercostal retractions. HEART: S1, S2 are muffled ABDOMEN: Soft. Obese. Bowel sounds are present. No masses. No tenderness. EXTREMITIES: No pedal edema. No calf tenderness. Mild left lower extremity swelling and severe sensitivity to any type of palpation on exam NEUROLOGICAL: Patient is awake, alert and oriented x3. Diffusely weak Please refer to medication reconciliation sheet for a list of medications. The impression and plan of care has been dictated by Jyoti Pereyra, Nurse Practitioner as directed. Dr. Gil MD I have performed a history and examination and MDM of this patient, discussed the same with the dictator, and agree with the dictator's assessment and plan as written ,documented as a scribe. Based on total visit time, I have performed more than 50% of the visit. Patient Condition at Discharge: Critical Plan - Discharge Summary Discharge Rx Participant: No New Discharge Prescriptions: No Action calcitrioL [Calcitriol] 0.25 mcg PO MOTUWETHFR Ascorbic Acid [Vitamin C] 1,500 mg PO HS hydrALAZINE HCL [Apresoline] 100 mg PO BID Metoprolol Tartrate [Lopressor] 50 mg PO BID Sennosides [Senokot] 8.6 mg PO BID HYDROcodone/APAP 5-325MG [[place] 5-325] 1 tab PO Q4HR PRN #10 tab PRN Reason: Pain Pregabalin [Lyrica] 75 mg PO BID #5 cap Ferrous Sulfate [Iron (65 MG Elemental)] 325 mg PO HS guaiFENesin [guaiFENesin ER] 600 mg PO Q12H Ipratropium-Albuterol Nebulize [Duoneb 0.5 mg-3 mg/3 ml Soln] 3 ml INHALATION RT-Q4H Lactulose [Cephulac] 30 gm PO DAILY Mag Hydrox/Aluminum Hyd/Simeth [Mylanta Maximum Strength Liq] 30 ml PO Q8H PRN PRN Reason: Gi Upset Cholecalciferol [Vitamin D3 (25 Mcg = 1000 Iu)] 25 mcg PO DAILY Simvastatin [Zocor] 20 mg PO HS amLODIPine [Norvasc] 2.5 mg PO DAILY Multivitamins, Thera [Multivitamin (formulary)] 1 tab PO DAILY Pantoprazole [Protonix] 40 mg PO BID sitaGLIPtin [Januvia] 100 mg PO DAILY Escitalopram [Lexapro] 5 mg PO DAILY Levothyroxine Sodium [Synthroid] 175 mcg PO DAILY Discharge Medication List Cholecalciferol [Vitamin D3 (25 Mcg = 1000 Iu)] 25 mcg PO DAILY 11/15/22 [History] Simvastatin [Zocor] 20 mg PO HS 11/15/22 [History] amLODIPine [Norvasc] 2.5 mg PO DAILY 11/15/22 [History] calcitrioL [Calcitriol] 0.25 mcg PO MOTUWETHFR 11/15/22 [History] Ascorbic Acid [Vitamin C] 1,500 mg PO HS 12/20/22 [History] Metoprolol Tartrate [Lopressor] 50 mg PO BID 02/20/23 [History] Multivitamins, Thera [Multivitamin (formulary)] 1 tab PO DAILY 02/20/23 [History] Pantoprazole [Protonix] 40 mg PO BID 02/20/23 [History] Sennosides [Senokot] 8.6 mg PO BID 02/20/23 [History] hydrALAZINE HCL [Apresoline] 100 mg PO BID 02/20/23 [History] sitaGLIPtin [Januvia] 100 mg PO DAILY 02/20/23 [History] HYDROcodone/APAP 5-325MG [[place] 5-325] 1 tab PO Q4HR PRN #10 tab 02/27/23 [Rx] Pregabalin [Lyrica] 75 mg PO BID #5 cap 02/27/23 [Rx] Escitalopram [Lexapro] 5 mg PO DAILY 04/13/23 [History] Ferrous Sulfate [Iron (65 MG Elemental)] 325 mg PO HS 04/13/23 [History] Ipratropium-Albuterol Nebulize [Duoneb 0.5 mg-3 mg/3 ml Soln] 3 ml INHALATION RT-Q4H 04/13/23 [History] Lactulose [Cephulac] 30 gm PO DAILY 04/13/23 [History] Levothyroxine Sodium [Synthroid] 175 mcg PO DAILY 04/13/23 [History] Mag Hydrox/Aluminum Hyd/Simeth [Mylanta Maximum Strength Liq] 30 ml PO Q8H PRN 04/13/23 [History] guaiFENesin [guaiFENesin ER] 600 mg PO Q12H 04/13/23 [History] Follow up Appointment(s)/Referral(s): Nayla Beckford DO [Primary Care Provider] - 1-2 days
--- NOTE | 2023-04-14 16:04 | P.PN ---
Subjective Progress Note Date: 04/14/23 Principal diagnosis: Reason for follow-up is COVID-19 and pneumonia Patient is a 87-year-old female with a past medical history significant for hypertension hyperlipidemia skin cancer atrial fibrillation recent multiple admission to the hospital initially with L4 vertebral fracture s/p surgical stabilization on 11/19/2022, patient not been brought to the hospital for evaluation of weakness decreased oral intake and cough patient did tested positive for COVID chest x-ray with retrocardiac infiltrate suspicion for possible secondary bacterial pneumonia. On today's evaluation that is 04/14/2023, the patient did spike a fever last evening of 101 F, the patient is afebrile this morning the patient remains to be lethargic though arousable did not answer any question no vomiting diarrhea or any other changes reported patient is currently on the 2 L nasal cannula oxy gen. Patient did have white count of 17.1, creatinine is 1.52 liver enzymes mildly elevated procalcitonin is 2.21 Objective - Vital Signs Vital signs: Vital Signs Temp 98.1 F 04/14/23 09:39 Pulse 110 H 04/14/23 09:40 Resp 18 04/14/23 09:39 BP 94/85 04/14/23 09:39 Pulse Ox 99 04/14/23 09:39 FiO2 Intake & Output 04/13/23 04/14/23 04/14/23 18:59 06:59 18:59 Intake Total 800 Output Total 0 Balance 800 0 Weight 56.699 kg Intake: Intake, IV Titration 800 Amount Sodium Chloride 0.9% 1, 300 000 ml @ 75 mls/hr IV . [id number] [facility] Rx#:[id number] Sodium Chloride 0.9% 250 250 ml @ 999 mls/hr IV .Q16M ONE Rx#:[id number] Sodium Chloride 0.9% 250 250 ml @ 999 mls/hr IV .Q16M [facility] Rx#:[id number] Output: Urine 0 Other: # Voids 1 1 # Bowel Movements 0 0 - Exam GENERAL DESCRIPTION: An elderly female lying in bed in no distress RESPIRATORY SYSTEM: Unlabored breathing , decreased breath sounds at bases HEART: S1 S2 regular rate and rhythm , ABDOMEN: Soft , no tenderness EXTREMITIES: No edema feet - Labs CBC & Chem 7: 04/14/23 07:56 04/14/23 07:56 Labs: Abnormal Lab Results - Last 24 Hours (Table) 04/13/23 04/13/23 04/14/23 Range/Units 05:01 05:01 07:56 WBC 17.1 H (3.8-10.6) k/uL RBC 3.55 L (3.80-5.40) m/uL Hgb 10.5 L (11.4-16.0) gm/dL Hct 33.9 L (34.0-46.0) % RDW 15.9 H (11.5-15.5) % Neutrophils # 14.9 H (1.3-7.7) k/uL BUN (7-17) mg/dL Creatinine (0.52-1.04) mg/dL Calcium (8.4-10.2) mg/dL Total Bilirubin (0.2-1.3) mg/dL AST (14-36) U/L ALT (4-34) U/L C-Reactive Protein 44.9 H (<1.0) mg/dL Total Protein (6.3-8.2) g/dL Albumin (3.5-5.0) g/dL Procalcitonin 2.21 H (0.02-0.09) ng/mL 04/14/23 Range/Units 07:56 WBC (3.8-10.6) k/uL RBC (3.80-5.40) m/uL Hgb (11.4-16.0) gm/dL Hct (34.0-46.0) % RDW (11.5-15.5) % Neutrophils # (1.3-7.7) k/uL BUN 50 H (7-17) mg/dL Creatinine 1.52 H (0.52-1.04) mg/dL Calcium 7.2 L (8.4-10.2) mg/dL Total Bilirubin 2.1 H (0.2-1.3) mg/dL AST 308 H (14-36) U/L ALT 119 H (4-34) U/L C-Reactive Protein (<1.0) mg/dL Total Protein 4.4 L (6.3-8.2) g/dL Albumin 2.0 L (3.5-5.0) g/dL Procalcitonin (0.02-0.09) ng/mL Assessment and Plan (1) COVID Status: Acute Code(s): U07.1 - COVID-19 SNOMED Code(s): 466335678 (2) Pneumonia Status: Acute Code(s): J18.9 - PNEUMONIA, UNSPECIFIED ORGANISM SNOMED Code(s): 138008507 Plan: 1-Patient is a 87-year female presented to hospital with weakness patient did have low-grade fever hypertension concerning for sepsis in this patient who tested positive for COVID-19 and a question of possible secondary bacterial pneumonia, patient also noticed to have elevated liver enzymes underlying abdominal etiology needs to rule out 2-patient with multiple antibiotic ALLERGIES that would limit the number of antibiotic safe to use 3patient did have elevated CRP and a procalcitonin concerning for possible secondary bacterial pneumonia. 4patient to continue with the cefepime while waiting for the culture to finalize Family at the bedside questions were answered Dictation was produced using [employer] dictation software. please excuse any grammatical, word or spelling errors. Time with Patient: Less than 30
[2023-04-14] MEDS ORDERED: ATORVASTATIN 10 MG TAB PO SCH (21:00)
[2023-04-14] MEDS ORDERED: FERROUS SULFATE 325 MG TAB PO SCH (21:00)
[2023-04-14] MEDS ORDERED: ASCORBIC ACID 500 MG TAB PO SCH (21:00)
== END 2023-04-14 15:45 | disposition hospice, inpatient (51) | DRG 177 ==
LOC: EC 04:10 → 3SCARD 08:37 → 4SSUR 15:08 → 3SCARD 17:43
PROVIDERS: ADMIT Hospitalist; ATTEND Hospitalist
DX: U07.1 COVID-19 (principal); G93.41 Metabolic encephalopathy; J96.01 Acute respiratory failure with hypoxia; I21.4 Non-ST elevation (NSTEMI) myocardial infarction; J15.9 Unspecified bacterial pneumonia; I48.19 Other persistent atrial fibrillation; I95.9 Hypotension, unspecified; D72.810 Lymphocytopenia; E03.9 Hypothyroidism, unspecified; S70.02XA Contusion of left hip, initial encounter; Z51.5 Encounter for palliative care; Z66 Do not resuscitate; I10 Essential (primary) hypertension; G89.29 Other chronic pain; S32.049D Unspecified fracture of fourth lumbar vertebra, subsequent encounter for fracture with routine healing; E86.0 Dehydration; E86.1 Hypovolemia; E78.5 Hyperlipidemia, unspecified; M54.9 Dorsalgia, unspecified; Z79.890 Hormone replacement therapy; Z79.84 Long term (current) use of oral hypoglycemic drugs; Z79.899 Other long term (current) drug therapy; Z85.828 Personal history of other malignant neoplasm of skin; Z96.653 Presence of artificial knee joint, bilateral; Z88.1 Allergy status to other antibiotic agents; Z88.0 Allergy status to penicillin; Z88.2 Allergy status to sulfonamides; Z88.8 Allergy status to other drugs, medicaments and biological substances
CPT/HCPCS: 36415; 71045; 76700; 80053; 84145; 84484; 85025; 85610; 85730; 86140; 87636; 93005; 93308; 94640; 96361; 96365; 96367; 96375; 99285

== ENCOUNTER 2023-04-14 14:56 | Inpatient (IN) | payer MEDICAID ==
[2023-04-14] MEDS ORDERED: ATROPINE OPHTH SOLN 1% 5ML BTL SUBLINGUAL PRN (15:38)
[2023-04-14] MEDS ORDERED: DRY MOUTH SPRAY 44.3 SPRAY/44.3 ML SPRAY MUCOUS MEM PRN (15:38)
[2023-04-14] MEDS ORDERED: LORazepam 2 MG/ML INJ IV PRN (15:38)
[2023-04-14] MEDS ORDERED: ACETAMINOPHEN TAB 325 MG TAB PO PRN (15:38)
[2023-04-14] MEDS ORDERED: MORPHINE SULFATE 2 MG/ML SYRINGE IV PRN (15:38)
[2023-04-14] MEDS ORDERED: GLYCOPYRROLATE 0.2 MG/ML 2 ML VIAL IVP PRN (15:38)
[2023-04-14] MEDS ORDERED: ONDANSETRON 4 MG/2 ML VIAL IVP PRN (15:38)
[2023-04-14] MEDS ORDERED: SCOPOLAMINE 1 MG/72 HR PATCH TRANSDERM SCH (15:45)
[2023-04-14] MEDS: MORPHINE SULFATE (100 MG/2 ML) 100 MG in SODIUM CHLORIDE 0.9% 100 ML IV SCH (16:48)
[2023-04-14 18:12] VITALS: BP 82/51
--- NOTE | 2023-04-15 04:35 | P.HPIM ---
History of Present Illness H&P Date: 04/14/23 This is a 87-year-old female who presented to the emergency department with increased shortness of breath with weakness and lethargy and had not been eating since Monday. Patient was tested positive for Covid and is currently maintained on 3 L of oxygen via nasal cannula. Patient does not normally wear oxygen outpatient. Patient also having elevated troponin of 5.110 and have consulted cardiology for further evaluation. Patient is a Dr. Slaughter patient in the outpatient setting although has been being followed by Dr. Beckford at [facility] since her back surgery in November. Patient has had numerous complications including bacteremia and multiple hospitalizations and steady de handy over the past few weeks. Patient has been progressively become more weak with significant muscle wasting and difficulty ambulating and was receiving [facility] although they have stopped due to her decline. Patient's daughters at the bedside reports she was at a [employer] democrat last week and doing well and had been showing some improvements other than her left lower extremity being severely weak making it difficult to ambulate and work with physical therapy but has been rapidly declining since Monday and progressively getting worse. Patient does have a significant past medical history of atrial fibrillation, hyperlipidemia, hypertension, skin cancer, back pain, thyroid disorder, hyperlipidemia, hypothyroidism and recent back surgery for L4 fracture with psoas muscle hematoma and recent bacteremia. Patient was initiated on antibiotics in the ER and admitted for COVID-19 with weakness and dehydration. 04/14/2023 Patient seen in follow up today and multiple family members present and lengthy discussion was had about overall prognosis and family would like to keep the patient comfortable and she is reporting increased pain in the left leg. Patient has had continued decline with multiple hospitalizations and reports that overnight she has not had any significant improvements. Patient is extremely lethargic although does report no shortness of breath, chest pain and does report significant back and buttock pain with leg pain. Hospice informational was consulted and family met with the current hospice at bedside and have agreed to sign on with comfort measures. Patient will be GIP appropriate and will be started on comfort measures. Multiple questions and concerns were answered to the best of our ability. Review of systems: Constitutional: reports of fatigue, no fever, or chills Cardiovascular: No reports of chest pain or palpitations Respiratory: No reports of shortness of breath or cough GI: No reports of nausea, vomiting, or diarrhea, reports not much of an appetite and does not feel hungry : No reports of dysuria or retention Neurovascular: reports of weakness and continued left lower extremity pain as well as back pain All medications have been reviewed PHYSICAL EXAMINATION: GENERAL: The patient is extremely lethargic although alert and oriented x3, Well developed, ill-appearing, elderly appearing. HEENT: Pupils are round and equally reacting to light. EOMI. no scleral icterus. No conjunctival pallor. Normocephalic, atraumatic. No pharyngeal erythema. No thyromegaly. CARDIOVASCULAR: S1 and S2 muffled PULMONARY: diminished breath sounds bilaterally with no wheezing or rhonchi noted. ABDOMEN: soft. Nontender on exam. obese. non-distended, normoactive bowel sounds. No palpable organomegaly. MUSCULOSKELETAL: No joint swelling or deformity. EXTREMITIES: No cyanosis, clubbing, or pedal edema. Left lower extremity extremely sensitive to touch and movement NEUROLOGICAL: Gross neurological examination did not reveal any focal deficits. Diffuse weakness SKIN: No rashes. Assessment: Acute COVID-19 with acute hypoxic respiratory failure, currently on 3 L Acute metabolic encephalopathy likely secondary to dehydration and poor oral intake NSTEMI Atrial fibrillation with rapid ventricular rate with history of persistent A. fib not on anticoagulation given patient's age and risk factors, currently rate controlled History of hypertension, currently hypotensive and hypovolemic History of GI bleeding Hyperlipidemia Hypothyroidism Chronic back pain with recent L4 fracture repair in November 2022 with left psoas muscle hematoma with drainage placement GI prophylaxis DVT prophylaxis Full code Plan: Recommend to continue with current medications and management and supportive care. Patient has not with multiple family members with [facility] and be GIP criteria and agreeable to comfort measures only. We will continue to follow along with hospice The impression and plan of care has been dictated by Jyoti Pereyra, nurse practitioner as directed. Dr. Gil MD I have performed a history and examination and MDM of this patient, discussed the same with the dictator, and agree with the dictator's assessment and plan as written ,documented as a scribe. Based on total visit time, I have performed more than 50% of the visit. Any additional findings or plans will be noted. Past Medical History Past Medical History: Atrial Fibrillation, Cancer, Hyperlipidemia, Hypertension, Thyroid Disorder Additional Past Medical History / Comment(s): BACK PAIN, SKIN CANCER, L4 fracture History of Any Multi-Drug Resistant Organisms: None Reported Past Surgical History: Appendectomy, Back Surgery, Cholecystectomy, Joint Replacement, Tonsillectomy Additional Past Surgical History / Comment(s): ELYSE TOTAL KNEE SURG, CARPAL TUNN EL, OOPHERECTOMY, SKIN LESION -VAGANIA, RIGHT FOOT SURGERY Past Anesthesia/Blood Transfusion Reactions: No Reported Reaction Past Psychological History: No Psychological Hx Reported Smoking Status: Never smoker Past Alcohol Use History: Occasional Past Drug Use History: None Reported - Past Family History Son(s) Family Medical History: Cancer Additional Family Medical History / Comment(s): SARCOMA Medications and Allergies Home Medications Medication Instructions Recorded Confirmed Type Cholecalciferol [Vitamin D3 (25 25 mcg PO DAILY 11/15/22 04/14/23 History Mcg = 1000 Iu)] Simvastatin [Zocor] 20 mg PO HS 11/15/22 04/14/23 History amLODIPine [Norvasc] 2.5 mg PO DAILY 11/15/22 04/14/23 History calcitrioL [Calcitriol] 0.25 mcg PO MOTUWETHFR 11/15/22 04/14/23 History Ascorbic Acid [Vitamin C] 1,500 mg PO HS 12/20/22 04/14/23 History Metoprolol Tartrate [Lopressor] 50 mg PO BID 02/20/23 04/14/23 History Multivitamins, Thera [Multivitamin 1 tab PO DAILY 02/20/23 04/14/23 History (formulary)] Pantoprazole [Protonix] 40 mg PO BID 02/20/23 04/14/23 History Sennosides [Senokot] 8.6 mg PO BID 02/20/23 04/14/23 History hydrALAZINE HCL [Apresoline] 100 mg PO BID 02/20/23 04/14/23 History sitaGLIPtin [Januvia] 100 mg PO DAILY 02/20/23 04/14/23 History HYDROcodone/APAP 5-325MG [[place] 1 tab PO Q4HR PRN #10 tab 02/27/23 04/14/23 Rx 5-325] Pregabalin [Lyrica] 75 mg PO BID #5 cap 02/27/23 04/14/23 Rx Escitalopram [Lexapro] 5 mg PO DAILY 04/13/23 04/14/23 History Ferrous Sulfate [Iron (65 MG 325 mg PO HS 04/13/23 04/14/23 History Elemental)] Ipratropium-Albuterol Nebulize 3 ml INHALATION RT-Q4H 04/13/23 04/14/23 History [Duoneb 0.5 mg-3 mg/3 ml Soln] Lactulose [Cephulac] 30 gm PO DAILY 04/13/23 04/14/23 History Levothyroxine Sodium [Synthroid] 175 mcg PO DAILY 04/13/23 04/14/23 History Mag Hydrox/Aluminum Hyd/Simeth 30 ml PO Q8H PRN 04/13/23 04/14/23 History [Mylanta Maximum Strength Liq] guaiFENesin [guaiFENesin ER] 600 mg PO Q12H 04/13/23 04/14/23 History Allergies Allergy/AdvReac Type Severity Reaction Status Date / Time baclofen Allergy Swelling Verified 04/13/23 09:45 OF LIPS AND TONGUE cephalexin [From Keflex] Allergy Rash/Hives Verified 04/13/23 09:45 ciprofloxacin [From Cipro] Allergy Rash/Hives Verified 04/13/23 09:45 Penicillins Allergy Rash/Hives Verified 04/13/23 09:45 Sulfa (Sulfonamide Allergy Rash/Hives Verified 04/13/23 09:45 Antibiotics) tizanidine Allergy Swelling Verified 04/13/23 09:45 OF LIPS AND TONGUE Physical Exam Vitals: Vital Signs Pulse Resp BP Pulse Ox 04/15/23 03:57 101 H 12 04/15/23 00:05 94 16 04/14/23 20:00 90 15 04/14/23 16:55 87 17 82/51 99 Intake and Output 04/14/23 04/14/23 04/15/23 14:59 22:59 06:59 Intake Total 6.375 33.864 Balance 6.375 33.864 Intake: Intake, IV Titration 6.375 33.864 Amount Morphine Sulfate (100 mg/ 6.375 33.864 2 ml) 100 mg In Sodium Chloride 0.9% 100 ml @ 1 MG/HR 1.02 mls/hr IV . Q24H [facility] Rx#:[id number] Other: Voiding Method External Catheter Weight 56 kg
[2023-04-15] MEDS: MORPHINE SULFATE (100 MG/2 ML) 100 MG in SODIUM CHLORIDE 0.9% 100 ML IV SCH ×2 (10:30→18:57)
[2023-04-15 15:38] VITALS: PULSE 88; RESP 14
--- NOTE | 2023-04-16 13:28 | P.DS ---
Providers Date of admission: 04/14/23 15:46 Expected date of discharge: 04/15/23 Attending physician: Priyanka Cordero Primary care physician: Nayla Beckford DO Hospital Course: Preliminary cause of COVID-19 pneumonia Final diagnosis Acute COVID-19 with acute hypoxic respiratory failure, currently on 3 L Acute metabolic encephalopathy likely secondary to dehydration and poor oral intake NSTEMI Atrial fibrillation with rapid ventricular rate with history of persistent A. fib not on anticoagulation given patient's age and risk factors, currently rate controlled History of hypertension, currently hypotensive and hypovolemic Unstageable decubitus ulcer, present on admission History of GI bleeding Hyperlipidemia Hypothyroidism Chronic back pain with recent L4 fracture repair in November 2022 with left psoas muscle hematoma with drainage placement GI prophylaxis DVT prophylaxis No code Discharge disposition Patient has . According to nursing documentation, time is 1915 on 04/15/2023 with family present well-maintained comfort measures [facility] hospice. Total time 35 minutes. Hospital course This is an 87-year-old female who was brought to the hospital with increasing shortness of breath and weakness found to have COVID-19 and has had general decline. Patient has been in and out of [facility] for the last few months status post back surgery and has continued to decline. Patient with nonhealing decubitus ulcer has been receiving wound care in the outpatient setting. Patient continued with uncontrolled pain also with hypotension and atrial fibrillation with RVR. Patient was not eating or drinking family had met with [facility] hospice. Patient met inpatient criteria and was continued on comfort measures GIP. Patient 1915 on 04/15/2023. Please refer to other documentation for further HPI. The impression and plan of care has been dictated by Jyoti Pereyra, Nurse Practitioner as directed. Dr. Joan MD I have performed a history and examination and MDM of this patient, discussed the same with the dictator, and agree with the dictator's assessment and plan as written ,documented as a scribe. Based on total visit time, I have performed more than 50% of the visit. Patient Condition at Discharge: Poor Plan - Discharge Summary New Discharge Prescriptions: No Action calcitrioL [Calcitriol] 0.25 mcg PO MOTUWETHFR Ascorbic Acid [Vitamin C] 1,500 mg PO HS hydrALAZINE HCL [Apresoline] 100 mg PO BID Metoprolol Tartrate [Lopressor] 50 mg PO BID Sennosides [Senokot] 8.6 mg PO BID HYDROcodone/APAP 5-325MG [[place] 5-325] 1 tab PO Q4HR PRN #10 tab PRN Reason: Pain Pregabalin [Lyrica] 75 mg PO BID #5 cap Ferrous Sulfate [Iron (65 MG Elemental)] 325 mg PO HS guaiFENesin [guaiFENesin ER] 600 mg PO Q12H Ipratropium-Albuterol Nebulize [Duoneb 0.5 mg-3 mg/3 ml Soln] 3 ml INHALATION RT-Q4H Lactulose [Cephulac] 30 gm PO DAILY Mag Hydrox/Aluminum Hyd/Simeth [Mylanta Maximum Strength Liq] 30 ml PO Q8H PRN PRN Reason: Gi Upset Cholecalciferol [Vitamin D3 (25 Mcg = 1000 Iu)] 25 mcg PO DAILY Simvastatin [Zocor] 20 mg PO HS amLODIPine [Norvasc] 2.5 mg PO DAILY Multivitamins, Thera [Multivitamin (formulary)] 1 tab PO DAILY Pantoprazole [Protonix] 40 mg PO BID sitaGLIPtin [Januvia] 100 mg PO DAILY Escitalopram [Lexapro] 5 mg PO DAILY Levothyroxine Sodium [Synthroid] 175 mcg PO DAILY Discharge Medication List Cholecalciferol [Vitamin D3 (25 Mcg = 1000 Iu)] 25 mcg PO DAILY 11/15/22 [History] Simvastatin [Zocor] 20 mg PO HS 11/15/22 [History] amLODIPine [Norvasc] 2.5 mg PO DAILY 11/15/22 [History] calcitrioL [Calcitriol] 0.25 mcg PO MOTUWETHFR 11/15/22 [History] Ascorbic Acid [Vitamin C] 1,500 mg PO HS 12/20/22 [History] Metoprolol Tartrate [Lopressor] 50 mg PO BID 02/20/23 [History] Multivitamins, Thera [Multivitamin (formulary)] 1 tab PO DAILY 02/20/23 [History] Pantoprazole [Protonix] 40 mg PO BID 02/20/23 [History] Sennosides [Senokot] 8.6 mg PO BID 02/20/23 [History] hydrALAZINE HCL [Apresoline] 100 mg PO BID 02/20/23 [History] sitaGLIPtin [Januvia] 100 mg PO DAILY 02/20/23 [History] HYDROcodone/APAP 5-325MG [[place] 5-325] 1 tab PO Q4HR PRN #10 tab 02/27/23 [Rx] Pregabalin [Lyrica] 75 mg PO BID #5 cap 02/27/23 [Rx] Escitalopram [Lexapro] 5 mg PO DAILY 04/13/23 [History] Ferrous Sulfate [Iron (65 MG Elemental)] 325 mg PO HS 04/13/23 [History] Ipratropium-Albuterol Nebulize [Duoneb 0.5 mg-3 mg/3 ml Soln] 3 ml INHALATION RT-Q4H 04/13/23 [History] Lactulose [Cephulac] 30 gm PO DAILY 04/13/23 [History] Levothyroxine Sodium [Synthroid] 175 mcg PO DAILY 04/13/23 [History] Mag Hydrox/Aluminum Hyd/Simeth [Mylanta Maximum Strength Liq] 30 ml PO Q8H PRN 04/13/23 [History] guaiFENesin [guaiFENesin ER] 600 mg PO Q12H 04/13/23 [History] Discharge Disposition: - Preliminary Cause of Preliminary Cause of : COVID-19 pneumonia
== END 2023-04-15 21:30 | disposition expired | DRG 951 ==
LOC: 3SCARD 15:46
PROVIDERS: ADMIT Internal Medicine; ATTEND Internal Medicine
DX: Z51.5 Encounter for palliative care (principal); J12.82 Pneumonia due to coronavirus disease 2019; G93.41 Metabolic encephalopathy; I21.4 Non-ST elevation (NSTEMI) myocardial infarction; J96.01 Acute respiratory failure with hypoxia; U07.1 COVID-19; I48.19 Other persistent atrial fibrillation; E86.1 Hypovolemia; I10 Essential (primary) hypertension; E86.0 Dehydration; E03.9 Hypothyroidism, unspecified; E78.5 Hyperlipidemia, unspecified; L89.95 Pressure ulcer of unspecified site, unstageable; Z79.84 Long term (current) use of oral hypoglycemic drugs; Z79.890 Hormone replacement therapy; Z79.899 Other long term (current) drug therapy; Z85.828 Personal history of other malignant neoplasm of skin